=== PATIENT | female | born 1950 | race African-American/Black ===

== ENCOUNTER 2023-07-01 12:25 | Emergency (ER) | payer MEDICARE, MEDICAID, SELFPAY ==
[2023-07-01] VITALS (22 sets, daily range): BP systolic 127–178; BP diastolic 38–91; PULSE 60–86; RESP 10–22; TEMP 36.4; O2SAT 94–100
--- NOTE | 2023-07-01 | ECG_ITS ---
Measurements Intervals [place] Rate: 58 P: 69 HI: 208 QRS: 262 QRSD: 129 T: 61 QT: 397 QTc: 392 Interpretive Statements SINUS BRADYCARDIA RIGHT BUNDLE-BRANCH BLOCK Electronically Signed On 07-02-2023 13:03:03 MANAGER SOCIAL MEDIA by Zaid Argueta M.D.
--- NOTE | ~2023-07-01 | CT_ITS ---
EXAMINATION: CT brain wo con DATE: 07/01/2023 13:42 INDICATION: Weakness TECHNIQUE: Computed tomography (CT) of the head was performed without intravenous contrast. Sagittal and coronal reconstructions were performed. Automated exposure control and iterative reconstruction t echnique were employed. The dose-length product was 681.00 mGy-cm. COMPARISON: None FINDINGS: Encephalomalacia in the left frontotemporoparietal lobes and extending into the left thalamus, basal ganglia and overlying insula consistent with chronic infarct in the left middle cerebral artery vascu lar distribution. No acute intracranial hemorrhage, acute infarction or abnormal extra axial fluid co llection. There is mild scattered white matter hypoattenuation consistent with chronic small vessel i schemic disease. Symmetric prominence of the sulci consistent with mild age-appropriate diffuse cereb ral volume loss. Mild ex vacuo dilation of the left lateral ventricle.. Ventricles are otherwise norm al. No mass/mass effect. Mild mucosal thickening the right ethmoid and sphenoid sinuses. Additional m ucosal thickening and dependent layering fluid/mucus nearly filling the right maxillary sinus. Mucous retention cyst in the left frontal sinus. The orbits and mastoid air cells are normal. IMPRESSION: 1. Chronic large infarct involving the left middle cerebral artery vascular distribution of the left frontal, temporal and parietal lobes, left thalamus, basal ganglia and insula. No acute intracranial process. 2. Age-related changes including mild diffuse volume loss and mild scattered white matter hypoattenua tion consistent with chronic small vessel ischemic disease. 3. Sinus disease with layering fluid in the right maxillary sinus. Reviewed, dictated and finalized at location A. ET BRAIDER IMPRESSION: 1. Chronic large infarct involving the left middle cerebral artery vascular dis tribution of the left frontal, temporal and parietal lobes, left thalamus, basa l ganglia and insula. No acute intracranial process. 2. Age-related changes including mild diffuse volume loss and mild scattered wh ite matter hypoattenuation consistent with chronic small vessel ischemic diseas e. 3. Sinus disease with layering fluid in the right maxillary sinus.
--- NOTE | ~2023-07-01 | XR_ITS ---
XR chest 1V portable 07/01/2023 13:11 Indication: Weakness Procedure: AP portable chest Comparison: No prior studies for comparison. Findings: Status post median sternotomy for CABG. Heart size upper normal. No focal air space disease , pulmonary edema, pleural effusion or suspected pneumothorax. Impression: 1: No acute cardiopulmonary disease. Reviewed, dictated and finalized at location B. TEST WORKER Impression: 1: No acute cardiopulmonary disease.
[2023-07-01 13:05] LABS: Basophils Percent Auto 0.1 % (0.2-1.2); Hematocrit 28.5 % (37.0-47.0); Hemoglobin 8.3 g/dL (12.0-15.0); Immature Granulocyte Absolute 0.14 K/mm3 (0.00-0.031); Lymphocytes Absolute Auto 1.39 K/mm3 (0.9-3.2); Lymphocytes Percent Auto 10.4 % (18.3-44.2); Mean Corpuscular HGB Conc 29.1 g/dl (32-36); Mean Corpuscular Hemoglobin 29.4 pg (26-34); Mean Corpuscular Volume 101.1 fl (80-100); Mean Platelet Volume 9.1 fl (7.4-10.4); Monocytes Absolute Auto 1.1 K/mm3 (0.1-0.6); Neutrophils Absolute Auto 10.8 K/mm3 (1.3-6.7); Neutrophils Percent Auto 80.5 % (45.5-73.1); Nucleated Red Blood Cells Perc 0.1 % (0.0-0.2); Platelet Count Result 332 k/mm3 (150-375); Red Blood Count 2.82 M/mm3 (4.2-5.4); Red Cell Distribution Width 16.6 % (11.5-14.5); White Blood Count 13.4 K/mm3 (4.5-10.0)
[2023-07-01 13:08] LABS: Appearance Urine Turbid (Clear); Bilirubin Urine Negative (Negative); Blood Urine 2+ (Negative); Color Urine Yellow (Yellow); Glucose Urine UA Negative (Negative); Ketones Urine Negative (Negative); Nitrate Urine Negative (Negative); Protein Urine 3+ mg/dL (Negative); Specific Grav Ur 1.012 (1.001-1.035); Urobilinogen Urine 0.2 mg/dL (<2.0); pH Urine 5.5 (5.0-9.0)
[2023-07-01 13:09] LABS: Add Urine Microscopic? YES; Bacteria Urine Rare /hpf; Leukocyte Esterase Ur 3+ LEU/UL (Negative); Need Manual Microscopic Reviewed; Squamous Epithelial Cell Urine Moderate /hpf (Few); WBC Urine >100 /hpf
[2023-07-01 13:20] LABS: Alanine Aminotransferase 12 U/L (6-35); Albumin Level 3.2 g/dL (3.5-5.1); Alkaline Phosphatase 105 U/L (38-126); Anion Gap 8 mmol/L (8-16); Aspartate Amino Transferase 24 U/L (14-36); Bilirubin,Total 0.5 mg/dL (0.2-1.3); Blood Urea Nitrogen 82 mg/dL (7-17); Calcium 8.8 mg/dL (8.4-10.2); Carbon Dioxide 8 mmol/L (22-30); Chloride 116 mmol/L (98-107); Estimated CRCL calculation 10 ml/min; Estimated Glomerular Filt Rate 9; Glucose 92 mg/dL (65-110); Potassium 7.9 mmol/L (3.4-5.0); Sodium 132 mmol/L (137-145)
[2023-07-01 13:32] LABS: Influenza A QL RT-PCR Negative (Negative); Influenza B QL RT-PCR Negative (Negative); SARS-CoV-2 RNA PCR Positive (Negative)
--- NOTE | 2023-07-01 13:32 | PC.NURSE ---
Pt taken for CT at this time
--- NOTE | 2023-07-01 13:47 | PC.NURSE ---
Pt returned to room 19
[2023-07-01] MEDS: LACTATED RINGERS 1,000 ML 999 ML IV CONT (14:09)
--- NOTE | 2023-07-01 14:15 | ED.WEAKNESS ---
HPI - Weakness General Chief complaint: Weakness <Guera Fuchs APRN - Last Filed: 07/01/23 19:23> Stated complaint: abnormal labs <Guera Fuchs APRN - Last Filed: 07/01/23 19:23> Time Seen by Provider: 07/01/23 13:03 <Guera Fuchs APRN - Last Filed: 07/01/23 19:23> Source: patient <Guera Fuchs APRN - Last Filed: 07/01/23 19:23> Mode of arrival: ambulatory <Guera Fuchs APRN - Last Filed: 07/01/23 19:23> Limitations: no limitations <Guera Fuchs APRN - Last Filed: 07/01/23 19:23> History of Present Illness HPI Narrative: 73-year-old female from [facility] presents today for weakness. Her care home patient has positive COVID on June 14 and has declined since with a poor appetite. Per patient she states she has not felt good for about 2 weeks. When asked last time she had water it was more than 24 hours ago. Patient appears dehydrated with dry skin. Is currently asking for water. Noted have a history of diabetes, stroke, mi, right AKA. Denies current sob or chest pain. <Guera Fuchs APRN - Last Filed: 07/01/23 19:23> MD Complaint: generalized weakness <Guera Fuchs APRN - Last Filed: 07/01/23 19:23> Related Data Allergies/Adverse reactions: Allergies Allergy/AdvReac Type Severity Reaction Status Date / Time strawberry Allergy Unknown Verified 07/01/23 13:33 <Guera Fuchs APRN - Last Filed: 07/01/23 19:23> Review of Systems Review of Systems: All systems reviewed & are unremarkable except as noted in HPI and below <Guera Fuchs APRN - Last Filed: 07/01/23 19:23> Cardiovascular: Cardiovascular: Denies chest pain and Denies rapid heart rate <Guera Fuchs APRN - Last Filed: 07/01/23 19:23> Respiratory: Respiratory: Reports no additional respiratory complaints <Guera Fuchs APRN - Last Filed: 07/01/23 19:23> Genitourinary: Genitourinary: Reports no additional female genitourinary complaints <Guera Fuchs APRN - Last Filed: 07/01/23 19:23> [facility] Past Medical History Medical History: Medical History (Updated 07/01/23 @ 19:22 by Guera Fuchs APRN) Acute kidney failure Alzheimer disease Anemia CHF (congestive heart failure) COVID-19 GERD (gastroesophageal reflux disease) Hemiplegia affecting right dominant side PVD (peripheral vascular disease) Type 2 diabetes mellitus <Guera Fuchs APRN - Last Filed: 07/01/23 19:23> Surgical History Surgical History: Surgical History (Updated 07/01/23 @ 14:26 by Guera Fuchs APRN) Hx of AKA (above knee amputation) <Guera Fuchs APRN - Last Filed: 07/01/23 19:23> Exam Const: General: cooperative, comfortable and cachectic <Guera Fuchs ANTHROPOLOGY AND ARCHEOLOGY INSTRUCTOR - Last Filed: 07/01/23 19:23> Nutritional Appearance: cachectic <Guera Fuchs ANTHROPOLOGY AND ARCHEOLOGY INSTRUCTOR - Last Filed: 07/01/23 19:23> Orientation/consciousness: patient oriented x3 <Guera Fuchs ANTHROPOLOGY AND ARCHEOLOGY INSTRUCTOR - Last Filed: 07/01/23 19:23> HENMT: Head: normal to inspection <Guera Fuchs ANTHROPOLOGY AND ARCHEOLOGY INSTRUCTOR - Last Filed: 07/01/23 19:23> Eyes: General: appearance normal, both eyes and all related structures <Guera Fuchs ANTHROPOLOGY AND ARCHEOLOGY INSTRUCTOR - Last Filed: 07/01/23 19:23> Resp: Effort & Inspection: normal respiratory effort and able to speak in complete sentences <Guera Fuchs ANTHROPOLOGY AND ARCHEOLOGY INSTRUCTOR - Last Filed: 07/01/23 19:23> Auscultation: clear to auscultation bilaterally <Guera Fuchs APRN - Last Filed: 07/01/23 19:23> Cardio: Rate: regular rate <Guera Fuchs ANTHROPOLOGY AND ARCHEOLOGY INSTRUCTOR - Last Filed: 07/01/23 19:23> Rhythm: regular rhythm <Guera Fuchs APRN - Last Filed: 07/01/23 19:23> Heart sounds: S1 normal heart sound present and S2 normal heart sound present <Guera Fuchs APRN - Last Filed: 07/01/23 19:23> Skin: General skin exam: turgor decreased <Guera Fuchs APRN - Last Filed: 07/01/23 19:23> Other: Skin dry, and tents <Guera Fuchs APRN - Last Filed: 07/01/23 19:23> Neuro: General: patient oriented x3 <Guera Fuchs APRN -
[2023-07-01] MEDS: LACTATED RINGERS 1,000 ML 999 ML (14:37)
[2023-07-01 16:37] LABS: Anion Gap 11 mmol/L (8-16); Blood Urea Nitrogen 78 mg/dL (7-17); Calcium 9.1 mg/dL (8.4-10.2); Carbon Dioxide 8 mmol/L (22-30); Chloride 114 mmol/L (98-107); Estimated CRCL calculation 11 ml/min; Estimated Glomerular Filt Rate 13; Glucose 87 mg/dL (65-110); Potassium 7.7 mmol/L (3.4-5.0); Sodium 133 mmol/L (137-145)
[2023-07-01] MEDS: SODIUM ZIRCONIUM CYCLOSILICATE 10 GM POWD.PACK PO (17:21)
[2023-07-01] MEDS: DEXTROSE 50% 25 GM/50 ML SYRINGE IV PUSH ×3 (17:22→22:43)
[2023-07-01] MEDS: SODIUM BICARBONATE 8.4% 50 MEQ/50 ML SYRINGE IV PUSH ×2 (17:22→20:31)
[2023-07-01] MEDS: INSULIN HUMAN REGULAR (*BKC) 100 UNITS/ML 10 UNITS IV PUSH ×2 (17:22→20:30)
[2023-07-01] MEDS: CALCIUM GLUCONATE 1,000 MG/10 ML VIAL 1000 MG IV PUSH (17:22)
[2023-07-01 17:29] LABS: Glucose Point of Care 82 mg/dl (65-105)
[2023-07-01 18:38] LABS: Glucose Point of Care 119 mg/dl (65-105)
--- NOTE | 2023-07-01 19:30 | PC.NURSE ---
Spoke to Radha ambrosio [facility] with report questions, awaiting bed.
--- NOTE | 2023-07-01 19:59 | PC.NURSE ---
This RN too pt report from DONALD Leon. This RN assumed care of patient.
[2023-07-01] MEDS: LACTATED RINGERS 1,000 ML 150 ML IV CONT (20:29)
[2023-07-01 20:41] LABS: Glucose Point of Care 74 mg/dl (65-105)
[2023-07-01 22:13] LABS: Blood Urea Nitrogen 46 mg/dL (7-17); Calcium 7.5 mg/dL (8.4-10.2); Carbon Dioxide < 5 mmol/L (22-30); Chloride 111 mmol/L (98-107); Estimated CRCL calculation 20 ml/min; Estimated Glomerular Filt Rate 25; Glucose 58 mg/dL (65-110); Potassium 5.5 mmol/L (3.4-5.0); Sodium 128 mmol/L (137-145)
[2023-07-01 22:21] LABS: Glucose Point of Care 86 mg/dl (65-105)
[2023-07-01 22:28] LABS: Glucose Point of Care 86 mg/dl (65-105)
--- NOTE | 2023-07-01 22:40 | PC.NURSE ---
Per EDP Dr. Otoole, pt is to stop lactated ringers at 150 mls/ hour and go to dextrose continuous infusion. This RN verbally read back the bedside glucose reading to EDp Dr. Otoole who verbally confirmed pt to still recieve dextrose iv push and infusion.
[2023-07-01] MEDS: DEXTROSE 10% 1,000 ML 150 ML IV CONT (22:42)
[2023-07-04 15:31] LABS: Glucose Point of Care 93 mg/dl (65-105)
[2023-07-04 15:31] LABS: Glucose Point of Care 149 mg/dl (65-105)
== END 2023-07-01 23:45 | disposition short-term general hospital (02) ==
PROVIDERS: Emergency Medicine; Student in an Organized Health Care Education/Training Program; Emergency Provider Nurse Practitioner Family; PCP Internal Medicine
DX: N17.9 Acute kidney failure, unspecified (principal); E87.5 Hyperkalemia; U07.1 COVID-19; G30.9 Alzheimer's disease, unspecified; F02.80 Dementia in other diseases classified elsewhere, unspecified severity, without behavioral disturbance, psychotic disturbance, mood disturbance, and anxiety; E11.51 Type 2 diabetes mellitus with diabetic peripheral angiopathy without gangrene; I73.9 Peripheral vascular disease, unspecified; I50.9 Heart failure, unspecified; I25.2 Old myocardial infarction; D64.9 Anemia, unspecified; K21.9 Gastro-esophageal reflux disease without esophagitis; Z86.16 Personal history of COVID-19; Z86.73 Personal history of transient ischemic attack (TIA), and cerebral infarction without residual deficits; Z89.611 Acquired absence of right leg above knee; I45.10 Unspecified right bundle-branch block; R00.1 Bradycardia, unspecified
CPT/HCPCS: 36415; 70450; 71045; 80048; 80053; 81001; 82948; 85025; 87086; 87088; 87636; 93005; 96361; 96365; 96375; 96376; 99285; A9270; J0612; J0696; J1815; J7120

== ENCOUNTER 2023-08-15 22:58 | Inpatient (IN) | payer MEDICARE, MEDICAID, SELFPAY ==
--- NOTE | ~2023-08-15 | CT_ITS ---
EXAMINATION:CT diagnostic chest wo con DATE: 08/16/2023 16:26 INDICATION: Pulmonary nodules. TECHNIQUE: Computed tomography (CT) of the chest was performed without intravenous contrast. Automate d exposure control and iterative reconstruction technique were employed. The dose-length product (DLP ) was 202.17 mGy-cm. COMPARISON: Chest single view 08/16/2023 FINDINGS: There is mild atelectasis in right lung. There is a 1.4 cm nodule in left lung upper lobe. No pleural effusion. There are nodules in the thyroid measuring up to 2.2 cm. There is left atrial en largement of the heart. There are coronary artery calcifications. There are changes of coronary bypas s grafting. No pericardial effusion. There is mediastinal lymphadenopathy. For example, a right parat mireille node measures 2.6 x 1.6 cm. There is a small sliding hiatal hernia. There is moderate thoraci c and cervical spondylosis. There is a chronic compression fracture of L1. IMPRESSION: 1. 1.4 cm nodule in left lung upper lobe suspicious for primary bronchogenic carcinoma. CT-guided bio psy is recommended. 2. Mediastinal lymphadenopathy suspicious for metastatic disease. Consider PET/CT. 3. Multinodular goiter. Thyroid ultrasound is recommended for risk stratification. Reviewed, dictated and finalized at location E. ERNMAKER PLASTICS IMPRESSION: 1. 1.4 cm nodule in left lung upper lobe suspicious for primary bronchogenic ca rcinoma. CT-guided biopsy is recommended. 2. Mediastinal lymphadenopathy suspicious for metastatic disease. Consider PET/ CT. 3. Multinodular goiter. Thyroid ultrasound is recommended for risk stratificati on.
--- NOTE | ~2023-08-15 | US_ITS ---
EXAMINATION: US renal BI DATE: 08/16/2023 16:10 INDICATION: Acute renal insufficiency TECHNIQUE: Multiple ultrasound grayscale images of the kidneys were obtained. COMPARISON: None. FINDINGS: The right kidney measures 9.6 x 6.1 x 4.4 cm. The left kidney measures 9.6 x 5.6 x 5.4 cm. Bilateral mild increased renal cortical echogenicity consistent with medical renal disease. 1.1 cm anechoic cys t at the mid right kidney. There is relatively symmetric mild bilateral hydroureteronephrosis which s uggests sequela of chronic outlet obstruction. There is no hydronephrosis in either kidney. No stone s identified. The bladder is normal bilateral ureteral jets visible on color Doppler. IMPRESSION: 1. Mild bilateral hydroureteronephrosis which suggests sequela chronic outlet obstruction. 2. Bilateral mild increased renal echogenicity consistent with medical renal disease. Reviewed, dictated and finalized at location A. EY QUESTIONNAIRE DESIGNER IMPRESSION: 1. Mild bilateral hydroureteronephrosis which suggests sequela chronic outlet obstruction. 2. Bilateral mild increased renal echogenicity consistent with medical renal di sease.
--- NOTE | ~2023-08-15 | XR_ITS ---
Portable chest x-ray Comparison: 07/01/2023 Clinical History: Weakness Findings: There is a 1.5 cm left perihilar nodular opacity. Right lung clear. Cardiomediastinal aditi houette is stable. Bones and soft tissues are unremarkable. Impression: 1.5 cm left perihilar nodular opacity. Chest CT recommended to confirm or exclude pulmonary nodule. Reviewed, dictated and finalized at [facility]. T AV OPERATOR Impression: 1.5 cm left perihilar nodular opacity. Chest CT recommended to confirm or exclu de pulmonary nodule.
--- NOTE | ~2023-08-15 | CT_ITS ---
EXAMINATION: CT pelvis wo con DATE: 08/19/2023 18:03 INDICATION: Gluteal abscess. TECHNIQUE: Computed tomography (CT) of the pelvis was performed without intravenous contrast. Automat ed exposure control and iterative reconstruction technique were employed. The dose-length product was 265.04 mGy-cm. COMPARISON: None FINDINGS: There are no dilated loops of bowel. There is diverticulosis of the colon without evidence of diverticulitis. There is calcified atherosclerosis of the aorta and many of the other arteries. Th ere is diffuse bladder wall thickening with surrounding fat stranding. There is soft tissue swelling posterior to the ischial tuberosities and sacrum and coccyx. There is moderate lumbar spondylosis. IMPRESSION: 1. No abscess or osteomyelitis. 2. Cystitis. Reviewed, dictated and finalized at location E. ICE CONSULTANT
[2023-08-15 22:57] VITALS: BP 150/52; PULSE 74; RESP 15; TEMP 36.6; O2SAT 97
--- NOTE | 2023-08-15 23:15 | PC.NURSE ---
Report from DONALD Gleason
[2023-08-16] VITALS (46 sets, daily range): BP systolic 124–177; BP diastolic 38–68; PULSE 65–90; RESP 10–22; TEMP 36.6–37.1; O2SAT 97–100; BMI 16.7
--- NOTE | 2023-08-16 00:03 | ECG_ITS ---
Measurements Intervals [place] Rate: 69 P: 23 HI: 201 QRS: 252 QRSD: 139 T: 75 QT: 404 QTc: 435 Interpretive Statements SINUS RHYTHM RIGHT AXIS DEVIATION BORDERLINE AV CONDUCTION DELAY RIGHT BUNDLE BRANCH BLOCK INFERIOR INFARCT, AGE INDETERMINATE ABNORMAL ECG COMPARED TO ECG 07/01/2023 12:49:37 SINUS RHYTHM NOW PRESENT Electronically Signed On 08-16-2023 6:46:10 COOK PRESSURE by Eriberto Flores D.O.
[2023-08-16 02:39] LABS: Basophils Percent Auto 0.1 % (0.2-1.2); Eosinophils Percent Auto 0.1 % (0-4.4); Immature Granulocyte Percent A 0.9 % (0-0.5); Lymphocytes Absolute Auto 1.93 K/mm3 (0.9-3.2); Lymphocytes Percent Auto 18.3 % (18.3-44.2); Mean Corpuscular HGB Conc 29.4 g/dl (32-36); Mean Corpuscular Hemoglobin 29.7 pg (26-34); Mean Corpuscular Volume 100.9 fl (80-100); Mean Platelet Volume 10.1 fl (7.4-10.4); Monocytes Absolute Auto 1.3 K/mm3 (0.1-0.6); Monocytes Percent Auto 12.1 % (2.6-8.5); Neutrophils Absolute Auto 7.2 K/mm3 (1.3-6.7); Neutrophils Percent Auto 68.5 % (45.5-73.1); Platelet Count Result 297 k/mm3 (150-375); Red Blood Count 3.37 M/mm3 (4.2-5.4); Red Cell Distribution Width 15.6 % (11.5-14.5); White Blood Count 10.5 K/mm3 (4.5-10.0)
[2023-08-16 03:03] LABS: Platelet Estimate Adequate (Adequate)
[2023-08-16 03:04] LABS: Acanthocytes 1+ (NORMAL); Anisocytosis 1+ (NORMAL); Ovalocytes 1+ (NORMAL); Schistocytes Rare (NORMAL)
[2023-08-16 03:43] LABS: Alanine Aminotransferase 26 U/L (6-35); Albumin Level 3.3 g/dL (3.5-5.1); Alkaline Phosphatase 148 U/L (38-126); Anion Gap 7 mmol/L (8-16); Aspartate Amino Transferase 39 U/L (14-36); Bilirubin,Total 0.5 mg/dL (0.2-1.3); Blood Urea Nitrogen 55 mg/dL (7-17); Calcium 8.7 mg/dL (8.4-10.2); Carbon Dioxide 16 mmol/L (22-30); Chloride 107 mmol/L (98-107); Estimated CRCL calculation 16 ml/min; Estimated Glomerular Filt Rate 24; Glucose 126 mg/dL (65-110); Potassium 7.6 mmol/L (3.4-5.0); Sodium 130 mmol/L (137-145)
[2023-08-16] MEDS: CALCIUM GLUCONATE 1,000 MG/10 ML VIAL 1000 MG IV PUSH (04:06)
[2023-08-16] MEDS: SODIUM BICARBONATE 8.4% 50 MEQ/50 ML SYRINGE IV PUSH ×2 (04:07→04:54)
[2023-08-16] MEDS: SODIUM POLYSTYRENE SULFONONATE 15 GM/60 ML BTL 30 GM PO (04:07)
[2023-08-16] MEDS: DEXTROSE 50% 25 GM/50 ML SYRINGE IV PUSH (04:07)
[2023-08-16] MEDS: INSULIN HUMAN REGULAR (*BKC) 100 UNITS/ML 10 UNITS IV PUSH (04:08)
--- NOTE | 2023-08-16 04:16 | ED.GENADULT ---
HPI - General Adult General Chief complaint: Recheck/Abnormal Lab/Rx Stated complaint: HIGH POTASSIUM Time Seen by Provider: 08/15/23 23:17 History of Present Illness HPI narrative: Patient 73-year-old female who presents emergency department with chief complaint of abnormal labs. Patient is a resident of a local nursing facility has prior history of hyperkalemia dementia TIAs and diabetes the patient had laboratory studies checked that showed that she had a elevated potassium in the sevens the patient currently has no complaints Related Data Home Medications Medication Instructions Recorded Confirmed amlodipine 10 mg tablet mg 08/16/23 apixaban 2.5 mg tablet (Eliquis) mg 08/16/23 atorvastatin 80 mg tablet mg 08/16/23 clonidine HCl 0.2 mg tablet mg 08/16/23 metoprolol tartrate 50 mg tablet mg 08/16/23 sulfamethoxazole 800 tablet 08/16/23 mg-trimethoprim 160 mg tablet Allergies Allergy/AdvReac Type Severity Reaction Status Date / Time strawberry Allergy Unknown Verified 07/01/23 13:33 Review of Systems Review of Systems: A 10 system review of systems was completed on the patient and is negative except for what is stated in the HPI. Nursing and ancillary documentation was reviewed. [facility] Past Medical History Medical History Acute kidney failure Alzheimer disease Anemia CHF (congestive heart failure) COVID-19 GERD (gastroesophageal reflux disease) Hemiplegia affecting right dominant side PVD (peripheral vascular disease) Type 2 diabetes mellitus Surgical History Surgical History Hx of AKA (above knee amputation) Exam Narrative: GENERAL: Well-appearing, well-nourished, and in no acute distress. HEAD: Normocephalic, atraumatic. EYES: PERRLA and EOMI. ENT: Nares clear, no rhinorrhea or epistaxis. Mucous membranes moist. NECK: Supple. CHEST: Clear to auscultation. No respiratory distress. HEART: Regular rate and rhythm. No murmur heard. Normal peripheral pulses. ABDOMEN: Soft, nontender, nondistended, normal active bowel sounds. EXTREMITIES: Normal range of motion. No edema. SKIN: Warm, dry, no rash. NEURO: No focal deficits. Alert and oriented x2. PSYCH: Normal mood and affect. Course Vital Signs Vital signs: Vital Signs Temperature 36.6 C 08/15/23 22:57 Pulse Rate 74 08/15/23 22:57 Respiratory Rate 15 08/15/23 22:57 Blood Pressure 150/52 H 08/15/23 22:57 Pulse Oximetry 97 08/15/23 22:57 Oxygen Delivery Room Air 08/15/23 22:57 Temperature 36.6 C 08/15/23 22:57 Pulse Rate 78 08/16/23 04:17 Respiratory Rate 20 08/16/23 04:17 Blood Pressure 177/38 H 08/16/23 04:17 Pulse Oximetry 100 08/16/23 04:17 Oxygen Delivery Room Air 08/15/23 22:57 Medical Decision Making MDM Narrative Medical decision making narrative: Differential diagnosis includes acute renal failure, hyperkalemia, Laboratory studies were obtained on the patient which showed a creatinine of 2.4 BUN of 55 potassium of 7.6 sodium was 130 The patient was a difficult IV access after IVs were obtained and labs were obtained the patient was confirmed to have hyperkalemia hyperkalemic treatment was started EKG showed no evidence of widened QRS Vital Signs Vital Signs: Vital Signs Temperature 36.6 C 08/15/23 22:57 Pulse Rate 74 08/15/23 22:57 Respiratory Rate 15 08/15/23 22:57 Blood Pressure 150/52 H 08/15/23 22:57 Pulse Oximetry 97 08/15/23 22:57 Oxygen Delivery Room Air 08/15/23 22:57 Temperature 36.6 C 08/15/23 22:57 Pulse Rate 78 08/16/23 04:17 Respiratory Rate 20 08/16/23 04:17 Blood Pressure 177/38 H 08/16/23 04:17 Pulse Oximetry 100 08/16/23 04:17 Oxygen Delivery Room Air 08/15/23 22:57 Lab Data 08/16/23 02:34 08/16/23 03:25 Labs: Lab Results 08/16
[2023-08-16 04:49] LABS: Glucose Point of Care 216 mg/dl (65-105)
[2023-08-16] MEDS: SODIUM CHLORIDE 0.9% IV 1,000 ML 999 ML IV CONT (04:54)
--- NOTE | 2023-08-16 07:20 | PC.NURSE ---
Report to DONALD Ramires
[2023-08-16] MEDS: SODIUM CHLORIDE 0.9% IV 1,000 ML 125 ML IV CONT (07:55)
--- NOTE | 2023-08-16 09:32 | PM.CNNEP ---
Assessment and Plan Assessment and plan (1) Hyperkalemia: Code(s): E87.5 - Hyperkalemia Status: Acute Assessment and Plan: improving with medical therapy precipitated by #2 and possible bactrim use (listed on home medications in ER note) follow trend of repeat K+ levels (2) Acute kidney injury: Code(s): N17.9 - Acute kidney failure, unspecified Status: Acute Assessment and Plan: possibly due to volume depletion in conjunction with UTI IVF hydration on antibiotics follow repeat labs and UOP (3) Stage 3b chronic kidney disease: Code(s): N18.32 - Chronic kidney disease, stage 3b Status: Chronic Assessment and Plan: since May 2023 (from review of records from [facility] and [facility]), creatinine has been running around 1.5 - 1.8mg/dl; last labs on 07/08/23 with a creatinine of 1.63mg/dl presumably secondary to HTN, DM, vascular disease (CAD, PVD, hyperlipidemia, CVA), CHF, and age-related change however, in early 2022, her creatinine was normal. (4) Urinary tract infection: Code(s): N39.0 - Urinary tract infection, site not specified Status: Acute Assessment and Plan: urinalysis highly suggestive follow culture data on antibiotics (5) Hypertension: Code(s): I10 - Essential (primary) hypertension Status: Chronic Assessment and Plan: continue home medications follow trend of hemodynamics (6) Anemia: Code(s): D64.9 - Anemia, unspecified Status: Chronic Assessment and Plan: presumably related to CKD was on Aranesp at her nursing facility follow trend of H/H I will continue follow the patient with you while she remains hospitalized to make further recommendations as needed. Thank you for allowing me to participate in care this patient. History of Present Illness Reason for Consult Consult date: 08/16/23 Reason for consult: acute renal failure (on chronic kidney disease) and hyperkalemia Chief Complaint Chief complaint: acute kidney injury,hyperkalemia History of Present Illness Narrative: The patient is a 73-year-old female with a past medical history as outlined below who was transferred to [facility] Emergency room from her nursing facility for further evaluation of abnormal labs. The patient had routine outpatient labs done by her nursing facility which demonstrated acute kidney injury/acute renal failure in association with significant hyperkalemia. As far as I am aware, the patient was otherwise asymptomatic and had no specific complaints prior to her transfer to the emergency room. Workup and evaluation in the emergency room demonstrated the patient to be hemodynamically stable and no acute distress. Repeat labs were done which confirmed her hyperkalemia as well as her acute kidney injury/ acute renal failure. She clinically appeared to be somewhat volume depleted and so she was treated with aggressive IV fluid resuscitation as well as medical management for her hyperkalemia. She was subsequently also noted to have what appeared to be a urinary tract infection by her urinalysis. After appropriate cultures were obtained, she was started on antibiotic therapy and continue on IV fluid resuscitation with subsequent admission to the hospital for further evaluation and therapy. Since her admission, her renal function has not really significantly improved but her tests seem level is better but still in the abnormal range. Repeat medical management was done again this morning in effort to further optimize her potassium level. Renal consultation was requested due to her acute kidney injury/acute renal failure on top of her baseline kidney disease. From review of her records, the patient has had issues and problems with hyperkalemia and acute kidney injury/ acute renal failure in the past. She was seen at [facility] emergency room about a month ago for
--- NOTE | 2023-08-16 10:10 | ADMGEN ---
This patient, Justine Ruiz, was admitted to IMU Room 206-01. Patient/family oriented to hospital policies and general routines including ID bracelet, bed and alarms, visiting hours, pain management, procedures, bathroom and other care routines, personal items, smoking policy, room service/diet, and visiting hours. Information on how to activate the Rapid Response Team has been discussed. Patient/Family are encouraged to report perceived risks to care and to ask questions if they do not understand what they are told or what they should do.
[2023-08-16] MEDS: SODIUM ZIRCONIUM CYCLOSILICATE 10 GM POWD.PACK PO ×2 (12:44→20:26)
--- NOTE | 2023-08-16 13:02 | PM.IMHP ---
H&P: HPI History of Present Illness Date/Time: 08/16/23 13:02 Chief Complaint: Abnormal lab, Hyperkalemia Narrative: Patient 73-year-old female who presents emergency department with chief complaint of abnormal labs.? A resident of [facility] [place], her medical history is significant for L/AKA, hyperkalemia dementia TIAs and diabetes During a routine metabolic profile check at the facility, she was found to be hyperkalemic; she was transferred to the ED for expert evaluation. The patient denies any unusual fatigue, malaise, nausea, vomiting, fevers, chills or diarrheal bouts. Work-up findings: ECG: bradycardia(58), with rBBB CXR: 1.5 cm left perihilar nodular opacity. Chest CT recommended to confirm or exclude pulmonary nodule. WBC 10; Hb 10; Plt 297 Na 130; K 7.6; HCO3 16; BUN 55; Cr 2.4; GFR 24; AST 39; ALP 148; ALT 26 Urinalysis: cloudy; >100 WBC; 3+ LE She will be admitted, evaluated and managed for hyperkalemia Review of Systems Constitutional: Constitutional: Reports fatigue and Reports lethargy Eyes: Eyes: Reports no additional eye complaints ENT: Denies dysphagia, Denies epistaxis and Denies nasal congestion Cardiovascular: Cardiovascular: Denies chest pain, Denies pedal edema and Denies leg edema Respiratory: Respiratory: Denies dyspnea and Denies dyspnea on exertion Gastrointestinal: Gastrointestinal: Denies abdominal pain, Denies hematochezia, Denies constipation and Denies diarrhea Genitourinary: Genitourinary: Denies urinary frequency Musculoskeletal: Musculoskeletal: Reports no additional musculoskeletal complaints Comments: L/AKA Integumentary/Breasts: Skin/Breast: Reports dry skin Neurologic: Reports abnormal gait and Denies confusion Psychiatric: Psychiatric: Reports no additional psychiatric complaints PMF Past Medical History Medical History Acute kidney failure Alzheimer disease Anemia CHF (congestive heart failure) COVID-19 GERD (gastroesophageal reflux disease) Hemiplegia affecting right dominant side PVD (peripheral vascular disease) Type 2 diabetes mellitus Surgical History Surgical History Hx of AKA (above knee amputation) Social History Social History Smoking status: Current every day smoker Alcohol intake: never Substance use: never Substance use type: does not use Do You Feel Safe in your Home?: Yes Lack of Transportation: No Lack of Food: Never True Current Housing: I Have Housing Concerned About Future Housing: No Difficulty Paying Gas/Electric Bills: No Difficulty Paying for Meds: No Currently Unemployed: No Education: Grade School Difficulty w/ Childcare or Family Care: No Spiritual care concerns: No Meds Home Medications and Allergies Home Medications Medication Instructions Recorded Confirmed Type Saccharomyces boulardii 250 mg 250 mg PO BID 08/16/23 08/16/23 History capsule (Florastor) acetaminophen 325 mg tablet 650 mg PO Q4H PRN Pain 08/16/23 08/16/23 History amlodipine 10 mg tablet 10 mg PO DAILY 08/16/23 08/16/23 History apixaban 2.5 mg tablet (Eliquis) 2.5 mg BID 08/16/23 08/16/23 History arginine-vitamin C-vitamin E oral 4.5 g PO DAILY 08/16/23 08/16/23 History 4.5 gram-156 mg/9.2 gram powder pkt (Arginaid) ascorbic acid (vitamin C) 500 mg 500 mg PO BID 08/16/23 08/16/23 History capsule atorvastatin 80 mg tablet 80 mg PO DAILY 08/16/23 08/16/23 History bisacodyl 10 mg rectal suppository 10 mg RECTAL DAILY PRN Constipation 08/16/23 08/16/23 History clonidine HCl 0.2 mg tablet 0.2 mg PO DAILY 08/16/23 08/16/23 History darbepoetin david in polysorbat 40 40 mcg subcut MONTHLY 08/16/23 08/16/23 History mcg/mL in polysorbate injection (Aranesp) ferrous sulfate 325 mg (65 mg 325 mg PO DAILY 08/16/23
[2023-08-16 13:04] LABS: Glucose Point of Care 90 mg/dl (65-105)
[2023-08-16] MEDS: guaiFENesin 12 HR 600 MG TABCR PO ×2 (13:37→20:28)
[2023-08-16] MEDS: hydrALAZINE HCL 50 MG TABLET 100 MG PO ×2 (13:37→16:47)
[2023-08-16] MEDS: amLODIPine BESYLATE 5 MG TABLET 10 MG PO (13:38)
[2023-08-16] MEDS: APIXABAN 2.5 MG TABLET BY MOUTH ×2 (13:38→16:47)
[2023-08-16] MEDS: cloNIDine HCL 0.2 MG TABLET PO (13:38)
[2023-08-16 13:50] LABS: Appearance Urine Cloudy (Clear); Bacteria Urine Rare /hpf; Bilirubin Urine Negative (Negative); Color Urine Yellow (Yellow); Glucose Urine UA Negative (Negative); Ketones Urine Trace mg/dL (Negative); Leukocyte Esterase Ur 3+ LEU/UL (Negative); Need Manual Microscopic Reviewed; Nitrate Urine Negative (Negative); Non Pathogenic Casts 0-2; Protein Urine 3+ mg/dL (Negative); Specific Grav Ur 1.013 (1.001-1.035); Squamous Epithelial Cell Urine None seen /hpf (Few); WBC Urine >100 /hpf; pH Urine 7.5 (5.0-9.0)
[2023-08-16 13:53] LABS: Add Urine Microscopic? YES
[2023-08-16 14:03] LABS: Creatinine Urine 38.8 mg/dL; Urea Random Urine 422 MG/DL
[2023-08-16 14:05] LABS: Sodium Urine Random 108 meq/L
[2023-08-16 14:18] LABS: Total Protein Urine Random 291 mg/dL
[2023-08-16 15:00] LABS: Eosinophil Urine None Seen % (None Seen); Urine Eos QC 2nd Tech Confirmed
[2023-08-16 16:20] LABS: Glucose Point of Care 137 mg/dl (65-105)
[2023-08-16] MEDS: METOPROLOL TARTRATE 50 MG TAB PO (16:47)
[2023-08-16] MEDS: ASCORBIC ACID 500 MG TABLET PO (16:47)
[2023-08-16 17:26] LABS: Hemoglobin A1C 6.1 % (<5.7)
[2023-08-16 18:39] LABS: Magnesium 1.8 mg/dL (1.6-2.3)
[2023-08-16 18:43] LABS: Anion Gap 4 mmol/L (8-16); Blood Urea Nitrogen 51 mg/dL (7-17); Calcium 8.2 mg/dL (8.4-10.2); Carbon Dioxide 21 mmol/L (22-30); Chloride 109 mmol/L (98-107); Estimated CRCL calculation 16 ml/min; Estimated Glomerular Filt Rate 27; Glucose 147 mg/dL (65-110); Sodium 134 mmol/L (137-145)
--- NOTE | 2023-08-16 19:18 | PC.NURSE ---
IV infiltrated half way through rocephin. IV attempted seven times by three nurses, one with ultrasound. Pt refused furthur sticks. Dr. Waggoner notified. Order received to keep IV out overnight. Message left for vascular access nurse to start IV in morning. Dr. Lee had ordered IV insulin, dextrose and calcium gluconate. Called and notified that there was no access to administer. order received to [facility] at this time.
[2023-08-16] MEDS: LACTULOSE 20 GM/30 ML UDC PO (20:27)
[2023-08-17] VITALS (15 sets, daily range): BP systolic 121–147; BP diastolic 37–47; PULSE 57–103; RESP 16–18; TEMP 36–37; O2SAT 99–100; BMI 17.7
[2023-08-17 05:16] LABS: Basophils Percent Auto 0.1 % (0.2-1.2); Eosinophils Percent Auto 0.2 % (0-4.4); Hematocrit 26.7 % (37.0-47.0); Hemoglobin 7.7 g/dL (12.0-15.0); Immature Granulocyte Absolute 0.13 K/mm3 (0.00-0.031); Immature Granulocyte Percent A 1.2 % (0-0.5); Immature Platelet Fraction Pct 2.8 % (0.9-11.2); Lymphocytes Absolute Auto 2.12 K/mm3 (0.9-3.2); Lymphocytes Percent Auto 19.8 % (18.3-44.2); Mean Corpuscular HGB Conc 28.8 g/dl (32-36); Mean Corpuscular Hemoglobin 29.8 pg (26-34); Mean Corpuscular Volume 103.5 fl (80-100); Mean Platelet Volume 9.8 fl (7.4-10.4); Monocytes Absolute Auto 1.7 K/mm3 (0.1-0.6); Monocytes Percent Auto 16.3 % (2.6-8.5); Neutrophils Absolute Auto 6.7 K/mm3 (1.3-6.7); Neutrophils Percent Auto 62.4 % (45.5-73.1); Red Blood Count 2.58 M/mm3 (4.2-5.4); Red Cell Distribution Width 15.8 % (11.5-14.5); White Blood Count 10.7 K/mm3 (4.5-10.0)
[2023-08-17 05:26] LABS: Anion Gap 7 mmol/L (8-16); Blood Urea Nitrogen 50 mg/dL (7-17); Calcium 8.3 mg/dL (8.4-10.2); Carbon Dioxide 18 mmol/L (22-30); Chloride 111 mmol/L (98-107); Estimated CRCL calculation 16 ml/min; Estimated Glomerular Filt Rate 24; Glucose 124 mg/dL (65-110); Potassium 5.5 mmol/L (3.4-5.0); Sodium 136 mmol/L (137-145)
[2023-08-17] MEDS: SODIUM CHLORIDE 0.9% IV 1,000 ML 125 ML IV CONT (09:17)
[2023-08-17] MEDS: cloNIDine HCL 0.2 MG TABLET PO (09:20)
[2023-08-17] MEDS: ATORVASTATIN 40 MG TABLET 80 MG PO (09:21)
[2023-08-17] MEDS: FERROUS SULFATE 325 MG TABLET DR BY MOUTH (09:21)
[2023-08-17] MEDS: MULTIVITAMINS /C LUTEIN (CENTRUM SILVER) TABLET *BKC 1 TAB PO (09:21)
[2023-08-17] MEDS: METOPROLOL TARTRATE 50 MG TAB PO ×2 (09:21→17:42)
[2023-08-17] MEDS: amLODIPine BESYLATE 5 MG TABLET 10 MG PO (09:21)
[2023-08-17] MEDS: ASCORBIC ACID 500 MG TABLET PO ×2 (09:21→17:42)
[2023-08-17] MEDS: guaiFENesin 12 HR 600 MG TABCR PO ×2 (09:22→20:11)
[2023-08-17] MEDS: hydrALAZINE HCL 50 MG TABLET 100 MG PO ×3 (09:22→17:42)
[2023-08-17] MEDS: APIXABAN 2.5 MG TABLET BY MOUTH ×2 (09:22→17:42)
[2023-08-17] MEDS: FOLIC ACID 1 MG TABLET PO (09:22)
--- NOTE | 2023-08-17 10:38 | PC.NURSE ---
This nurse verified with Dr. Lee that it was okay to insert a midline.
[2023-08-17] MEDS: LIDOCAINE HCL 1% LOCAL INJ 2 ML AMPUL 5 ML INFILTRATE (11:00)
[2023-08-17] MEDS: SALINE LOCK FLUSH 10 ML IV PUSH ×2 (12:08→20:11)
[2023-08-17 13:23] LABS: Anion Gap 5 mmol/L (8-16); Blood Urea Nitrogen 42 mg/dL (7-17); Carbon Dioxide 15 mmol/L (22-30); Chloride 113 mmol/L (98-107); Estimated CRCL calculation 18 ml/min; Estimated Glomerular Filt Rate 28; Glucose 181 mg/dL (65-110); Potassium 4.8 mmol/L (3.4-5.0); Sodium 133 mmol/L (137-145)
--- NOTE | 2023-08-17 14:26 | PM.IMPN ---
Progress Note: A&P Assessment and Plan (1) Hyperkalemia: Code(s): E87.5 - Hyperkalemia Status: Acute Assessment and Plan: Improving; Nephrology on board (2) Stage 3b chronic kidney disease: Code(s): N18.32 - Chronic kidney disease, stage 3b Status: Chronic Assessment and Plan: Avoid nephrotoxins (3) Type 2 diabetes mellitus: Code(s): E11.9 - Type 2 diabetes mellitus without complications Status: Acute (4) Hemiplegia affecting right dominant side: Code(s): G81.91 - Hemiplegia, unspecified affecting right dominant side Status: Acute Assessment and Plan: Falls; Safety precautions (5) GERD (gastroesophageal reflux disease): Code(s): K21.9 - Gastro-esophageal reflux disease without esophagitis Status: Acute (6) Alzheimer disease: Code(s): G30.9 - Alzheimer's disease, unspecified; F02.80 - Dementia in other diseases classified elsewhere, unspecified severity, without behavioral disturbance, psychotic disturbance, mood disturbance, and anxiety Status: Acute Plan Acute and principal conditions 1. Hyperkalemia. Maybe 2/2 worsening renal function. Nephrology consulted; BMP monitoring; s/p Insulin, Kayexalate, Calcium gluconate. 2. UTI. Will add Ceftriaxone. await urine cultures. 3. Anorexia; adding dronabinol 4. Macrocytic anemia. Hb goal >7. check ferritin, TSH, B12, Iron Chronic and stable conditions 1. r/AKA, s/p vascular disease. 2. Wheelchair bound, sedentary status 3. Hypertension. Resume Amlodipine, Clonidine 4. Dyslipidemia. Resume Statin 5. Hx of A-fib. on Metoprolol, Eliquis 6. CKD 3. Avoid nephrotoxins 7. Nicotine dependence. VTE prophylaxis. on Eliquis Diet. Regular Time Spent With Patient Time with patient: 25 - 35 minutes Subjective Date/time seen: 08/17/23 14:26 Interval history: seen and examined; poor PO iintake Tired-looking Review of Systems Constitutional: Constitutional: Reports fatigue and Reports lethargy Eyes: Eyes: Reports no additional eye complaints ENT: Denies dysphagia, Denies epistaxis and Denies nasal congestion Cardiovascular: Cardiovascular: Denies chest pain, Denies pedal edema, Denies leg edema, Denies dyspnea and Denies dyspnea on exertion Respiratory: Respiratory: Denies dyspnea and Denies dyspnea on exertion Gastrointestinal: Gastrointestinal: Denies abdominal pain, Denies hematochezia, Denies constipation, Denies dysphagia and Denies diarrhea Genitourinary: Genitourinary: Denies urinary frequency Musculoskeletal: Musculoskeletal: Reports no additional musculoskeletal complaints and Reports abnormal gait Integumentary/Breasts: Skin/Breast: Reports dry skin Neurologic: Reports abnormal gait and Denies confusion Psychiatric: Psychiatric: Reports no additional psychiatric complaints and Denies confusion Endocrine: Endocrine: Reports fatigue Exam Const: General: No confusion Orientation/consciousness: No confusion HENMT: Face/Nose/Sinus: Normal nares present Eyes: Pupils: Equal, round and reactive pupils present Neck: Neck: supple Resp: Effort & Inspection: normal respiratory effort Cardio: Rhythm: regular rhythm Skin: General skin exam: normal color Neuro: General: No gait normal and No confusion Extrem: General: no pedal edema Psych: Mental Status: mental status grossly normal Objective Data Vital Signs Vital Signs: Vital Signs - 24 hr 08/16/23 16:00 08/16/23 16:47 08/16/23 16:00 Temperature 98.7 F Pulse Rate 84 90 81 Respiratory Rate 16 Blood Pressure 133/56 L Pulse Oximetry 97 Oxygen Delivery 08/16/23 18:00 08/16/23 19:27 08/16/23 19:45 Temperature 98.2 F Pulse Rate 67 71 71 Respiratory Rate 18 18 Blood Pressure 129/48 L Pulse Oximetry 100 100 Oxygen Delivery Room Air 08/16/23 23:17 08/16/23 20:00 08/16/23 22:00 Temperature 97.8 F Pulse Rate 68 65 68 Respiratory Rate 16 Blood Pressure 144/42 H
--- NOTE | 2023-08-17 14:34 | P.PNNP_ITS ---
Progress Note: A&P Assessment and Plan (1) Hyperkalemia: Code(s): E87.5 - Hyperkalemia Status: Acute Assessment and Plan: * improving with medical therapy * precipitated by #2 and possible bactrim use (listed on home medications in ER note) * follow trend of repeat K+ levels (2) Acute kidney injury: Code(s): N17.9 - Acute kidney failure, unspecified Status: Acute Assessment and Plan: * possibly due to volume depletion in conjunction with UTI * IVF hydration * on antibiotics * follow repeat labs and UOP (3) Stage 3b chronic kidney disease: Code(s): N18.32 - Chronic kidney disease, stage 3b Status: Chronic Assessment and Plan: * since May 2023 (from review of records from [facility] and [facility]), creatinine has been running around 1.5 - 1.8mg/dl; last labs on 07/08/23 with a creatinine of 1.63mg/dl * presumably secondary to HTN, DM, vascular disease (CAD, PVD, hyperlipidemia, CVA), CHF, and age-related change * however, in early 2022, her creatinine was normal. (4) Urinary tract infection: Code(s): N39.0 - Urinary tract infection, site not specified Status: Acute Assessment and Plan: * urinalysis highly suggestive * follow culture data * on antibiotics (5) Hypertension: Code(s): I10 - Essential (primary) hypertension Status: Chronic Assessment and Plan: * continue home medications * follow trend of hemodynamics (6) Anemia: Code(s): D64.9 - Anemia, unspecified Status: Chronic Assessment and Plan: * presumably related to CKD * was on Aranesp at her nursing facility * consider starting Epogen here while hospitalized * follow trend of H/H Will continue to follow Subjective Date/time seen: 08/17/23 14:34 Interval history: Follow-up for acute kidney injury/acute renal failure on chronic kidney disease and hyperkalemia. She report fatigue and weakness at the time or my visit; no other acute complaints voiced; appetite remains quite poor at this time as well; Exam Narrative: General: thin and elderly female in NAD Heart: normal S1 and S2; no rub Lungs: clear to auscultation Abdomen: soft, nontender, nondistended, positive bowel sounds Extremities: no cyanosis or clubbing; no edema; s/p right AKA Skin: warm and dry Objective Data Vital Signs Vital Signs: Vital Signs Temp Pulse Resp BP Pulse Ox O2 Del Method 08/17/23 12:00 67 08/17/23 12:00 96.8 F L 57 L 18 121/45 L 100 08/17/23 12:07 130/43 L 08/17/23 10:00 69 08/17/23 08:00 75 08/17/23 08:00 Room Air 08/17/23 09:21 73 08/17/23 08:00 96.8 F L 74 18 135/40 L 99 08/17/23 06:33 75 08/17/23 04:00 76 08/17/23 04:00 74 18 100 Room Air 08/17/23 02:54 97.6 F 74 18 145/37 H 100 08/17/23 02:00 82 08/17/23 00:00 103 H 08/17/23 00:00 68 16 99 Room Air 08/16/23 22:00 68 08/16/23 20:00 65 08/16/23 23:17 97.8 F 68 16 144/42 H 99 08/16/23 19:45 71 18 100 Room Air 08/16/23 19:27 98.2 F 71 18 129/48 L 100 08/16/23 18:00 67 08/16/23 16:00 81
--- NOTE | 2023-08-17 14:34 | PM.PNNEP ---
Progress Note: A&P Assessment and Plan (1) Hyperkalemia: Code(s): E87.5 - Hyperkalemia Status: Acute Assessment and Plan: improving with medical therapy precipitated by #2 and possible bactrim use (listed on home medications in ER note) follow trend of repeat K+ levels (2) Acute kidney injury: Code(s): N17.9 - Acute kidney failure, unspecified Status: Acute Assessment and Plan: possibly due to volume depletion in conjunction with UTI IVF hydration on antibiotics follow repeat labs and UOP (3) Stage 3b chronic kidney disease: Code(s): N18.32 - Chronic kidney disease, stage 3b Status: Chronic Assessment and Plan: since May 2023 (from review of records from [facility] and [facility]), creatinine has been running around 1.5 - 1.8mg/dl; last labs on 07/08/23 with a creatinine of 1.63mg/dl presumably secondary to HTN, DM, vascular disease (CAD, PVD, hyperlipidemia, CVA), CHF, and age-related change however, in early 2022, her creatinine was normal. (4) Urinary tract infection: Code(s): N39.0 - Urinary tract infection, site not specified Status: Acute Assessment and Plan: urinalysis highly suggestive follow culture data on antibiotics (5) Hypertension: Code(s): I10 - Essential (primary) hypertension Status: Chronic Assessment and Plan: continue home medications follow trend of hemodynamics (6) Anemia: Code(s): D64.9 - Anemia, unspecified Status: Chronic Assessment and Plan: presumably related to CKD was on Aranesp at her nursing facility consider starting Epogen here while hospitalized follow trend of H/H Will continue to follow Subjective Date/time seen: 08/17/23 14:34 Interval history: Follow-up for acute kidney injury/acute renal failure on chronic kidney disease and hyperkalemia. She report fatigue and weakness at the time or my visit; no other acute complaints voiced; appetite remains quite poor at this time as well; Exam Narrative: General: thin and elderly female in NAD Heart: normal S1 and S2; no rub Lungs: clear to auscultation Abdomen: soft, nontender, nondistended, positive bowel sounds Extremities: no cyanosis or clubbing; no edema; s/p right AKA Skin: warm and dry Objective Data Vital Signs Vital Signs: Vital Signs Temp Pulse Resp BP Pulse Ox O2 Del Method 08/17/23 12:00 67 08/17/23 12:00 96.8 F L 57 L 18 121/45 L 100 08/17/23 12:07 130/43 L 08/17/23 10:00 69 08/17/23 08:00 75 08/17/23 08:00 Room Air 08/17/23 09:21 73 08/17/23 08:00 96.8 F L 74 18 135/40 L 99 08/17/23 06:33 75 08/17/23 04:00 76 08/17/23 04:00 74 18 100 Room Air 08/17/23 02:54 97.6 F 74 18 145/37 H 100 08/17/23 02:00 82 08/17/23 00:00 103 H 08/17/23 00:00 68 16 99 Room Air 08/16/23 22:00 68 08/16/23 20:00 65 08/16/23 23:17 97.8 F 68 16 144/42 H 99 08/16/23 19:45 71 18 100 Room Air 08/16/23 19:27 98.2 F 71 18 129/48 L 100 08/16/23 18:00 67 08/16/23 16:00 81 08/16/23 16:47 90 08/16/23 16:00 98.7 F 84 16 133/56 L 97 Intake/Output Intake/Output: Intake & Output 08/14/23 08/15/23 08/16/23 08/17/23 23:59 23:59 23:59 23:59 Intake Total 2045 600 Output Total 50 275 Balance 1994 325 Meds/Results Medications: Active Medications Generic Name Dose Route Start Last Admin Trade Name Freq PRN Reason Stop Dose Admin Amlodipine Besylate 10 mg 08/16/23 12:40 08/17/23 09:21 Amlodipine Besylate 5 Mg Tablet PO 10 mg DAILY SENDY Administration Apixaban 2.5 mg 08/16/23 12:38 08/17/23 09:22 Apixaban 2.5 Mg Tablet BY MOUTH 12/01/23 12:00 2.5 mg BID SENDY Administration Ascorbic Acid 500 mg 08/16/23 17:00 08/17/23 09:21 Ascorbic Acid 500 Mg Tablet
[2023-08-17] MEDS: SODIUM CHLORIDE 0.9% IV 1,000 ML 75 ML IV CONT ×2 (15:30→23:07)
[2023-08-17] MEDS: SODIUM BICARBONATE TAB 650 MG TABLET 1300 MG PO ×2 (15:30→17:42)
[2023-08-17 15:54] LABS: Iron 47 ug/dL (37-170)
[2023-08-17 16:04] LABS: Percent Iron Saturation 32 % (20-50)
[2023-08-17 16:56] LABS: Folic Acid 8.1 ng/mL (2.76->20)
[2023-08-17] MEDS: droNABinol (*CRX) 2.5 MG CAPSULE PO (17:43)
[2023-08-18] VITALS (23 sets, daily range): BP systolic 135–176; BP diastolic 40–69; PULSE 65–93; RESP 14–20; TEMP 36.3–37.2; O2SAT 99–100
[2023-08-18] MEDS: SALINE LOCK FLUSH 10 ML IV PUSH ×3 (05:57→21:56)
[2023-08-18 06:21] LABS: Basophils Percent Auto 0.1 % (0.2-1.2); Eosinophils Percent Auto 0.1 % (0-4.4); Hematocrit 22.5 % (37.0-47.0); Immature Granulocyte Absolute 0.13 K/mm3 (0.00-0.031); Lymphocytes Absolute Auto 1.88 K/mm3 (0.9-3.2); Mean Corpuscular HGB Conc 29.3 g/dl (32-36); Mean Corpuscular Hemoglobin 30.3 pg (26-34); Mean Corpuscular Volume 103.2 fl (80-100); Monocytes Absolute Auto 2.7 K/mm3 (0.1-0.6); Monocytes Percent Auto 19.8 % (2.6-8.5); Neutrophils Absolute Auto 8.7 K/mm3 (1.3-6.7); Platelet Count Result 255 k/mm3 (150-375); Red Blood Count 2.18 M/mm3 (4.2-5.4); Red Cell Distribution Width 15.9 % (11.5-14.5); White Blood Count 13.4 K/mm3 (4.5-10.0)
[2023-08-18 06:23] LABS: Hemoglobin 6.6 g/dL (12.0-15.0)
[2023-08-18 06:35] LABS: Albumin Level 2.4 g/dL (3.5-5.1); Anion Gap 4 mmol/L (8-16); Blood Urea Nitrogen 43 mg/dL (7-17); Calcium 7.9 mg/dL (8.4-10.2); Carbon Dioxide 19 mmol/L (22-30); Chloride 111 mmol/L (98-107); Estimated CRCL calculation 15 ml/min; Estimated Glomerular Filt Rate 24; Glucose 106 mg/dL (65-110); Phosphorus 3.8 mg/dL (2.5-4.5); Potassium 5.2 mmol/L (3.4-5.0); Sodium 134 mmol/L (137-145)
[2023-08-18 07:34] LABS: Platelet Estimate Adequate (Adequate)
[2023-08-18 07:35] LABS: Anisocytosis 1+ (NORMAL); Hypochromasia 1+ (NORMAL); Schistocytes Rare (NORMAL)
[2023-08-18] MEDS: ASCORBIC ACID 500 MG TABLET PO ×2 (09:12→17:51)
[2023-08-18] MEDS: APIXABAN 2.5 MG TABLET BY MOUTH ×2 (09:12→17:51)
[2023-08-18] MEDS: ATORVASTATIN 40 MG TABLET 80 MG PO (09:12)
[2023-08-18] MEDS: guaiFENesin 12 HR 600 MG TABCR PO ×2 (09:12→21:55)
[2023-08-18] MEDS: droNABinol (*CRX) 2.5 MG CAPSULE PO ×2 (09:12→17:51)
[2023-08-18] MEDS: FOLIC ACID 1 MG TABLET PO (09:12)
[2023-08-18] MEDS: SODIUM BICARBONATE TAB 650 MG TABLET 1300 MG PO ×2 (09:12→17:51)
[2023-08-18] MEDS: FERROUS SULFATE 325 MG TABLET DR BY MOUTH (09:13)
[2023-08-18] MEDS: MULTIVITAMINS /C LUTEIN (CENTRUM SILVER) TABLET *BKC 1 TAB PO (09:13)
--- NOTE | 2023-08-18 11:24 | PC.NURSE ---
Blood consent obtained per Two RNs via telephone. The pt is confused et unable to sign consent. Son Stephen Mccarthy gave verbal consent. Education given on the need for intervention of PRBC two units. The pts' son displays verbal understanding through verbal demonstration.
[2023-08-18] MEDS: SODIUM CHLORIDE 0.9% IV 1,000 ML 75 ML IV CONT (12:08)
[2023-08-18] MEDS: hydrALAZINE HCL 50 MG TABLET 100 MG PO ×2 (12:10→17:52)
--- NOTE | 2023-08-18 12:46 | P.PNNP_ITS ---
Progress Note: A&P Assessment and Plan (1) Hyperkalemia: Code(s): E87.5 - Hyperkalemia Status: Acute Assessment and Plan: * improving with medical therapy * precipitated by #2 and possible bactrim use (listed on home medications in ER note) * follow trend of repeat K+ levels (2) Acute kidney injury: Code(s): N17.9 - Acute kidney failure, unspecified Status: Acute Assessment and Plan: * possibly due to volume depletion in conjunction with UTI * on IVF hydration * on antibiotics * follow repeat labs and UOP (3) Stage 3b chronic kidney disease: Code(s): N18.32 - Chronic kidney disease, stage 3b Status: Chronic Assessment and Plan: * since May 2023 (from review of records from [facility] and [facility]), creatinine has been running around 1.5 - 1.8mg/dl; last labs on 07/08/23 with a creatinine of 1.63mg/dl * presumably secondary to HTN, DM, vascular disease (CAD, PVD, hyperlipidemia, CVA), CHF, and age-related change * however, in early 2022, her creatinine was normal. (4) Urinary tract infection: Code(s): N39.0 - Urinary tract infection, site not specified Status: Acute Assessment and Plan: * urinalysis highly suggestive * follow culture data * on antibiotics (5) Hypertension: Code(s): I10 - Essential (primary) hypertension Status: Chronic Assessment and Plan: * continue home medications * follow trend of hemodynamics (6) Anemia: Code(s): D64.9 - Anemia, unspecified Status: Chronic Assessment and Plan: * presumably related to CKD * PRBC transfusion per protocol * was on Aranesp at her nursing facility * start Epogen while hospitalized * follow trend of H/H Will continue to follow Subjective Date/time seen: 08/18/23 12:46 Interval history: Follow-up for acute kidney injury/acute renal failure on chronic kidney disease and hyperkalemia. States that she feels better but low H/H noted by AM labs and PRBC transfusion ordered; asking about potential discharge; renal function about the same but K+ is better. Exam Narrative: General: thin and elderly female in NAD Heart: normal S1 and S2; no rub Lungs: clear to auscultation Abdomen: soft, nontender, nondistended, positive bowel sounds Extremities: no cyanosis or clubbing; no edema; s/p right AKA Skin: warm and intact Objective Data Vital Signs Vital Signs: Vital Signs Temp Pulse Resp BP Pulse Ox 08/18/23 12:12 74 147/51 H 08/18/23 08:00 71 08/18/23 09:22 66 140/40 L 08/18/23 08:15 97.5 F L 93 20 165/69 H 100 08/18/23 04:00 70 08/18/23 04:38 74 20 99 08/18/23 00:00 65 08/17/23 23:38 98.1 F 70 16 137/47 L 100 08/17/23 20:00 60 08/17/23 19:21 98.6 F 61 18 123/38 L 100 08/17/23 16:00 66 08/17/23 17:42 66 08/17/23 16:00 97.8 F 64 18 147/45 H 100 Intake/Output Intake/Output: Intake & Output 08/15/23 08/16/23 08/17/23 08/18/23 23:59 23:59 23:59 23:59 Intake Total 2044 8985 1510 Output Total 50 275 Balance 1994 3520 1510 Meds/Results Medications:
--- NOTE | 2023-08-18 12:46 | PM.PNNEP ---
Progress Note: A&P Assessment and Plan (1) Hyperkalemia: Code(s): E87.5 - Hyperkalemia Status: Acute Assessment and Plan: improving with medical therapy precipitated by #2 and possible bactrim use (listed on home medications in ER note) follow trend of repeat K+ levels (2) Acute kidney injury: Code(s): N17.9 - Acute kidney failure, unspecified Status: Acute Assessment and Plan: possibly due to volume depletion in conjunction with UTI on IVF hydration on antibiotics follow repeat labs and UOP (3) Stage 3b chronic kidney disease: Code(s): N18.32 - Chronic kidney disease, stage 3b Status: Chronic Assessment and Plan: since May 2023 (from review of records from [facility] and [facility]), creatinine has been running around 1.5 - 1.8mg/dl; last labs on 07/08/23 with a creatinine of 1.63mg/dl presumably secondary to HTN, DM, vascular disease (CAD, PVD, hyperlipidemia, CVA), CHF, and age-related change however, in early 2022, her creatinine was normal. (4) Urinary tract infection: Code(s): N39.0 - Urinary tract infection, site not specified Status: Acute Assessment and Plan: urinalysis highly suggestive follow culture data on antibiotics (5) Hypertension: Code(s): I10 - Essential (primary) hypertension Status: Chronic Assessment and Plan: continue home medications follow trend of hemodynamics (6) Anemia: Code(s): D64.9 - Anemia, unspecified Status: Chronic Assessment and Plan: presumably related to CKD PRBC transfusion per protocol was on Aranesp at her nursing facility start Epogen while hospitalized follow trend of H/H Will continue to follow Subjective Date/time seen: 08/18/23 12:46 Interval history: Follow-up for acute kidney injury/acute renal failure on chronic kidney disease and hyperkalemia. States that she feels better but low H/H noted by AM labs and PRBC transfusion ordered; asking about potential discharge; renal function about the same but K+ is better. Exam Narrative: General: thin and elderly female in NAD Heart: normal S1 and S2; no rub Lungs: clear to auscultation Abdomen: soft, nontender, nondistended, positive bowel sounds Extremities: no cyanosis or clubbing; no edema; s/p right AKA Skin: warm and intact Objective Data Vital Signs Vital Signs: Vital Signs Temp Pulse Resp BP Pulse Ox 08/18/23 12:12 74 147/51 H 08/18/23 08:00 71 08/18/23 09:22 66 140/40 L 08/18/23 08:15 97.5 F L 93 20 165/69 H 100 08/18/23 04:00 70 08/18/23 04:38 74 20 99 08/18/23 00:00 65 08/17/23 23:38 98.1 F 70 16 137/47 L 100 08/17/23 20:00 60 08/17/23 19:21 98.6 F 61 18 123/38 L 100 08/17/23 16:00 66 08/17/23 17:42 66 08/17/23 16:00 97.8 F 64 18 147/45 H 100 Intake/Output Intake/Output: Intake & Output 08/15/23 08/16/23 08/17/23 08/18/23 23:59 23:59 23:59 23:59 Intake Total 2045 3795 1510 Output Total 50 275 Balance 1994 3520 1510 Meds/Results Medications: Active Medications Generic Name Dose Route Start Last Admin Trade Name Freq PRN Reason Stop Dose Admin Amlodipine Besylate 10 mg 08/16/23 12:40 08/18/23 11:10 Amlodipine Besylate 5 Mg Tablet PO Not Given DAILY SENDY Apixaban 2.5 mg 08/16/23 12:38 08/18/23 09:12 Apixaban 2.5 Mg Tablet BY MOUTH 12/01/23 12:00 2.5 mg BID SENDY Administration Ascorbic Acid 500 mg 08/16/23 17:00 08/18/23 09:12 Ascorbic Acid 500 Mg Tablet PO 500 mg BID SENDY Administration Atorvastatin Calcium 80 mg 08/17/23 09:00 08/18/23 09:12 Atorvastatin 40 Mg Tablet PO 80 mg DAILY SENDY Administration Bisacodyl 10 mg 08/16/23 12:39 Bisacodyl 10 Mg Suppository RECTAL DAILY PRN Constipation Clonidine HCl 0.2 mg 08/16/23 12:40 08/18/23 11:11 Clonidine
[2023-08-18] MEDS: SODIUM CHLORIDE 0.9% IV 250 ML 30 ML IV CONT (14:30)
[2023-08-18] MEDS: TUBING, BLOOD PLUM PUMP TUBING 1 EACH XX ×2 (14:40→22:36)
--- NOTE | 2023-08-18 14:58 | PM.IMPN ---
Progress Note: A&P Assessment and Plan (1) Hyperkalemia: Code(s): E87.5 - Hyperkalemia Status: Acute Assessment and Plan: Improving; Nephrology on board (2) Stage 3b chronic kidney disease: Code(s): N18.32 - Chronic kidney disease, stage 3b Status: Chronic Assessment and Plan: Avoid nephrotoxins (3) Hemiplegia affecting right dominant side: Code(s): G81.91 - Hemiplegia, unspecified affecting right dominant side Status: Acute Assessment and Plan: Falls; Safety precautions (4) GERD (gastroesophageal reflux disease): Code(s): K21.9 - Gastro-esophageal reflux disease without esophagitis Status: Acute Assessment and Plan: PPI (5) Alzheimer disease: Code(s): G30.9 - Alzheimer's disease, unspecified; F02.80 - Dementia in other diseases classified elsewhere, unspecified severity, without behavioral disturbance, psychotic disturbance, mood disturbance, and anxiety Status: Acute Assessment and Plan: Falls and safety precautions (6) Anemia: Code(s): D64.9 - Anemia, unspecified Status: Acute Assessment and Plan: s/p 2U PRBC Monitor Hb with goal >7 Plan Acute and principal conditions 1. Hyperkalemia. Maybe 2/2 worsening renal function. Nephrology consulted; BMP monitoring; s/p Insulin, Kayexalate, Calcium gluconate. 2. UTI. Will add Ceftriaxone. await urine cultures. 3. Anorexia; adding dronabinol 4. Macrocytic anemia. Hb goal >7. check ferritin, TSH, B12, Iron Chronic and stable conditions 1. r/AKA, s/p vascular disease. 2. Wheelchair bound, sedentary status 3. Hypertension. Resume Amlodipine, Clonidine 4. Dyslipidemia. Resume Statin 5. Hx of A-fib. on Metoprolol, Eliquis 6. CKD 3. Avoid nephrotoxins 7. Nicotine dependence. VTE prophylaxis. on Eliquis Diet. Regular Subjective Date/time seen: 08/18/23 14:58 Interval history: Seen and examined; being managed for hyperkalemia, CKD and Anemia Eager to be discharged Review of Systems Constitutional: Constitutional: Reports fatigue and Reports lethargy Eyes: Eyes: Reports no additional eye complaints ENT: Denies dysphagia, Denies epistaxis and Denies nasal congestion Cardiovascular: Cardiovascular: Denies chest pain, Denies pedal edema, Denies leg edema, Denies dyspnea and Denies dyspnea on exertion Respiratory: Respiratory: Denies dyspnea and Denies dyspnea on exertion Gastrointestinal: Gastrointestinal: Denies abdominal pain, Denies hematochezia, Denies constipation, Denies dysphagia and Denies diarrhea Genitourinary: Genitourinary: Denies urinary frequency Musculoskeletal: Musculoskeletal: Reports no additional musculoskeletal complaints and Reports abnormal gait Integumentary/Breasts: Skin/Breast: Reports dry skin Neurologic: Reports abnormal gait and Denies confusion Psychiatric: Psychiatric: Reports no additional psychiatric complaints and Denies confusion Endocrine: Endocrine: Reports fatigue Exam Const: General: No confusion Orientation/consciousness: No confusion HENMT: Face/Nose/Sinus: Normal nares present Eyes: Pupils: Equal, round and reactive pupils present Neck: Neck: supple Resp: Effort & Inspection: normal respiratory effort Cardio: Rhythm: regular rhythm Skin: General skin exam: normal color Neuro: General: No gait normal and No confusion Cranial nerves: Yes Equal, round and reactive pupils present Extrem: General: no pedal edema Psych: Mental Status: mental status grossly normal Objective Data Vital Signs Vital Signs: Vital Signs - 24 hr 08/17/23 16:00 08/17/23 17:42 08/17/23 16:00 Temperature 97.8 F Pulse Rate 64 66 66 Respiratory Rate 18 Blood Pressure 147/45 H Pulse Oximetry 100 08/17/23 19:21 08/17/23 20:00 08/17/23 23:38 Temperature 98.6 F 98.1 F Pulse Rate 61 60 70 Respiratory Rate 18 16 Blood Pressure 123/38 L 137/47 L Pulse Oximetry 100 100 08/18/23 00:
--- NOTE | 2023-08-18 17:00 | PC.NURSE ---
Attempted to call report to RN. The RN is in the room with another pt. Will call back in 10 mins
--- NOTE | 2023-08-18 17:15 | PC.NURSE ---
Report given to Francheska BENNETT
[2023-08-18] MEDS: METOPROLOL TARTRATE 50 MG TAB PO (17:51)
--- NOTE | 2023-08-18 18:34 | PC.NURSE ---
Pt transferred to medical 246 Per a PCT et RN. No manifestations of distress noted at the time of transferred to the unit.
--- NOTE | 2023-08-18 18:38 | PC.NURSE ---
This patient, Justine Ruiz, was received from [[id number] ] on 08/18/23 at 1838. Patient/family oriented to unit policies and routines
--- NOTE | 2023-08-18 18:38 | PC.NURSE ---
No female ext cath in place this shift. [facility] completed throughout the shift.
[2023-08-18] MEDS: SODIUM CHLORIDE 0.9% IV 250 ML 30 ML (22:35)
[2023-08-19] VITALS (13 sets, daily range): BP systolic 118–170; BP diastolic 39–97; PULSE 60–85; RESP 16–18; TEMP 36.7–37.2; O2SAT 99–100
[2023-08-19] MEDS: SALINE LOCK FLUSH 10 ML IV PUSH ×3 (05:32→21:10)
[2023-08-19] MEDS: SALINE LOCK FLUSH 20 ML IV PUSH (05:33)
[2023-08-19 05:50] LABS: Basophils Percent Auto 0.2 % (0.2-1.2); Eosinophils Percent Auto 0.2 % (0-4.4); Hemoglobin 9.6 g/dL (12.0-15.0); Immature Granulocyte Absolute 0.11 K/mm3 (0.00-0.031); Lymphocytes Absolute Auto 1.86 K/mm3 (0.9-3.2); Lymphocytes Percent Auto 16.7 % (18.3-44.2); Mean Corpuscular Hemoglobin 29.9 pg (26-34); Mean Corpuscular Volume 96.6 fl (80-100); Mean Platelet Volume 9.1 fl (7.4-10.4); Monocytes Absolute Auto 2.3 K/mm3 (0.1-0.6); Monocytes Percent Auto 20.1 % (2.6-8.5); Neutrophils Absolute Auto 6.9 K/mm3 (1.3-6.7); Neutrophils Percent Auto 61.8 % (45.5-73.1); Platelet Count Result 223 k/mm3 (150-375); Red Blood Count 3.21 M/mm3 (4.2-5.4); Red Cell Distribution Width 15.7 % (11.5-14.5); White Blood Count 11.2 K/mm3 (4.5-10.0)
[2023-08-19 06:10] LABS: Albumin Level 2.4 g/dL (3.5-5.1); Anion Gap 5 mmol/L (8-16); Blood Urea Nitrogen 33 mg/dL (7-17); Carbon Dioxide 19 mmol/L (22-30); Chloride 110 mmol/L (98-107); Estimated CRCL calculation 24 ml/min; Estimated Glomerular Filt Rate 36; Glucose 101 mg/dL (65-110); Phosphorus 3.4 mg/dL (2.5-4.5); Potassium 4.6 mmol/L (3.4-5.0); Sodium 134 mmol/L (137-145)
[2023-08-19 06:37] LABS: Anisocytosis 1+ (NORMAL); Platelet Estimate Adequate (Adequate)
[2023-08-19 06:38] LABS: Schistocytes Rare (NORMAL)
[2023-08-19] MEDS: APIXABAN 2.5 MG TABLET BY MOUTH ×2 (08:06→16:40)
[2023-08-19] MEDS: SODIUM BICARBONATE TAB 650 MG TABLET 1300 MG PO ×2 (08:06→16:41)
[2023-08-19] MEDS: PANTOPRAZOLE SOD SESQUIHYDRATE 20 MG TAB PO (08:06)
[2023-08-19] MEDS: ASCORBIC ACID 500 MG TABLET PO ×2 (08:06→16:40)
[2023-08-19] MEDS: FERROUS SULFATE 325 MG TABLET DR BY MOUTH (08:06)
[2023-08-19] MEDS: ATORVASTATIN 40 MG TABLET 80 MG PO (08:06)
[2023-08-19] MEDS: hydrALAZINE HCL 50 MG TABLET 100 MG PO ×3 (08:06→16:40)
[2023-08-19] MEDS: amLODIPine BESYLATE 5 MG TABLET 10 MG PO (08:06)
[2023-08-19] MEDS: MULTIVITAMINS /C LUTEIN (CENTRUM SILVER) TABLET *BKC 1 TAB PO (08:06)
[2023-08-19] MEDS: FOLIC ACID 1 MG TABLET PO (08:07)
[2023-08-19] MEDS: cloNIDine HCL 0.2 MG TABLET PO (08:07)
[2023-08-19] MEDS: guaiFENesin 12 HR 600 MG TABCR PO ×2 (08:07→21:10)
[2023-08-19] MEDS: METOPROLOL TARTRATE 50 MG TAB PO ×2 (08:07→16:40)
[2023-08-19] MEDS: droNABinol (*CRX) 2.5 MG CAPSULE PO ×2 (08:07→16:40)
[2023-08-19] MEDS: SODIUM CHLORIDE 0.9% IV 1,000 ML 75 ML IV CONT (08:26)
--- NOTE | 2023-08-19 09:46 | PM.PNNEP ---
Progress Note: A&P Assessment and Plan (1) Hyperkalemia: Code(s): E87.5 - Hyperkalemia Status: Acute Assessment and Plan: improving with medical therapy precipitated by #2 and possible bactrim use (listed on home medications in ER note) follow trend of repeat K+ levels (2) Acute kidney injury: Code(s): N17.9 - Acute kidney failure, unspecified Status: Acute Assessment and Plan: improvement noted possibly due to volume depletion in conjunction with UTI evaluation to date: renal ultrasound noted: Mild bilateral hydroureteronephrosis which suggests sequela chronic outlet obstruction; bilateral mild increased renal echogenicity consistent with medical renal disease. urine electrolytes non-prerenal UA consistent with infection urine eosinophils negative significant proteinuria on IVF hydration on antibiotics follow repeat labs and UOP (3) Stage 3b chronic kidney disease: Code(s): N18.32 - Chronic kidney disease, stage 3b Status: Chronic Assessment and Plan: since May 2023 (from review of records from [facility] and [facility]), creatinine has been running around 1.5 - 1.8mg/dl; last labs on 07/08/23 with a creatinine of 1.63mg/dl presumably secondary to HTN, DM, vascular disease (CAD, PVD, hyperlipidemia, CVA), CHF, and age-related change however, in early 2022, her creatinine was normal. (4) Urinary tract infection: Code(s): N39.0 - Urinary tract infection, site not specified Status: Acute Assessment and Plan: urinalysis highly suggestive urine culture with E.coli on antibiotics (5) Hypertension: Code(s): I10 - Essential (primary) hypertension Status: Chronic Assessment and Plan: continue home medications follow trend of hemodynamics (6) Anemia: Code(s): D64.9 - Anemia, unspecified Status: Chronic Assessment and Plan: presumably related to CKD PRBC transfusion per protocol was on Aranesp at her nursing facility Epogen while hospitalized follow trend of H/H Will continue to follow Subjective Date/time seen: 08/19/23 09:46 Interval history: Follow-up for acute kidney injury/acute renal failure on chronic kidney disease and hyperkalemia. Tolerated PRBC transfusion yesterday without any issues or problems; renal function improving with stability in potassium level as well; no other acute complaints voiced. Exam Narrative: General: thin and elderly female in NAD Heart: normal S1 and S2; no rub Lungs: clear to auscultation Abdomen: soft, nontender, nondistended, positive bowel sounds Extremities: no cyanosis or clubbing; no edema; s/p right AKA Skin: warm and intact Objective Data Vital Signs Vital Signs: Vital Signs Temp Pulse Resp BP Pulse Ox O2 Del Method 08/19/23 08:00 75 08/19/23 08:00 Room Air 08/19/23 08:07 68 08/19/23 05:32 98.4 F 66 16 161/54 H 99 08/19/23 04:00 68 08/19/23 01:25 98.4 F 69 16 169/55 H 99 08/19/23 00:00 85 08/19/23 00:45 98.0 F 67 16 170/97 H 100 08/18/23 23:45 98.1 F 68 16 176/52 H 100 08/18/23 20:00 71 08/18/23 22:45 97.9 F 66 14 156/50 H 100 08/18/23 22:45 97.9 F 66 14 156/50 H 100 08/18/23 22:10 Room Air 08/18/23 22:30 98.9 F 65 16 151/56 H 100 08/18/23 20:11 98.5 F 72 16 144/66 H 100 Intake/Output Intake/Output: Intake & Output 08/16/23 08/17/23 08/18/23 08/19/23 23:59 23:59 23:59 23:59 Intake Total 2044 1075 2150 1350 Output Total 50 275 Balance 1994 3520 2150 1350 Meds/Results Medications: Active Medications Generic Name Dose Route Start Last Admin Trade Name Freq PRN Reason Stop Dose Admin Amlodipine Besylate 10 mg 08/16/23 12:40 08/19/23 08:06 Amlodipine Besylate 5 Mg Tablet PO 10 mg DAILY SENDY Administration Apixaban 2.5 mg 08/16/23 12:
--- NOTE | 2023-08-19 09:46 | P.PNNP_ITS ---
Progress Note: A&P Assessment and Plan (1) Hyperkalemia: Code(s): E87.5 - Hyperkalemia Status: Acute Assessment and Plan: * improving with medical therapy * precipitated by #2 and possible bactrim use (listed on home medications in ER note) * follow trend of repeat K+ levels (2) Acute kidney injury: Code(s): N17.9 - Acute kidney failure, unspecified Status: Acute Assessment and Plan: * improvement noted * possibly due to volume depletion in conjunction with UTI * evaluation to date: * renal ultrasound noted: Mild bilateral hydroureteronephrosis which sugg ests sequela chronic outlet obstruction; bilateral mild increased renal echogenicity consistent with medical renal disease. * urine electrolytes non-prerenal * UA consistent with infection * urine eosinophils negative * significant proteinuria * on IVF hydration * on antibiotics * follow repeat labs and UOP (3) Stage 3b chronic kidney disease: Code(s): N18.32 - Chronic kidney disease, stage 3b Status: Chronic Assessment and Plan: * since May 2023 (from [place] [facility] [place] [facility] [place] [facility] has been running around 1.5 - 1.8mg/dl; last labs on 07/08/23 with a creatinine of 1.63mg/dl * presumably secondary to HTN, DM, vascular disease (CAD, PVD, hyperlipidemia, CVA), CHF, and age-related change * however, in early 2022, her creatinine was normal. (4) Urinary tract infection: Code(s): N39.0 - Urinary tract infection, site not specified Status: Acute Assessment and Plan: * urinalysis highly suggestive * urine culture with E.coli * on antibiotics (5) Hypertension: Code(s): I10 - Essential (primary) hypertension Status: Chronic Assessment and Plan: * continue home medications * follow trend of hemodynamics (6) Anemia: Code(s): D64.9 - Anemia, unspecified Status: Chronic Assessment and Plan: * presumably related to CKD * PRBC transfusion per protocol * was on Aranesp at her nursing facility * Epogen while hospitalized * follow trend of H/H Will continue to follow Subjective Date/time seen: 08/19/23 09:46 Interval history: Follow-up for acute kidney injury/acute renal failure on chronic kidney disease and hyperkalemia. Tolerated PRBC transfusion yesterday without any issues or problems; renal function improving with stability in potassium level as well; no other acute complaints voiced. Exam Narrative: General: thin and elderly female in NAD Heart: normal S1 and S2; no rub Lungs: clear to auscultation Abdomen: soft, nontender, nondistended, positive bowel sounds Extremities: no cyanosis or clubbing; no edema; s/p right AKA Skin: warm and intact Objective Data Vital Signs Vital Signs: Vital Signs Temp Pulse Resp BP Pulse Ox O2 Del Method 08/19/23 08:00 75 08/19/23 08:00 Room Air 08/19/23 08:07 68 08/19/23 05:32 98.4 F 66 16 161/54 H 99 08/19/23 04:00 68 08/19/23 01:25 98.4 F 69 16 169/55 H 99 08/19/23 00:00 85 08/19/23 00:45 98.0 F 67 16 170/97 H 100 08/18/23 23:45 98.1 F 68 16 176/52 H 100 08/18/23 20:00 71 08/18/23 22:45 97.9 F 66 14 156/50 H 100
--- NOTE | 2023-08-19 16:43 | PM.IMPN ---
Progress Note: A&P Assessment and Plan (1) Hyperkalemia: Code(s): E87.5 - Hyperkalemia Status: Acute Assessment and Plan: Improving; Nephrology on board (2) Stage 3b chronic kidney disease: Code(s): N18.32 - Chronic kidney disease, stage 3b Status: Chronic Assessment and Plan: Avoid nephrotoxins (3) Hemiplegia affecting right dominant side: Code(s): G81.91 - Hemiplegia, unspecified affecting right dominant side Status: Acute Assessment and Plan: Falls; Safety precautions (4) GERD (gastroesophageal reflux disease): Code(s): K21.9 - Gastro-esophageal reflux disease without esophagitis Status: Acute Assessment and Plan: PPI (5) Alzheimer disease: Code(s): G30.9 - Alzheimer's disease, unspecified; F02.80 - Dementia in other diseases classified elsewhere, unspecified severity, without behavioral disturbance, psychotic disturbance, mood disturbance, and anxiety Status: Acute Assessment and Plan: Falls and safety precautions (6) Anemia: Code(s): D64.9 - Anemia, unspecified Status: Acute Assessment and Plan: s/p 2U PRBC Monitor Hb with goal >7 (7) Gluteal pain: Code(s): M79.18 - Myalgia, other site Status: Acute Assessment and Plan: Son informed us about a boil that has been disturbing the patient whenever she sits down; Could not ascertain the area of probable abscess on evaluation; gluteal skin/genie cleft fold show excoriated skin. Patient says it hurts when she sits and sometimes while lying down. 08/19/23: ordered CT pelvis wo contrast (renal insufficiency); If positive; may consult General surgery for probable I+D Plan Acute and principal conditions 1. Hyperkalemia. Maybe 2/2 worsening renal function. Nephrology consulted; BMP monitoring; s/p Insulin, Kayexalate, Calcium gluconate. 2. UTI. Will add Ceftriaxone. await urine cultures. 3. Anorexia; adding dronabinol 4. Macrocytic anemia. Hb goal >7. check ferritin, TSH, B12, Iron 5. Gluteal pain, concerns for gluteal abscess. may need GS input. Chronic and stable conditions 1. r/AKA, s/p vascular disease. 2. Wheelchair bound, sedentary status 3. Hypertension. Resume Amlodipine, Clonidine 4. Dyslipidemia. Resume Statin 5. Hx of A-fib. on Metoprolol, Eliquis 6. CKD 3. Avoid nephrotoxins 7. Nicotine dependence. VTE prophylaxis. on Eliquis Diet. Regular Subjective Date/time seen: 08/19/23 16:43 Interval history: Seen and examined; being managed for hyperkalemia, CKD and Anemia Son informed us about a boil that has been disturbing the patient whenever she sits down; Could not ascertain the area of probable abscess on evaluation; gluteal skin/ cleft fold show excoriated skin. Patient says it hurts when she sits and sometimes while lying down. Review of Systems Constitutional: Constitutional: Reports fatigue and Reports lethargy Eyes: Eyes: Reports no additional eye complaints ENT: Denies dysphagia, Denies epistaxis and Denies nasal congestion Cardiovascular: Cardiovascular: Denies chest pain, Denies pedal edema, Denies leg edema, Denies dyspnea and Denies dyspnea on exertion Respiratory: Respiratory: Denies dyspnea and Denies dyspnea on exertion Gastrointestinal: Gastrointestinal: Denies abdominal pain, Denies hematochezia, Denies constipation, Denies dysphagia and Denies diarrhea Genitourinary: Genitourinary: Denies urinary frequency Musculoskeletal: Musculoskeletal: Reports no additional musculoskeletal complaints and Reports abnormal gait Integumentary/Breasts: Skin/Breast: Reports dry skin Neurologic: Reports abnormal gait and Denies confusion Psychiatric: Psychiatric: Reports no additional psychiatric complaints and Denies confusion Endocrine: Endocrine: Reports fatigue Exam Const: General: No confusion Orientation/consciousness: No confusion HENMT: Face/Nose/Sinus: Normal nares present E
[2023-08-19 21:33] LABS: Hemoglobin A1C 5.6 % (<5.7)
[2023-08-20] VITALS: PULSE 67
[2023-08-20] MEDS: SODIUM CHLORIDE 0.9% IV 1,000 ML 75 ML IV CONT (01:40)
[2023-08-20 04:00] VITALS: PULSE 73
[2023-08-20] MEDS: SALINE LOCK FLUSH 20 ML IV PUSH (05:05)
[2023-08-20] MEDS: SALINE LOCK FLUSH 10 ML IV PUSH (05:05)
[2023-08-20 05:12] LABS: Basophils Percent Auto 0.1 % (0.2-1.2); Eosinophils Percent Auto 0.2 % (0-4.4); Hematocrit 30.2 % (37.0-47.0); Hemoglobin 9.6 g/dL (12.0-15.0); Immature Granulocyte Absolute 0.09 K/mm3 (0.00-0.031); Immature Granulocyte Percent A 0.9 % (0-0.5); Lymphocytes Absolute Auto 2.16 K/mm3 (0.9-3.2); Mean Corpuscular HGB Conc 31.8 g/dl (32-36); Mean Corpuscular Hemoglobin 30.3 pg (26-34); Mean Corpuscular Volume 95.3 fl (80-100); Mean Platelet Volume 8.9 fl (7.4-10.4); Monocytes Percent Auto 20.2 % (2.6-8.5); Neutrophils Absolute Auto 5.6 K/mm3 (1.3-6.7); Neutrophils Percent Auto 56.6 % (45.5-73.1); Platelet Count Result 209 k/mm3 (150-375); Red Blood Count 3.17 M/mm3 (4.2-5.4); Red Cell Distribution Width 15.9 % (11.5-14.5); White Blood Count 9.8 K/mm3 (4.5-10.0)
[2023-08-20 05:23] LABS: Albumin Level 2.3 g/dL (3.5-5.1); Anion Gap 5 mmol/L (8-16); Blood Urea Nitrogen 29 mg/dL (7-17); Calcium 7.9 mg/dL (8.4-10.2); Carbon Dioxide 19 mmol/L (22-30); Chloride 112 mmol/L (98-107); Estimated CRCL calculation 24 ml/min; Estimated Glomerular Filt Rate 38; Glucose 137 mg/dL (65-110); Phosphorus 3.6 mg/dL (2.5-4.5); Potassium 4.6 mmol/L (3.4-5.0); Sodium 136 mmol/L (137-145)
[2023-08-20 06:52] VITALS: BP 167/69; PULSE 67; RESP 18; TEMP 36.9; O2SAT 100
[2023-08-20 08:00] VITALS: PULSE 82
[2023-08-20] MEDS: cloNIDine HCL 0.2 MG TABLET PO (09:54)
[2023-08-20] MEDS: ASCORBIC ACID 500 MG TABLET PO (09:54)
[2023-08-20] MEDS: ATORVASTATIN 40 MG TABLET 80 MG PO (09:54)
[2023-08-20] MEDS: SODIUM BICARBONATE TAB 650 MG TABLET 1300 MG PO (09:55)
[2023-08-20] MEDS: FOLIC ACID 1 MG TABLET PO (09:55)
[2023-08-20] MEDS: droNABinol (*CRX) 2.5 MG CAPSULE PO (09:55)
[2023-08-20] MEDS: PANTOPRAZOLE SOD SESQUIHYDRATE 20 MG TAB PO (09:55)
[2023-08-20] MEDS: guaiFENesin 12 HR 600 MG TABCR PO (09:55)
[2023-08-20] MEDS: METOPROLOL TARTRATE 50 MG TAB PO (09:55)
[2023-08-20] MEDS: APIXABAN 2.5 MG TABLET BY MOUTH (09:55)
[2023-08-20] MEDS: hydrALAZINE HCL 50 MG TABLET 100 MG PO ×2 (09:55→14:28)
[2023-08-20] MEDS: FERROUS SULFATE 325 MG TABLET DR BY MOUTH (09:55)
[2023-08-20] MEDS: MULTIVITAMINS /C LUTEIN (CENTRUM SILVER) TABLET *BKC 1 TAB PO (09:55)
[2023-08-20] MEDS: amLODIPine BESYLATE 5 MG TABLET 10 MG PO (09:55)
[2023-08-20 12:00] VITALS: PULSE 66
--- NOTE | 2023-08-20 13:03 | PM.DS ---
DS: Admitting Diagnosis Discharge Date 08/20/2023: Admitting Diagnosis Hyperkalemia MJ on CKD DS: Discharge Diagnosis Discharge Diagnosis (1) Hypertension: Code(s): I10 - Essential (primary) hypertension Status: Chronic (2) Urinary tract infection: Code(s): N39.0 - Urinary tract infection, site not specified Status: Acute (3) Stage 3b chronic kidney disease: Code(s): N18.32 - Chronic kidney disease, stage 3b Status: Chronic (4) Type 2 diabetes mellitus: Code(s): E11.9 - Type 2 diabetes mellitus without complications Status: Acute (5) PVD (peripheral vascular disease): Code(s): I73.9 - Peripheral vascular disease, unspecified Status: Acute (6) Hemiplegia affecting right dominant side: Code(s): G81.91 - Hemiplegia, unspecified affecting right dominant side Status: Acute (7) GERD (gastroesophageal reflux disease): Code(s): K21.9 - Gastro-esophageal reflux disease without esophagitis Status: Acute (8) Abnormal CT scan, chest: Code(s): R93.89 - Abnormal findings on diagnostic imaging of other specified body structures Status: Acute (9) Multinodular goiter: Code(s): E04.2 - Nontoxic multinodular goiter Status: Acute (10) Anemia: Code(s): D64.9 - Anemia, unspecified Status: Chronic (11) Alzheimer disease: Code(s): G30.9 - Alzheimer's disease, unspecified; F02.80 - Dementia in other diseases classified elsewhere, unspecified severity, without behavioral disturbance, psychotic disturbance, mood disturbance, and anxiety Status: Acute (12) Nicotine dependence, cigarettes, with other nicotine-induced disorders: Code(s): F17.218 - Nicotine dependence, cigarettes, with other nicotine-induced disorders Status: Acute (13) Tobacco abuse counseling: Code(s): Z71.6 - Tobacco abuse counseling Status: Acute DS: Summary Hospital Course Reason for hospitalization: Patient sent to the ER for evaluation by her medical doctor to address abnormal labs Hospital Course: H&P: HPI History of Present Illness Date/Time: 08/16/23? 13:02 Chief Complaint: Abnormal lab, Hyperkalemia Narrative: Patient 73-year-old female who presents emergency department with chief complaint of abnormal labs.? A resident of [facility], her medical history is significant for L/AKA, hyperkalemia dementia TIAs and diabetes During a routine metabolic profile check at the facility, she was found to be hyperkalemic; she was transferred to the ED for expert evaluation. The patient denies any unusual fatigue, malaise, nausea, vomiting, fevers, chills or diarrheal bouts. HOSPITAL COURSE ... Date of Admission - 08/20/2023: Assessment and Plan (1) Hyperkalemia: ?Code(s): E87.5 - Hyperkalemia ?Status:?Acute ?Assessment and Plan: Improving; Nephrology on board (2) Stage 3b chronic kidney disease: ?Code(s): N18.32 - Chronic kidney disease, stage 3b ?Status:?Chronic ?Assessment and Plan: Avoid nephrotoxins (3) Hemiplegia affecting right dominant side: ?Code(s): G81.91 - Hemiplegia, unspecified affecting right dominant side ?Status:?Acute ?Assessment and Plan: Falls; Safety precautions (4) GERD (gastroesophageal reflux disease): ?Code(s): K21.9 - Gastro-esophageal reflux disease without esophagitis ?Status:?Acute ?Assessment and Plan: PPI (5) Alzheimer disease: ?Code(s): G30.9 - Alzheimer's disease, unspecified; F02.80 - Dementia in other diseases classified elsewhere, unspecified severity, without behavioral disturbance, psychotic disturbance, mood disturbance, and anxiety ?Status:?Acute ?Assessment and Plan: Falls and safety precautions (6) Anemia: ?Code(s): D64.9 - Anemia, unspecified ?Status:?Acute ?Assessment and Plan: s/p 2U PRBC Monitor Hb with goal >7 (7) Gluteal pain: ?Code(s): M79
[2023-08-20] MEDS: CEPHALEXIN 500 MG CAPSULE PO (14:27)
[2023-08-20] MEDS: EPOETIN ALFA-EPBX 10,000 UNITS/ML VIAL 10000 UNITS SUB-Q (14:28)
[2023-08-20 15:01] VITALS: BP 156/51; PULSE 67; RESP 12; TEMP 36.6; O2SAT 100
--- NOTE | 2023-08-20 15:56 | P.PNNP_ITS ---
Progress Note: A&P Assessment and Plan (1) Hyperkalemia: Code(s): E87.5 - Hyperkalemia Status: Acute Assessment and Plan: * precipitated by #2 and possible bactrim use (listed on home medications in ER note) * resolved with stopping the Bactrim (2) Acute kidney injury: Code(s): N17.9 - Acute kidney failure, unspecified Status: Acute Assessment and Plan: * improvement noted * possibly due to volume depletion in conjunction with UTI * evaluation to date: * renal ultrasound noted: Mild bilateral hydroureteronephrosis which suggests sequela chronic outlet obstruction; bilateral mild increased renal echogenicity consistent with medical renal disease. * urine electrolytes non-prerenal * UA consistent with infection * urine eosinophils negative * significant proteinuria * on IVF hydration. 0.9% NaCl at 75 an hour * on cephalexin * creatinine improving (3) Stage 3b chronic kidney disease: Code(s): N18.32 - Chronic kidney disease, stage 3b Status: Chronic Assessment and Plan: * since May 2023 (from review of records from [facility] and [facility]), creatinine has been running around 1.5 - 1.8mg/dl; last labs on 07/08/23 with a creatinine of 1.63mg/dl * presumably secondary to HTN, DM, vascular disease (CAD, PVD, hyperlipidemia, CVA), CHF, and age-related change * creatinine is now back to its baseline (4) Urinary tract infection: Code(s): N39.0 - Urinary tract infection, site not specified Status: Acute Assessment and Plan: * urinalysis highly suggestive * urine culture with E.coli * on cephalexin (5) Hypertension: Code(s): I10 - Essential (primary) hypertension Status: Chronic Assessment and Plan: * systolic 110s to 160s. It has gradually been improving * follow trend of hemodynamics (6) Anemia: Code(s): D64.9 - Anemia, unspecified Status: Chronic Assessment and Plan: * presumably related to CKD * PRBC transfusion per protocol * getting Epogen now. * Hemoglobin the same today as yesterday Subjective Date/time seen: 08/20/23 15:56 Interval history: patient feels better. No chest pain or shortness of breath she is comfortable lying flat in bed Exam Narrative: General: thin and elderly female in NAD Heart: normal S1 and S2; no rub or gallop Lungs: clear Abdomen: soft, nontender, nondistended, positive bowel sounds Extremities: no cyanosis or clubbing; no edema; s/p right AKA Skin: no rash Objective Data Vital Signs Vital Signs: Vital Signs - 24 hr 08/19/23 16:00 08/19/23 16:40 08/19/23 20:37 Temperature 98.2 F Pulse Rate 69 70 67 Respiratory Rate 18 Blood Pressure 118/39 L Pulse Oximetry 100 Oxygen Delivery 08/19/23 21:00 08/19/23 20:00 08/20/23 00:00 Temperature Pulse Rate 69 67 Respiratory Rate Blood Pressure Pulse Oximetry Oxygen Delivery Room Air 08/20/23 04:00 08/20/23 06:52 08/20/23 08:00 Temperature 98.5 F Pulse Rate 73 67 82 Respiratory Rate 18 Blood Pressure 167/69 H Pulse Oximetry 100 Oxygen Delivery
--- NOTE | 2023-08-20 15:56 | PM.PNNEP ---
Progress Note: A&P Assessment and Plan (1) Hyperkalemia: Code(s): E87.5 - Hyperkalemia Status: Acute Assessment and Plan: precipitated by #2 and possible bactrim use (listed on home medications in ER note) resolved with stopping the Bactrim (2) Acute kidney injury: Code(s): N17.9 - Acute kidney failure, unspecified Status: Acute Assessment and Plan: improvement noted possibly due to volume depletion in conjunction with UTI evaluation to date: renal ultrasound noted: Mild bilateral hydroureteronephrosis which suggests sequela chronic outlet obstruction; bilateral mild increased renal echogenicity consistent with medical renal disease. urine electrolytes non-prerenal UA consistent with infection urine eosinophils negative significant proteinuria on IVF hydration. 0.9% NaCl at 75 an hour on cephalexin creatinine improving (3) Stage 3b chronic kidney disease: Code(s): N18.32 - Chronic kidney disease, stage 3b Status: Chronic Assessment and Plan: since May 2023 (from review of records from [facility] and [facility]), creatinine has been running around 1.5 - 1.8mg/dl; last labs on 07/08/23 with a creatinine of 1.63mg/dl presumably secondary to HTN, DM, vascular disease (CAD, PVD, hyperlipidemia, CVA), CHF, and age-related change creatinine is now back to its baseline (4) Urinary tract infection: Code(s): N39.0 - Urinary tract infection, site not specified Status: Acute Assessment and Plan: urinalysis highly suggestive urine culture with E.coli on cephalexin (5) Hypertension: Code(s): I10 - Essential (primary) hypertension Status: Chronic Assessment and Plan: systolic 110s to 160s. It has gradually been improving follow trend of hemodynamics (6) Anemia: Code(s): D64.9 - Anemia, unspecified Status: Chronic Assessment and Plan: presumably related to CKD PRBC transfusion per protocol getting Epogen now. Hemoglobin the same today as yesterday Subjective Date/time seen: 08/20/23 15:56 Interval history: patient feels better. No chest pain or shortness of breath she is comfortable lying flat in bed Exam Narrative: General: thin and elderly female in NAD Heart: normal S1 and S2; no rub or gallop Lungs: clear Abdomen: soft, nontender, nondistended, positive bowel sounds Extremities: no cyanosis or clubbing; no edema; s/p right AKA Skin: no rash Objective Data Vital Signs Vital Signs: Vital Signs - 24 hr 08/19/23 16:00 08/19/23 16:40 08/19/23 20:37 Temperature 98.2 F Pulse Rate 69 70 67 Respiratory Rate 18 Blood Pressure 118/39 L Pulse Oximetry 100 Oxygen Delivery 08/19/23 21:00 08/19/23 20:00 08/20/23 00:00 Temperature Pulse Rate 69 67 Respiratory Rate Blood Pressure Pulse Oximetry Oxygen Delivery Room Air 08/20/23 04:00 08/20/23 06:52 08/20/23 08:00 Temperature 98.5 F Pulse Rate 73 67 82 Respiratory Rate 18 Blood Pressure 167/69 H Pulse Oximetry 100 Oxygen Delivery 08/20/23 12:00 08/20/23 15:01 Temperature 97.8 F Pulse Rate 66 67 Respiratory Rate 12 Blood Pressure 156/51 H Pulse Oximetry 100 Oxygen Delivery Intake/Output Intake/Output: Intake & Output 08/17/23 08/18/23 08/19/23 08/20/23 23:59 23:59 23:59 23:59 Intake Total 3795 2150 3050 600 Output Total 275 Balance 3520 2150 3050 600 Meds/Results Medications: Active Medications Generic Name Dose Route Start Last Admin Trade Name Freq PRN Reason Stop Dose Admin Amlodipine Besylate 10 mg 08/16/23 12:40 08/20/23 09:55 Amlodipine Besylate 5 Mg Tablet PO 10 mg DAILY SENDY Administration Apixaban 2.5 mg 08/16/23 12:38 08/20/23 09:55 Apixaban 2.5 Mg Tablet BY MOUTH 12/01/23 12:00 2.5 mg BID SENDY Administration Ascorbic Acid 500 mg 08/16/23 1
== END 2023-08-20 16:52 | DRG 683 ==
LOC: ANHED 08-16 05:48 → ANHIMU 08-16 06:31 → ANH2MED 08-18 18:47
PROVIDERS: Internal Medicine; Internal Medicine Nephrology; Admitting Provider Internal Medicine; Emergency Provider Emergency Medicine; PCP Internal Medicine; Visit Provider Family Medicine
DX: N17.9 Acute kidney failure, unspecified (principal); G81.91 Hemiplegia, unspecified affecting right dominant side; N39.0 Urinary tract infection, site not specified; Z68.1 Body mass index [BMI] 19.9 or less, adult; I13.0 Hypertensive heart and chronic kidney disease with heart failure and stage 1 through stage 4 chronic kidney disease, or unspecified chronic kidney disease; E87.5 Hyperkalemia; B96.20 Unspecified Escherichia coli [E. coli] as the cause of diseases classified elsewhere; D53.9 Nutritional anemia, unspecified; D63.1 Anemia in chronic kidney disease; E11.22 Type 2 diabetes mellitus with diabetic chronic kidney disease; E11.51 Type 2 diabetes mellitus with diabetic peripheral angiopathy without gangrene; E04.2 Nontoxic multinodular goiter; E78.5 Hyperlipidemia, unspecified; G30.9 Alzheimer's disease, unspecified; F02.80 Dementia in other diseases classified elsewhere, unspecified severity, without behavioral disturbance, psychotic disturbance, mood disturbance, and anxiety; F17.210 Nicotine dependence, cigarettes, uncomplicated; I50.9 Heart failure, unspecified; I48.91 Unspecified atrial fibrillation; K21.9 Gastro-esophageal reflux disease without esophagitis; N18.32 Chronic kidney disease, stage 3b; M79.18 Myalgia, other site; R63.0 Anorexia; R91.1 Solitary pulmonary nodule; Z99.3 Dependence on wheelchair; Z86.73 Personal history of transient ischemic attack (TIA), and cerebral infarction without residual deficits; Z89.612 Acquired absence of left leg above knee; Z86.16 Personal history of COVID-19; Z79.01 Long term (current) use of anticoagulants; Z79.85 Long-term (current) use of injectable non-insulin antidiabetic drugs
CPT/HCPCS: 36415; 36430; 36569; 71045; 71250; 72192; 76775; 80048; 80053; 80069; 81001; 81050; 82570; 82607; 82728; 82746; 82948; 83036; 83540; 83550; 83735; 84156; 84300; 84443; 84540; 85025; 85055; 85999; 86850; 86900; 86901; 86923; 87077; 87086; 87088; 87186; 93005; 96361; 96365; 96366; 96375; 96376; 99285; A9270; G0378; J0612; J0696; J1815; J7030; J7050; P9016; Q5105

== ENCOUNTER 2023-09-01 06:22 | Outpatient (CLI) | payer MEDICARE, MEDICAID, SELFPAY ==
[2023-08-29 15:45] VITALS: BMI 20.7
--- NOTE | 2023-08-29 15:49 | PC.NURSE ---
Pre Radiology instructions Report to the outpatient tiffanie liang on date _09/01/23____ at time __9:00am for procedure Time: __11:00am__ YOU MAY BE MONITORED AT HOSPITAL FOR UP TO 4 HOURS AFTER YOUR PROCEDURE. A visitor will be allowed to accompany the patient into the hospital. You and your visitor will be asked to self-screen and do not enter if you have any COVID symptoms. A mask is OPTIONAL within the hospital. Patients are to have no food or drink 6 hours prior to procedure time NOTHING TO EAT OR DRINK AFTER 5:00AM Driving will be restricted after the procedure, you must have a person to drive you home. Labs will be drawn in preop area and once reviewed, you will be taken to radiology area for procedure. When the procedure is completed, you will be taken to outpatient where you will be monitored for several hours. You may have one visitor in this area. Other than holding anti-coagulants, patient may take other medication(s) as scheduled. Prior to your appointment date patients are instructed to hold anti-coagulants after discussing with ordering provider to stop. If unable to discontinue anti-coagulants please notify radiologist. ? No aspirin or warfarin (Coumadin) for 7 days prior to the procedure. ? No clopidogrel (Plavix), ticagrelor (Brilinta), prasugrel (Effient) or dabigatran (Pradaxa) for 5 days prior to the procedure. ? No rivaroxaban (Xarelto), apixaban (Eliquis), dipyridamole (Aggrenox or Persantine) or cilostazol (Pletoral) 2 days prior to the procedure Medications to discontinue per physician: __ELIQUIS Date to take last dose: _08/29/23 Please leave all valuables, including medications, at home the day of procedure. The hospital will not accept responsibility for valuables. Wear comfortable, loose fitting clothing.? Follow any additional instructions given to you from ordering provider. Telephone instructions given to __RAYRAY AT [facility] and asked if any additional questions and then verbalized understanding. Patient advised to call scheduling provider office or registration scheduling [phone] if any additional questions.
[2023-09-01] VITALS (13 sets, daily range): BP systolic 142–167; BP diastolic 35–67; PULSE 61–77; RESP 14–16; TEMP 37; O2SAT 99–100
--- NOTE | ~2023-09-01 | US_ITS ---
EXAMINATION: US thyroid DATE: 09/01/2023 13:46 INDICATION: Goiter. TECHNIQUE: Multiple ultrasound images of the thyroid were obtained. COMPARISON: Chest CT 08/16/2023 FINDINGS: The right thyroid lobe measures 6.5 x 2.8 x 3.6 cm. The left thyroid lobe measures 5.2 x 2.9 x 4.2 c m. In the right thyroid lobe, there is a 1.5 cm almost entirely cystic nodule (TI-RADS TR1). In the left thyroid lobe, there is a 2.0 cm solid, very hypoechoic, wider than tall nodule with smooth dalton n without echogenic foci (TR4). In the left thyroid lobe, there is a 2.5 cm solid, hypoechoic, wider than tall nodule with lobulated margin without echogenic foci (TR4). IMPRESSION: 1. Multinodular goiter. Ultrasound-guided fine needle aspiration of 2 left thyroid nodules is recomme nded. Reviewed, dictated and finalized at location E. NG FORMER MACHINE IMPRESSION: 1. Multinodular goiter. Ultrasound-guided fine needle aspiration of 2 left thyr oid nodules is recommended.
--- NOTE | ~2023-09-01 | XR_ITS ---
EXAMINATION: XR chest 1V portable DATE: 09/01/2023 12:36 INDICATION: Status post percutaneous left lung biopsy TECHNIQUE: frontal view of the chest was obtained. COMPARISON: Chest radiograph dated 09/01/2023 at 11:27 AM FINDINGS: Small nodular opacity left midlung zone which is concerning for malignancy. Mild streaky atelectasis at the left lung base with possible tiny pneumothorax at the lateral left lower lung zone. No pulmona ry edema, pleural effusion or right-sided pneumothorax. The cardiomediastinal silhouette is normal. M edian sternotomy wires and mediastinal surgical clips are seen, likely from prior coronary artery byp ass grafting. IMPRESSION: 1. Possible tiny left pneumothorax at the lateral left lower lung zone. 2. Nodule in the left midlung zone concerning for primary bronchogenic carcinoma. Reviewed, dictated and finalized at location A. NE PRODUCER IMPRESSION: 1. Possible tiny left pneumothorax at the lateral left lower lung zone. 2. Nodule in the left midlung zone concerning for primary bronchogenic carcinom a.
--- NOTE | ~2023-09-01 | XR_ITS ---
EXAMINATION: XR chest 1V portable DATE: 09/01/2023 14:27 INDICATION: Status post percutaneous lung biopsy. TECHNIQUE: frontal view of the chest was obtained. COMPARISON: Chest radiograph dated 09/01/2023 FINDINGS: There is a moderate-sized left pleural pneumothorax with increased opacities in the perihilar region and left lower lung likely representing atelectasis. Right lung remains clear. No pulmonary edema, pl eural effusion or right-sided pneumothorax. The previous noted left upper lobe nodule is likely obscu red by the hilum. Cardiomediastinal silhouette remains within normal limits accounting for slight rig htward rotation of the patient. Median sternotomy wires and mediastinal surgical clips are seen, like ly from prior coronary artery bypass grafting. IMPRESSION: 1. Moderate-sized left pleural effusion post percutaneous left lung biopsy. Reviewed, dictated and finalized at location A. R MAKING MACHINE OPERATOR
--- NOTE | ~2023-09-01 | CT_ITS ---
EXAMINATION: CT chest tube placement w img DATE: 09/01/2023 17:31 INDICATION: Delayed left pneumothorax post percutaneous lung biopsy. TECHNIQUE: The procedure including the risks and benefits was discussed with the patient. Risks discu ssed included bleeding and infection. The patient understood the risks and benefits and agreed to pro ceed. The skin overlying the infraclavicular anterior left chest was prepped and draped in usual ster ile fashion. Anesthetic was administered with 1% lidocaine subcutaneously. An 18-gauge trochar needl e was inserted into the moderate-sized left pneumothorax utilizing CT guidance. A J-wire was advanced through the needle with position confirmed by CT. Utilizing Seldinger technique the needle was remov ed over the wire and the tract was serially dilated to 8 Kazakh. An 8.5 Kazakh pigtail catheter was i nserted over the wire and following confirmation of positioning by CT, the loop was formed and locked . The metal stiffener and the wire were removed and the catheter was stitched to the skin. A Vaseline impregnated gauze and a sterile dressing were applied. The left pneumothorax was then decompressed w ith near complete resolution of the left pneumothorax on the final images. There were no immediate co mplications. The patient was then transferred to the emergency department for management prior to adm ission. The dose-length product was 150.99 mGy-cm. FINDINGS: CT images demonstrate the placement of the catheter within the initially moderate-sized lef t pneumothorax. Final images demonstrate the formed loop of the catheter anterior to the left upper l obe with near complete resolution of the left pneumothorax. IMPRESSION: 1. Successful CT-guided left chest tube placement complete resolution of the prior moderate-sized iat rogenic left pneumothorax. The patient is being admitted with the catheter to be managed by the [facility] staff. Reviewed, dictated and finalized at location A. EMIC SUCCESS COORDINATOR IMPRESSION: 1. Successful CT-guided left chest tube placement complete resolution of the pr ior moderate-sized iatrogenic left pneumothorax. The patient is being admitted with the catheter to be managed by the hospital staff.
--- NOTE | ~2023-09-01 | CT_ITS ---
EXAMINATION: CT biopsy lung w/imaging DATE: 09/01/2023 11:27 INDICATION: Left upper lobe nodule TECHNIQUE: The procedure including the risks and benefits was discussed with the patient. Risks discu ssed included infection, approximately 1/20 risk of symptomatic hemorrhage beyond mild hemoptysis, ap proximately 1/3 risk of pneumothorax, and approximately 1/10 risk of pneumothorax severe enough to wa rrant chest tube placement. The patient understood the risks and agreed to proceed. The patient was p laced spine. The skin overlying the anterior chest was prepped and draped in sterile fashion. Anest hetic was administered with 1% lidocaine subcutaneously. A 19 gauge outer needle was advanced under CT guidance to the lesion of interest. A 20 gauge core biopsy needle was then used to obtain 5 core b iopsy specimens. The needle was removed and the entry site was cleaned and dressed. There were no im mediate complications. The dose-length product was 137.87 mGy-cm. FINDINGS: CT images demonstrate the outer needle tip adjacent to a 1.8 cm mass with lobular margins i n the anterior segment of the left upper lobe. IMPRESSION: 1. Successful CT-guided biopsy of a 1.8 cm left upper lobe pulmonary nodule which is concerning for p rimary bronchogenic carcinoma. Reviewed, dictated and finalized at location A. OR TRADE JOURNAL IMPRESSION: 1. Successful CT-guided biopsy of a 1.8 cm left upper lobe pulmonary nodule [facility] is concerning for primary bronchogenic carcinoma.
--- NOTE | ~2023-09-01 | XR_ITS ---
EXAMINATION: XR chest 1V DATE: 09/01/2023 11:28 INDICATION: Status post left percutaneous lung biopsy TECHNIQUE: frontal view of the chest was obtained. COMPARISON: Chest radiograph dated 08/16/2023 FINDINGS: Again seen is a left upper lobe pulmonary nodule in the medial left midlung zone with minimal surroun ding groundglass opacity likely related to small amount of postbiopsy hemorrhage. No other airspace o pacities, pulmonary edema, pleural effusion or pneumothorax. The cardiomediastinal silhouette is norm al. Median sternotomy wires and mediastinal surgical clips are seen, likely from prior coronary arter y bypass grafting. IMPRESSION: 1. No pneumothorax or pleural effusion post percutaneous left lung biopsy. 2. Minimal postbiopsy hemorrhage surrounding the biopsied left upper lobe nodule. Reviewed, dictated and finalized at location A. OGRAPHIC SPOTTER IMPRESSION: 1. No pneumothorax or pleural effusion post percutaneous left lung biopsy. 2. Minimal postbiopsy hemorrhage surrounding the biopsied left upper lobe rashmi austin
[2023-09-01 09:42] LABS: Mean Platelet Volume 8.6 fl (7.4-10.4); Platelet Count Result 276 k/mm3 (150-375)
[2023-09-01 09:50] LABS: INR 1.1; Prothrombin Time 15.2 Seconds (11.1-14.7)
--- NOTE | 2023-09-01 10:34 | SUR.PREOP ---
i called [facility]men RODRÍGUE[facility] and they told me that pt last dose of elequis was on 08/24/23. we had asked her to stop 08/29/23.
--- NOTE | 2023-09-01 12:19 | SUR.PHASEII ---
1145 - MD Elaine contact - pt. refuses to lay on their back with HOB flat per orders. Ok with pt. side lying and notify with any signs of bleeding or coughing up blood.
--- NOTE | 2023-09-01 12:21 | SUR.PHASEII ---
1215 - Radiology contacted for chest xray at 1215. Xray is not scheduled until 1230 per radiology.
--- NOTE | 2023-09-01 12:53 | SUR.PHASEII ---
MD Elaine contacted regarding tiny pneumothorax on chest xray. No new orders at this time - another chest xray ordered for 1430.
--- NOTE | 2023-09-01 15:21 | SUR.PHASEII ---
MD Elaine at bedside to discuss pneumothorax with patient. Decision was made to place a chest tube and admit overnight. food service kitchen supervisor contacted - pt. is to transfer to ED. MD Elaine aware. [facility] notified.
--- NOTE | 2023-09-01 15:39 | SUR.PHASEII ---
Update to Stephen Mccarthy - son
--- NOTE | 2023-09-01 15:56 | SUR.PHASEII ---
Addendum entered by Lani Soto RN 09/01/23 16:33: Report called to ED DONALD Gleason. Original Note: 1550- Pt. transported to CT with tech prior to going to ED. Pt. personal belongings and motorized chair taken to ED room 14.
== END 2023-09-01 15:50 | disposition home or self-care (01) ==
PROVIDERS: PCP Internal Medicine; Referring Provider Family Medicine; Visit Provider Radiology Diagnostic Radiology
PROC: BB24ZZZ Computerized Tomography (CT Scan) of Bilateral Lungs (ICD-10-PCS; CPT 32408; principal; 2023-09-01 11:00)
DX: R91.1 Solitary pulmonary nodule (principal); C34.92 Malignant neoplasm of unspecified part of left bronchus or lung
CPT/HCPCS: 32408; 32550; 36415; 71045; 75989; 76536; 85049; 85610; 88305; 88342; C1729

== ENCOUNTER 2023-09-01 17:46 | Inpatient (IN) | payer MEDICARE, MEDICAID, SELFPAY ==
--- NOTE | ~2023-09-01 | XR_ITS ---
EXAMINATION: XR chest 1V portable DATE: 09/04/2023 11:37 INDICATION: Left pneumothorax. Chest tube on waterseal. TECHNIQUE: A single frontal view of the chest was obtained. COMPARISON: Chest single view at 5:36 AM FINDINGS: There is mild atelectasis in right lower lung zone. No pleural effusion or pneumothorax. Th ere is a left-sided chest tube in expected position. Cardiomegaly is noted. Median sternotomy wires a nd mediastinal surgical clips are seen, likely from prior coronary artery bypass grafting. IMPRESSION: 1. No pneumothorax. Left-sided chest tube in expected position. 2. Cardiomegaly. Reviewed, dictated and finalized at location A. ROOM CLERK
--- NOTE | ~2023-09-01 | XR_ITS ---
EXAMINATION: XR chest 1V portable DATE: 09/04/2023 05:47 INDICATION: Left pneumothorax. TECHNIQUE: A single frontal view of the chest was obtained. COMPARISON: Chest single view 09/03/2023 FINDINGS: There are airspace opacities in right lower lung zone. No pleural effusion or pneumothorax. Cardiomegaly is noted. Median sternotomy wires and mediastinal surgical clips are seen, likely from prior coronary artery bypass grafting. There is a left-sided chest tube in expected position. IMPRESSION: 1. No pneumothorax. Left chest tube in expected position. 2. Worsened airspace opacities in right lower lung zone, likely atelectasis. 3. Cardiomegaly. Reviewed, dictated and finalized at location A. UNTING MANAGER ASSISTANT CONTROLLER
--- NOTE | ~2023-09-01 | XR_ITS ---
Portable chest x-ray Comparison: 09/04/2023 at 11:20 AM Clinical History: Chest tube removal Findings: Left-sided chest tube has been removed. Questionable tiny left apical pneumothorax. No con solidation or pleural effusion. Cardiomediastinal silhouette is stable. Bones and soft tissues are u nremarkable. Impression: Questionable tiny left apical pneumothorax following left chest tube removal. Reviewed, dictated and finalized at location M. DENT HALL DIRECTOR Impression: Questionable tiny left apical pneumothorax following left chest tube removal.
--- NOTE | ~2023-09-01 | XR_ITS ---
EXAMINATION: XR chest 1V portable DATE: 09/01/2023 20:39 INDICATION: Left pneumothorax status post chest tube placement. TECHNIQUE: A single frontal view of the chest was obtained. COMPARISON: Chest single view at 2:20 PM FINDINGS: There is a small left pneumothorax. There is a left-sided chest tube in expected position. There is mild atelectasis in left lower lung zone. No pleural effusion. The heart size is normal. Med nellie sternotomy wires and mediastinal surgical clips are seen, likely from prior coronary artery bypas s grafting. IMPRESSION: 1. Small left pneumothorax with interval improvement with left-sided chest tube in expected position. Reviewed, dictated and finalized at location E. APPLICATIONS REPRESENTATIVE
--- NOTE | ~2023-09-01 | XR_ITS ---
EXAMINATION: XR chest 1V portable DATE: 09/02/2023 11:48 INDICATION: Follow-up iatrogenic pneumothorax. TECHNIQUE: frontal view of the chest was obtained. COMPARISON: Chest radiograph dated 09/01/2023 FINDINGS: Infraclavicular pigtail right chest tube remains in place. There has been interval increase in size o f small to moderate sized left pneumothorax partial collapse of the left lung. No focal airspace opac ities, pulmonary edema, pleural effusion or right pneumothorax. The cardiomediastinal silhouette is n ormal without midline shift accounting for the slight rightward rotation of the patient. Median hawthorne otomy wires and mediastinal surgical clips are seen, likely from prior coronary artery bypass graftin g. IMPRESSION: 1. Interval reaccumulation of a small to moderate-sized left pneumothorax. Left chest tube remains un changed. Reviewed, dictated and finalized at location A. EXAMINER IMPRESSION: 1. Interval reaccumulation of a small to moderate-sized left pneumothorax. Left chest tube remains unchanged.
--- NOTE | ~2023-09-01 | XR_ITS ---
EXAMINATION: XR chest 1V portable INDICATION: Pneumothorax TECHNIQUE: Portable AP chest at 0435 hours COMPARISON: 09/02/2023 FINDINGS: There is no significant change in the previously described small moderate sized left pneumo thorax. A left-sided chest tube is unchanged in position. The right lung is clear. There is mild atel ectasis of the left lung. There is no pleural effusion. The cardiomediastinal silhouette is stable. IMPRESSION: 1. Stable small to moderate-sized left pneumothorax with left chest tube in position. Reviewed, dictated and finalized at location F. LANE FUELER IMPRESSION: 1. Stable small to moderate-sized left pneumothorax with left chest tube in pos ition.
--- NOTE | ~2023-09-01 | XR_ITS ---
Portable chest x-ray Comparison: 09/04/2023 Clinical History: Pneumothorax Findings: Lungs are clear, without focal consolidation or pleural effusion. No pneumothorax evident. Cardiomediastinal silhouette is stable. Bones and soft tissues are unremarkable. Impression: No pneumothorax. Clear lungs. Reviewed, dictated and finalized at [facility]. STERED NURSE BONE MARROW TRANSPLANT Impression: No pneumothorax. Clear lungs.
[2023-09-01 17:51] VITALS: BP 140/74; PULSE 89; RESP 20; TEMP 36.2; O2SAT 97
[2023-09-01 18:15] VITALS: O2SAT 100
--- NOTE | 2023-09-01 18:30 | PC.NURSE ---
when turning on suction pt reports pain to the left chest. chest X-Ray obtained. Called Dr. Barksdale and made him aware. He reports this is normal. pt. made aware.
--- NOTE | 2023-09-01 20:22 | ECG_ITS ---
Measurements Intervals [place] Rate: 81 P: 46 IN: 163 QRS: 248 QRSD: 114 T: 24 QT: 370 QTc: 430 Interpretive Statements SINUS RHYTHM RIGHT AXIS DEVIATION [QRS AXIS > 100] RIGHT BUNDLE BRANCH BLOCK [120+ ms QRS DURATION, UPRIGHT V1, 40+ ms S IN I/aVL/V4/V5/V6] CONSIDER PREVIOUS INFERIOR INFARCTION ABNORMAL ECG COMPARED TO ECG 08/16/2023 00:05:07 NO SIGNIFICANT CHANGES Electronically Signed On 09-02-2023 7:16:38 HEMATOLOGY TECHNICIAN by Armando Patel M.D.
--- NOTE | 2023-09-01 20:22 | ED.GENADULT ---
HPI - General Adult General Chief complaint: Recheck/Abnormal Lab/Rx Stated complaint: chest tube Time Seen by Provider: 09/01/23 18:09 Source: patient and old records reviewed Mode of arrival: ambulatory Limitations: no limitations History of Present Illness HPI narrative: Patient is a 73-year-old female, with PMH of CVA w/ R sided deficits, dementia, DM, who presents the ED with report of pneumothorax. Patient was recently admitted to our hospital for hyperkalemia, found to have L lung mass concerning for bronchogenic carcinoma. Patient underwent outpatient CT-guided lung biopsy today which resulted in a moderate size left-sided pneumothorax. A Cook catheter was placed by Radiology and patient was sent to the ED for further evaluation and management. Repeat chest x-ray showing interval improvement of now small sided pneumothorax. Patient denies any acute complaints. She denies shortness of breath, pleuritic pain, chest pain, recent cough or cold symptoms. Patient is a former smoker. Related Data Home Medications Medication Instructions Recorded Confirmed Saccharomyces boulardii 250 mg 250 mg PO BID 08/16/23 08/29/23 capsule (Florastor) acetaminophen 325 mg tablet 650 mg PO Q4H PRN Pain 08/16/23 08/29/23 amlodipine 10 mg tablet 10 mg PO DAILY 08/16/23 08/29/23 apixaban 2.5 mg tablet (Eliquis) 2.5 mg BID 08/16/23 08/29/23 arginine-vitamin C-vitamin E oral 4.5 g PO DAILY 08/16/23 08/29/23 4.5 gram-156 mg/9.2 gram powder pkt (Arginaid) ascorbic acid (vitamin C) 500 mg 500 mg PO BID 08/16/23 08/29/23 capsule atorvastatin 80 mg tablet 80 mg PO DAILY 08/16/23 08/29/23 bisacodyl 10 mg rectal suppository 10 mg RECTAL DAILY PRN Constipation 08/16/23 08/29/23 clonidine HCl 0.2 mg tablet 0.1 mg PO DAILY 08/16/23 08/29/23 darbepoetin david in polysorbat 40 40 mcg subcut MONTHLY 08/16/23 08/29/23 mcg/mL in polysorbate injection (Aranesp) ferrous sulfate 325 mg (65 mg 325 mg PO DAILY 08/16/23 08/29/23 iron) tablet folic acid 1 mg tablet 1 mg PO DAILY 08/16/23 08/29/23 glucagon HCl 1 mg solution for 1 mg IM ONCE PRN Hypoglycemia 08/16/23 08/29/23 injection (Glucagon (HCl) Emergency Kit) guaifenesin 600 mg tablet, 600 mg PO Q12H 08/16/23 08/29/23 extended release 12 hr hydralazine 100 mg tablet 100 mg PO TID 08/16/23 08/29/23 loperamide 2 mg capsule 2 mg PO Q6H PRN Diarrhea 08/16/23 08/29/23 (Anti-Diarrheal (loperamide)) magnesium citrate (Citroma oral 296 ml PO DAILY PRN Constipation 08/16/23 08/29/23 solution) magnesium hydroxide 400 mg/5 mL 30 ml PO HS PRN Constipation 08/16/23 08/29/23 oral suspension (Milk of Magnesia) metoprolol tartrate 50 mg tablet 25 mg PO BID 08/16/23 08/29/23 multivit with minerals-iron 18 1 tablet PO DAILY 08/16/23 08/29/23 mg-folic ac 400 mcg-vit K 25 mcg tablet (Adults Multivitamin) sodium phosphates 19 gram-7 118 ml RECTAL ONCE PRN Constipation 08/16/23 08/29/23 gram/118 mL enema (Fleet Enema) zinc oxide 40 % topical Q8H PRN Wound Care 08/16/23 08/29/23 zinc sulfate 220 mg PO DAILY 08/16/23 08/29/23 Allergies Allergy/AdvReac Type Severity Reaction Status Date / Time strawberry Allergy Unknown Verified 09/01/23 10:32 Review of Systems Review of Systems: CONSTITUTIONAL: Denies fever, chills, or sweats. CARDIOVASCULAR: Denies chest pain, palpitations, or edema. RESPIRATORY: Denies cough or dyspnea. GASTROINTESTINAL: Denies abdominal pain, nausea, vomiting. All systems reviewed & are unremarkable except as noted in HPI and below PMFSH Past Medical History Medical History Acute kidney failure Alzheimer disease Anemia CHF (congestive heart failure) COVID-19 GERD (gastroesophageal reflux disease) Hemiplegia affecting right dominant side PVD (peripheral vascular disease) Type 2 diabetes mellitus Surgical History Surgical History Hx
[2023-09-01 21:09] LABS: Basophils Percent Auto 0.1 % (0.2-1.2); Hematocrit 44.2 % (37.0-47.0); Immature Granulocyte Absolute 0.05 K/mm3 (0.00-0.031); Immature Granulocyte Percent A 0.7 % (0-0.5); Lymphocytes Percent Auto 16.8 % (18.3-44.2); Mean Corpuscular HGB Conc 31.7 g/dl (32-36); Mean Corpuscular Hemoglobin 30.3 pg (26-34); Mean Corpuscular Volume 95.7 fl (80-100); Monocytes Absolute Auto 0.6 K/mm3 (0.1-0.6); Monocytes Percent Auto 8.7 % (2.6-8.5); Neutrophils Absolute Auto 5.3 K/mm3 (1.3-6.7); Neutrophils Percent Auto 73.7 % (45.5-73.1); Platelet Count Result 294 k/mm3 (150-375); Red Blood Count 4.62 M/mm3 (4.2-5.4); Red Cell Distribution Width 15.5 % (11.5-14.5); White Blood Count 7.2 K/mm3 (4.5-10.0)
--- NOTE | 2023-09-01 21:11 | PC.NURSE ---
pt had a 22G in the L. AC prior to arrival to the ED. IV will not flush. IV taken out and catheter removed intact. another RN attempted and was unsuccessful. This RN entered room to attempt IV access. pt states oh no you are not sticking me again I refuse it! pt educated on importance of having an IV while in the hospital. pt still refusing. PRITI Szymanski made aware.
[2023-09-01 21:20] LABS: INR 1.1; Partial Thromboplastin Time 25.7 SECONDS (22.3-36.8); Prothrombin Time 14.8 Seconds (11.1-14.7)
[2023-09-01 21:25] LABS: Alanine Aminotransferase 27 U/L (6-35); Albumin Level 3.5 g/dL (3.5-5.1); Alkaline Phosphatase 171 U/L (38-126); Anion Gap 8 mmol/L (8-16); Aspartate Amino Transferase 35 U/L (14-36); Bilirubin,Total 0.6 mg/dL (0.2-1.3); Blood Urea Nitrogen 34 mg/dL (7-17); Carbon Dioxide 18 mmol/L (22-30); Chloride 106 mmol/L (98-107); Estimated CRCL calculation 31 ml/min; Estimated Glomerular Filt Rate 49; Glucose 112 mg/dL (65-110); Potassium 5.4 mmol/L (3.4-5.0); Sodium 132 mmol/L (137-145)
[2023-09-01 21:30] LABS: Troponin I < 0.012 ng/mL (0.000-0.034)
[2023-09-01 21:31] VITALS: BP 182/66; PULSE 84; RESP 15; TEMP 36.4; O2SAT 100
--- NOTE | 2023-09-01 21:40 | PM.IMHP ---
H&P: HPI History of Present Illness Date/Time: 09/01/23 21:40 Chief Complaint: pneumothorax Narrative: This is a 73-year-old female with past medical history significant Alzheimer's disease, congestive heart failure, GERD, hemiplegia, peripheral vascular disease, type diabetes mellitus, tobacco dependence. Patient was brought to the emergency room postprocedural for non biopsy patient developed hemothorax. Patient is undergoing workup for possible lung cancer. Patient has been placed in observation. EXAMINATION: XR chest 1V portable DATE: 09/01/2023 20:39 INDICATION: Left pneumothorax status post chest tube placement. TECHNIQUE: A single frontal view of the chest was obtained. COMPARISON: Chest single view at 2:20 PM FINDINGS: There is a small left pneumothorax. There is a left-sided chest tube in expected position. There is mild atelectasis in left lower lung zone. No pleural effusion. The heart size is normal. Median sternotomy wires and mediastinal surgical clips are seen, likely from prior coronary artery bypass grafting. IMPRESSION: 1. Small left pneumothorax with interval improvement with left-sided chest tube in expected position. Review of Systems Review of Systems: ROS unobtainable: Yes unobtainable due to medical condition (Dementia) [facility] Past Medical History Medical History Acute kidney failure Alzheimer disease Anemia CHF (congestive heart failure) COVID-19 GERD (gastroesophageal reflux disease) Hemiplegia affecting right dominant side PVD (peripheral vascular disease) Type 2 diabetes mellitus Surgical History Surgical History Hx of AKA (above knee amputation) Family History Family History (Updated 09/02/23 @ 00:11 by Samira Ortiz RN) Other Unknown family medical history Social History Social History Smoking packs per day: 8 Smoking cigarettes per day: 160.0 Smoking status: Current every day smoker Tobacco type: cigarettes Alcohol intake: never Substance use: never Substance use type: does not use Do You Feel Safe in your Home?: Yes Lack of Transportation: No Lack of Food: Never True Current Housing: I Have Housing Concerned About Future Housing: No Difficulty Paying Gas/Electric Bills: No Difficulty Paying for Meds: No Currently Unemployed: No Education: Grade School Difficulty w/ Childcare or Family Care: No Spiritual care concerns: No Meds Home Medications and Allergies Home Medications Medication Instructions Recorded Confirmed Type acetaminophen 325 mg tablet 650 mg PO Q4H PRN Pain 08/16/23 09/02/23 History amlodipine 10 mg tablet 10 mg PO DAILY 08/16/23 09/02/23 History apixaban 2.5 mg tablet (Eliquis) 2.5 mg PO BID 08/16/23 09/02/23 History arginine-vitamin C-vitamin E oral 4.5 g PO DAILY 08/16/23 09/02/23 History 4.5 gram-156 mg/9.2 gram powder pkt (Arginaid) ascorbic acid (vitamin C) 500 mg 500 mg PO BID 08/16/23 09/02/23 History capsule atorvastatin 80 mg tablet 80 mg PO DAILY 08/16/23 09/02/23 History bisacodyl 10 mg rectal suppository 10 mg RECTAL DAILY PRN Constipation 08/16/23 09/02/23 History clonidine HCl 0.2 mg tablet 0.1 mg PO DAILY 08/16/23 09/02/23 History darbepoetin david in polysorbat 40 40 mcg subcut DAILY 08/16/23 09/02/23 History mcg/mL in polysorbate injection (Aranesp) ferrous sulfate 325 mg (65 mg 325 mg PO DAILY 08/16/23 09/02/23 History iron) tablet folic acid 1 mg tablet 1 mg PO DAILY 08/16/23 09/02/23 History glucagon HCl 1 mg solution for 1 mg IM ONCE PRN Hypoglycemia 08/16/23 09/02/23 History injection (Glucagon (HCl) Emergency Kit) guaifenesin 600 mg tablet, 600 mg PO Q12H 08/16/23 09/02/23 History extended release 12 hr hydralazine 100 mg tablet 100 mg PO TID 08/16/23
[2023-09-01 22:15] VITALS: BP 159/52; PULSE 84; RESP 12; O2SAT 100
[2023-09-01] MEDS: SODIUM CHLORIDE 0.9% IV 1,000 ML 999 ML IV CONT (23:20)
[2023-09-01] MEDS: SODIUM ZIRCONIUM CYCLOSILICATE 10 GM POWD.PACK PO (23:21)
[2023-09-01 23:25] VITALS: BP 184/63; PULSE 86; RESP 16; O2SAT 100
[2023-09-01 23:45] VITALS: BP 167/85; PULSE 86; RESP 17; O2SAT 100
[2023-09-02] VITALS (12 sets, daily range): BP systolic 151–180; BP diastolic 58–68; PULSE 72–107; RESP 16–18; TEMP 36.4–37.1; O2SAT 98–100
--- NOTE | 2023-09-02 00:16 | ADMGEN ---
This patient, Justine Ruiz, was admitted to Medical Room 248-. Patient/family oriented to hospital policies and general routines including ID bracelet, bed and alarms, visiting hours, pain management, procedures, bathroom and other care routines, personal items, smoking policy, room service/diet, and visiting hours. Information on how to activate the Rapid Response Team has been discussed. Patient/Family are encouraged to report perceived risks to care and to ask questions if they do not understand what they are told or what they should do.
[2023-09-02 08:35] LABS: Hematocrit 45.5 % (37.0-47.0); Hemoglobin 14.4 g/dL (12.0-15.0); Mean Corpuscular HGB Conc 31.6 g/dl (32-36); Mean Corpuscular Hemoglobin 30.2 pg (26-34); Mean Corpuscular Volume 95.4 fl (80-100); Mean Platelet Volume 8.4 fl (7.4-10.4); Platelet Count Result 279 k/mm3 (150-375); Red Blood Count 4.77 M/mm3 (4.2-5.4); Red Cell Distribution Width 15.4 % (11.5-14.5); White Blood Count 8.3 K/mm3 (4.5-10.0)
[2023-09-02 08:54] LABS: Alanine Aminotransferase 23 U/L (6-35); Albumin Level 3.1 g/dL (3.5-5.1); Alkaline Phosphatase 183 U/L (38-126); Anion Gap 8 mmol/L (8-16); Aspartate Amino Transferase 30 U/L (14-36); Bilirubin,Total 0.5 mg/dL (0.2-1.3); Blood Urea Nitrogen 28 mg/dL (7-17); Calcium 8.7 mg/dL (8.4-10.2); Carbon Dioxide 18 mmol/L (22-30); Chloride 107 mmol/L (98-107); Estimated CRCL calculation 31 ml/min; Estimated Glomerular Filt Rate 49; Glucose 93 mg/dL (65-110); Potassium 4.7 mmol/L (3.4-5.0); Sodium 133 mmol/L (137-145)
[2023-09-02] MEDS: hydrALAZINE HCL 50 MG TABLET 100 MG PO ×3 (08:59→18:21)
[2023-09-02] MEDS: ATORVASTATIN 40 MG TABLET 80 MG PO (09:00)
[2023-09-02] MEDS: APIXABAN 2.5 MG TABLET PO ×2 (09:00→20:17)
[2023-09-02] MEDS: FOLIC ACID 1 MG TABLET PO (09:00)
[2023-09-02] MEDS: cloNIDine HCL 0.1 MG TABLET PO (09:00)
[2023-09-02] MEDS: FERROUS SULFATE 325 MG TABLET DR BY MOUTH (09:00)
[2023-09-02] MEDS: guaiFENesin 12 HR 600 MG TABCR PO ×2 (09:00→20:17)
[2023-09-02] MEDS: METOPROLOL TARTRATE 25 MG TABLET PO ×2 (09:00→20:17)
[2023-09-02] MEDS: amLODIPine BESYLATE 5 MG TABLET 10 MG PO (09:00)
[2023-09-02] MEDS: ZINC SULFATE 220 MG CAPSULE PO (09:01)
--- NOTE | 2023-09-02 11:08 | PM.IMPN ---
Progress Note: A&P Assessment and Plan (1) Pneumothorax after biopsy: Code(s): J95.811 - Postprocedural pneumothorax Status: Acute (2) Lung mass: Code(s): R91.8 - Other nonspecific abnormal finding of lung field Status: Acute (3) Nicotine dependence, cigarettes, with other nicotine-induced disorders: Code(s): F17.218 - Nicotine dependence, cigarettes, with other nicotine-induced disorders Status: Acute (4) Type 2 diabetes mellitus: Code(s): E11.9 - Type 2 diabetes mellitus without complications Status: Acute (5) PVD (peripheral vascular disease): Code(s): I73.9 - Peripheral vascular disease, unspecified Status: Acute (6) Hemiplegia affecting right dominant side: Code(s): G81.91 - Hemiplegia, unspecified affecting right dominant side Status: Acute (7) GERD (gastroesophageal reflux disease): Code(s): K21.9 - Gastro-esophageal reflux disease without esophagitis Status: Acute (8) Alzheimer disease: Code(s): G30.9 - Alzheimer's disease, unspecified; F02.80 - Dementia in other diseases classified elsewhere, unspecified severity, without behavioral disturbance, psychotic disturbance, mood disturbance, and anxiety Status: Acute Plan Pneumothorax -Post lung biopsy -Chest tube LT upper chest wall -to suction -F/U CXR 09/02 Pending -on RA -surgery consulted -likely D/C chest tube 04/01 pending surgery recommendations Smoking -smoking cessation education -nicotine patch daily -remove at night -recommend prescription for nicotine patches at discharge Diabetes -Accu-Cheks a.c. HS -sliding scale insulin -hold oral diabetic medications -resume patient's home long-acting -Hemoglobin A1c goal less than 7 pending -Diabetic diet -Watch for hypoglycemia/hypoglycemic protocol ordered Code status: Full code per patient DVT prophylaxis: Hold Eliquis/SCD Stress ulcer prophylaxis: Protonix 40 daily PT/OT notes: NA Disposition: Patient admitted to the medical unit following a pneumothorax post lung biopsy chest tube in place to suction follow-up chest x-ray pending remains on room air can likely be removed if lung expanded wait surgery recommendations. patient return to SNF when medically stable. -Patient's previous records reviewed on admission -ER notes reviewed in detail on admission -discussed all findings and current treatment plan with patient/Family/POA -Consultations reviewed for recommendations -Patient's disposition for safe discharge discussed with pillowcase folder Dictation performed by [employer] direct speech recognition software, therefore science instructor variants and typographical errors may occur. Subjective Date/time seen: 09/02/23 11:08 Interval history: Chief Complaint: ?pneumothorax Narrative: This is a 73-year-old female with past medical history significant Alzheimer's disease, congestive heart failure, GERD, hemiplegia, peripheral vascular disease, type diabetes mellitus, tobacco dependence.? Patient was brought to the emergency room postprocedural for non biopsy patient developed hemothorax.? Patient is undergoing workup for possible lung cancer.? Patient has been placed in observation. 09/02: Patient resting comfortably remains on room air chest tube remains to suction, likely can remove chest tube waiting on surgery recommendations. Patient with minimal pain and no complaints holding eliquis at this time. Review of Systems Review of Systems: All systems reviewed & are unremarkable except as noted in HPI and below Exam Narrative: Physical Exam: - GENERAL: Alert and oriented x 3. No acute distress. Well-nourished. intermittent confusion due to dementia - EYES: EOMI. No scleral icterus. PERRLA. - HENT: Moist mucous membranes. No cervical lymphadenopathy. - LUNGS: Clear to auscultation bilaterally. No accessory muscle use. Chest tube to LT upper chest wall - CARDIO
--- NOTE | 2023-09-02 19:03 | PM.CNGS ---
Assessment and Plan Assessment and plan (1) Pneumothorax after biopsy: Code(s): J95.811 - Postprocedural pneumothorax Status: Acute Assessment and Plan: I have reviewed the imaging and procedure notes from Radiology. She has evidence of a pneumothorax after CT-guided left upper lobe lung biopsy. Her x-ray today shows a persistent pneumothorax, but she does not have any signs of air leak. Will try placing the chest tube to water seal and assess for any worsening pneumothorax. If this does not resolve with current catheter in place, she might need to be transferred to a thoracic surgeon. Will continue to follow. (2) Lung mass: Code(s): R91.8 - Other nonspecific abnormal finding of lung field Status: Acute (3) Nicotine dependence, cigarettes, with other nicotine-induced disorders: Code(s): F17.218 - Nicotine dependence, cigarettes, with other nicotine-induced disorders Status: Acute (4) Hypertension: Code(s): I10 - Essential (primary) hypertension Status: Chronic History of Present Illness Consult details Consult date: 09/02/23 Reason for consult: other (pneumothorax) Requesting physician: Nessa Sanabria PA-C Narrative: This is a 73-year-old woman who I am asked to see to help with managing the chest tube. She presented to the emergency department yesterday with a pneumothorax after undergoing a CT-guided lung biopsy. She underwent CT-guided left lung biopsy and was noted to have a moderate-sized pneumothorax. A pigtail catheter was then placed by the radiologist and she was sent to the ER for admission and continued treatment. Patient is currently stable and is only having occasional chest pain. There is no signs of air leak from the chest tube. Review of Systems Review of Systems: All systems reviewed & are unremarkable except as noted in HPI and below Eyes: Eyes: Denies change in vision ENT: Denies hearing loss, Denies neck pain and Denies sore throat Cardiovascular: Cardiovascular: Denies chest pain and Denies dyspnea Respiratory: Respiratory: Denies cough, Denies dyspnea and Denies wheezing Gastrointestinal: Gastrointestinal: Denies change in bowel habits and Denies vomiting Genitourinary: Genitourinary: Denies hematuria and Denies dysuria Musculoskeletal: Musculoskeletal: Denies arthralgias, Denies joint swelling and Denies neck pain Allergic/Immunologic: Allergic/Immunologic: Denies wheezing PMFSH Past Medical History Medical History Acute kidney failure Alzheimer disease Anemia CHF (congestive heart failure) COVID-19 GERD (gastroesophageal reflux disease) Hemiplegia affecting right dominant side PVD (peripheral vascular disease) Type 2 diabetes mellitus Surgical History Surgical History Hx of AKA (above knee amputation) Family History Family History Other Unknown family medical history Social History Social History Smoking packs per day: 8 Smoking cigarettes per day: 160.0 Smoking status: Current every day smoker Tobacco type: cigarettes Alcohol intake: never Substance use: never Substance use type: does not use Do You Feel Safe in your Home?: Yes Lack of Transportation: No Lack of Food: Never True Current Housing: I Have Housing Concerned About Future Housing: No Difficulty Paying Gas/Electric Bills: No Difficulty Paying for Meds: No Currently Unemployed: No Education: Grade School Difficulty w/ Childcare or Family Care: No Spiritual care concerns: No Meds Home Medications and Allergies Home Medications Medication Instructions Recorded Confirmed Type acetaminophen 325 mg tablet 650 mg PO Q4H PRN Pain 08/16/23 09/02/23 History amlodipine 10 mg tablet 10 mg
[2023-09-03] VITALS (11 sets, daily range): BP systolic 124–158; BP diastolic 52–58; PULSE 70–90; RESP 14–17; TEMP 36.4–36.8; O2SAT 98–100
[2023-09-03 03:48] LABS: Appearance Urine Turbid (Clear); Bacteria Urine 2+ /hpf; Bilirubin Urine Negative (Negative); Blood Urine 3+ (Negative); Color Urine Yellow (Yellow); Glucose Urine UA Negative (Negative); Ketones Urine Negative (Negative); Leukocyte Esterase Ur 3+ LEU/UL (Negative); Need Manual Microscopic Reviewed; Nitrate Urine Negative (Negative); Non Pathogenic Casts 0-2; Protein Urine 2+ mg/dL (Negative); RBC Urine >100 /hpf (0-2); Specific Grav Ur 1.009 (1.001-1.035); Squamous Epithelial Cell Urine Many /hpf (Few); Urobilinogen Urine 0.2 mg/dL (<2.0); WBC Urine >100 /hpf; pH Urine 6.5 (5.0-9.0)
[2023-09-03 03:49] LABS: Add Urine Microscopic? YES
[2023-09-03] MEDS: METOPROLOL TARTRATE 25 MG TABLET PO ×2 (08:29→20:05)
[2023-09-03] MEDS: ATORVASTATIN 40 MG TABLET 80 MG PO (08:29)
[2023-09-03] MEDS: FERROUS SULFATE 325 MG TABLET DR BY MOUTH (08:29)
[2023-09-03] MEDS: amLODIPine BESYLATE 5 MG TABLET 10 MG PO (08:29)
[2023-09-03] MEDS: hydrALAZINE HCL 50 MG TABLET 100 MG PO ×3 (08:29→18:26)
[2023-09-03] MEDS: ZINC SULFATE 220 MG CAPSULE PO (08:29)
[2023-09-03] MEDS: cloNIDine HCL 0.1 MG TABLET PO (08:30)
[2023-09-03] MEDS: FOLIC ACID 1 MG TABLET PO (08:30)
[2023-09-03] MEDS: guaiFENesin 12 HR 600 MG TABCR PO ×2 (08:33→20:05)
[2023-09-03] MEDS: ACETAMINOPHEN 325 MG TABLET 650 MG PO (09:11)
--- NOTE | 2023-09-03 11:02 | PM.IMPN ---
Progress Note: A&P Assessment and Plan (1) Pneumothorax after biopsy: Code(s): J95.811 - Postprocedural pneumothorax Status: Acute (2) Lung mass: Code(s): R91.8 - Other nonspecific abnormal finding of lung field Status: Acute (3) Nicotine dependence, cigarettes, with other nicotine-induced disorders: Code(s): F17.218 - Nicotine dependence, cigarettes, with other nicotine-induced disorders Status: Acute (4) Type 2 diabetes mellitus: Code(s): E11.9 - Type 2 diabetes mellitus without complications Status: Acute (5) PVD (peripheral vascular disease): Code(s): I73.9 - Peripheral vascular disease, unspecified Status: Acute (6) Hemiplegia affecting right dominant side: Code(s): G81.91 - Hemiplegia, unspecified affecting right dominant side Status: Acute (7) GERD (gastroesophageal reflux disease): Code(s): K21.9 - Gastro-esophageal reflux disease without esophagitis Status: Acute (8) Alzheimer disease: Code(s): G30.9 - Alzheimer's disease, unspecified; F02.80 - Dementia in other diseases classified elsewhere, unspecified severity, without behavioral disturbance, psychotic disturbance, mood disturbance, and anxiety Status: Acute Plan Pneumothorax -Post lung biopsy -Chest tube LT upper chest wall -to suction switched to water seal 09/03 -F/U CXR 09/02 no change/CXR 09/04 pending -on RA -surgery consulted -If no resolution will need transfer with thoracic surgery Smoking -smoking cessation education -nicotine patch daily -remove at night -recommend prescription for nicotine patches at discharge UTI -Urine cultures culture sensitivity pending -Continue IV hydration. -Monitor CBC, CMP watch for sepsis. -Monitor vital signs. -Ceftriaxone IV pending culture Diabetes -Accu-Cheks a.c. HS -sliding scale insulin -hold oral diabetic medications -resume patient's home long-acting -Hemoglobin A1c goal less than 7 pending -Diabetic diet -Watch for hypoglycemia/hypoglycemic protocol ordered Code status: Full code per patient DVT prophylaxis: Hold Eliquis/SCD Stress ulcer prophylaxis: Protonix 40 daily PT/OT notes: NA Disposition: Patient admitted to the medical unit following a pneumothorax post lung biopsy chest tube in place switch to water seal follow-up chest x-ray 09/04 pending remains on room air can likely be removed if lung expanded if no resolution will need transfer thoracic surgery. -Patient's previous records reviewed on admission -ER notes reviewed in detail on admission -discussed all findings and current treatment plan with patient/Family/POA -Consultations reviewed for recommendations -Patient's disposition for safe discharge discussed with case management rn Dictation performed by [employer] direct speech recognition software, therefore optical glass wet inspector variants and typographical errors may occur. Time Spent With Patient Time with patient: 15 - 25 minutes Subjective Date/time seen: 09/03/23 11:02 Interval history: Chief Complaint: ?pneumothorax Narrative: This is a 73-year-old female with past medical history significant Alzheimer's disease, congestive heart failure, GERD, hemiplegia, peripheral vascular disease, type diabetes mellitus, tobacco dependence.? Patient was brought to the emergency room postprocedural for non biopsy patient developed hemothorax.? Patient is undergoing workup for possible lung cancer.? Patient has been placed in observation. 09/02: Patient resting comfortably remains on room air chest tube remains to suction, likely can remove chest tube waiting on surgery recommendations. Patient with minimal pain and no complaints holding eliquis at this time. 09/03: Patient remains on RA no acute distress reports minimal chest pain at chest tube site. Pneumothorax still unresolved, chest tube set to water seal and f/u CXR in the morning. Patient UA p
--- NOTE | 2023-09-03 11:19 | PM.PNGS ---
Progress Note: A&P Assessment and Plan (1) Pneumothorax after biopsy: Code(s): J95.811 - Postprocedural pneumothorax Status: Acute Assessment and Plan: Will keep chest tube to suction today. Repeat chest x-ray in the morning. Possibly place to water-seal and remove later in the day tomorrow. (2) Lung mass: Code(s): R91.8 - Other nonspecific abnormal finding of lung field Status: Acute Subjective Subjective Date/Time Seen: 09/03/23 11:19 Interval history: Chest tube had been placed on water seal yesterday, but this morning I noticed that chest tube clamp was on tubing. I am unsure how long this has been in place. She still has a residual mild to moderate pneumothorax. She was placed back to suction and is currently no signs of leak. Exam Resp: Effort & Inspection: normal respiratory effort Auscultation: clear to auscultation bilaterally Other: Chest tube in place to -20 cm water suction. Initial air leak noted when 1st placed to suction, but no further air leak identified. Objective Data Vital Signs Vital Signs: Vital Signs - 24 hr 09/02/23 13:58 09/02/23 12:04 09/02/23 16:00 Temperature 37.1 C Pulse Rate 72 74 76 Respiratory Rate 16 Blood Pressure 160/58 H Pulse Oximetry 100 Oxygen Delivery 09/02/23 20:17 09/02/23 20:15 09/02/23 20:59 Temperature 37.1 C Pulse Rate 80 80 88 Respiratory Rate 16 16 Blood Pressure 151/68 H Pulse Oximetry 100 98 Oxygen Delivery Room Air 09/02/23 20:03 09/03/23 00:01 09/03/23 04:03 Temperature Pulse Rate 80 73 73 Respiratory Rate Blood Pressure Pulse Oximetry Oxygen Delivery 09/03/23 04:38 09/03/23 08:29 Temperature 36.4 C Pulse Rate 80 90 Respiratory Rate 16 Blood Pressure 153/56 H Pulse Oximetry 98 Oxygen Delivery Intake/Output Intake/Output: Intake & Output 08/31/23 09/01/23 09/02/23 09/03/23 23:59 23:59 23:59 23:59 Intake Total 1890 560 Output Total 200 Balance 1890 360 Meds/Results Medications: Active Medications Generic Name Dose Route Start Last Admin Trade Name Freq PRN Reason Stop Dose Admin Acetaminophen 650 mg 09/02/23 03:37 09/03/23 09:11 Acetaminophen 325 Mg Tablet PO 650 mg Q4H PRN Administration Pain Amlodipine Besylate 10 mg 09/02/23 09:00 09/03/23 08:29 Amlodipine Besylate 5 Mg Tablet PO 10 mg DAILY [facility] Administration Apixaban 2.5 mg 09/02/23 09:00 09/03/23 10:17 Apixaban 2.5 Mg Tablet PO Not Given Q12HR [facility] Atorvastatin Calcium 80 mg 09/02/23 09:00 09/03/23 08:29 Atorvastatin 40 Mg Tablet PO 80 mg DAILY [facility] Administration Bisacodyl 10 mg 09/02/23 03:37 Bisacodyl 10 Mg Suppository RECTAL DAILY PRN Constipation Clonidine HCl 0.1 mg 09/02/23 09:00 09/03/23 08:30 Clonidine Hcl 0.1 Mg Tablet PO 0.1 mg DAILY [facility] Administration Ferrous Sulfate 325 mg 09/02/23 09:00 09/03/23 08:29 Ferrous Sulfate [address] BY MOUTH 325 mg DAILY [facility] Administration Folic Acid 1 mg 09/02/23 09:00 09/03/23 08:30 Folic Acid 1 Mg Tablet PO 1 mg DAILY [facility] Administration Guaifenesin 600 mg 09/02/23 09:00 09/03/23 08:33 Guaifenesin 12 Hr 600 Mg Tabcr PO 600 mg Q12HR [facility] Administration Hydralazine HCl 100 mg 09/02/23 08:00 09/03/23 08:29 Hydralazine Hcl 50 Mg Tablet PO 100 mg TIDWM [facility] Administration Ceftriaxone Sodium 1 gm in 50 mls @ 100 mls/hr 09/03/23 08:00 09/03/23 08:29 Rocephin 1 Gm/Ns 50 Ml IVPB 100 mls/hr Q24H [facility] Administration Magnesium Citrate 296 ml 09/02/23 03:37 Magnesium Citrate 300 Ml Btl PO DAILY PRN Constipation Magnesium Hydroxide 30 ml 09/02/23 03:37 Magnesium Hydroxide Susp 30 Ml Udc PO HS PRN Constipation Metoprolol Tartrate 25 mg 09/02/23 09:00 09/03/23 08:29 Metoprolol Tartrate 25 Mg Tablet PO 25 mg Q12HR [facility] Administration Miscellaneous Infor
[2023-09-03 18:52] LABS: Hematocrit 38.4 % (37.0-47.0); Hemoglobin 11.8 g/dL (12.0-15.0); Mean Corpuscular HGB Conc 30.7 g/dl (32-36); Mean Corpuscular Volume 97.7 fl (80-100); Mean Platelet Volume 8.6 fl (7.4-10.4); Platelet Count Result 225 k/mm3 (150-375); Red Blood Count 3.93 M/mm3 (4.2-5.4); Red Cell Distribution Width 15.3 % (11.5-14.5); White Blood Count 12.2 K/mm3 (4.5-10.0)
[2023-09-03 19:03] LABS: Alanine Aminotransferase 18 U/L (6-35); Albumin Level 2.5 g/dL (3.5-5.1); Alkaline Phosphatase 125 U/L (38-126); Anion Gap 7 mmol/L (8-16); Aspartate Amino Transferase 24 U/L (14-36); Bilirubin,Total 0.3 mg/dL (0.2-1.3); Blood Urea Nitrogen 30 mg/dL (7-17); Calcium 8.2 mg/dL (8.4-10.2); Carbon Dioxide 17 mmol/L (22-30); Chloride 103 mmol/L (98-107); Estimated CRCL calculation 27 ml/min; Estimated Glomerular Filt Rate 41; Glucose 278 mg/dL (65-110); Magnesium 1.7 mg/dL (1.6-2.3); Phosphorus 3.2 mg/dL (2.5-4.5); Potassium 4.9 mmol/L (3.4-5.0); Sodium 127 mmol/L (137-145)
[2023-09-03] MEDS: APIXABAN 2.5 MG TABLET PO (20:05)
[2023-09-03] MEDS: HYDROcodone/acetaminophen (*CRX) 5-325 MG TABLET 1 TAB PO (20:05)
[2023-09-04] VITALS (11 sets, daily range): BP systolic 119–153; BP diastolic 40–63; PULSE 63–72; RESP 14–18; TEMP 36.6–36.9; O2SAT 98–100
[2023-09-04] MEDS: hydrALAZINE HCL 50 MG TABLET 100 MG PO ×3 (08:10→18:50)
[2023-09-04] MEDS: FOLIC ACID 1 MG TABLET PO (08:10)
[2023-09-04] MEDS: ZINC SULFATE 220 MG CAPSULE PO (08:10)
[2023-09-04] MEDS: guaiFENesin 12 HR 600 MG TABCR PO ×2 (08:10→20:39)
[2023-09-04] MEDS: ATORVASTATIN 40 MG TABLET 80 MG PO (08:10)
[2023-09-04] MEDS: FERROUS SULFATE 325 MG TABLET DR BY MOUTH (08:10)
[2023-09-04] MEDS: METOPROLOL TARTRATE 25 MG TABLET PO ×2 (08:10→20:39)
[2023-09-04] MEDS: cloNIDine HCL 0.1 MG TABLET PO (08:10)
[2023-09-04] MEDS: amLODIPine BESYLATE 5 MG TABLET 10 MG PO (08:10)
[2023-09-04] MEDS: SODIUM CHLORIDE 0.9% IV 1,000 ML 125 ML IV CONT ×3 (08:11→20:39)
[2023-09-04 09:34] LABS: Hemoglobin 9.7 g/dL (12.0-15.0); Mean Corpuscular HGB Conc 30.3 g/dl (32-36); Mean Corpuscular Hemoglobin 29.8 pg (26-34); Mean Corpuscular Volume 98.2 fl (80-100); Mean Platelet Volume 8.7 fl (7.4-10.4); Platelet Count Result 198 k/mm3 (150-375); Red Blood Count 3.26 M/mm3 (4.2-5.4); Red Cell Distribution Width 15.3 % (11.5-14.5); White Blood Count 11.5 K/mm3 (4.5-10.0)
[2023-09-04 09:45] LABS: Alanine Aminotransferase 14 U/L (6-35); Alkaline Phosphatase 105 U/L (38-126); Anion Gap 3 mmol/L (8-16); Aspartate Amino Transferase 20 U/L (14-36); Bilirubin,Total 0.3 mg/dL (0.2-1.3); Blood Urea Nitrogen 32 mg/dL (7-17); Calcium 7.8 mg/dL (8.4-10.2); Carbon Dioxide 18 mmol/L (22-30); Chloride 105 mmol/L (98-107); Estimated CRCL calculation 27 ml/min; Estimated Glomerular Filt Rate 41; Glucose 173 mg/dL (65-110); Potassium 5.1 mmol/L (3.4-5.0); Sodium 126 mmol/L (137-145)
[2023-09-04 10:03] LABS: Hemoglobin A1C 5.6 % (<5.7)
--- NOTE | 2023-09-04 11:45 | PM.IMPN ---
Progress Note: A&P Assessment and Plan (1) Pneumothorax after biopsy: Code(s): J95.811 - Postprocedural pneumothorax Status: Acute (2) Lung mass: Code(s): R91.8 - Other nonspecific abnormal finding of lung field Status: Acute (3) Nicotine dependence, cigarettes, with other nicotine-induced disorders: Code(s): F17.218 - Nicotine dependence, cigarettes, with other nicotine-induced disorders Status: Acute (4) Type 2 diabetes mellitus: Code(s): E11.9 - Type 2 diabetes mellitus without complications Status: Acute (5) PVD (peripheral vascular disease): Code(s): I73.9 - Peripheral vascular disease, unspecified Status: Acute (6) Hemiplegia affecting right dominant side: Code(s): G81.91 - Hemiplegia, unspecified affecting right dominant side Status: Acute (7) GERD (gastroesophageal reflux disease): Code(s): K21.9 - Gastro-esophageal reflux disease without esophagitis Status: Acute (8) Alzheimer disease: Code(s): G30.9 - Alzheimer's disease, unspecified; F02.80 - Dementia in other diseases classified elsewhere, unspecified severity, without behavioral disturbance, psychotic disturbance, mood disturbance, and anxiety Status: Acute (9) Hyperkalemia: Code(s): E87.5 - Hyperkalemia Status: Acute (10) Urinary tract infection: Qualifiers: Urinary tract infection type: acute cystitis Hematuria presence: without hematuria Qualified Code(s): N30.00 - Acute cystitis without hematuria Code(s): N39.0 - Urinary tract infection, site not specified Status: Acute (11) Hypo-osmolality and hyponatremia: Code(s): E87.1 - Hypo-osmolality and hyponatremia Status: Acute (12) Acute on chronic renal failure: Qualifiers: Acute renal failure type: unspecified Chronic kidney disease stage: stage 3 (moderate) Chronic kidney disease stage 3 subtype: stage 3b (GFR 30-44) Qualified Code(s): N17.9 - Acute kidney failure, unspecified; N18.32 - Chronic kidney disease, stage 3b Code(s): N17.9 - Acute kidney failure, unspecified; N18.9 - Chronic kidney disease, unspecified Status: Acute Plan Pneumothorax -Post lung biopsy -Chest tube LT upper chest wall -to suction switched to water seal 09/03 -F/U CXR 09/02 no change/CXR 09/04 No pneunothorax -on RA -surgery consulted Hypo-osmolality with hyponatremia -126 -UV fluids -8-10meq correction Q24 -monitor Neuro Acute on chronic renal failure -Gentle IV hydration. -Avoid nephrotoxic drugs. -Monitor antihypertensive drug therapy. -Avoid NSAIDs. -Routine CMP monitoring GFR. -Monitor electrolytes especially potassium. -Antibiotic doses depending on creatinine clearance. -Cr baseline -Routine follow-up with Nephrology as an outpatient. Smoking -smoking cessation education -nicotine patch daily -remove at night -recommend prescription for nicotine patches at discharge UTI -Urine cultures culture sensitivity pending -Continue IV hydration. -Monitor CBC, CMP watch for sepsis. -Monitor vital signs. -Ceftriaxone IV pending culture Diabetes -Accu-Cheks a.c. HS -sliding scale insulin -hold oral diabetic medications -resume patient's home long-acting -Hemoglobin A1c goal less than 7 pending -Diabetic diet -Watch for hypoglycemia/hypoglycemic protocol ordered Code status: Full code per patient DVT prophylaxis: Hold Eliquis/SCD Stress ulcer prophylaxis: Protonix 40 daily PT/OT notes: NA Disposition: Patient admitted to the medical unit following a pneumothorax post lung biopsy chest tube in place switch to water seal F/U CXR shows resolution. Surgery following likely d/c chest tube f/U CXR. hyponatreamia 126 IV fluids will discharge to SNF when medically stable -Patient's previous records reviewed on admission -ER notes reviewed in detail on admission -discussed all findi
--- NOTE | 2023-09-04 13:24 | PM.PNGS ---
Progress Note: A&P Assessment and Plan (1) Pneumothorax after biopsy: Code(s): J95.811 - Postprocedural pneumothorax Status: Acute Assessment and Plan: Resolved. Chest tube removed at bedside. Will get repeat CXR this afternoon. OK to discharge if no recurrent pneumothorax identified. (2) Lung mass: Code(s): R91.8 - Other nonspecific abnormal finding of lung field Status: Acute Subjective Subjective Date/Time Seen: 09/04/23 13:24 Interval history: No air leak. No dyspnea. Exam Resp: Effort & Inspection: normal respiratory effort Auscultation: clear to auscultation bilaterally Other: Chest tube in place to water seal. No air leak. Objective Data Vital Signs Vital Signs: Vital Signs - 24 hr 09/03/23 14:00 09/03/23 16:00 09/03/23 20:06 Temperature 36.6 C 36.8 C Pulse Rate 72 72 70 Respiratory Rate 14 16 Blood Pressure 124/54 L 158/58 H Pulse Oximetry 98 100 Oxygen Delivery 09/03/23 20:00 09/04/23 03:46 09/03/23 20:00 Temperature 36.6 C Pulse Rate 77 71 70 Respiratory Rate 17 14 Blood Pressure 153/45 H Pulse Oximetry 99 99 Oxygen Delivery Room Air 09/04/23 00:00 09/04/23 04:00 09/04/23 08:10 Temperature Pulse Rate 69 68 68 Respiratory Rate Blood Pressure Pulse Oximetry Oxygen Delivery 09/04/23 08:20 Temperature Pulse Rate Respiratory Rate Blood Pressure Pulse Oximetry Oxygen Delivery Room Air Intake/Output Intake/Output: Intake & Output 09/01/23 09/02/23 09/03/23 09/04/23 23:59 23:59 23:59 23:59 Intake Total 1890 730 540 Output Total 200 Balance 1890 530 540 Meds/Results Medications: Active Medications Generic Name Dose Route Start Last Admin Trade Name Freq PRN Reason Stop Dose Admin Acetaminophen 650 mg 09/03/23 11:22 Acetaminophen 325 Mg Tablet PO Q4H PRN Pain Rated 1-3 Hydrocodone Bitart/Acetaminophen 1 tab 09/03/23 11:21 09/03/23 20:05 Hydrocodone/Acetaminophen (*Crx) 5-325 Mg Tablet PO 1 tab Q4H PRN Administration Pain Rated 4-6 Amlodipine Besylate 10 mg 09/02/23 09:00 09/04/23 08:10 Amlodipine Besylate 5 Mg Tablet PO 10 mg DAILY SENDY Administration Apixaban 2.5 mg 09/02/23 09:00 09/04/23 08:10 Apixaban 2.5 Mg Tablet PO Not Given Q12HR [facility] Atorvastatin Calcium 80 mg 09/02/23 09:00 09/04/23 08:10 Atorvastatin 40 Mg Tablet PO 80 mg DAILY SENDY Administration Bisacodyl 10 mg 09/02/23 03:37 Bisacodyl 10 Mg Suppository RECTAL DAILY PRN Constipation Clonidine HCl 0.1 mg 09/02/23 09:00 09/04/23 08:10 Clonidine Hcl 0.1 Mg Tablet PO 0.1 mg DAILY [facility] Administration Ferrous Sulfate 325 mg 09/02/23 09:00 09/04/23 08:10 Ferrous Sulfate [address] BY MOUTH 325 mg DAILY [facility] Administration Folic Acid 1 mg 09/02/23 09:00 09/04/23 08:10 Folic Acid 1 Mg Tablet PO 1 mg DAILY [facility] Administration Guaifenesin 600 mg 09/02/23 09:00 09/04/23 08:10 Guaifenesin 12 Hr 600 Mg Tabcr PO 600 mg Q12HR SENDY Administration Hydralazine HCl 100 mg 09/02/23 08:00 09/04/23 08:10 Hydralazine Hcl 50 Mg Tablet PO 100 mg TIDWM [facility] Administration Ceftriaxone Sodium 1 gm in 50 mls @ 100 mls/hr 09/03/23 08:00 09/04/23 08:11 Rocephin 1 Gm/Ns 50 Ml IVPB 100 mls/hr Q24H [facility] Administration Sodium Chloride 1,000 mls @ 125 mls/hr 09/04/23 07:30 09/04/23 08:11 Normal Saline Iv IV CONT 125 mls/hr .Q8H SENDY Administration Magnesium Citrate 296 ml 09/02/23 03:37 Magnesium Citrate 300 Ml Btl PO DAILY PRN Constipation Magnesium Hydroxide 30 ml 09/02/23 03:37 Magnesium Hydroxide Susp 30 Ml Udc PO HS PRN Constipation Metoprolol Tartrate 25 mg 09/02/23 09:00 09/04/23 08:10 Metoprolol Tartrate 25 Mg Tablet PO 25 mg Q12HR [facility] Administration Miscellaneous Information 0 each 09/02/23 05:05 Darbepoetin [place] In [place]
[2023-09-04] MEDS: HYDROcodone/acetaminophen (*CRX) 5-325 MG TABLET 1 TAB PO ×2 (14:46→20:38)
[2023-09-04] MEDS: APIXABAN 2.5 MG TABLET PO (20:38)
[2023-09-05] VITALS: PULSE 61
[2023-09-05 04:00] VITALS: PULSE 66
[2023-09-05 04:57] VITALS: BP 161/40; PULSE 58; RESP 18; TEMP 36.9; O2SAT 100
[2023-09-05 08:36] VITALS: PULSE 53; PULSE 65
[2023-09-05] MEDS: METOPROLOL TARTRATE 25 MG TABLET PO (08:36)
[2023-09-05] MEDS: amLODIPine BESYLATE 5 MG TABLET 10 MG PO (08:36)
[2023-09-05] MEDS: APIXABAN 2.5 MG TABLET PO (08:36)
[2023-09-05] MEDS: ZINC SULFATE 220 MG CAPSULE PO (08:36)
[2023-09-05] MEDS: ATORVASTATIN 40 MG TABLET 80 MG PO (08:36)
[2023-09-05] MEDS: guaiFENesin 12 HR 600 MG TABCR PO (08:36)
[2023-09-05] MEDS: cloNIDine HCL 0.1 MG TABLET PO (08:36)
[2023-09-05] MEDS: FERROUS SULFATE 325 MG TABLET DR BY MOUTH (08:36)
[2023-09-05] MEDS: hydrALAZINE HCL 50 MG TABLET 100 MG PO (08:36)
[2023-09-05] MEDS: FOLIC ACID 1 MG TABLET PO (08:36)
[2023-09-05 09:18] LABS: Hematocrit 36.5 % (37.0-47.0); Hemoglobin 11.3 g/dL (12.0-15.0); Mean Corpuscular Hemoglobin 30.3 pg (26-34); Mean Corpuscular Volume 97.9 fl (80-100); Platelet Count Result 210 k/mm3 (150-375); Red Blood Count 3.73 M/mm3 (4.2-5.4); Red Cell Distribution Width 14.9 % (11.5-14.5); White Blood Count 9.7 K/mm3 (4.5-10.0)
[2023-09-05 09:34] LABS: Alanine Aminotransferase 15 U/L (6-35); Albumin Level 2.4 g/dL (3.5-5.1); Alkaline Phosphatase 127 U/L (38-126); Anion Gap 7 mmol/L (8-16); Aspartate Amino Transferase 23 U/L (14-36); Bilirubin,Total 0.3 mg/dL (0.2-1.3); Blood Urea Nitrogen 28 mg/dL (7-17); Carbon Dioxide 15 mmol/L (22-30); Chloride 108 mmol/L (98-107); Estimated CRCL calculation 31 ml/min; Estimated Glomerular Filt Rate 49; Glucose 109 mg/dL (65-110); Potassium 4.5 mmol/L (3.4-5.0); Sodium 130 mmol/L (137-145)
[2023-09-05 12:00] VITALS: PULSE 59
--- NOTE | 2023-09-05 16:13 | PM.DS ---
DS: Admitting Diagnosis Discharge Date 09/05/23 Admitting Diagnosis Pneumothorax DS: Discharge Diagnosis Discharge Diagnosis (1) Pneumothorax after biopsy: Code(s): J95.811 - Postprocedural pneumothorax Status: Acute (2) Lung mass: Code(s): R91.8 - Other nonspecific abnormal finding of lung field Status: Acute (3) Nicotine dependence, cigarettes, with other nicotine-induced disorders: Code(s): F17.218 - Nicotine dependence, cigarettes, with other nicotine-induced disorders Status: Acute (4) Type 2 diabetes mellitus: Code(s): E11.9 - Type 2 diabetes mellitus without complications Status: Acute (5) PVD (peripheral vascular disease): Code(s): I73.9 - Peripheral vascular disease, unspecified Status: Acute (6) Hemiplegia affecting right dominant side: Code(s): G81.91 - Hemiplegia, unspecified affecting right dominant side Status: Acute (7) GERD (gastroesophageal reflux disease): Code(s): K21.9 - Gastro-esophageal reflux disease without esophagitis Status: Acute (8) Alzheimer disease: Code(s): G30.9 - Alzheimer's disease, unspecified; F02.80 - Dementia in other diseases classified elsewhere, unspecified severity, without behavioral disturbance, psychotic disturbance, mood disturbance, and anxiety Status: Acute (9) Hyperkalemia: Code(s): E87.5 - Hyperkalemia Status: Acute (10) Urinary tract infection: Qualifiers: Hematuria presence: without hematuria Urinary tract infection type: acute cystitis Qualified Code(s): N30.00 - Acute cystitis without hematuria Code(s): N39.0 - Urinary tract infection, site not specified Status: Acute (11) Hypo-osmolality and hyponatremia: Code(s): E87.1 - Hypo-osmolality and hyponatremia Status: Acute (12) Acute on chronic renal failure: Qualifiers: Acute renal failure type: unspecified Chronic kidney disease stage: stage 3 (moderate) Chronic kidney disease stage 3 subtype: stage 3b (GFR 30-44) Qualified Code(s): N17.9 - Acute kidney failure, unspecified; N18.32 - Chronic kidney disease, stage 3b Code(s): N17.9 - Acute kidney failure, unspecified; N18.9 - Chronic kidney disease, unspecified Status: Acute Plan Pneumothorax -Resolved -Removed Bandage 09/06 -Monitor for SOB or difficulty breathing, seek medical attention if symptoms return. Acute on chronic renal failure -Avoid nephrotoxic drugs. -Avoid NSAIDs. -Routine CMP monitoring GFR. -Routine follow-up with Nephrology as an outpatient. Smoking -smoking cessation education -nicotine patch daily -remove at night -recommend prescription for nicotine patches at discharge UTI -complete ABX therapy as prescribed Diabetes discharge -educated patient on the need for blood sugar control for wound healing -Hemoglobin A1c goal less than 7 pending -lipid panels -Renal function liver panel every 3 months. . -Optimize Kota inhibitors and statins. -Watch for hypoglycemia/hypoglycemic -BMI goals less than 25. -Yearly eye exam and foot exam. -Exercise, diet low-salt low carb. Weight loss. -Primary care physician technical applications scientist as an outpatient. DS: Summary Hospital Course Reason for hospitalization: Pneumothorax Hospital Course: Summary This is a 73-year-old female with past medical history significant Alzheimer's disease, congestive heart failure, GERD, hemiplegia, peripheral vascular disease, type diabetes mellitus, tobacco dependence.? Patient was brought to the emergency room postprocedural for non biopsy patient developed hemothorax.? Patient is undergoing workup for possible lung cancer.? Patient has been placed in observation. 09/02: ? Patient resting comfortably remains on room air chest tube remains to suction, likely can remove chest tube waiting on surgery recommendations.? Patient with minimal pain and no comp
--- NOTE | 2023-09-06 08:14 | P.PNCROSS_ITS ---
Event Note Event Note Event Note: Reviewed C/S from [facility] following day resistant to Keflex called Vandana Miguel in [facility] for new ABX therapy of Augmentin for proper coverage
--- NOTE | 2023-09-06 08:14 | PM.EVENT ---
Event Note Event Note Event Note: Reviewed C/S from [facility] following day resistant to Keflex called Vandana Miguel in [place] for new ABX therapy of Augmentin for proper coverage
== END 2023-09-05 14:00 | DRG 200 ==
LOC: ANHED 22:18 → ANH2MED 23:16
PROVIDERS: Internal Medicine; Admitting Provider Internal Medicine; Emergency Provider Physician Assistant; PCP Internal Medicine; Visit Provider Nurse Practitioner Family
DX: J95.811 Postprocedural pneumothorax (principal); E87.1 Hypo-osmolality and hyponatremia; N39.0 Urinary tract infection, site not specified; N17.9 Acute kidney failure, unspecified; I69.351 Hemiplegia and hemiparesis following cerebral infarction affecting right dominant side; R91.8 Other nonspecific abnormal finding of lung field; I12.9 Hypertensive chronic kidney disease with stage 1 through stage 4 chronic kidney disease, or unspecified chronic kidney disease; E11.22 Type 2 diabetes mellitus with diabetic chronic kidney disease; N18.32 Chronic kidney disease, stage 3b; I73.9 Peripheral vascular disease, unspecified; K21.9 Gastro-esophageal reflux disease without esophagitis; G30.9 Alzheimer's disease, unspecified; F02.80 Dementia in other diseases classified elsewhere, unspecified severity, without behavioral disturbance, psychotic disturbance, mood disturbance, and anxiety; E87.5 Hyperkalemia; F17.210 Nicotine dependence, cigarettes, uncomplicated; D64.9 Anemia, unspecified; Z86.16 Personal history of COVID-19; Z89.619 Acquired absence of unspecified leg above knee
CPT/HCPCS: 32408; 32550; 36415; 71045; 75989; 76536; 80053; 81001; 83036; 83735; 84100; 84484; 85025; 85027; 85049; 85610; 85730; 87086; 87186; 88305; 88342; 93005; 96360; 99285; A9270; C1729; G0378; J0696; J7030

== ENCOUNTER 2023-11-28 11:25 | Inpatient (IN) | payer MEDICARE, SELFPAY ==
[2023-11-28] VITALS (19 sets, daily range): BP systolic 125–153; BP diastolic 34–67; PULSE 73–133; RESP 10–20; TEMP 36.3–36.6; O2SAT 98–100
--- NOTE | ~2023-11-28 | US_ITS ---
EXAMINATION: US venous doppler UE DATE: 12/07/2023 15:22 INDICATION: Left upper limb swelling. TECHNIQUE: Grayscale ultrasound images without and with compression and Doppler ultrasound images of the left upper extremity veins were obtained. COMPARISON: Chest CT 08/16/2023, thyroid ultrasound 09/01/2023 FINDINGS: The visualized portions of the left internal jugular vein, subclavian vein, axillary vein, brachial v eins, basilic vein, cephalic vein, radial vein, and ulnar vein are patent. There are multiple masses in the left neck measuring up to 5.0 x 2.1 x 2.8 cm. IMPRESSION: 1. No deep venous thrombosis. 2. Left neck masses, which may be lymphadenopathy and/or multinodular goiter. Neck CT with contrast i s recommended. Reviewed, dictated and finalized at location E. IMPRESSION: 1. No deep venous thrombosis. 2. Left neck masses, which may be lymphadenopathy and/or multinodular goiter. N pam CT with contrast is recommended.
--- NOTE | ~2023-11-28 | XR_ITS ---
EXAMINATION: XR chest 2V DATE: 12/07/2023 14:51 INDICATION: Cough. TECHNIQUE: Frontal and lateral views of the chest were obtained. COMPARISON: Chest single view 11/28/2023, chest CT 09/01/2023 FINDINGS: There is a nodule in left upper lobe. No pleural effusion or pneumothorax. The heart size i s normal. Median sternotomy wires and mediastinal surgical clips are seen, likely from prior coronary artery bypass grafting. A left upper extremity peripherally inserted central venous catheter (PICC) is seen with tip at the superior cavoatrial junction. IMPRESSION: 1. Nodule in left lung upper lobe, consistent with primary bronchogenic carcinoma. Reviewed, dictated and finalized at location E. IMPRESSION: 1. Nodule in left lung upper lobe, consistent with primary bronchogenic carcino ma.
--- NOTE | ~2023-11-28 | XR_ITS ---
EXAMINATION: XR chest 1V portable DATE: 11/28/2023 13:48 INDICATION: Weakness. TECHNIQUE: A single frontal view of the chest was obtained. COMPARISON: Chest single view 09/05/2023 FINDINGS: There is no pneumonia, pleural effusion, or pneumothorax. The heart size is normal. Median sternotomy wires and mediastinal surgical clips are seen, likely from prior coronary artery bypass gr afting. IMPRESSION: 1. No acute cardiopulmonary disease. Reviewed, dictated and finalized at location A.
--- NOTE | ~2023-11-28 | US_ITS ---
EXAMINATION: US abdomen complete DATE: 12/06/2023 15:21 INDICATION: Thrombocytopenia. TECHNIQUE: Multiple grayscale and Doppler ultrasound images of the abdomen were obtained. COMPARISON: Ultrasound kidneys 08/16/2023 FINDINGS: Abdominal aorta is normal in caliber. Inferior vena cava is normal. The visualized portions of the head and body of the pancreas are normal. The liver is normal without focal lesion. There is normal flow in main portal vein. The gallbladder is normal in size. No gallstones or gallbladder wall thickening. There is no sonographic Pearl's sign. The common duct is normal and measures 5 mm. The kidneys are normal in size. There is increased renal parenchymal echogenicity, consistent with nephro nba. No hydronephrosis. There is a 1.3 cm cyst in right kidney. The spleen is normal in size. IMPRESSION: 1. Increased renal parenchymal echogenicity, consistent with nonspecific nephropathy. Reviewed, dictated and finalized at location A. IMPRESSION: 1. Increased renal parenchymal echogenicity, consistent with nonspecific nephro nba.
--- NOTE | ~2023-11-28 | XR_ITS ---
EXAMINATION: XR chest PICC line DATE: 12/08/2023 17:27 INDICATION: Central line placement. TECHNIQUE: A single frontal view of the chest was obtained. COMPARISON: Chest 2 views 12/07/2023 FINDINGS: There is mild atelectasis in right lower lung zone. There is a nodule in left upper lobe. N o pleural effusion or pneumothorax. The heart size is normal. Median sternotomy wires and mediastinal surgical clips are seen, likely from prior coronary artery bypass grafting. A left upper extremity p eripherally inserted central venous catheter (PICC) is seen with tip in the superior vena cava. IMPRESSION: 1. PICC tip in the superior vena cava. 2. Mild atelectasis in right lower lung zone. 3. Nodule in left lung upper lobe, consistent with primary bronchogenic carcinoma. Reviewed, dictated and finalized at location E. IMPRESSION: 1. PICC tip in the superior vena cava. 2. Mild atelectasis in right lower lung zone. 3. Nodule in left lung upper lobe, consistent with primary bronchogenic carcino ma.
--- NOTE | 2023-11-28 13:04 | ED.GENADULT ---
HPI - General Adult General Chief complaint: Unspecified Stated complaint: pain all over Time Seen by Provider: 11/28/23 12:57 Source: patient, RN notes reviewed and old records reviewed Mode of arrival: EMS History of Present Illness HPI narrative: This is a 73 year old female who presents from a nursing facility for evaluation of weightloss and not eating. Nursing reports that patient has recently been diagnosed with lung cancer but she has not started treatment. They report patient has been unable to eat for 30 days and she is pending a GI consult. Per nurse, family requested for patient to be sent to ER for assessment of G tube placement. Patient states that she is unable to eat due to food getting stuck. She denies vomiting or diarrhea. She reports abdominal pain and body pain to nursing. She denies fever or chills. Onset (ago): month(s) Related Data Home Medications Medication Instructions Recorded Confirmed acetaminophen 325 mg tablet 650 mg PO Q4H PRN Pain 08/16/23 11/28/23 amlodipine 10 mg tablet 10 mg PO DAILY 08/16/23 11/28/23 apixaban 2.5 mg tablet (Eliquis) 2.5 mg PO BID 08/16/23 11/28/23 arginine-vitamin C-vitamin E oral 4.5 g PO DAILY 08/16/23 11/28/23 4.5 gram-156 mg/9.2 gram powder pkt (Arginaid) ascorbic acid (vitamin C) 500 mg 500 mg PO BID 08/16/23 11/28/23 capsule atorvastatin 80 mg tablet 80 mg PO DAILY 08/16/23 11/28/23 bisacodyl 10 mg rectal suppository 10 mg RECTAL DAILY PRN Constipation 08/16/23 11/28/23 clonidine HCl 0.2 mg tablet 0.1 mg PO DAILY 08/16/23 11/28/23 darbepoetin david in polysorbat 40 40 mcg subcut DAILY 08/16/23 11/28/23 mcg/mL in polysorbate injection (Aranesp) ferrous sulfate 325 mg (65 mg 325 mg PO DAILY 08/16/23 11/28/23 iron) tablet folic acid 1 mg tablet 1 mg PO DAILY 08/16/23 11/28/23 glucagon HCl 1 mg solution for 1 mg IM ONCE PRN Hypoglycemia 08/16/23 11/28/23 injection (Glucagon (HCl) Emergency Kit) guaifenesin 600 mg tablet, 600 mg PO Q12H 08/16/23 11/28/23 extended release 12 hr hydralazine 100 mg tablet 100 mg PO TID 08/16/23 11/28/23 loperamide 2 mg capsule 2 mg PO Q6H PRN Diarrhea 08/16/23 11/28/23 (Anti-Diarrheal (loperamide)) magnesium citrate (Citroma oral 296 ml PO DAILY PRN Constipation 08/16/23 11/28/23 solution) magnesium hydroxide 400 mg/5 mL 30 ml PO HS PRN Constipation 08/16/23 11/28/23 oral suspension (Milk of Magnesia) metoprolol tartrate 50 mg tablet 25 mg PO BID 08/16/23 11/28/23 multivit with minerals-iron 18 1 tablet PO DAILY 08/16/23 11/28/23 mg-folic ac 400 mcg-vit K 25 mcg tablet (Adults Multivitamin) sodium phosphates 19 gram-7 118 ml RECTAL ONCE PRN Constipation 08/16/23 11/28/23 gram/118 mL enema (Fleet Enema) zinc oxide 40 % topical Q8H PRN Wound Care 08/16/23 11/28/23 Allergies Allergy/AdvReac Type Severity Reaction Status Date / Time strawberry Allergy Unknown Verified 11/28/23 13:34 Review of Systems Constitutional: Constitutional: Reports lethargy and Reports weakness ENT: Reports dysphagia Cardiovascular: Cardiovascular: Denies syncope, Denies rapid heart rate, Denies irregular heart rhythm, Denies leg edema and Denies dyspnea Respiratory: Respiratory: Denies chest congestion, Denies hemoptysis, Denies excessive phlegm production and Denies dyspnea Gastrointestinal: Gastrointestinal: Reports abdominal pain, Denies hematochezia, Reports dysphagia, Denies diarrhea and Denies vomiting Genitourinary: Genitourinary: Denies hematuria and Denies dysuria Musculoskeletal: Musculoskeletal: Denies joint swelling, Denies loss of height and Denies muscle weakness Neurologic: Denies syncope, Denies focal weakness and Denies weakness PMFSH Past Medical History Medical History Acute kidney failure Alzheimer disease Anemia CHF (congestive heart failure) COVID-19 GERD (gastroesophageal reflux disease) Hemiplegia affecting right dominant side
--- NOTE | 2023-11-28 13:34 | ECG_ITS ---
SEE SCANNED COPY FOR CONFIRMED REPORT MTDD
[2023-11-28 14:16] LABS: Basophils Percent Auto 0.1 % (0.2-1.2); Hematocrit 24.8 % (37.0-47.0); Hemoglobin 7.6 g/dL (12.0-15.0); Immature Granulocyte Percent A 0.9 % (0-0.5); Lymphocytes Absolute Auto 1.79 K/mm3 (0.9-3.2); Mean Corpuscular HGB Conc 30.6 g/dl (32-36); Mean Corpuscular Hemoglobin 31.1 pg (26-34); Mean Corpuscular Volume 101.6 fl (80-100); Mean Platelet Volume 9.5 fl (7.4-10.4); Monocytes Absolute Auto 1.7 K/mm3 (0.1-0.6); Monocytes Percent Auto 15.2 % (2.6-8.5); Neutrophils Absolute Auto 7.6 K/mm3 (1.3-6.7); Neutrophils Percent Auto 67.8 % (45.5-73.1); Platelet Count Result 343 k/mm3 (150-375); Red Blood Count 2.44 M/mm3 (4.2-5.4); Red Cell Distribution Width 13.6 % (11.5-14.5); White Blood Count 11.2 K/mm3 (4.5-10.0)
[2023-11-28] MEDS: SODIUM CHLORIDE 0.9% IV 1,000 ML 999 ML IV CONT (14:25)
[2023-11-28 14:27] LABS: INR 1.6; Lactic Acid Reflex 1.3 mmol/L (0.7-2.0); Prothrombin Time 19.9 Seconds (11.1-14.7)
[2023-11-28 14:28] LABS: Partial Thromboplastin Time 45.5 Seconds (22.3-36.8)
[2023-11-28 14:32] LABS: Appearance Urine Turbid (Clear); Bacteria Urine 4+ /hpf; Bilirubin Urine Negative (Negative); Blood Urine 2+ (Negative); Color Urine Yellow (Yellow); Glucose Urine UA Trace mg/dL (Negative); Ketones Urine Negative (Negative); Leukocyte Esterase Ur 3+ LEU/UL (Negative); Need Manual Microscopic Reviewed; Nitrate Urine Negative (Negative); Protein Urine 2+ mg/dL (Negative); RBC Urine >100 /hpf (0-2); Specific Grav Ur 1.012 (1.001-1.035); Squamous Epithelial Cell Urine Few /hpf (Few); Urobilinogen Urine 0.2 mg/dL (<2.0); WBC Urine >100 /hpf (0-3); pH Urine 5.5 (5.0-9.0)
[2023-11-28 14:33] LABS: Add Urine Microscopic? YES; Alanine Aminotransferase 22 U/L (6-35); Albumin Level 3.6 g/dL (3.5-5.1); Alkaline Phosphatase 119 U/L (38-126); Anion Gap 8 mmol/L (4-12); Aspartate Amino Transferase 39 U/L (14-36); Bilirubin,Total 0.4 mg/dL (0.2-1.3); Blood Urea Nitrogen 103 mg/dL (7-17); Calcium 9.1 mg/dL (8.4-10.2); Carbon Dioxide 13 mmol/L (22-30); Chloride 99 mmol/L (98-107); Estimated CRCL calculation 14 ml/min; Estimated Glomerular Filt Rate 25; Glucose 430 mg/dL (65-110); Lipase 416 U/L (23-300); Magnesium 2.1 mg/dL (1.6-2.3); Potassium 7.6 mmol/L (3.4-5.0); Sodium 120 mmol/L (137-145)
[2023-11-28] MEDS: CALCIUM GLUC 1,000 MG/NS 50 ML 1,000 MG/50 ML BAG 100 MG IVPB (14:57)
[2023-11-28] MEDS: SODIUM BICARBONATE 8.4% 50 MEQ/50 ML SYRINGE IV PUSH (14:57)
[2023-11-28] MEDS: INSULIN HUMAN REGULAR (*BKC) 100 UNITS/ML 10 UNITS IV PUSH (14:58)
[2023-11-28] MEDS: ALBUTEROL SULFATE NEB 2.5 MG/3 ML INH INHALATION (15:03)
[2023-11-28 16:41] LABS: Anion Gap 11 mmol/L (4-12); Blood Urea Nitrogen 95 mg/dL (7-17); Calcium 9.5 mg/dL (8.4-10.2); Carbon Dioxide 11 mmol/L (22-30); Chloride 106 mmol/L (98-107); Estimated CRCL calculation 16 ml/min; Estimated Glomerular Filt Rate 30; Glucose 248 mg/dL (65-110); Potassium 6.1 mmol/L (3.4-5.0); Sodium 128 mmol/L (137-145)
[2023-11-28 17:25] LABS: Fractional Inspired Oxygen 21 %; HCO3 VBG 15.3 mEq/l (24.0-30.0); PO2 VBG 50.2 mmHg (35.0-45.0); pH VBG 7.315 (7.300-7.400)
[2023-11-28 17:26] LABS: PCO2 VBG 30.7 mmHg (42.0-48.0)
[2023-11-28] MEDS: SODIUM CHLORIDE 0.9% IV 1,000 ML 125 ML IV CONT (17:38)
--- NOTE | 2023-11-28 20:24 | ADMGEN ---
This patient, Justine Ruiz, was admitted to IMU Room 205-02. Patient/family oriented to hospital policies and general routines including ID bracelet, bed and alarms, visiting hours, pain management, procedures, bathroom and other care routines, personal items, smoking policy, room service/diet, and visiting hours. Information on how to activate the Rapid Response Team has been discussed. Patient/Family are encouraged to report perceived risks to care and to ask questions if they do not understand what they are told or what they should do.
[2023-11-28 22:20] LABS: Anion Gap 9 mmol/L (4-12); Blood Urea Nitrogen 92 mg/dL (7-17); Calcium 9.4 mg/dL (8.4-10.2); Carbon Dioxide 14 mmol/L (22-30); Chloride 105 mmol/L (98-107); Estimated CRCL calculation 17 ml/min; Estimated Glomerular Filt Rate 31; Glucose 264 mg/dL (65-110); Potassium 6.5 mmol/L (3.4-5.0); Sodium 128 mmol/L (137-145)
[2023-11-28] MEDS: SODIUM ZIRCONIUM CYCLOSILICATE 10 GM POWD.PACK PO (22:29)
[2023-11-29] VITALS (17 sets, daily range): BP systolic 113–137; BP diastolic 37–46; PULSE 82–111; RESP 14–19; TEMP 36.1–36.7; O2SAT 100; BMI 14.8
[2023-11-29 06:35] LABS: Basophils Percent Auto 0.1 % (0.2-1.2); Hematocrit 24.3 % (37.0-47.0); Hemoglobin 7.5 g/dL (12.0-15.0); Immature Granulocyte Absolute 0.09 K/mm3 (0.00-0.031); Immature Granulocyte Percent A 0.9 % (0-0.5); Lymphocytes Absolute Auto 1.74 K/mm3 (0.9-3.2); Lymphocytes Percent Auto 16.7 % (18.3-44.2); Mean Corpuscular HGB Conc 30.9 g/dl (32-36); Mean Corpuscular Hemoglobin 31.1 pg (26-34); Mean Corpuscular Volume 100.8 fl (80-100); Mean Platelet Volume 8.9 fl (7.4-10.4); Monocytes Absolute Auto 1.6 K/mm3 (0.1-0.6); Monocytes Percent Auto 14.8 % (2.6-8.5); Neutrophils Absolute Auto 7.1 K/mm3 (1.3-6.7); Neutrophils Percent Auto 67.5 % (45.5-73.1); Platelet Count Result 301 k/mm3 (150-375); Red Blood Count 2.41 M/mm3 (4.2-5.4); Red Cell Distribution Width 13.6 % (11.5-14.5); White Blood Count 10.5 K/mm3 (4.5-10.0)
--- NOTE | 2023-11-29 06:49 | PM.IMHP ---
H&P: HPI History of Present Illness Date/Time: 11/29/23 01:00 Chief Complaint: Pain all over, ?I need to learn to eat again? Narrative: 73-year-old female with a past medical history of new diagnosis of squamous cell carcinoma August 2023 not yet on treatment, chronic kidney disease stage 3, dementia, right-sided hemiplegia with right above the knee amputation due to peripheral arterial disease, type 2 diabetes mellitus who presented to the ER via EMS from [facility] due to pain all over and significant weight loss. The patient states that she was sent to the ER because she ?needs to learn how to eat again?. The patient was found to have a lung mass in August and underwent biopsy which demonstrated squamous cell carcinoma of the lung. The patient has not yet started treatment. She has had persistent decreased appetite and a 4-5 kg weight loss since July. She denies any nausea or vomiting. She has infrequent stools. She is not the best historian due to her dementia. She is alert oriented to person and the fact that she is in the hospital. She is conversational and pleasant otherwise. She is chronically incontinent of urine. She screams out any time she has to pass urine. However at the same time patient denies any dysuria. Review of Systems Review of Systems: Review of systems limited due to patient's history dementia [facility] Past Medical History Medical History (Updated 11/29/23 @ 08:02 by Deb Bowling DO) Alzheimer disease Anemia CHF (congestive heart failure) Continuous tobacco abuse COVID-19 CVA (cerebral vascular accident) Dysphagia GERD (gastroesophageal reflux disease) Hemiplegia affecting right dominant side Major depressive disorder Multinodular goiter PVD (peripheral vascular disease) Squamous cell carcinoma of left lung Stage 3b chronic kidney disease Type 2 diabetes mellitus Surgical History Surgical History Hx of AKA (above knee amputation) Family History Family History Other Unknown family medical history Social History Social History (Updated 11/29/23 @ 07:57 by Deb Bowling DO) Social History: Patient currently resides at a custodial. She smoked 1-2 packs of cigarettes per day since she was a teenager in continues to smoke now. She denies heavy alcohol use history. She raised 3 children. She states that she was twice but both and outlived both of them. Code status: Full code Smoking packs per day: 2 Smoking cigarettes per day: 40.0 Years smoked: 63 Smoking pack-years: 126.00 Smoking status: Current every day smoker Tobacco type: cigarettes Second hand tobacco smoke exposure: Yes Alcohol intake: never Substance use: never Substance use type: does not use Do You Feel Safe in your Home?: Yes Lack of Transportation: YES Lack of Food: Never True Current Housing: I Have Housing Concerned About Future Housing: No Difficulty Paying Gas/Electric Bills: No Difficulty Paying for Meds: No Currently Unemployed: No Education: High School Diploma/GED Difficulty w/ Childcare or Family Care: No Spiritual care concerns: No Meds Home Medications and Allergies Home Medications Medication Instructions Recorded Confirmed Type acetaminophen 325 mg tablet 650 mg PO Q4H PRN Pain 08/16/23 11/28/23 History amlodipine 10 mg tablet 10 mg PO DAILY 08/16/23 11/28/23 History apixaban 2.5 mg tablet (Eliquis) 2.5 mg PO BID 08/16/23 11/28/23 History arginine-vitamin C-vitamin E oral 4.5 g PO DAILY 08/16/23 11/28/23 History 4.5 gram-156 mg/9.2 gram powder pkt (Arginaid) ascorbic acid (vitamin C) 500 mg 500 mg PO BID 08/16/23 11/28/23 History capsule atorvastatin 80 mg tablet 80 mg PO DAILY 08/16/23 11/28/23 History bisacodyl 10 mg rectal suppository 10 mg RECTAL DAILY PRN Constipation
[2023-11-29 07:29] LABS: Alanine Aminotransferase 20 U/L (6-35); Albumin Level 3.7 g/dL (3.5-5.1); Alkaline Phosphatase 139 U/L (38-126); Anion Gap 8 mmol/L (4-12); Aspartate Amino Transferase 25 U/L (14-36); Bilirubin,Total 0.3 mg/dL (0.2-1.3); Blood Urea Nitrogen 86 mg/dL (7-17); Calcium 9.7 mg/dL (8.4-10.2); Carbon Dioxide 16 mmol/L (22-30); Chloride 104 mmol/L (98-107); Estimated CRCL calculation 16 ml/min; Estimated Glomerular Filt Rate 30; Glucose 344 mg/dL (65-110); Phosphorus 4.7 mg/dL (2.5-4.5); Potassium 6.1 mmol/L (3.4-5.0); Sodium 128 mmol/L (137-145)
[2023-11-29] MEDS: INSULIN HUMAN REGULAR (*BKC) 100 UNITS/ML IV PUSH (08:03)
[2023-11-29] MEDS: SODIUM BICARBONATE 8.4% 50 MEQ/50 ML SYRINGE 45 MEQ IV PUSH (08:03)
[2023-11-29] MEDS: ATORVASTATIN 40 MG TABLET 80 MG PO (08:03)
[2023-11-29] MEDS: MULTIVITAMINS /C LUTEIN (CENTRUM SILVER) TABLET *BKC 1 TAB PO (08:03)
[2023-11-29] MEDS: APIXABAN 2.5 MG TABLET PO ×2 (08:03→21:24)
[2023-11-29] MEDS: hydrALAZINE HCL 50 MG TABLET 100 MG PO ×3 (08:03→16:52)
[2023-11-29] MEDS: FERROUS SULFATE 325 MG TABLET DR PO (08:04)
[2023-11-29] MEDS: cloNIDine HCL 0.1 MG TABLET PO (08:04)
[2023-11-29] MEDS: amLODIPine BESYLATE 5 MG TABLET 10 MG PO (08:04)
[2023-11-29] MEDS: guaiFENesin 12 HR 600 MG TABCR PO ×2 (08:04→21:24)
[2023-11-29] MEDS: METOPROLOL TARTRATE 25 MG TABLET PO ×2 (08:04→21:23)
[2023-11-29] MEDS: FOLIC ACID 1 MG TABLET PO (08:04)
[2023-11-29] MEDS: MEROPENEM 1 GM/NS 100 ML 1 GM/100 ML BAG IVPB ×2 (08:05→21:24)
[2023-11-29] MEDS: CALCIUM GLUC 1,000 MG/NS 50 ML 1,000 MG/50 ML BAG 100 MG IVPB (08:11)
[2023-11-29] MEDS: EPOETIN ALFA-EPBX 10,000 UNITS/ML VIAL 10000 UNITS SUB-Q (09:17)
--- NOTE | 2023-11-29 09:24 | WPDGICN ---
GI Consult Note Consult date/time: 11/29/23 09:24 Reason for consult: PEG tube HPI: Justine Ruiz is a 73 year old female [facility] Past Medical History Medical History (Updated 11/29/23 @ 08:02 by Deb Bowling DO) Alzheimer disease Anemia CHF (congestive heart failure) Continuous tobacco abuse COVID-19 CVA (cerebral vascular accident) Dysphagia GERD (gastroesophageal reflux disease) Hemiplegia affecting right dominant side Major depressive disorder Multinodular goiter PVD (peripheral vascular disease) Squamous cell carcinoma of left lung Stage 3b chronic kidney disease Type 2 diabetes mellitus Surgical History Surgical History Hx of AKA (above knee amputation) Family History Family History Other Unknown family medical history Social History Social History (Updated 11/29/23 @ 07:57 by Deb Bowling DO) Social History: Patient currently resides at a [facility]. She smoked 1-2 packs of cigarettes per day since she was a teenager in continues to smoke now. She denies heavy alcohol use history. She raised 3 children. She states that she was twice but both and outlived both of them. Code status: Full code Smoking packs per day: 2 Smoking cigarettes per day: 40.0 Years smoked: 63 Smoking pack-years: 126.00 Smoking status: Current every day smoker Tobacco type: cigarettes Second hand tobacco smoke exposure: Yes Alcohol intake: never Substance use: never Substance use type: does not use Do You Feel Safe in your Home?: Yes Lack of Transportation: YES Lack of Food: Never True Current Housing: I Have Housing Concerned About Future Housing: No Difficulty Paying Gas/Electric Bills: No Difficulty Paying for Meds: No Currently Unemployed: No Education: High School Diploma/GED Difficulty w/ Childcare or Family Care: No Spiritual care concerns: No Meds Home Medications and Allergies Home Medications Medication Instructions Recorded Confirmed Type acetaminophen 325 mg tablet 650 mg PO Q4H PRN Pain 08/16/23 11/28/23 History amlodipine 10 mg tablet 10 mg PO DAILY 08/16/23 11/28/23 History apixaban 2.5 mg tablet (Eliquis) 2.5 mg PO BID 08/16/23 11/28/23 History arginine-vitamin C-vitamin E oral 4.5 g PO DAILY 08/16/23 11/28/23 History 4.5 gram-156 mg/9.2 gram powder pkt (Arginaid) ascorbic acid (vitamin C) 500 mg 500 mg PO BID 08/16/23 11/28/23 History capsule atorvastatin 80 mg tablet 80 mg PO DAILY 08/16/23 11/28/23 History bisacodyl 10 mg rectal suppository 10 mg RECTAL DAILY PRN Constipation 08/16/23 11/28/23 History clonidine HCl 0.2 mg tablet 0.1 mg PO DAILY 08/16/23 11/28/23 History darbepoetin david in polysorbat 40 40 mcg subcut DAILY 08/16/23 11/28/23 History mcg/mL in polysorbate injection (Aranesp) ferrous sulfate 325 mg (65 mg 325 mg PO DAILY 08/16/23 11/28/23 History iron) tablet folic acid 1 mg tablet 1 mg PO DAILY 08/16/23 11/28/23 History glucagon HCl 1 mg solution for 1 mg IM ONCE PRN Hypoglycemia 08/16/23 11/28/23 History injection (Glucagon (HCl) Emergency Kit) guaifenesin 600 mg tablet, 600 mg PO Q12H 08/16/23 11/28/23 History extended release 12 hr hydralazine 100 mg tablet 100 mg PO TID 08/16/23 11/28/23 History loperamide 2 mg capsule 2 mg PO Q6H PRN Diarrhea 08/16/23 11/28/23 History (Anti-Diarrheal (loperamide)) magnesium citrate (Citroma oral 296 ml PO DAILY PRN Constipation 08/16/23 11/28/23 History solution) magnesium hydroxide 400 mg/5 mL 30 ml PO HS PRN Constipation 08/16/23 11/28/23 History oral suspension (Milk of Magnesia) metoprolol tartrate 50 mg tablet 25 mg PO BID 08/16/23 11/28/23 History multivit with minerals-iron 18 1 tablet PO DAILY 08/16/23 11/28/23 History mg-folic ac 400 mcg-vit K 25 mcg tablet (Adults Multivitamin) sodium
--- NOTE | 2023-11-29 10:55 | PM.CNNEP ---
Assessment and Plan Assessment and plan (1) Acute kidney injury: Code(s): N17.9 - Acute kidney failure, unspecified Status: Acute Assessment and Plan: history would suggest prerenal azotemia/volume depletion improvement in renal function improving with current therapy hold off on further testing for now -- follow trend (2) Chronic kidney disease, stage 3: Code(s): N18.30 - Chronic kidney disease, stage 3 unspecified Status: Chronic Assessment and Plan: baseline creatinine runes ~ 1.3 - 1.8mg/dl this causes her to fluctuate between CKD stage 3A and stage 3B presumably secondary to HTN, DM, vascular disease (CAD, PVD, hyperlipidemia, CVA), CHF, and age-related changealong with fluctuating hydration status however, in early 2022, her creatinine was normal. (3) Hyponatremia: Code(s): E87.1 - Hypo-osmolality and hyponatremia Status: Acute Assessment and Plan: acute on chronic multifactorial etiology: volume depletion/prerenal factors history of ChF history of CVA smoking lung cancer known CKD admission sodium 120; now up to 128mmol goal of therapy is a change of 6 - 8mmol/L in 24 hours (maintaining this for now) follow repeat sodium levels (4) Hyperkalemia: Code(s): E87.5 - Hyperkalemia Status: Acute Assessment and Plan: quite severe on presentation improving with ongoing medical management known history of this in the past (5) Metabolic acidosis: Code(s): E87.20 - Acidosis, unspecified Status: Acute Assessment and Plan: due to MJ and possible starvation should improve as renal function does oral versus IV sodium bicarb depending on trend (6) Anemia: Code(s): D64.9 - Anemia, unspecified Status: Chronic Assessment and Plan: acute on chronic likely exacerbated by acute illness with MJ follow H/H consider empiric SETH (7) Hypertension: Qualifiers: Hypertension type: unspecified Qualified Code(s): I10 - Essential (primary) hypertension Code(s): I10 - Essential (primary) hypertension Status: Chronic Assessment and Plan: reasonable control follow trend of hemodynamics (8) Type 2 diabetes mellitus: Code(s): E11.9 - Type 2 diabetes mellitus without complications Status: Chronic Assessment and Plan: follow accu-cheks glycemic control per hospitalists I will continue follow patient with you while she remains hospitalized to make further recommendations as deemed necessary. Thank you for allowing me to participate in the care of this patient. History of Present Illness Reason for Consult Consult date: 11/29/23 Reason for consult: acute renal failure (on chronic kidney disease), hyponatremia and hyperkalemia Chief Complaint Chief complaint: Acute on Chronic Renal Failure/Hyperkalemia/Hypona History of Present Illness Narrative: The patient is a 73-year-old female with a past medical history as outlined below who presented to [facility] Emergency room for further evaluation of generalized pain/weakness and weight loss. According to the patient, she was sent to the ER because she needs to learn how to eat again. apparently, the patient has poor oral intake and appetite for last months if not longer with an associated 4-5 kg weight loss . She reports no nausea or vomiting and does not relate any type of GI symptoms other than the fact that she has not been eating very well. As far as I am aware, there were no other acute issues at her nursing facility that prompted her transfer to the ER aside from her diminished oral intake and weight loss. Workup and evaluation in the emergency room demonstrated the patient to be hemodynamically stable and in no acute distress. Routine blood tests were significant for anemia with a hemoglobin of 7.6, hyponatremia with a sodium level of 120, hy
--- NOTE | 2023-11-29 10:55 | P.CONNP_ITS ---
Assessment and Plan Assessment and plan (1) Acute kidney injury: Code(s): N17.9 - Acute kidney failure, unspecified Status: Acute Assessment and Plan: * history would suggest prerenal azotemia/volume depletion * improvement in renal function improving with current therapy * hold off on further testing for now -- follow trend (2) Chronic kidney disease, stage 3: Code(s): N18.30 - Chronic kidney disease, stage 3 unspecified Status: Chronic Assessment and Plan: * baseline creatinine runes ~ 1.3 - 1.8mg/dl * this causes her to fluctuate between CKD stage 3A and stage 3B * presumably secondary to HTN, DM, vascular disease (CAD, PVD, hyperlipidemia, CVA), CHF, and age-related changealong with fluctuating hydration status * however, in early 2022, her creatinine was normal. (3) Hyponatremia: Code(s): E87.1 - Hypo-osmolality and hyponatremia Status: Acute Assessment and Plan: * acute on chronic * multifactorial etiology: * volume depletion/prerenal factors * history of ChF * history of CVA * smoking * lung cancer * known CKD * admission sodium 120; now up to 128mmol * goal of therapy is a change of 6 - 8mmol/L in 24 hours (maintaining this for now) * follow repeat sodium levels (4) Hyperkalemia: Code(s): E87.5 - Hyperkalemia Status: Acute Assessment and Plan: * quite severe on presentation * improving with ongoing medical management * known history of this in the past (5) Metabolic acidosis: Code(s): E87.20 - Acidosis, unspecified Status: Acute Assessment and Plan: * due to MJ and possible starvation * should improve as renal function does * oral versus IV sodium bicarb depending on trend (6) Anemia: Code(s): D64.9 - Anemia, unspecified Status: Chronic Assessment and Plan: * acute on chronic * likely exacerbated by acute illness with MJ * follow H/H * consider empiric SETH (7) Hypertension: Qualifiers: Hypertension type: unspecified Qualified Code(s): I10 - Essential (primary) hypertension Code(s): I10 - Essential (primary) hypertension Status: Chronic Assessment and Plan: * reasonable control * follow trend of hemodynamics (8) Type 2 diabetes mellitus: Code(s): E11.9 - Type 2 diabetes mellitus without complications Status: Chronic Assessment and Plan: * follow accu-cheks * glycemic control per hospitalists I will continue follow patient with you while she remains hospitalized to make further recommendations as deemed necessary. Thank you for allowing me to participate in the care of this patient. History of Present Illness Reason for Consult Consult date: 11/29/23 Reason for consult: acute renal failure (on chronic kidney disease), hyponatremia and hyperkalemia Chief Complaint Chief complaint: Acute on Chronic Renal Failure/Hyperkalemia/Hypona History of Present Illness Narrative: The patient is a 73-year-old female with a past medical history as outlined below who presented to [facility] Emergency room for further evaluation of generalized pain/weakness and weight loss. According to the patient, she was sent to the ER because she needs to learn how to eat again. apparently, the patient has poor oral intake and appetite for last months if not longer with an associated 4-5 kg weight loss . She reports no nausea or vomiting and does not relate any type of GI symptoms
[2023-11-29] MEDS: SODIUM ZIRCONIUM CYCLOSILICATE 10 GM POWD.PACK PO ×2 (13:07→16:48)
--- NOTE | 2023-11-29 13:17 | WPDGICN ---
Assessment and Plan Assessment and plan (1) Anorexia: Code(s): R63.0 - Anorexia Status: Acute Assessment and Plan: losing weight and hardly eating will proceed with g-tube placement tomorrow per family request (2) Acute renal failure superimposed on stage 3b chronic kidney disease: Qualifiers: Acute renal failure type: unspecified Qualified Code(s): N17.9 - Acute kidney failure, unspecified; N18.32 - Chronic kidney disease, stage 3b Code(s): N17.9 - Acute kidney failure, unspecified; N18.32 - Chronic kidney disease, stage 3b Status: Acute Assessment and Plan: on treatment, by nephrology (3) Severe protein-calorie malnutrition: Code(s): E43 - Unspecified severe protein-calorie malnutrition Status: Acute Assessment and Plan: nutritional support g-tube tomorrow (4) Acute hyperkalemia: Code(s): E87.5 - Hyperkalemia Status: Acute (5) Acute hyponatremia: Code(s): E87.1 - Hypo-osmolality and hyponatremia Status: Acute (6) Squamous cell carcinoma of left lung: Code(s): C34.92 - Malignant neoplasm of unspecified part of left bronchus or lung Status: Acute (7) Type 2 diabetes mellitus: Code(s): E11.9 - Type 2 diabetes mellitus without complications Status: Acute GI Consult Note Consult date/time: 11/29/23 13:17 Reason for consult: anorexia, malnutrition, lung cancer HPI: Justine Ruiz is a 73 year old female with past medical history of new diagnosis of squamous cell carcinoma August 2023 not yet on treatment, chronic kidney disease stage 3, dementia, right-sided hemiplegia with right above the knee amputation due to peripheral arterial disease, type 2 diabetes mellitus who presented to the ER via EMS from local group home due to pain all over and significant weight loss.?Patient has been hardly eating, she just does not feel like eating and has been losing weight, denies nausea. Not best historian but staff technologist told me that family would like to have G-tube placement. Here also noted to have acute on CKD, hyperkalemia, hyponatremia- nephrology on board, also UTI started on iv antibiotic. Review of Systems Constitutional: Constitutional: Reports lethargy and Reports weakness Eyes: Eyes: Denies blurry vision ENT: Reports Normal hearing present Cardiovascular: Cardiovascular: Denies syncope and Denies rapid heart rate Respiratory: Respiratory: Reports cough Gastrointestinal: Gastrointestinal: Denies hematochezia Genitourinary: Genitourinary: Denies hematuria Musculoskeletal: Musculoskeletal: Denies joint swelling, Denies loss of height and Denies muscle weakness Integumentary/Breasts: Skin/Breast: Denies rash Neurologic: Comments: rt sided hemiparesis Psychiatric: Psychiatric: Denies behavioral changes [facility] Past Medical History Medical History (Updated 11/29/23 @ 13:21 by Galo Atkinson MD) Alzheimer disease Anemia Anorexia CHF (congestive heart failure) Continuous tobacco abuse COVID-19 CVA (cerebral vascular accident) Dysphagia GERD (gastroesophageal reflux disease) Hemiplegia affecting right dominant side Major depressive disorder Malnutrition Multinodular goiter PVD (peripheral vascular disease) Squamous cell carcinoma of left lung Stage 3b chronic kidney disease Type 2 diabetes mellitus Surgical History Surgical History Hx of AKA (above knee amputation) Family History Family History Other Unknown family medical history Social History Social History (Updated 11/29/23 @ 07:57 by Deb Bowling DO) Social History: Patient currently resides at a group home. She smoked 1-2 packs of cigarettes per day since she was a teenager in continues to smoke now. She denies heavy alcohol use history. She raised 3 children. She states that she
[2023-11-29] MEDS: LIDOCAINE HCL 1% PF INJ 5 ML VIAL INFILTRATE (14:40)
--- NOTE | 2023-11-29 15:42 | P.PNIM_ITS ---
Progress Note: A&P Assessment and Plan (1) Acute renal failure superimposed on stage 3b chronic kidney disease: Qualifiers: Acute renal failure type: unspecified Qualified Code(s): N17.9 - Acute kidney failure, unspecified; N18.32 - Chronic kidney disease, stage 3b Code(s): N17.9 - Acute kidney failure, unspecified; N18.32 - Chronic kidney disease, stage 3b Status: Acute Assessment and Plan: 11/29/23: * Initial potassium level of 7.6, bicarb 13, creatinine 2.3, EGFR 25, creatinine clearance 14 * Patient was given Lokelma, bicarb, calcium gluconate, IV regular insulin for her potassium level. * protein/creatinine ratio elevated at 7.5 * Continue to trend labs * Nephrology consulted and following * PICC line placed for lab draws, IV fluids and antibiotics (2) Acute hyperkalemia: Code(s): E87.5 - Hyperkalemia Status: Acute Assessment and Plan: 11/29/2023: * Initial potassium level 7.6 * Patient given Lokelma, bicarb, calcium gluconate, IV regular insulin * Potassium now down to 5.2 * Continue to trend labs * Continue with scheduled Lokelma * Nephrology following (3) Acute hyponatremia: Code(s): E87.1 - Hypo-osmolality and hyponatremia Status: Acute Assessment and Plan: 11/29/2023: * Sodium level today 127 * Likely secondary to dehydration due to malnutrition and history of squamous cell lung cancer * Will check a cortisol level * Urine sodium 108 * Started on D5NS per Nephrology team * Nephrology following * Continue to trend labs (4) Urinary tract infection: Qualifiers: Hematuria presence: with hematuria Urinary tract infection type: acute cystitis Qualified Code(s): N30.01 - Acute cystitis with hematuria Code(s): N39.0 - Urinary tract infection, site not specified Status: Acute Assessment and Plan: 11/29/2023: * UA shown 2+ protein, trace glucose, 2+ urine blood, 3+ leukocyte, greater than 100 urine RBCs, greater than 100 urine wbc's, 4+ bacteria. * Urine culture was obtained and is pending. * Patient was started on meropenem due to history of ESBL in the urine on past cultures (5) Severe protein-calorie malnutrition: Code(s): E43 - Unspecified severe protein-calorie malnutrition Status: Acute Assessment and Plan: 11/29/2023: * Likely due to her chronic squamous cell lung cancer and inadequate protein and a tree intake as evidence by a significant weight loss of 14% x3 months, low BMI of 14.8. Patient has severe subcutaneous fat loss and severe muscle wasting. It was reported from the nursing facility that she has not been eating for the last 30 days. * Dietitian consulted and following for nutritional needs. She will need evalu ation for tube feeding once G-tube is in place * Oral nutritional supplement Ensure compact t.i.d. with meals * GI consulted * Plan for G-tube placement in the morning per family request, patient will be NPO after midnight * blood sugars ranging 248-430 likely due to malnutrition, last hemoglobin A1c is 5.6 on 09/04/2023 * Accu checks q6h, low dose ssi ordered. (6) Hypertension: Qualifiers: Hypertension type: unspecified Qualified Code(s): I10 - Essential (primary) hypertension Code(s): I10 - Essential (primary) hypertension Status: Chronic Assessment and Plan: 11/29/2023: * Blood pressure ranging 113/44-153/37 * Continue amlodipine 10 mg daily * Continue hydralazine 100 mg p.o. t.i.d. (7) Squamous cell carcinoma of left lung: Code(s): C34.92 - Malignant neopl
--- NOTE | 2023-11-29 15:42 | PM.IMPN ---
Progress Note: A&P Assessment and Plan (1) Acute renal failure superimposed on stage 3b chronic kidney disease: Qualifiers: Acute renal failure type: unspecified Qualified Code(s): N17.9 - Acute kidney failure, unspecified; N18.32 - Chronic kidney disease, stage 3b Code(s): N17.9 - Acute kidney failure, unspecified; N18.32 - Chronic kidney disease, stage 3b Status: Acute Assessment and Plan: 11/29/23: Initial potassium level of 7.6, bicarb 13, creatinine 2.3, EGFR 25, creatinine clearance 14 Patient was given Lokelma, bicarb, calcium gluconate, IV regular insulin for her potassium level. protein/creatinine ratio elevated at 7.5 Continue to trend labs Nephrology consulted and following PICC line placed for lab draws, IV fluids and antibiotics (2) Acute hyperkalemia: Code(s): E87.5 - Hyperkalemia Status: Acute Assessment and Plan: 11/29/2023: Initial potassium level 7.6 Patient given Lokelma, bicarb, calcium gluconate, IV regular insulin Potassium now down to 5.2 Continue to trend labs Continue with scheduled [facility] Nephrology following (3) Acute hyponatremia: Code(s): E87.1 - Hypo-osmolality and hyponatremia Status: Acute Assessment and Plan: 11/29/2023: Sodium level today 127 Likely secondary to dehydration due to malnutrition and history of squamous cell lung cancer Will check a cortisol level Urine sodium 108 Started on D5NS per Nephrology team Nephrology following Continue to trend labs (4) Urinary tract infection: Qualifiers: Hematuria presence: with hematuria Urinary tract infection type: acute cystitis Qualified Code(s): N30.01 - Acute cystitis with hematuria Code(s): N39.0 - Urinary tract infection, site not specified Status: Acute Assessment and Plan: 11/29/2023: UA shown 2+ protein, trace glucose, 2+ urine blood, 3+ leukocyte, greater than 100 urine RBCs, greater than 100 urine wbc's, 4+ bacteria. Urine culture was obtained and is pending. Patient was started on meropenem due to history of ESBL in the urine on past cultures (5) Severe protein-calorie malnutrition: Code(s): E43 - Unspecified severe protein-calorie malnutrition Status: Acute Assessment and Plan: 11/29/2023: Likely due to her chronic squamous cell lung cancer and inadequate protein and a tree intake as evidence by a significant weight loss of 14% x3 months, low BMI of 14.8. Patient has severe subcutaneous fat loss and severe muscle wasting. It was reported from the nursing facility that she has not been eating for the last 30 days. Dietitian consulted and following for nutritional needs. She will need evaluation for tube feeding once G-tube is in place Oral nutritional supplement Ensure compact t.i.d. with meals GI consulted Plan for G-tube placement in the morning per family request, patient will be NPO after midnight blood sugars ranging 248-430 likely due to malnutrition, last hemoglobin A1c is 5.6 on 09/04/2023 Accu checks q6h, low dose ssi ordered. (6) Hypertension: Qualifiers: Hypertension type: unspecified Qualified Code(s): I10 - Essential (primary) hypertension Code(s): I10 - Essential (primary) hypertension Status: Chronic Assessment and Plan: 11/29/2023: Blood pressure ranging 113/44-153/37 Continue amlodipine 10 mg daily Continue hydralazine 100 mg p.o. t.i.d. (7) Squamous cell carcinoma of left lung: Code(s): C34.92 - Malignant neoplasm of unspecified part of left bronchus or lung Status: Acute Assessment and Plan: 11/29/2023: Patient diagnosed with squamous cell carcinoma of the left lung back in August of this year. Currently not on any active treatment. Time Spent With Patient Time with patient: Greater than 35 minutes Subjective Date/time seen: 11/29/23 15:42 Interval history: This is a 73-year-old female who presente
[2023-11-29 15:54] LABS: Anion Gap 4 mmol/L (4-12); Blood Urea Nitrogen 85 mg/dL (7-17); Carbon Dioxide 19 mmol/L (22-30); Chloride 104 mmol/L (98-107); Estimated CRCL calculation 18 ml/min; Estimated Glomerular Filt Rate 33; Glucose 184 mg/dL (65-110); Potassium 5.2 mmol/L (3.4-5.0); Sodium 127 mmol/L (137-145)
--- NOTE | 2023-11-29 16:05 | PC.NURSE ---
1324: Pt refused lab draws. Dr. Lee updated. New order for PICC line received from Nephrology. 1605: Dr. Lee updated with lab drawn that was finally obtained at 1535. Potassium trending down to 5.2 and Sodium remains stable at 127. New order for D5/NS @ 75. Dr. Lee will recheck labs in AM.
[2023-11-29] MEDS: DEXTROSE 5%/0.9% SOD CHL 1,000 ML 75 ML IV CONT (16:46)
[2023-11-29 18:25] LABS: Glucose Point of Care 249 mg/dl (65-105)
[2023-11-29] MEDS: INSULIN ASPART (*BKC) 100 UNITS/ML SUB-Q (18:25)
[2023-11-29] MEDS: CENTRAL LINE FLUSH 10 ML IV PUSH (21:25)
[2023-11-30] VITALS (24 sets, daily range): BP systolic 100–133; BP diastolic 32–50; PULSE 74–100; RESP 14–19; TEMP 36.3–37.1; O2SAT 100
[2023-11-30 00:04] LABS: Glucose Point of Care 149 mg/dl (65-105)
[2023-11-30] MEDS: DEXTROSE 5%/0.9% SOD CHL 1,000 ML 75 ML IV CONT ×2 (06:19→19:45)
[2023-11-30 06:36] LABS: Basophils Percent Auto 0.1 % (0.2-1.2); Hematocrit 21.9 % (37.0-47.0); Hemoglobin 6.6 g/dL (12.0-15.0); Immature Granulocyte Absolute 0.15 K/mm3 (0.00-0.031); Immature Granulocyte Percent A 1.1 % (0-0.5); Lymphocytes Absolute Auto 1.19 K/mm3 (0.9-3.2); Lymphocytes Percent Auto 8.4 % (18.3-44.2); Mean Corpuscular HGB Conc 30.1 g/dl (32-36); Mean Corpuscular Volume 102.8 fl (80-100); Monocytes Absolute Auto 2.7 K/mm3 (0.1-0.6); Monocytes Percent Auto 19.1 % (2.6-8.5); Neutrophils Absolute Auto 10.1 K/mm3 (1.3-6.7); Neutrophils Percent Auto 71.3 % (45.5-73.1); Platelet Count Result 253 k/mm3 (150-375); Red Blood Count 2.13 M/mm3 (4.2-5.4); Red Cell Distribution Width 13.7 % (11.5-14.5); White Blood Count 14.1 K/mm3 (4.5-10.0)
[2023-11-30 06:46] LABS: Alanine Aminotransferase 14 U/L (6-35); Albumin Level 2.9 g/dL (3.5-5.1); Alkaline Phosphatase 117 U/L (38-126); Anion Gap 5 mmol/L (4-12); Aspartate Amino Transferase 23 U/L (14-36); Bilirubin,Total 0.3 mg/dL (0.2-1.3); Blood Urea Nitrogen 75 mg/dL (7-17); Calcium 8.7 mg/dL (8.4-10.2); Carbon Dioxide 18 mmol/L (22-30); Chloride 107 mmol/L (98-107); Estimated CRCL calculation 20 ml/min; Estimated Glomerular Filt Rate 38; Glucose 198 mg/dL (65-110); Magnesium 1.7 mg/dL (1.6-2.3); Potassium 4.1 mmol/L (3.4-5.0); Sodium 130 mmol/L (137-145)
[2023-11-30] MEDS: CENTRAL LINE FLUSH 10 ML IV PUSH ×3 (07:20→21:45)
--- NOTE | 2023-11-30 07:32 | PC.NURSE ---
0638- recieved critical hemoglobin result 6.6 0644-called hospitalist, no answer 0700- dayshift arrived. Dayshift RN to report to daysorft provider
[2023-11-30 08:44] LABS: Glucose Point of Care 201 mg/dl (65-105)
[2023-11-30] MEDS: FERROUS SULFATE 325 MG TABLET DR PO (08:44)
[2023-11-30] MEDS: MEROPENEM 1 GM/NS 100 ML 1 GM/100 ML BAG IVPB ×2 (08:44→21:44)
[2023-11-30] MEDS: guaiFENesin 12 HR 600 MG TABCR PO ×2 (08:44→21:45)
[2023-11-30] MEDS: hydrALAZINE HCL 50 MG TABLET 100 MG PO ×3 (08:44→17:32)
[2023-11-30] MEDS: ATORVASTATIN 40 MG TABLET 80 MG PO (08:44)
[2023-11-30] MEDS: amLODIPine BESYLATE 5 MG TABLET 10 MG PO (08:44)
[2023-11-30] MEDS: APIXABAN 2.5 MG TABLET PO (08:44)
[2023-11-30] MEDS: cloNIDine HCL 0.1 MG TABLET PO (08:45)
[2023-11-30] MEDS: FOLIC ACID 1 MG TABLET PO (08:45)
[2023-11-30] MEDS: METOPROLOL TARTRATE 25 MG TABLET PO ×2 (08:45→21:45)
[2023-11-30] MEDS: MULTIVITAMINS /C LUTEIN (CENTRUM SILVER) TABLET *BKC 1 TAB PO (08:45)
--- NOTE | 2023-11-30 10:04 | P.PNIM_ITS ---
Progress Note: A&P Assessment and Plan (1) Acute renal failure superimposed on stage 3b chronic kidney disease: Qualifiers: Acute renal failure type: unspecified Qualified Code(s): N17.9 - Acute kidney failure, unspecified; N18.32 - Chronic kidney disease, stage 3b Code(s): N17.9 - Acute kidney failure, unspecified; N18.32 - Chronic kidney disease, stage 3b Status: Acute (2) Acute hyperkalemia: Code(s): E87.5 - Hyperkalemia Status: Acute (3) Hypo-osmolality and hyponatremia: Code(s): E87.1 - Hypo-osmolality and hyponatremia Status: Acute (4) Urinary tract infection: Qualifiers: Hematuria presence: with hematuria Urinary tract infection type: acute cystitis Qualified Code(s): N30.01 - Acute cystitis with hematuria Code(s): N39.0 - Urinary tract infection, site not specified Status: Acute Plan Assessment and Plan profound anemia hemoglobin 6.6 Transfuse 1 pack RBC Follow-up stool guaiac, iron panel (1) Acute renal failure superimposed on stage 3b chronic kidney disease, hyponatremia, ?Qualifiers: ?Acute renal failure type:?unspecified? Qualified Code(s):?N17.9 - Acute kidney failure, unspecified; N18.32 - Chronic kidney disease, stage 3b ?Code(s): N17.9 - Acute kidney failure, unspecified; N18.32 - Chronic kidney disease, stage 3b ?Status:?Acute ?Assessment and Plan: 11/29/23: * Initial potassium level of 7.6, bicarb 13, creatinine 2.3, EGFR 25, creatinine clearance 14 * Patient was given Lokelma, bicarb, calcium gluconate, IV regular insulin for her potassium level. * protein/creatinine ratio elevated at 7.5 * Continue to trend labs * Nephrology consulted and following * PICC line placed for lab draws, IV fluids and antibiotics hyponatremia and acute renal failure continue to improve (2) Acute hyperkalemia: ?Code(s): E87.5 - Hyperkalemia ?Status:?Acute ?Assessment and Plan: 11/29/2023: * Initial potassium level 7.6 * Patient given Lokelma, bicarb, calcium gluconate, IV regular insulin * Potassium now down to 5.2 * Continue to trend labs * Continue with scheduled Lokelma * Nephrology following corrected (3) Acute hyponatremia: ?Code(s): E87.1 - Hypo-osmolality and hyponatremia ?Status:?Acute ?Assessment and Plan: 11/29/2023: * Sodium level today 127 * Likely secondary to dehydration due to malnutrition and history of squamous cell lung cancer * Will check a cortisol level * Urine sodium 108 * Started on D5NS per Nephrology team * Nephrology following * Continue to trend labs * (4) Urinary tract infection: ?Qualifiers: ?Hematuria presence:?with hematuria??Urinary tract infection type:?acute cystitis? Qualified Code(s):?N30.01 - Acute cystitis with hematuria ?Code(s): N39.0 - Urinary tract infection, site not specified ?Status:?Acute ?Assessment and Plan: 11/29/2023: * UA shown 2+ protein, trace glucose, 2+ urine blood, 3+ leukocyte, greater than 100 urine RBCs, greater than 100 urine wbc's, 4+ bacteria. * Urine culture was obtained and is pending. 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
--- NOTE | 2023-11-30 10:04 | PM.IMPN ---
Progress Note: A&P Assessment and Plan (1) Acute renal failure superimposed on stage 3b chronic kidney disease: Qualifiers: Acute renal failure type: unspecified Qualified Code(s): N17.9 - Acute kidney failure, unspecified; N18.32 - Chronic kidney disease, stage 3b Code(s): N17.9 - Acute kidney failure, unspecified; N18.32 - Chronic kidney disease, stage 3b Status: Acute (2) Acute hyperkalemia: Code(s): E87.5 - Hyperkalemia Status: Acute (3) Hypo-osmolality and hyponatremia: Code(s): E87.1 - Hypo-osmolality and hyponatremia Status: Acute (4) Urinary tract infection: Qualifiers: Hematuria presence: with hematuria Urinary tract infection type: acute cystitis Qualified Code(s): N30.01 - Acute cystitis with hematuria Code(s): N39.0 - Urinary tract infection, site not specified Status: Acute Plan Assessment and Plan profound anemia hemoglobin 6.6 Transfuse 1 pack RBC Follow-up stool guaiac, iron panel (1) Acute renal failure superimposed on stage 3b chronic kidney disease, hyponatremia, ?Qualifiers: ?Acute renal failure type:?unspecified? Qualified Code(s):?N17.9 - Acute kidney failure, unspecified; N18.32 - Chronic kidney disease, stage 3b ?Code(s): N17.9 - Acute kidney failure, unspecified; N18.32 - Chronic kidney disease, stage 3b ?Status:?Acute ?Assessment and Plan: 11/29/23: Initial potassium level of 7.6, bicarb 13, creatinine 2.3, EGFR 25, creatinine clearance 14 Patient was given Lokelma, bicarb, calcium gluconate, IV regular insulin for her potassium level. protein/creatinine ratio elevated at 7.5 Continue to trend labs Nephrology consulted and following PICC line placed for lab draws, IV fluids and antibiotics hyponatremia and acute renal failure continue to improve (2) Acute hyperkalemia: ?Code(s): E87.5 - Hyperkalemia ?Status:?Acute ?Assessment and Plan: 11/29/2023: Initial potassium level 7.6 Patient given Lokelma, bicarb, calcium gluconate, IV regular insulin Potassium now down to 5.2 Continue to trend labs Continue with scheduled [facility] Nephrology following corrected (3) Acute hyponatremia: ?Code(s): E87.1 - Hypo-osmolality and hyponatremia ?Status:?Acute ?Assessment and Plan: 11/29/2023: Sodium level today 127 Likely secondary to dehydration due to malnutrition and history of squamous cell lung cancer Will check a cortisol level Urine sodium 108 Started on D5NS per Nephrology team Nephrology following Continue to trend labs (4) Urinary tract infection: ?Qualifiers: ?Hematuria presence:?with hematuria??Urinary tract infection type:?acute cystitis? Qualified Code(s):?N30.01 - Acute cystitis with hematuria ?Code(s): N39.0 - Urinary tract infection, site not specified ?Status:?Acute ?Assessment and Plan: 11/29/2023: UA shown 2+ protein, trace glucose, 2+ urine blood, 3+ leukocyte, greater than 100 urine RBCs, greater than 100 urine wbc's, 4+ bacteria. Urine culture was obtained and is pending. 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 Patient has severe subcutaneous fat loss and severe muscle wasting.? It was reported from the nursing facility that she has not been eating for the last 30 days. Dietitian consulted and following for nutritional needs. She will need evaluation for tube feeding once G-tube is in place Oral nutritional supplement Ensure compact t.i.d. with meals GI consulted
[2023-11-30 11:01] LABS: Iron 74 ug/dL (37-170)
[2023-11-30 11:11] LABS: Percent Iron Saturation 31 % (20-50)
[2023-11-30 12:09] LABS: Glucose Point of Care 259 mg/dl (65-105)
[2023-11-30] MEDS: SODIUM CHLORIDE 0.9% IV 250 ML 30 ML IV CONT (12:15)
[2023-11-30] MEDS: TUBING, BLOOD PLUM PUMP TUBING 1 EACH XX (12:16)
[2023-11-30] MEDS: INSULIN ASPART (*BKC) 100 UNITS/ML SUB-Q ×2 (12:17→17:33)
--- NOTE | 2023-11-30 12:18 | PM.PNNEP ---
Progress Note: A&P Assessment and Plan (1) Acute kidney injury: Code(s): N17.9 - Acute kidney failure, unspecified Status: Acute Assessment and Plan: improvement noted history would suggest prerenal azotemia/volume depletion improvement in renal function improving with current therapy hold off on further testing for now -- follow trend (2) Chronic kidney disease, stage 3: Code(s): N18.30 - Chronic kidney disease, stage 3 unspecified Status: Chronic Assessment and Plan: baseline creatinine runes ~ 1.3 - 1.8mg/dl this causes her to fluctuate between CKD stage 3A and stage 3B presumably secondary to HTN, DM, vascular disease (CAD, PVD, hyperlipidemia, CVA), CHF, and age-related changealong with fluctuating hydration status however, in early 2022, her creatinine was normal. (3) Hyponatremia: Code(s): E87.1 - Hypo-osmolality and hyponatremia Status: Acute Assessment and Plan: improvement noted acute on chronic multifactorial etiology: volume depletion/prerenal factors history of ChF history of CVA smoking lung cancer known CKD admission sodium 120; now up to 128mmol goal of therapy is a change of 6 - 8mmol/L in 24 hours (this has been acheived) follow repeat sodium levels (4) Hyperkalemia: Code(s): E87.5 - Hyperkalemia Status: Acute Assessment and Plan: improving quite severe on presentation improving with ongoing medical management known history of this in the past (5) Metabolic acidosis: Code(s): E87.20 - Acidosis, unspecified Status: Acute Assessment and Plan: better due to MJ and possible starvation should improve as renal function does oral versus IV sodium bicarb depending on trend (6) Anemia: Code(s): D64.9 - Anemia, unspecified Status: Chronic Assessment and Plan: acute on chronic likely exacerbated by acute illness with MJ follow H/H on Epogen (7) Hypertension: Qualifiers: Hypertension type: unspecified Qualified Code(s): I10 - Essential (primary) hypertension Code(s): I10 - Essential (primary) hypertension Status: Chronic Assessment and Plan: reasonable control follow trend of hemodynamics (8) Type 2 diabetes mellitus: Code(s): E11.9 - Type 2 diabetes mellitus without complications Status: Chronic Assessment and Plan: follow accu-cheks glycemic control per hospitalists Will continue to follow. Subjective Date/time seen: 11/30/23 12:18 Interval history: Follow-up for acute kidney injury on chronic kidney disease and hyponatremia. Was scheduled for G-tube placement today but this was cancelled due to low H/H this AM and subsequent PRBC transfusion; sodium improving at appropriate level; tolerated IVFs at this time; no other significant issues/events overnight or earlier this morning. Exam Narrative: General: elderly and frail/cachectic female in NAD Heart: normal S1 and S2; no rub Lungs: clear to auscultation Abdomen: soft, nontender, nondistended, positive bowel sounds Extremities: no cyanosis or clubbing; no edema; s/p right AKA Skin: warm and dry Objective Data Vital Signs Vital Signs: Vital Signs Temp Pulse Resp BP Pulse Ox O2 Del Method 11/30/23 12:12 98.8 F 86 18 115/36 L 100 11/30/23 11:49 98.1 F 85 15 106/40 L 100 11/30/23 08:00 Room Air 11/30/23 10:00 80 11/30/23 08:00 100 11/30/23 07:39 97.8 F 98 14 120/35 L 100 11/30/23 06:00 95 11/30/23 04:00 94 11/30/23 04:00 91 19 100 Room Air 11/30/23 02:00 87 11/30/23 00:00 81 11/29/23 22:00 88 11/29/23 20:00 99 11/30/23 04:46 97.4 F L 91 19 131/44 L 100 11/30/23 00:00 84 19 100 Room Air 11/30/23 00:08 97.3 F L 84 19 119/37 L 100 11/29/23 20:00 104 H 19 100
--- NOTE | 2023-11-30 12:18 | P.PNNP_ITS ---
Progress Note: A&P Assessment and Plan (1) Acute kidney injury: Code(s): N17.9 - Acute kidney failure, unspecified Status: Acute Assessment and Plan: * improvement noted * history would suggest prerenal azotemia/volume depletion * improvement in renal function improving with current therapy * hold off on further testing for now -- follow trend (2) Chronic kidney disease, stage 3: Code(s): N18.30 - Chronic kidney disease, stage 3 unspecified Status: Chronic Assessment and Plan: * baseline creatinine runes ~ 1.3 - 1.8mg/dl * this causes her to fluctuate between CKD stage 3A and stage 3B * presumably secondary to HTN, DM, vascular disease (CAD, PVD, hyperlipidemia, CVA), CHF, and age-related changealong with fluctuating hydration status * however, in early 2022, her creatinine was normal. (3) Hyponatremia: Code(s): E87.1 - Hypo-osmolality and hyponatremia Status: Acute Assessment and Plan: * improvement noted * acute on chronic * multifactorial etiology: * volume depletion/prerenal factors * history of ChF * history of CVA * smoking * lung cancer * known CKD * admission sodium 120; now up to 128mmol * goal of therapy is a change of 6 - 8mmol/L in 24 hours (this has been acheived) * follow repeat sodium levels (4) Hyperkalemia: Code(s): E87.5 - Hyperkalemia Status: Acute Assessment and Plan: * improving * quite severe on presentation * improving with ongoing medical management * known history of this in the past (5) Metabolic acidosis: Code(s): E87.20 - Acidosis, unspecified Status: Acute Assessment and Plan: * better * due to MJ and possible starvation * should improve as renal function does * oral versus IV sodium bicarb depending on trend (6) Anemia: Code(s): D64.9 - Anemia, unspecified Status: Chronic Assessment and Plan: * acute on chronic * likely exacerbated by acute illness with MJ * follow H/H * on Epogen (7) Hypertension: Qualifiers: Hypertension type: unspecified Qualified Code(s): I10 - Essential (primary) hypertension Code(s): I10 - Essential (primary) hypertension Status: Chronic Assessment and Plan: * reasonable control * follow trend of hemodynamics (8) Type 2 diabetes mellitus: Code(s): E11.9 - Type 2 diabetes mellitus without complications Status: Chronic Assessment and Plan: * follow accu-cheks * glycemic control per hospitalists Will continue to follow. Subjective Date/time seen: 11/30/23 12:18 Interval history: Follow-up for acute kidney injury on chronic kidney disease and hyponatremia. Was scheduled for G-tube placement today but this was cancelled due to low H/H this AM and subsequent PRBC transfusion; sodium improving at appropriate level; tolerated IVFs at this time; no other significant issues/events overnight or earlier this morning. Exam Narrative: General: elderly and frail/cachectic female in NAD Heart: normal S1 and S2; no rub Lungs: clear to auscultation Abdomen: soft, nontender, nondistended, positive bowel sounds Extremities: no cyanosis or clubbing; no edema; s/p right AKA Skin: warm and dry Objective Data Vital Signs Vital Signs: Vital Signs
--- NOTE | 2023-11-30 13:25 | PCDIET ---
TUBE FEEDING RECOMMENDATIONS: Jevity 1.5 @ goal rate 50 ml/h. Start at 20 ml and advance by 10 ml q 12 hours until goal is reached. Flush 100 ml water q 4 hours. Consider thiamine, B complex and MV/MN supplementation for refeeding syndrome risk, related to low BMI and prolonged poor intake. 1650 total kcal (~100% EER), 70 g protein, 1436 ml free water with flushes included.
--- NOTE | 2023-11-30 16:40 | WPDGIPROGNO ---
Progress Note: A&P Assessment and Plan (1) Acute on chronic anemia: Code(s): D64.9 - Anemia, unspecified Status: Acute Assessment and Plan: eliyohana now on hold also on aranesp peg cancelled today will get blood transfusion egd tomorrow to place peg (will check also for potential causes of anemia) (2) Anorexia: Code(s): R63.0 - Anorexia Status: Acute Assessment and Plan: egd with peg placement most likely tomorrow (3) Severe protein-calorie malnutrition: Code(s): E43 - Unspecified severe protein-calorie malnutrition Status: Acute (4) Squamous cell carcinoma of left lung: Code(s): C34.92 - Malignant neoplasm of unspecified part of left bronchus or lung Status: Acute (5) Acute hyponatremia: Code(s): E87.1 - Hypo-osmolality and hyponatremia Status: Acute Assessment and Plan: improving (6) Acute on chronic renal failure: Qualifiers: Acute renal failure type: unspecified Chronic kidney disease stage: stage 3 (moderate) Chronic kidney disease stage 3 subtype: stage 3b (GFR 30-44) Qualified Code(s): N17.9 - Acute kidney failure, unspecified; N18.32 - Chronic kidney disease, stage 3b Code(s): N17.9 - Acute kidney failure, unspecified; N18.9 - Chronic kidney disease, unspecified Status: Acute Assessment and Plan: improving nephrology on board Subjective Date/time seen: 11/30/23 16:40 Interval history: still poor appetite noted today hgb down to 6.6 and will get transfusion, no overt gib decided to postpone PEG placement until tomorrow Review of Systems Review of Systems: All systems reviewed & are unremarkable except as noted in HPI and below Exam Const: General: comfortable Other: cachectic HENMT: Face/Nose/Sinus: Normal nares present Eyes: General: appearance normal, both eyes and all related structures Neck: Neck: supple Resp: Effort & Inspection: normal respiratory effort Cardio: Rate: regular rate GI: GI Palp: Yes Soft to palpation and No Tenderness to palpation present (GI) Auscultation: normal bowel sounds Skin: General skin exam: normal color Neuro: Other: rt sided hemiparesis Extrem: Other: leg amputation Psych: Other: awake and alert but gets confused Objective Data Vital Signs Vital Signs: Vital Signs - 24 hr 11/29/23 18:00 11/29/23 20:00 11/29/23 21:23 Temperature 97.0 F L Pulse Rate 98 94 104 H Respiratory Rate 19 Blood Pressure 117/37 L Pulse Oximetry 100 Oxygen Delivery 11/29/23 20:00 11/30/23 00:08 11/30/23 00:00 Temperature 97.3 F L Pulse Rate 104 H 84 84 Respiratory Rate 19 19 19 Blood Pressure 119/37 L Pulse Oximetry 100 100 100 Oxygen Delivery Room Air Room Air 11/30/23 04:46 11/29/23 20:00 11/29/23 22:00 Temperature 97.4 F L Pulse Rate 91 99 88 Respiratory Rate 19 Blood Pressure 131/44 L Pulse Oximetry 100 Oxygen Delivery 11/30/23 00:00 11/30/23 02:00 11/30/23 04:00 Temperature Pulse Rate 81 87 91 Respiratory Rate 19 Blood Pressure Pulse Oximetry 100 Oxygen Delivery Room Air 11/30/23 04:00 11/30/23 06:00 11/30/23 07:39 Temperature 97.8 F Pulse Rate 94 95 98 Respiratory Rate 14 Blood Pressure 120/35 L Pulse Oximetry 100 Oxygen Delivery 11/30/23 08:00 11/30/23 10:00 11/30/23 08:00 Temperature Pulse Rate 100 80 Respiratory Rate Blood Pressure Pulse Oximetry Oxygen Delivery Room Air 11/30/23 11:49 11/30/23 12:22 11/30/23 12:00 Temperature 98.1 F 98.8 F Pulse Rate 85 86 Respiratory Rate 15 18 Blood Pressure 106/40 L 115/36 L Pulse Oximetry 100 100 Oxygen Delivery Room Air 11/30/23 12:40 11/30/23 12:00 11/30/23 13:40 Temperature 98.5 F 97.7 F Pulse Rate 81 84 82 Respiratory Rate 16 15 Blood Pressure 110/38 L 123/42 L Pulse Oximetry 100 100 Oxygen Delivery 11/30/23 14:32 11/30/23 14:
[2023-11-30 18:08] LABS: Glucose Point of Care 204 mg/dl (65-105)
[2023-11-30] MEDS: ACETAMINOPHEN 325 MG TABLET 650 MG PO (21:48)
[2023-11-30 23:45] LABS: Glucose Point of Care 110 mg/dl (65-105)
[2023-12-01] VITALS (28 sets, daily range): BP systolic 102–138; BP diastolic 25–83; PULSE 74–100; RESP 15–20; TEMP 36.3–37; O2SAT 99–100
[2023-12-01 04:43] LABS: Basophils Percent Auto 0.1 % (0.2-1.2); Eosinophils Percent Auto 0.1 % (0-4.4); Hematocrit 21.7 % (37.0-47.0); Immature Granulocyte Percent A 1.3 % (0-0.5); Lymphocytes Absolute Auto 2.07 K/mm3 (0.9-3.2); Lymphocytes Percent Auto 13.2 % (18.3-44.2); Mean Corpuscular HGB Conc 31.8 g/dl (32-36); Mean Corpuscular Hemoglobin 31.1 pg (26-34); Mean Corpuscular Volume 97.7 fl (80-100); Mean Platelet Volume 8.7 fl (7.4-10.4); Monocytes Absolute Auto 3.4 K/mm3 (0.1-0.6); Monocytes Percent Auto 21.6 % (2.6-8.5); Neutrophils Percent Auto 63.7 % (45.5-73.1); Platelet Count Result 189 k/mm3 (150-375); Red Blood Count 2.22 M/mm3 (4.2-5.4); Red Cell Distribution Width 14.6 % (11.5-14.5); White Blood Count 15.7 K/mm3 (4.5-10.0)
[2023-12-01 05:03] LABS: Alanine Aminotransferase 13 U/L (6-35); Albumin Level 2.5 g/dL (3.5-5.1); Alkaline Phosphatase 99 U/L (38-126); Anion Gap 5 mmol/L (4-12); Aspartate Amino Transferase 30 U/L (14-36); Bilirubin,Total 0.3 mg/dL (0.2-1.3); Blood Urea Nitrogen 60 mg/dL (7-17); Calcium 8.4 mg/dL (8.4-10.2); Carbon Dioxide 16 mmol/L (22-30); Chloride 109 mmol/L (98-107); Estimated CRCL calculation 28 ml/min; Estimated Glomerular Filt Rate 53; Glucose 120 mg/dL (65-110); Potassium 3.7 mmol/L (3.4-5.0); Sodium 130 mmol/L (137-145)
[2023-12-01 05:22] LABS: Hemoglobin 6.9 g/dL (12.0-15.0)
[2023-12-01 05:23] LABS: Platelet Estimate Adequate (Adequate)
[2023-12-01 05:24] LABS: Acanthocytes 2+; Anisocytosis 1+
[2023-12-01 05:25] LABS: Schistocytes Rare
--- NOTE | 2023-12-01 05:32 | PC.NURSE ---
Call placed to Dr. Bowling r/t critical hgb of 6.9. MD with new orders for 1 unit of PRBC.
[2023-12-01] MEDS: CENTRAL LINE FLUSH 10 ML IV PUSH ×3 (05:55→21:02)
[2023-12-01 06:01] LABS: Glucose Point of Care 127 mg/dl (65-105)
[2023-12-01] MEDS: TUBING, BLOOD PLUM PUMP TUBING 1 EACH XX ×3 (08:51→15:50)
[2023-12-01] MEDS: MEROPENEM 1 GM/NS 100 ML 1 GM/100 ML BAG IVPB ×2 (09:13→20:58)
[2023-12-01] MEDS: FERROUS SULFATE 325 MG TABLET DR PO (09:14)
[2023-12-01] MEDS: guaiFENesin 12 HR 600 MG TABCR PO ×2 (09:14→20:58)
[2023-12-01] MEDS: EPOETIN ALFA-EPBX 10,000 UNITS/ML VIAL 10000 UNITS SUB-Q (09:14)
[2023-12-01] MEDS: MULTIVITAMINS /C LUTEIN (CENTRUM SILVER) TABLET *BKC 1 TAB PO (09:14)
[2023-12-01] MEDS: FOLIC ACID 1 MG TABLET PO (09:14)
[2023-12-01] MEDS: ATORVASTATIN 40 MG TABLET 80 MG PO (09:14)
--- NOTE | 2023-12-01 09:49 | P.PNIM_ITS ---
Progress Note: A&P Assessment and Plan (1) Acute renal failure superimposed on stage 3b chronic kidney disease: Qualifiers: Acute renal failure type: unspecified Qualified Code(s): N17.9 - Acute kidney failure, unspecified; N18.32 - Chronic kidney disease, stage 3b Code(s): N17.9 - Acute kidney failure, unspecified; N18.32 - Chronic kidney disease, stage 3b Status: Acute (2) Acute hyperkalemia: Code(s): E87.5 - Hyperkalemia Status: Acute (3) Hypo-osmolality and hyponatremia: Code(s): E87.1 - Hypo-osmolality and hyponatremia Status: Acute (4) Urinary tract infection: Qualifiers: Hematuria presence: with hematuria Urinary tract infection type: acute cystitis Qualified Code(s): N30.01 - Acute cystitis with hematuria Code(s): N39.0 - Urinary tract infection, site not specified Status: Acute Plan Assessment and Plan profound anemia 11/29 hemoglobin 6.6 Transfuse 1 pack RBC Follow-up stool guaiac, iron panel 11/30: hemoglobin 6.9 today, stool guaiac not done. transfuse 2 pack RBC, repeat stool guaiac, iron panel, start Protonix 40 mg IV q.12 hours follow-up reticulocyte haptoglobin Suspecting GI bleeding GI is on board. Consult GI for evaluation treatment (1) Acute renal failure superimposed on stage 3b chronic kidney disease, hy ponatremia, ?Qualifiers: ?Acute renal failure type:?unspecified? Qualified Code(s):?N17.9 - Acute kidney failure, unspecified; N18.32 - Chronic kidney disease, stage 3b ?Code(s): N17.9 - Acute kidney failure, unspecified; N18.32 - Chronic kidney disease, stage 3b ?Status:?Acute ?Assessment and Plan: 11/29/23: * Initial potassium level of 7.6, bicarb 13, creatinine 2.3, EGFR 25, creatinine clearance 14 * Patient was given Lokelma, bicarb, calcium gluconate, IV regular insulin for her potassium level. * protein/creatinine ratio elevated at 7.5 * Continue to trend labs * Nephrology consulted and following * PICC line placed for lab draws, IV fluids and antibiotics hyponatremia and acute renal failure continue to improve (2) Acute hyperkalemia: ?Code(s): E87.5 - Hyperkalemia ?Status:?Acute ?Assessment and Plan: 11/29/2023: * Initial potassium level 7.6 * Patient given Lokelma, bicarb, calcium gluconate, IV regular insulin * Potassium now down to 5.2 * Continue to trend labs * Continue with scheduled Lokelma * Nephrology following corrected (3) Acute hyponatremia: ?Code(s): E87.1 - Hypo-osmolality and hyponatremia ?Status:?Acute ?Assessment and Plan: 11/29/2023: * Sodium level today 127 * Likely secondary to dehydration due to malnutrition and history of squamous cell lung cancer * Will check a cortisol level * Urine sodium 108 * Started on D5NS per Nephrology team * Nephrology following * Continue to trend labs * (4) Urinary tract infection: ?Qualifiers: ?Hematuria presence:?with hematuria??Urinary tract infection type:?acute cystitis? Qualified Code(s):?N30.01 - Acute cystitis with hematuria ?Code(s): N39.0 - Urinary tract infection, site not specified ?Status:?Acute ?Assessment and Plan: 11/29/2023: * UA shown 2+ protein, trace glucose, 2+ urine blood, 3+ leukocyte, greater than 100 urine RBCs, greater than 100 urine wbc's, 4+ bacteria. * Urine culture was obtained and is pending. 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
--- NOTE | 2023-12-01 09:49 | PM.IMPN ---
Progress Note: A&P Assessment and Plan (1) Acute renal failure superimposed on stage 3b chronic kidney disease: Qualifiers: Acute renal failure type: unspecified Qualified Code(s): N17.9 - Acute kidney failure, unspecified; N18.32 - Chronic kidney disease, stage 3b Code(s): N17.9 - Acute kidney failure, unspecified; N18.32 - Chronic kidney disease, stage 3b Status: Acute (2) Acute hyperkalemia: Code(s): E87.5 - Hyperkalemia Status: Acute (3) Hypo-osmolality and hyponatremia: Code(s): E87.1 - Hypo-osmolality and hyponatremia Status: Acute (4) Urinary tract infection: Qualifiers: Hematuria presence: with hematuria Urinary tract infection type: acute cystitis Qualified Code(s): N30.01 - Acute cystitis with hematuria Code(s): N39.0 - Urinary tract infection, site not specified Status: Acute Plan Assessment and Plan profound anemia 11/29 hemoglobin 6.6 Transfuse 1 pack RBC Follow-up stool guaiac, iron panel 11/30: hemoglobin 6.9 today, stool guaiac not done. transfuse 2 pack RBC, repeat stool guaiac, iron panel, start Protonix 40 mg IV q.12 hours follow-up reticulocyte haptoglobin Suspecting GI bleeding GI is on board. Consult GI for evaluation treatment (1) Acute renal failure superimposed on stage 3b chronic kidney disease, hyponatremia, ?Qualifiers: ?Acute renal failure type:?unspecified? Qualified Code(s):?N17.9 - Acute kidney failure, unspecified; N18.32 - Chronic kidney disease, stage 3b ?Code(s): N17.9 - Acute kidney failure, unspecified; N18.32 - Chronic kidney disease, stage 3b ?Status:?Acute ?Assessment and Plan: 11/29/23: Initial potassium level of 7.6, bicarb 13, creatinine 2.3, EGFR 25, creatinine clearance 14 Patient was given Lokelma, bicarb, calcium gluconate, IV regular insulin for her potassium level. protein/creatinine ratio elevated at 7.5 Continue to trend labs Nephrology consulted and following PICC line placed for lab draws, IV fluids and antibiotics hyponatremia and acute renal failure continue to improve (2) Acute hyperkalemia: ?Code(s): E87.5 - Hyperkalemia ?Status:?Acute ?Assessment and Plan: 11/29/2023: Initial potassium level 7.6 Patient given Lokelma, bicarb, calcium gluconate, IV regular insulin Potassium now down to 5.2 Continue to trend labs Continue with scheduled Lokelwv Nephrology following corrected (3) Acute hyponatremia: ?Code(s): E87.1 - Hypo-osmolality and hyponatremia ?Status:?Acute ?Assessment and Plan: 11/29/2023: Sodium level today 127 Likely secondary to dehydration due to malnutrition and history of squamous cell lung cancer Will check a cortisol level Urine sodium 108 Started on D5NS per Nephrology team Nephrology following Continue to trend labs (4) Urinary tract infection: ?Qualifiers: ?Hematuria presence:?with hematuria??Urinary tract infection type:?acute cystitis? Qualified Code(s):?N30.01 - Acute cystitis with hematuria ?Code(s): N39.0 - Urinary tract infection, site not specified ?Status:?Acute ?Assessment and Plan: 11/29/2023: UA shown 2+ protein, trace glucose, 2+ urine blood, 3+ leukocyte, greater than 100 urine RBCs, greater than 100 urine wbc's, 4+ bacteria. Urine culture was obtained and is pending. 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 Patient has severe subcutaneous fat loss and severe muscle wasting.? It was reported from the [facility]
[2023-12-01 10:21] LABS: Immature Reticulocyte Fraction 20.2 % (3.0-15.9); Reticulocyte Hemoglobin Conten 31.4 pg (28.2-36.6); Reticulocytes Absolute 0.12 10^6/uL (0.02-0.10)
[2023-12-01 12:00] LABS: Iron 29 ug/dL (37-170)
[2023-12-01 12:00] LABS: IFOB Positive Control Positive; Immunochemical Fecal Occult Bl Negative (N)
[2023-12-01] MEDS: SODIUM CHLORIDE 0.9% IV 250 ML 30 ML IV CONT ×2 (12:10)
[2023-12-01 12:13] LABS: Percent Iron Saturation 21 % (20-50)
[2023-12-01 12:16] LABS: Glucose Point of Care 163 mg/dl (65-105)
--- NOTE | 2023-12-01 12:16 | PM.PNNEP ---
Progress Note: A&P Assessment and Plan (1) Acute kidney injury: Code(s): N17.9 - Acute kidney failure, unspecified Status: Acute Assessment and Plan: improvement noted history would suggest prerenal azotemia/volume depletion improvement in renal function improving with current therapy hold off on further testing for now -- follow trend (2) Chronic kidney disease, stage 3: Code(s): N18.30 - Chronic kidney disease, stage 3 unspecified Status: Chronic Assessment and Plan: baseline creatinine runes ~ 1.3 - 1.8mg/dl this causes her to fluctuate between CKD stage 3A and stage 3B presumably secondary to HTN, DM, vascular disease (CAD, PVD, hyperlipidemia, CVA), CHF, and age-related changealong with fluctuating hydration status however, in early 2022, her creatinine was normal. (3) Hyponatremia: Code(s): E87.1 - Hypo-osmolality and hyponatremia Status: Acute Assessment and Plan: improvement noted acute on chronic multifactorial etiology: volume depletion/prerenal factors history of ChF history of CVA smoking lung cancer known CKD admission sodium 120; now up to 128mmol goal of therapy is a change of 6 - 8mmol/L in 24 hours (this has been acheived) follow repeat sodium levels (4) Hyperkalemia: Code(s): E87.5 - Hyperkalemia Status: Acute Assessment and Plan: improving quite severe on presentation improving with ongoing medical management known history of this in the past (5) Metabolic acidosis: Code(s): E87.20 - Acidosis, unspecified Status: Acute Assessment and Plan: better due to MJ and possible starvation should improve as renal function does oral versus IV sodium bicarb depending on trend (6) Anemia: Code(s): D64.9 - Anemia, unspecified Status: Chronic Assessment and Plan: acute on chronic likely exacerbated by acute illness with MJ follow H/H PRBC transusion per protocol on Epogen (7) Hypertension: Qualifiers: Hypertension type: unspecified Qualified Code(s): I10 - Essential (primary) hypertension Code(s): I10 - Essential (primary) hypertension Status: Chronic Assessment and Plan: reasonable control follow trend of hemodynamics (8) Type 2 diabetes mellitus: Code(s): E11.9 - Type 2 diabetes mellitus without complications Status: Chronic Assessment and Plan: follow accu-cheks glycemic control per hospitalists Will continue to follow. Subjective Date/time seen: 12/01/23 12:16 Interval history: Follow-up for acute on chronic hyponatremia as well as acute kidney injury/acute renal failure on chronic kidney disease. H/H still low even after PRBC transfusion yesterday; G-tube placement cancelled again and PRBC transfusion ordered; sodium and renal function stable if not better by trend of labs; no apparent distress voiced at the time of my visit; no other issues/events noted. Exam Narrative: General: elderly and frail/cachectic female in NAD Heart: normal S1 and S2; no rub Lungs: clear to auscultation Abdomen: soft, nontender, nondistended, positive bowel sounds Extremities: no cyanosis or clubbing; no edema; s/p right AKA Skin: warm and intact Objective Data Vital Signs Vital Signs: Vital Signs Temp Pulse Resp BP Pulse Ox O2 Del Method 12/01/23 12:00 98 F 82 18 120/52 L 100 12/01/23 11:55 97.3 F L 91 16 118/41 L 100 12/01/23 09:39 97.6 F 93 16 116/38 L 99 12/01/23 09:00 97.9 F 81 15 106/27 L 99 12/01/23 08:00 97.7 F 79 18 105/25 L 100 12/01/23 08:00 97.7 F 79 18 105/25 L 100 12/01/23 07:00 97.9 F 80 18 102/32 L 99 12/01/23 06:34 98.1 F 89 18 118/33 L 99 12/01/23 06:00 87 12/01/23 04:00 Room Air 12/01/23 04:00 81 12/01/23 03:54 97.7 F 86 17 119/38 L 100
--- NOTE | 2023-12-01 12:16 | P.PNNP_ITS ---
Progress Note: A&P Assessment and Plan (1) Acute kidney injury: Code(s): N17.9 - Acute kidney failure, unspecified Status: Acute Assessment and Plan: * improvement noted * history would suggest prerenal azotemia/volume depletion * improvement in renal function improving with current therapy * hold off on further testing for now -- follow trend (2) Chronic kidney disease, stage 3: Code(s): N18.30 - Chronic kidney disease, stage 3 unspecified Status: Chronic Assessment and Plan: * baseline creatinine runes ~ 1.3 - 1.8mg/dl * this causes her to fluctuate between CKD stage 3A and stage 3B * presumably secondary to HTN, DM, vascular disease (CAD, PVD, hyperlipidemia, CVA), CHF, and age-related changealong with fluctuating hydration status * however, in early 2022, her creatinine was normal. (3) Hyponatremia: Code(s): E87.1 - Hypo-osmolality and hyponatremia Status: Acute Assessment and Plan: * improvement noted * acute on chronic * multifactorial etiology: * volume depletion/prerenal factors * history of ChF * history of CVA * smoking * lung cancer * known CKD * admission sodium 120; now up to 128mmol * goal of therapy is a change of 6 - 8mmol/L in 24 hours (this has been acheived) * follow repeat sodium levels (4) Hyperkalemia: Code(s): E87.5 - Hyperkalemia Status: Acute Assessment and Plan: * improving * quite severe on presentation * improving with ongoing medical management * known history of this in the past (5) Metabolic acidosis: Code(s): E87.20 - Acidosis, unspecified Status: Acute Assessment and Plan: * better * due to MJ and possible starvation * should improve as renal function does * oral versus IV sodium bicarb depending on trend (6) Anemia: Code(s): D64.9 - Anemia, unspecified Status: Chronic Assessment and Plan: * acute on chronic * likely exacerbated by acute illness with MJ * follow H/H * PRBC transusion per protocol * on Epogen (7) Hypertension: Qualifiers: Hypertension type: unspecified Qualified Code(s): I10 - Essential (primary) hypertension Code(s): I10 - Essential (primary) hypertension Status: Chronic Assessment and Plan: * reasonable control * follow trend of hemodynamics (8) Type 2 diabetes mellitus: Code(s): E11.9 - Type 2 diabetes mellitus without complications Status: Chronic Assessment and Plan: * follow accu-cheks * glycemic control per hospitalists Will continue to follow. Subjective Date/time seen: 12/01/23 12:16 Interval history: Follow-up for acute on chronic hyponatremia as well as acute kidney injury/acute renal failure on chronic kidney disease. H/H still low even after PRBC transfusion yesterday; G-tube placement cancelled again and PRBC transfusion ordered; sodium and renal function stable if not better by trend of labs; no apparent distress voiced at the time of my visit; no other issues/events noted. Exam Narrative: General: elderly and frail/cachectic female in NAD Heart: normal S1 and S2; no rub Lungs: clear to auscultation Abdomen: soft, nontender, nondistended, positive bowel sounds Extremities: no cyanosis or clubbing; no edema; s/p right AKA Skin: warm and intact Objective Data Vital Signs Vital Signs:
--- NOTE | 2023-12-01 15:19 | WPDGIPROGNO ---
Progress Note: A&P Assessment and Plan (1) Acute on chronic anemia: Code(s): D64.9 - Anemia, unspecified Status: Acute Assessment and Plan: eliquis on hold since admission peg cancelled until BP better and hgb improves, no obvious signs of GIB but will assess with EGD when we decide is a good timing to place PEG (2) Anorexia: Code(s): R63.0 - Anorexia Status: Acute Assessment and Plan: egd with peg placement when more stable (3) Severe protein-calorie malnutrition: Code(s): E43 - Unspecified severe protein-calorie malnutrition Status: Acute (4) Squamous cell carcinoma of left lung: Code(s): C34.92 - Malignant neoplasm of unspecified part of left bronchus or lung Status: Acute (5) Acute hyponatremia: Code(s): E87.1 - Hypo-osmolality and hyponatremia Status: Acute Assessment and Plan: improving (6) Acute on chronic renal failure: Qualifiers: Acute renal failure type: unspecified Chronic kidney disease stage: stage 3 (moderate) Chronic kidney disease stage 3 subtype: stage 3b (GFR 30-44) Qualified Code(s): N17.9 - Acute kidney failure, unspecified; N18.32 - Chronic kidney disease, stage 3b Code(s): N17.9 - Acute kidney failure, unspecified; N18.9 - Chronic kidney disease, unspecified Status: Acute Assessment and Plan: improving, creat down to 1.2 nephrology on board Subjective Date/time seen: 12/01/23 15:19 Interval history: BP today in low side, hgb still low but no report of any GIB in fact she has not had BM Review of Systems Review of Systems: All systems reviewed & are unremarkable except as noted in HPI and below Exam Const: General: comfortable Other: cachectic HENMT: Face/Nose/Sinus: Normal nares present Eyes: General: appearance normal, both eyes and all related structures Neck: Neck: supple Resp: Effort & Inspection: normal respiratory effort Cardio: Rate: regular rate GI: GI Palp: Yes Soft to palpation and No Tenderness to palpation present (GI) Auscultation: normal bowel sounds Skin: Other: pallor Neuro: Other: rt sided hemiparesis Extrem: Other: leg amputation Psych: Other: awake and alert but gets confused Objective Data Vital Signs Vital Signs: Vital Signs - 24 hr 11/30/23 15:59 11/30/23 16:00 11/30/23 16:00 Temperature 98 F Pulse Rate 80 77 Respiratory Rate 17 Blood Pressure 130/47 L Pulse Oximetry 100 Oxygen Delivery Room Air 11/30/23 18:00 11/30/23 20:00 11/30/23 21:45 Temperature 97.5 F L Pulse Rate 95 85 87 Respiratory Rate 17 Blood Pressure 126/50 L Pulse Oximetry 100 Oxygen Delivery 11/30/23 20:00 11/30/23 20:00 11/30/23 22:00 Temperature Pulse Rate 83 76 Respiratory Rate Blood Pressure Pulse Oximetry Oxygen Delivery Room Air 11/30/23 20:48 11/30/23 23:47 12/01/23 00:00 Temperature 97.5 F L Pulse Rate 74 Respiratory Rate 17 Blood Pressure 100/32 L Pulse Oximetry 100 100 Oxygen Delivery Room Air Room Air 12/01/23 00:00 12/01/23 02:00 12/01/23 03:54 Temperature 97.7 F Pulse Rate 74 77 86 Respiratory Rate 17 Blood Pressure 119/38 L Pulse Oximetry 100 Oxygen Delivery 12/01/23 04:00 12/01/23 04:00 12/01/23 06:00 Temperature Pulse Rate 81 87 Respiratory Rate Blood Pressure Pulse Oximetry Oxygen Delivery Room Air 12/01/23 06:34 12/01/23 07:00 12/01/23 08:00 Temperature 98.1 F 97.9 F 97.7 F Pulse Rate 89 80 79 Respiratory Rate 18 18 18 Blood Pressure 118/33 L 102/32 L 105/25 L Pulse Oximetry 99 99 100 Oxygen Delivery 12/01/23 08:00 12/01/23 09:00 12/01/23 09:39 Temperature 97.7 F 97.9 F 97.6 F Pulse Rate 79 81 93 Respiratory Rate 18 15 16 Blood Pressure 105/25 L 106/27 L 116/38 L Pulse Oximetry 100 99 99 Oxygen Delivery 12/01/23 11:55 12/01/23 08:00 12/01/23 12:00 Temper
[2023-12-01] MEDS: SODIUM CHLORIDE 0.9% IV 250 ML 30 ML (15:51)
[2023-12-01] MEDS: ACETAMINOPHEN 325 MG TABLET 650 MG PO ×2 (17:35→21:05)
[2023-12-01] MEDS: INSULIN ASPART (*BKC) 100 UNITS/ML SUB-Q (17:59)
[2023-12-01] MEDS: DEXTROSE 5%/0.9% SOD CHL 1,000 ML 50 ML IV CONT (17:59)
[2023-12-01 18:06] LABS: Glucose Point of Care 232 mg/dl (65-105)
[2023-12-01] MEDS: PANTOPRAZOLE SODIUM IV 40 MG VIAL IV PUSH (20:57)
[2023-12-01] MEDS: METOPROLOL TARTRATE 25 MG TABLET PO (21:02)
[2023-12-01 23:46] LABS: Glucose Point of Care 96 mg/dl (65-105)
[2023-12-02] VITALS (20 sets, daily range): BP systolic 128–157; BP diastolic 37–65; PULSE 63–88; RESP 14–18; TEMP 36.3–37.3; O2SAT 96–100
[2023-12-02 03:51] LABS: Basophils Percent Auto 0.2 % (0.2-1.2); Eosinophils Percent Auto 0.2 % (0-4.4); Hematocrit 38.1 % (37.0-47.0); Hemoglobin 12.6 g/dL (12.0-15.0); Immature Granulocyte Absolute 0.17 K/mm3 (0.00-0.031); Immature Granulocyte Percent A 1.3 % (0-0.5); Lymphocytes Absolute Auto 2.16 K/mm3 (0.9-3.2); Lymphocytes Percent Auto 17.1 % (18.3-44.2); Mean Corpuscular HGB Conc 33.1 g/dl (32-36); Mean Corpuscular Volume 93.8 fl (80-100); Mean Platelet Volume 8.6 fl (7.4-10.4); Monocytes Absolute Auto 3.1 K/mm3 (0.1-0.6); Monocytes Percent Auto 24.8 % (2.6-8.5); Neutrophils Absolute Auto 7.1 K/mm3 (1.3-6.7); Neutrophils Percent Auto 56.4 % (45.5-73.1); Platelet Count Result 170 k/mm3 (150-375); Red Blood Count 4.06 M/mm3 (4.2-5.4); Red Cell Distribution Width 14.8 % (11.5-14.5); White Blood Count 12.6 K/mm3 (4.5-10.0)
[2023-12-02 04:07] LABS: Alanine Aminotransferase 18 U/L (6-35); Albumin Level 2.8 g/dL (3.5-5.1); Alkaline Phosphatase 118 U/L (38-126); Anion Gap 7 mmol/L (4-12); Aspartate Amino Transferase 32 U/L (14-36); Bilirubin,Total 0.4 mg/dL (0.2-1.3); Blood Urea Nitrogen 42 mg/dL (7-17); Calcium 8.7 mg/dL (8.4-10.2); Carbon Dioxide 15 mmol/L (22-30); Chloride 112 mmol/L (98-107); Estimated CRCL calculation 37 ml/min; Estimated Glomerular Filt Rate > 60; Glucose 93 mg/dL (65-110); Potassium 3.7 mmol/L (3.4-5.0); Sodium 134 mmol/L (137-145)
[2023-12-02 04:20] LABS: Anisocytosis 1+; Large Platelets Present; Ovalocytes 1+; Platelet Estimate Adequate (Adequate); Schistocytes None Seen
[2023-12-02] MEDS: CENTRAL LINE FLUSH 10 ML IV PUSH ×3 (06:17→22:00)
[2023-12-02 06:31] LABS: Glucose Point of Care 103 mg/dl (65-105)
[2023-12-02] MEDS: ATORVASTATIN 40 MG TABLET 80 MG PO (08:34)
[2023-12-02] MEDS: MEROPENEM 1 GM/NS 100 ML 1 GM/100 ML BAG IVPB ×2 (08:34→20:40)
[2023-12-02] MEDS: amLODIPine BESYLATE 5 MG TABLET 10 MG PO (08:34)
[2023-12-02] MEDS: FOLIC ACID 1 MG TABLET PO (08:34)
[2023-12-02] MEDS: MULTIVITAMINS /C LUTEIN (CENTRUM SILVER) TABLET *BKC 1 TAB PO (08:35)
[2023-12-02] MEDS: FERROUS SULFATE 325 MG TABLET DR PO (08:35)
[2023-12-02] MEDS: cloNIDine HCL 0.1 MG TABLET PO (08:35)
[2023-12-02] MEDS: SODIUM BICARBONATE TAB 650 MG TABLET 1300 MG PO ×2 (08:35→17:10)
[2023-12-02] MEDS: guaiFENesin 12 HR 600 MG TABCR PO ×2 (08:35→20:40)
[2023-12-02] MEDS: METOPROLOL TARTRATE 25 MG TABLET PO ×2 (08:35→20:41)
[2023-12-02] MEDS: hydrALAZINE HCL 50 MG TABLET 100 MG PO ×2 (08:35→17:10)
[2023-12-02] MEDS: PANTOPRAZOLE SODIUM IV 40 MG VIAL IV PUSH ×2 (08:35→20:40)
--- NOTE | 2023-12-02 09:46 | P.PNNP_ITS ---
Progress Note: A&P Assessment and Plan (1) Acute kidney injury: Code(s): N17.9 - Acute kidney failure, unspecified Status: Acute Assessment and Plan: * improvement noted if not better than baseline * history would suggest prerenal azotemia/volume depletion * improvement in renal function improving with current therapy * hold off on further testing for now -- follow trend (2) Chronic kidney disease, stage 3: Code(s): N18.30 - Chronic kidney disease, stage 3 unspecified Status: Chronic Assessment and Plan: * baseline creatinine runes ~ 1.3 - 1.8mg/dl * this causes her to fluctuate between CKD stage 3A and stage 3B * presumably secondary to HTN, DM, vascular disease (CAD, PVD, hyperlipidemia, CVA), CHF, and age-related changealong with fluctuating hydration status * however, in early 2022, her creatinine was normal. (3) Hyponatremia: Code(s): E87.1 - Hypo-osmolality and hyponatremia Status: Acute Assessment and Plan: * improvement noted * acute on chronic * multifactorial etiology: * volume depletion/prerenal factors * history of ChF * history of CVA * smoking * lung cancer * known CKD * admission sodium 120; now up to 128mmol * goal of therapy is a change of 6 - 8mmol/L in 24 hours (this has been acheived) * follow repeat sodium levels (4) Hyperkalemia: Code(s): E87.5 - Hyperkalemia Status: Acute Assessment and Plan: * improving * quite severe on presentation * improving with ongoing medical management * known history of this in the past (5) Metabolic acidosis: Code(s): E87.20 - Acidosis, unspecified Status: Acute Assessment and Plan: * better * due to MJ and possible starvation * should improve as renal function does * oral versus IV sodium bicarb depending on trend (6) Anemia: Code(s): D64.9 - Anemia, unspecified Status: Chronic Assessment and Plan: * acute on chronic * likely exacerbated by acute illness with MJ * follow H/H * PRBC transusion per protocol * on Epogen (7) Hypertension: Qualifiers: Hypertension type: unspecified Qualified Code(s): I10 - Essential (primary) hypertension Code(s): I10 - Essential (primary) hypertension Status: Chronic Assessment and Plan: * reasonable control * follow trend of hemodynamics (8) Type 2 diabetes mellitus: Code(s): E11.9 - Type 2 diabetes mellitus without complications Status: Chronic Assessment and Plan: * follow accu-cheks * glycemic control per hospitalists Not much else to add -- will continue to follow from a distance. Subjective Date/time seen: 12/02/23 09:46 Interval history: Follow-up for acute on chronic hyponatremia as well as acute kidney injury/acute renal failure on chronic kidney disease. H/H doing better by AM labs; noted plan for EGD and G-tube placement later today; sodium continues to improve and renal function seems better than baseline; no apparent distress noted; no issues/events overnight or earlier this morning. Exam Narrative: General: elderly and frail/cachectic female in NAD Heart: normal S1 and S2; no rub Lungs: clear to auscultation Abdomen: soft, nontender, nondistended, positive bowel sounds Extremities: no cyanosis or clubbing; no edema; s/p right AKA Skin: no rash Objective Data Vital Signs Vital Signs:
--- NOTE | 2023-12-02 09:46 | PM.PNNEP ---
Progress Note: A&P Assessment and Plan (1) Acute kidney injury: Code(s): N17.9 - Acute kidney failure, unspecified Status: Acute Assessment and Plan: improvement noted if not better than baseline history would suggest prerenal azotemia/volume depletion improvement in renal function improving with current therapy hold off on further testing for now -- follow trend (2) Chronic kidney disease, stage 3: Code(s): N18.30 - Chronic kidney disease, stage 3 unspecified Status: Chronic Assessment and Plan: baseline creatinine runes ~ 1.3 - 1.8mg/dl this causes her to fluctuate between CKD stage 3A and stage 3B presumably secondary to HTN, DM, vascular disease (CAD, PVD, hyperlipidemia, CVA), CHF, and age-related changealong with fluctuating hydration status however, in early 2022, her creatinine was normal. (3) Hyponatremia: Code(s): E87.1 - Hypo-osmolality and hyponatremia Status: Acute Assessment and Plan: improvement noted acute on chronic multifactorial etiology: volume depletion/prerenal factors history of ChF history of CVA smoking lung cancer known CKD admission sodium 120; now up to 128mmol goal of therapy is a change of 6 - 8mmol/L in 24 hours (this has been acheived) follow repeat sodium levels (4) Hyperkalemia: Code(s): E87.5 - Hyperkalemia Status: Acute Assessment and Plan: improving quite severe on presentation improving with ongoing medical management known history of this in the past (5) Metabolic acidosis: Code(s): E87.20 - Acidosis, unspecified Status: Acute Assessment and Plan: better due to MJ and possible starvation should improve as renal function does oral versus IV sodium bicarb depending on trend (6) Anemia: Code(s): D64.9 - Anemia, unspecified Status: Chronic Assessment and Plan: acute on chronic likely exacerbated by acute illness with MJ follow H/H PRBC transusion per protocol on Epogen (7) Hypertension: Qualifiers: Hypertension type: unspecified Qualified Code(s): I10 - Essential (primary) hypertension Code(s): I10 - Essential (primary) hypertension Status: Chronic Assessment and Plan: reasonable control follow trend of hemodynamics (8) Type 2 diabetes mellitus: Code(s): E11.9 - Type 2 diabetes mellitus without complications Status: Chronic Assessment and Plan: follow accu-cheks glycemic control per hospitalists Not much else to add -- will continue to follow from a distance. Subjective Date/time seen: 12/02/23 09:46 Interval history: Follow-up for acute on chronic hyponatremia as well as acute kidney injury/acute renal failure on chronic kidney disease. H/H doing better by AM labs; noted plan for EGD and G-tube placement later today; sodium continues to improve and renal function seems better than baseline; no apparent distress noted; no issues/events overnight or earlier this morning. Exam Narrative: General: elderly and frail/cachectic female in NAD Heart: normal S1 and S2; no rub Lungs: clear to auscultation Abdomen: soft, nontender, nondistended, positive bowel sounds Extremities: no cyanosis or clubbing; no edema; s/p right AKA Skin: no rash Objective Data Vital Signs Vital Signs: Vital Signs Temp Pulse Resp BP Pulse Ox O2 Del Method 12/02/23 09:32 98 Room Air 12/02/23 08:00 Room Air 12/02/23 08:35 83 12/02/23 07:59 99.2 F 86 14 152/40 H 100 12/02/23 06:00 78 12/02/23 04:00 Room Air 12/02/23 04:00 71 12/02/23 04:00 97.5 F L 74 18 128/37 L 100 12/02/23 02:00 73 12/02/23 00:00 Room Air 12/02/23 00:00 75 12/01/23 23:46 97.6 F 75 18 110/38 L 99 12/01/23 22:00 85 12/01/23 20:00 Room Air 12/01/23 20:00 91
--- NOTE | 2023-12-02 10:10 | PCNFU ---
Nutrition Follow-Up Complete: Severe protein calorie malnutrition in the setting of chronic disease (lung cancer) related to inadequate protein energy intake as evidenced by a significant weight loss of -14% x 3 months, low BMI of 14.8, poor po intake for greater than one month, and NFPE findings for severe subcutaneous fat loss (cheeks, biceps) and severe muscle wasting (jehovah's witness, clavicle, shoulder). Goal: Meet estimated needs - Not meeting goal currently. Continue with same goal Pt current nutrition is NPO Nutrition recommendation: 1. TUBE FEEDING RECOMMENDATIONS: Jevity 1.5 @ goal rate 50 ml/h. Start at 20 ml and advance by 10 ml q 12 hours until goal is reached. Flush 100 ml water q 4 hours. 1650 total kcal (~100% EER), 70 g protein, 1436 ml free water with flushes included. 2. Consider daily 200-300 mg thiamine, full dose IV B complex (or 1-2 tablets TID), MV/MN once daily supplementation for refeeding syndrome/Wernicke's risk, related to low BMI and prolonged poor intake. (Supplementation recommended for 10 days) 3. Phosphorus, calcium, magnesium at next lab draw to monitor for refeeding risk Last recorded weight is 48.1 kg. Bowel Motility: +2 BMs 11/01/23 Labs Reviewed: Alb 2.8, Na 134, BUN 42 Meds Noted: yany Canas Skin: No pressure Additional Notes: PEG placement today. Pt is at risk for refeeding syndrome. Discussed with RN need for supplementation and slow initiation of tube feeding when cleared by MD to start tube feeds. Monitor intake, wt, labs. Follow up in 3 days.
--- NOTE | 2023-12-02 10:19 | PCDIET ---
TUBE FEEDING RECOMMENDATIONS: Jevity 1.5 @ goal rate 50 ml/h. Start at 20 ml and advance by 10 ml q 12 hours until goal is reached. Flush 100 ml water q 4 hours. 1650 total kcal (~100% EER), 70 g protein, 1436 ml free water with flushes included. 2. Consider daily 200-300 mg thiamine, full dose IV B complex (or 1-2 tablets TID), MV/MN once daily supplementation for refeeding syndrome/Wernicke's risk, related to low BMI and prolonged poor intake. (Supplementation recommended for 10 days) 3. Phosphorus, calcium, magnesium at next lab draw to monitor for refeeding risk
[2023-12-02 10:28] LABS: Haptoglobin 228 mg/dL (43-212)
--- NOTE | 2023-12-02 10:39 | PC.NURSE ---
Report given to DONALD Hurt in GI lab, patient moved to [facility] and for PEG tube placement and upper endoscopy at 1040.
--- NOTE | 2023-12-02 10:48 | PM.IMPN ---
Progress Note: A&P Assessment and Plan (1) Acute renal failure superimposed on stage 3b chronic kidney disease: Qualifiers: Acute renal failure type: unspecified Qualified Code(s): N17.9 - Acute kidney failure, unspecified; N18.32 - Chronic kidney disease, stage 3b Code(s): N17.9 - Acute kidney failure, unspecified; N18.32 - Chronic kidney disease, stage 3b Status: Acute (2) Acute hyperkalemia: Code(s): E87.5 - Hyperkalemia Status: Acute (3) Hypo-osmolality and hyponatremia: Code(s): E87.1 - Hypo-osmolality and hyponatremia Status: Acute (4) Urinary tract infection: Qualifiers: Hematuria presence: with hematuria Urinary tract infection type: acute cystitis Qualified Code(s): N30.01 - Acute cystitis with hematuria Code(s): N39.0 - Urinary tract infection, site not specified Status: Acute Plan Assessment and Plan profound anemia 11/29 hemoglobin 6.6 Transfuse 1 pack RBC Follow-up stool guaiac, iron panel 11/30: hemoglobin 6.9 today, stool guaiac not done. transfuse 2 pack RBC, repeat stool guaiac, iron panel, start Protonix 40 mg IV q.12 hours follow-up reticulocyte haptoglobin Suspecting GI bleeding GI is on board. Consult GI for evaluation treatment 12/01: hemoglobin stable, stool guaiac negative, haptoglobin positive, reticulocyte high, ferritin level high, hemoglobin dropped gradually in past 3 months, consult heme oncologist for evaluation treatment (1) Acute renal failure superimposed on stage 3b chronic kidney disease, hyponatremia, ?Qualifiers: ?Acute renal failure type:?unspecified? Qualified Code(s):?N17.9 - Acute kidney failure, unspecified; N18.32 - Chronic kidney disease, stage 3b ?Code(s): N17.9 - Acute kidney failure, unspecified; N18.32 - Chronic kidney disease, stage 3b ?Status:?Acute ?Assessment and Plan: 11/29/23: Initial potassium level of 7.6, bicarb 13, creatinine 2.3, EGFR 25, creatinine clearance 14 Patient was given Lokelma, bicarb, calcium gluconate, IV regular insulin for her potassium level. protein/creatinine ratio elevated at 7.5 Continue to trend labs Nephrology consulted and following PICC line placed for lab draws, IV fluids and antibiotics hyponatremia and acute renal failure continue to improve (2) Acute hyperkalemia: ?Code(s): E87.5 - Hyperkalemia ?Status:?Acute ?Assessment and Plan: 11/29/2023: Initial potassium level 7.6 Patient given Lokelma, bicarb, calcium gluconate, IV regular insulin Potassium now down to 5.2 Continue to trend labs Continue with scheduled [facility] Nephrology following corrected (3) Acute hyponatremia: ?Code(s): E87.1 - Hypo-osmolality and hyponatremia ?Status:?Acute ?Assessment and Plan: 11/29/2023: Sodium level today 127 Likely secondary to dehydration due to malnutrition and history of squamous cell lung cancer Will check a cortisol level Urine sodium 108 Started on D5NS per Nephrology team Nephrology following Continue to trend labs (4) Urinary tract infection: ?Qualifiers: ?Hematuria presence:?with hematuria??Urinary tract infection type:?acute cystitis? Qualified Code(s):?N30.01 - Acute cystitis with hematuria ?Code(s): N39.0 - Urinary tract infection, site not specified ?Status:?Acute ?Assessment and Plan: 11/29/2023: UA shown 2+ protein, trace glucose, 2+ urine blood, 3+ leukocyte, greater than 100 urine RBCs, greater than 100 urine wbc's, 4+ bacteria. Urine culture was obtained and is pending. Patient was started on meropenem due to history of ESBL in the urine on past cultures pending susceptibility, grows E coli in urine (5) Severe protein-calorie malnutrition: ?Code(s): E43 - Unspecified severe protein-calorie malnutrition ?Status:?Acute ?Assessment and Plan: 11/29/2023: Likely due to her chronic squamous cell lung cancer and inad
[2023-12-02] MEDS: ceFAZolin 1 GM/NS 50 ML 1 GM/50 ML BAG IVPB (10:49)
[2023-12-02 11:03] LABS: Glucose Point of Care 111 mg/dl (65-105)
--- NOTE | 2023-12-02 11:45 | WPDANESEPPF ---
Anes - Initial Pre Proc Eval Procedure: Operation Date: 12/02/23 13:30 Proposed Procedures p Esophagogastroduodenoscopy EGD - Galo Atkinson MD s Percutaneous Endoscopic Gastrostomy - Galo Atkinson MD Date/Time: 12/02/23 11:45 Surgeon: Stefani Restrepo MD Pre Op Diagnosis: Acute on Chronic Renal Failure/Hyperkalemia/Hypona Patient Data Age: 73 Gender: F Height: 1.73 m Weight: 48.1 kg Last Vital Signs Temp 98.3 F 12/02/23 10:53 Pulse 63 12/02/23 10:53 Resp 16 12/02/23 10:53 BP 147/46 H 12/02/23 10:53 Pulse Ox 100 12/02/23 10:53 O2 Del Method Room Air 12/02/23 10:53 Allergies Allergy/AdvReac Type Severity Reaction Status Date / Time strawberry Allergy Unknown Verified 12/02/23 10:52 Home Medications Medication Instructions Recorded Confirmed Type acetaminophen 325 mg tablet 650 mg PO Q4H PRN Pain 08/16/23 11/28/23 History amlodipine 10 mg tablet 10 mg PO DAILY 08/16/23 11/28/23 History apixaban 2.5 mg tablet (Eliquis) 2.5 mg PO BID 08/16/23 11/28/23 History arginine-vitamin C-vitamin E oral 4.5 g PO DAILY 08/16/23 11/28/23 History 4.5 gram-156 mg/9.2 gram powder pkt (Arginaid) ascorbic acid (vitamin C) 500 mg 500 mg PO BID 08/16/23 11/28/23 History capsule atorvastatin 80 mg tablet 80 mg PO DAILY 08/16/23 11/28/23 History bisacodyl 10 mg rectal suppository 10 mg RECTAL DAILY PRN Constipation 08/16/23 11/28/23 History clonidine HCl 0.2 mg tablet 0.1 mg PO DAILY 08/16/23 11/28/23 History darbepoetin david in polysorbat 40 40 mcg subcut DAILY 08/16/23 11/28/23 History mcg/mL in polysorbate injection (Aranesp) ferrous sulfate 325 mg (65 mg 325 mg PO DAILY 08/16/23 11/28/23 History iron) tablet folic acid 1 mg tablet 1 mg PO DAILY 08/16/23 11/28/23 History glucagon HCl 1 mg solution for 1 mg IM ONCE PRN Hypoglycemia 08/16/23 11/28/23 History injection (Glucagon (HCl) Emergency Kit) guaifenesin 600 mg tablet, 600 mg PO Q12H 08/16/23 11/28/23 History extended release 12 hr hydralazine 100 mg tablet 100 mg PO TID 08/16/23 11/28/23 History loperamide 2 mg capsule 2 mg PO Q6H PRN Diarrhea 08/16/23 11/28/23 History (Anti-Diarrheal (loperamide)) magnesium citrate (Citroma oral 296 ml PO DAILY PRN Constipation 08/16/23 11/28/23 History solution) magnesium hydroxide 400 mg/5 mL 30 ml PO HS PRN Constipation 08/16/23 11/28/23 History oral suspension (Milk of Magnesia) metoprolol tartrate 50 mg tablet 25 mg PO BID 08/16/23 11/28/23 History multivit with minerals-iron 18 1 tablet PO DAILY 08/16/23 11/28/23 History mg-folic ac 400 mcg-vit K 25 mcg tablet (Adults Multivitamin) sodium phosphates 19 gram-7 118 ml RECTAL ONCE PRN Constipation 08/16/23 11/28/23 History gram/118 mL enema (Fleet Enema) zinc oxide 40 % topical Q8H PRN Wound Care 08/16/23 11/28/23 History epoetin david-epbx 10,000 unit/mL 10,000 unit subcut TUTHSA@09 #10 mL 08/20/23 11/28/23 Rx injection solution (Retacrit) Laboratory Tests 11/30/23 12/01/23 12/01/23 08:38 10:42 11:36 WBC RBC Hgb Hct MCV MCH MCHC RDW Plt Count MPV Immature Gran % (Auto) Neut % (Auto) Lymph % (Auto) [place] % (Auto) Eos % (Auto) Baso % (Auto) Lymph # (Auto) [place] # (Auto) Eos # (Auto) Baso # (Auto) Abs Immat Gran (auto) Absolute Neuts (auto) Absolute Nucleated RBC Nucleated RBC % Platelet Estimate Large Platelets Anisocytosis Ovalocytes Schistocytes Haptoglobin 228 H mg/dL (43-212) Sodium Potassium Chloride Carbon Dioxide Anion Gap BUN
[2023-12-02] MEDS: LACTATED RINGERS 1,000 ML 150 ML IV CONT (12:23)
[2023-12-02] MEDS: DEXTROSE 5%/0.9% SOD CHL 1,000 ML 50 ML IV CONT (17:09)
[2023-12-02 18:20] LABS: Glucose Point of Care 160 mg/dl (65-105)
[2023-12-02] MEDS: ACETAMINOPHEN 325 MG TABLET 650 MG PO (20:41)
[2023-12-03] VITALS (9 sets, daily range): BP systolic 128–160; BP diastolic 45–83; PULSE 63–91; RESP 14–18; TEMP 36.3–37.1; O2SAT 100
[2023-12-03 00:04] LABS: Glucose Point of Care 235 mg/dl (65-105)
[2023-12-03] MEDS: INSULIN ASPART (*BKC) 100 UNITS/ML SUB-Q ×3 (01:00→12:37)
[2023-12-03 04:53] LABS: Basophils Percent Auto 0.2 % (0.2-1.2); Eosinophils Percent Auto 0.1 % (0-4.4); Hematocrit 39.3 % (37.0-47.0); Immature Granulocyte Absolute 0.14 K/mm3 (0.00-0.031); Immature Granulocyte Percent A 1.3 % (0-0.5); Lymphocytes Absolute Auto 1.87 K/mm3 (0.9-3.2); Mean Corpuscular HGB Conc 33.1 g/dl (32-36); Mean Corpuscular Hemoglobin 31.3 pg (26-34); Mean Corpuscular Volume 94.7 fl (80-100); Mean Platelet Volume 8.9 fl (7.4-10.4); Monocytes Absolute Auto 2.5 K/mm3 (0.1-0.6); Monocytes Percent Auto 22.9 % (2.6-8.5); Neutrophils Absolute Auto 6.5 K/mm3 (1.3-6.7); Neutrophils Percent Auto 58.5 % (45.5-73.1); Platelet Count Result 147 k/mm3 (150-375); Red Blood Count 4.15 M/mm3 (4.2-5.4); Red Cell Distribution Width 15.2 % (11.5-14.5)
[2023-12-03 05:16] LABS: Acanthocytes 1+; Anisocytosis 1+; Large Platelets Present; Platelet Estimate Slightly Decreased (Adequate); Schistocytes None Seen
[2023-12-03 05:29] LABS: Alanine Aminotransferase 16 U/L (6-35); Albumin Level 2.5 g/dL (3.5-5.1); Alkaline Phosphatase 115 U/L (38-126); Anion Gap 5 mmol/L (4-12); Aspartate Amino Transferase 27 U/L (14-36); Bilirubin,Total 0.4 mg/dL (0.2-1.3); Blood Urea Nitrogen 30 mg/dL (7-17); Calcium 8.4 mg/dL (8.4-10.2); Carbon Dioxide 16 mmol/L (22-30); Chloride 114 mmol/L (98-107); Estimated CRCL calculation 41 ml/min; Estimated Glomerular Filt Rate > 60; Glucose 213 mg/dL (65-110); Potassium 3.7 mmol/L (3.4-5.0); Sodium 135 mmol/L (137-145)
[2023-12-03] MEDS: CENTRAL LINE FLUSH 10 ML IV PUSH ×3 (06:05→21:11)
--- NOTE | 2023-12-03 08:34 | P.PNIM_ITS ---
Progress Note: A&P Assessment and Plan (1) Acute kidney injury: Code(s): N17.9 - Acute kidney failure, unspecified Status: Acute Assessment and Plan: * improvement noted if not better than baseline * history would suggest prerenal azotemia/volume depletion * improvement in renal function improving with current therapy * hold off on further testing for now -- follow trend (2) Chronic kidney disease, stage 3: Code(s): N18.30 - Chronic kidney disease, stage 3 unspecified Status: Chronic Assessment and Plan: * baseline creatinine runes ~ 1.3 - 1.8mg/dl * this causes her to fluctuate between CKD stage 3A and stage 3B * presumably secondary to HTN, DM, vascular disease (CAD, PVD, hyperlipidemia, CVA), CHF, and age-related changealong with fluctuating hydration status * however, in early 2022, her creatinine was normal. (3) Hyponatremia: Code(s): E87.1 - Hypo-osmolality and hyponatremia Status: Acute Assessment and Plan: * improvement noted * acute on chronic * multifactorial etiology: * volume depletion/prerenal factors * history of ChF * history of CVA * smoking * lung cancer * known CKD * admission sodium 120; now up to 128mmol * goal of therapy is a change of 6 - 8mmol/L in 24 hours (this has been acheived) * follow repeat sodium levels * Discontinue D5 normal saline at 50 cc/hour on 12/02 (4) Hyperkalemia: Code(s): E87.5 - Hyperkalemia Status: Acute Assessment and Plan: * improving * quite severe on presentation * improving with ongoing medical management * known history of this in the past (5) Metabolic acidosis: Code(s): E87.20 - Acidosis, unspecified Status: Acute Assessment and Plan: * better * due to MJ and possible starvation * should improve as renal function does * oral versus IV sodium bicarb depending on trend (6) Anemia: Code(s): D64.9 - Anemia, unspecified Status: Chronic Assessment and Plan: * acute on chronic * likely exacerbated by acute illness with MJ and gastritis with duodenal ulcer * follow H/H * PRBC transusion per protocol * on Epogen (7) Hypertension: Qualifiers: Hypertension type: unspecified Qualified Code(s): I10 - Essential (primary) hypertension Code(s): I10 - Essential (primary) hypertension Status: Chronic Assessment and Plan: * reasonable control * follow trend of hemodynamics * Holding home dose amlodipine. Continue metoprolol. (8) Type 2 diabetes mellitus: Code(s): E11.9 - Type 2 diabetes mellitus without complications Status: Chronic Assessment and Plan: * follow accu-cheks * glycemic control per hospitalists (9) Severe protein-calorie malnutrition: Code(s): E43 - Unspecified severe protein-calorie malnutrition Status: Acute (10) Squamous cell carcinoma of left lung: Code(s): C34.92 - Malignant neoplasm of unspecified part of left bronchus or lung Status: Acute (11) Gastritis: Code(s): K29.70 - Gastritis, unspecified, without bleeding Status: Acute (12) Duodenal ulcer: Code(s): K26.9 - Duodenal ulcer, unspecified as acute or chronic, without hemorrhage or perforation Status: Acute (13) Urinary tract infection: Qualifiers: Urinary tract infection type: acute cystitis Hematuria presence: with hematuria Qualified Code(s): N30.01 - Acute cystitis with hematuria
--- NOTE | 2023-12-03 08:34 | PM.IMPN ---
Progress Note: A&P Assessment and Plan (1) Acute kidney injury: Code(s): N17.9 - Acute kidney failure, unspecified Status: Acute Assessment and Plan: improvement noted if not better than baseline history would suggest prerenal azotemia/volume depletion improvement in renal function improving with current therapy hold off on further testing for now -- follow trend (2) Chronic kidney disease, stage 3: Code(s): N18.30 - Chronic kidney disease, stage 3 unspecified Status: Chronic Assessment and Plan: baseline creatinine runes ~ 1.3 - 1.8mg/dl this causes her to fluctuate between CKD stage 3A and stage 3B presumably secondary to HTN, DM, vascular disease (CAD, PVD, hyperlipidemia, CVA), CHF, and age-related changealong with fluctuating hydration status however, in early 2022, her creatinine was normal. (3) Hyponatremia: Code(s): E87.1 - Hypo-osmolality and hyponatremia Status: Acute Assessment and Plan: improvement noted acute on chronic multifactorial etiology: volume depletion/prerenal factors history of ChF history of CVA smoking lung cancer known CKD admission sodium 120; now up to 128mmol goal of therapy is a change of 6 - 8mmol/L in 24 hours (this has been acheived) follow repeat sodium levels Discontinue D5 normal saline at 50 cc/hour on 12/02 (4) Hyperkalemia: Code(s): E87.5 - Hyperkalemia Status: Acute Assessment and Plan: improving quite severe on presentation improving with ongoing medical management known history of this in the past (5) Metabolic acidosis: Code(s): E87.20 - Acidosis, unspecified Status: Acute Assessment and Plan: better due to MJ and possible starvation should improve as renal function does oral versus IV sodium bicarb depending on trend (6) Anemia: Code(s): D64.9 - Anemia, unspecified Status: Chronic Assessment and Plan: acute on chronic likely exacerbated by acute illness with MJ and gastritis with duodenal ulcer follow H/H PRBC transusion per protocol on Epogen (7) Hypertension: Qualifiers: Hypertension type: unspecified Qualified Code(s): I10 - Essential (primary) hypertension Code(s): I10 - Essential (primary) hypertension Status: Chronic Assessment and Plan: reasonable control follow trend of hemodynamics Holding home dose amlodipine. Continue metoprolol. (8) Type 2 diabetes mellitus: Code(s): E11.9 - Type 2 diabetes mellitus without complications Status: Chronic Assessment and Plan: follow accu-cheks glycemic control per hospitalists (9) Severe protein-calorie malnutrition: Code(s): E43 - Unspecified severe protein-calorie malnutrition Status: Acute (10) Squamous cell carcinoma of left lung: Code(s): C34.92 - Malignant neoplasm of unspecified part of left bronchus or lung Status: Acute (11) Gastritis: Code(s): K29.70 - Gastritis, unspecified, without bleeding Status: Acute (12) Duodenal ulcer: Code(s): K26.9 - Duodenal ulcer, unspecified as acute or chronic, without hemorrhage or perforation Status: Acute (13) Urinary tract infection: Qualifiers: Urinary tract infection type: acute cystitis Hematuria presence: with hematuria Qualified Code(s): N30.01 - Acute cystitis with hematuria Code(s): N39.0 - Urinary tract infection, site not specified Status: Acute Plan This is a 73-year-old female, dependent on wheelchair, residing at [facility] with past medical history CKD stage 3, dementia, right-sided hemiplegia status post right AKA due to peripheral artery disease, new diagnosis of squamous cell carcinoma of the lung in 08/2023, [id number] diabetes mellitus, paroxysmal atrial fibrillation presenting with decreased appetite for many months. In [facility]
[2023-12-03 08:48] LABS: Magnesium 1.3 mg/dL (1.6-2.3); Phosphorus 3.4 mg/dL (2.5-4.5)
[2023-12-03] MEDS: hydrALAZINE HCL 50 MG TABLET 100 MG PO ×3 (09:13→17:26)
[2023-12-03] MEDS: MULTIVITAMINS /C LUTEIN (CENTRUM SILVER) TABLET *BKC 1 TAB PO (09:13)
[2023-12-03] MEDS: SODIUM BICARBONATE TAB 650 MG TABLET 1300 MG PO ×2 (09:13→17:27)
[2023-12-03] MEDS: FERROUS SULFATE 325 MG TABLET DR PO (09:14)
[2023-12-03] MEDS: amLODIPine BESYLATE 5 MG TABLET 10 MG PO (09:14)
[2023-12-03] MEDS: ATORVASTATIN 40 MG TABLET 80 MG PO (09:14)
[2023-12-03] MEDS: AMOXICILLIN/CLAVULANATE K 875-125 MG TAB 1 TABLET PO ×2 (09:15→21:10)
[2023-12-03] MEDS: cloNIDine HCL 0.1 MG TABLET PO (09:15)
[2023-12-03] MEDS: FOLIC ACID 1 MG TABLET PO (09:15)
[2023-12-03] MEDS: METOPROLOL TARTRATE 25 MG TABLET PO ×2 (09:16→21:10)
[2023-12-03] MEDS: guaiFENesin 12 HR 600 MG TABCR PO ×2 (09:16→21:11)
[2023-12-03] MEDS: PANTOPRAZOLE SODIUM IV 40 MG VIAL IV PUSH ×2 (09:16→21:11)
[2023-12-03] MEDS: EPOETIN ALFA-EPBX 10,000 UNITS/ML VIAL 10000 UNITS SUB-Q (09:18)
[2023-12-03 12:31] LABS: Glucose Point of Care 307 mg/dl (65-105)
--- NOTE | 2023-12-03 13:49 | WPDGIPROGNO ---
Progress Note: A&P Assessment and Plan (1) Severe protein-calorie malnutrition: Code(s): E43 - Unspecified severe protein-calorie malnutrition Status: Acute Assessment and Plan: s/p peg placement continue with tube feeding, she can also eat for pleasure (2) Duodenal ulcer: Code(s): K26.9 - Duodenal ulcer, unspecified as acute or chronic, without hemorrhage or perforation Status: Acute Assessment and Plan: probably this can explain part of anemia, hgb 12 after blood transfusion she will need protonix daily eliquis on hold for 7 days after scope (3) Acute on chronic anemia: Code(s): D64.9 - Anemia, unspecified Status: Acute Assessment and Plan: eliquis on hold since admission h/h normalized after transfusion (4) Anorexia: Code(s): R63.0 - Anorexia Status: Acute Assessment and Plan: egd with peg placement (5) Squamous cell carcinoma of left lung: Code(s): C34.92 - Malignant neoplasm of unspecified part of left bronchus or lung Status: Acute Assessment and Plan: will need follow-up with oncology (6) Acute on chronic renal failure: Qualifiers: Acute renal failure type: unspecified Chronic kidney disease stage: stage 3 (moderate) Chronic kidney disease stage 3 subtype: stage 3b (GFR 30-44) Qualified Code(s): N17.9 - Acute kidney failure, unspecified; N18.32 - Chronic kidney disease, stage 3b Code(s): N17.9 - Acute kidney failure, unspecified; N18.9 - Chronic kidney disease, unspecified Status: Acute Assessment and Plan: improved nephrology on board Subjective Date/time seen: 12/03/23 13:49 Interval history: peg placed yesterday, also found non-bleeding duodenal ulcer tolerating tube feeding at 30 ml/h Review of Systems Review of Systems: All systems reviewed & are unremarkable except as noted in HPI and below Exam Const: General: comfortable and no acute distress HENMT: Face/Nose/Sinus: Normal nares present Eyes: Pupils: Equal, round and reactive pupils present Neck: Neck: supple Resp: Effort & Inspection: normal respiratory effort Auscultation: clear to auscultation bilaterally Cardio: Rate: regular rate Rhythm: regular rhythm GI: GI Palp: Yes Soft to palpation and No Tenderness to palpation present (GI) Auscultation: normal bowel sounds Other: g-tube in place Skin: General skin exam: normal color Neuro: Speech: normal speech Extrem: General: no edema Psych: Attitude: not belligerent Objective Data Vital Signs Vital Signs: Vital Signs - 24 hr 12/02/23 14:00 12/02/23 16:00 12/02/23 16:00 Temperature 98.4 F Pulse Rate 71 76 Respiratory Rate 14 Blood Pressure 148/47 H Pulse Oximetry 100 Oxygen Delivery Room Air 12/02/23 16:00 12/02/23 17:51 12/02/23 20:00 Temperature 97.4 F L Pulse Rate 73 82 81 Respiratory Rate 14 Blood Pressure 140/42 L Pulse Oximetry 99 Oxygen Delivery 12/02/23 20:41 12/02/23 20:00 12/02/23 20:00 Temperature Pulse Rate 88 79 Respiratory Rate Blood Pressure Pulse Oximetry Oxygen Delivery Room Air 12/02/23 23:55 12/02/23 22:00 12/03/23 00:00 Temperature 97.4 F L Pulse Rate 72 76 Respiratory Rate 16 Blood Pressure 157/50 H Pulse Oximetry 100 Oxygen Delivery Room Air 12/03/23 00:00 12/03/23 02:00 12/03/23 04:08 Temperature 97.4 F L Pulse Rate 63 78 83 Respiratory Rate 14 Blood Pressure 160/62 H Pulse Oximetry 100 Oxygen Delivery 12/03/23 04:00 12/03/23 04:00 12/03/23 06:00 Temperature Pulse Rate 75 80 Respiratory Rate Blood Pressure Pulse Oximetry Oxygen Delivery Room Air 12/03/23 08:00 12/03/23 09:16 12/03/23 08:00 Temperature 98.8 F Pulse Rate 85 91 77 Respiratory Rate 16 Blood Pressure 154/83 H Pulse Oximetry 100 Oxygen Delivery 12/03/23 08:00 Temperature Pulse Rate Respiratory Ra
--- NOTE | 2023-12-03 14:39 | PC.NURSE ---
report called to aPtrizia BENNETT on med surg at 1438
[2023-12-03] MEDS: MAGNESIUM SULFATE 3GM/D5W100ML 3 GM/100 ML BAG IVPB (14:53)
--- NOTE | 2023-12-03 15:02 | PC.NURSE ---
called with update that pt will be coming up with mag iv hanging
--- NOTE | 2023-12-03 17:16 | PC.NURSE ---
This patient, Justine Ruiz, was transferred to [facility] on 12/03/23 at 1517. Personal belongings sent with patient. Report given to Patrizia. VM left with son, Stephen. Appropriate documentation sent with patient.
[2023-12-04] MEDS: INSULIN ASPART (*BKC) 100 UNITS/ML SUB-Q ×3 (01:14→17:14)
[2023-12-04 01:22] LABS: Glucose Point of Care 254 mg/dl (65-105)
[2023-12-04 06:00] VITALS: BP 146/50; PULSE 83; RESP 16; TEMP 36.7; O2SAT 100
[2023-12-04] MEDS: CENTRAL LINE FLUSH 10 ML IV PUSH ×3 (06:25→21:17)
[2023-12-04 06:26] LABS: Basophils Percent Auto 0.2 % (0.2-1.2); Eosinophils Percent Auto 0.1 % (0-4.4); Hematocrit 39.8 % (37.0-47.0); Immature Granulocyte Absolute 0.17 K/mm3 (0.00-0.031); Immature Granulocyte Percent A 1.5 % (0-0.5); Lymphocytes Absolute Auto 1.73 K/mm3 (0.9-3.2); Lymphocytes Percent Auto 14.9 % (18.3-44.2); Mean Corpuscular HGB Conc 32.7 g/dl (32-36); Mean Corpuscular Volume 94.8 fl (80-100); Mean Platelet Volume 8.8 fl (7.4-10.4); Monocytes Absolute Auto 2.2 K/mm3 (0.1-0.6); Monocytes Percent Auto 19.2 % (2.6-8.5); Neutrophils Absolute Auto 7.4 K/mm3 (1.3-6.7); Neutrophils Percent Auto 64.1 % (45.5-73.1); Platelet Count Result 136 k/mm3 (150-375); Red Cell Distribution Width 15.1 % (11.5-14.5); White Blood Count 11.6 K/mm3 (4.5-10.0)
[2023-12-04 06:37] LABS: Alanine Aminotransferase 15 U/L (6-35); Albumin Level 2.5 g/dL (3.5-5.1); Alkaline Phosphatase 124 U/L (38-126); Anion Gap 5 mmol/L (4-12); Aspartate Amino Transferase 25 U/L (14-36); Bilirubin,Total 0.3 mg/dL (0.2-1.3); Blood Urea Nitrogen 28 mg/dL (7-17); Calcium 8.3 mg/dL (8.4-10.2); Carbon Dioxide 17 mmol/L (22-30); Chloride 109 mmol/L (98-107); Estimated CRCL calculation 41 ml/min; Estimated Glomerular Filt Rate > 60; Glucose 217 mg/dL (65-110); Phosphorus 2.5 mg/dL (2.5-4.5); Potassium 3.9 mmol/L (3.4-5.0); Sodium 131 mmol/L (137-145)
[2023-12-04 06:40] LABS: Glucose Point of Care 208 mg/dl (65-105)
[2023-12-04 07:12] LABS: Procalcitonin 0.5 ng/mL
[2023-12-04 09:02] VITALS: PULSE 76
[2023-12-04] MEDS: PANTOPRAZOLE SODIUM IV 40 MG VIAL IV PUSH ×2 (09:02→21:17)
[2023-12-04] MEDS: METOPROLOL TARTRATE 25 MG TABLET PO ×2 (09:02→21:17)
[2023-12-04] MEDS: AMOXICILLIN/CLAVULANATE K 875-125 MG TAB 1 TABLET PO ×2 (09:03→21:17)
[2023-12-04] MEDS: hydrALAZINE HCL 50 MG TABLET 100 MG PO ×3 (09:03→17:15)
[2023-12-04] MEDS: FERROUS SULFATE 325 MG TABLET DR PO (09:03)
[2023-12-04] MEDS: MULTIVITAMINS /C LUTEIN (CENTRUM SILVER) TABLET *BKC 1 TAB PO (09:03)
[2023-12-04] MEDS: SODIUM BICARBONATE TAB 650 MG TABLET 1300 MG PO ×2 (09:03→17:15)
[2023-12-04] MEDS: guaiFENesin 12 HR 600 MG TABCR PO ×2 (09:04→21:17)
[2023-12-04] MEDS: cloNIDine HCL 0.1 MG TABLET PO (09:04)
[2023-12-04] MEDS: ATORVASTATIN 40 MG TABLET 80 MG PO (09:04)
[2023-12-04] MEDS: amLODIPine BESYLATE 5 MG TABLET 10 MG PO (09:04)
[2023-12-04] MEDS: FOLIC ACID 1 MG TABLET PO (09:04)
[2023-12-04 11:48] LABS: Glucose Point of Care 303 mg/dl (65-105)
--- NOTE | 2023-12-04 13:20 | WPDGIPROGNO ---
Progress Note: A&P Assessment and Plan (1) Severe protein-calorie malnutrition: Code(s): E43 - Unspecified severe protein-calorie malnutrition Status: Acute Assessment and Plan: s/p peg placement tolerating tube feeding, she can also eat for pleasure will follow as needed (2) Duodenal ulcer: Code(s): K26.9 - Duodenal ulcer, unspecified as acute or chronic, without hemorrhage or perforation Status: Acute Assessment and Plan: probably this can explain part of anemia, hgb 13 after blood transfusion continue with protonix daily, will need at least 3 months eliquis on hold for 7 days after scope (3) Acute on chronic anemia: Code(s): D64.9 - Anemia, unspecified Status: Acute Assessment and Plan: eliquis on hold since admission h/h normalized after transfusion (4) Anorexia: Code(s): R63.0 - Anorexia Status: Acute Assessment and Plan: egd with peg placement (5) Squamous cell carcinoma of left lung: Code(s): C34.92 - Malignant neoplasm of unspecified part of left bronchus or lung Status: Acute Assessment and Plan: will need follow-up with oncology Subjective Date/time seen: 12/04/23 13:20 Interval history: tolerating tube feeding at 40 ml/h Review of Systems Review of Systems: All systems reviewed & are unremarkable except as noted in HPI and below Exam Const: General: comfortable and no acute distress HENMT: Face/Nose/Sinus: Normal nares present Eyes: Pupils: Equal, round and reactive pupils present Neck: Neck: supple Resp: Effort & Inspection: normal respiratory effort Auscultation: clear to auscultation bilaterally Cardio: Rate: regular rate Rhythm: regular rhythm GI: GI Palp: Yes Soft to palpation and No Tenderness to palpation present (GI) Auscultation: normal bowel sounds Other: g-tube in place Skin: General skin exam: normal color Neuro: Speech: normal speech Extrem: General: no edema Psych: Attitude: not belligerent Objective Data Vital Signs Vital Signs: Vital Signs - 24 hr 12/03/23 15:38 12/03/23 22:00 12/04/23 06:00 Temperature 98.2 F 98.2 F 98.1 F Pulse Rate 76 81 83 Respiratory Rate 18 16 16 Blood Pressure 129/49 L 128/45 L 146/50 H Pulse Oximetry 100 100 100 Oxygen Delivery 12/04/23 09:02 12/04/23 09:03 Temperature Pulse Rate 76 Respiratory Rate Blood Pressure Pulse Oximetry Oxygen Delivery Room Air Intake/Output Intake/Output: Intake & Output 12/01/23 12/02/23 12/03/23 12/04/23 23:59 23:59 23:59 23:59 Intake Total 2830.0 1260.0 565 451 Output Total 1250 1300 1000 275 Balance 1580.0 -40.0 -435 176 Meds/Results Medications: Active Medications Generic Name Dose Route Start Last Admin Trade Name Freq PRN Reason Stop Dose Admin Acetaminophen 650 mg 11/29/23 06:51 12/02/23 20:41 Acetaminophen 325 Mg Tablet PO 650 mg Q4H PRN Administration Pain 1-3 or fever Amlodipine Besylate 10 mg 11/29/23 09:00 12/04/23 09:04 Amlodipine Besylate 5 Mg Tablet PO 10 mg DAILY SENDY Administration Amoxicillin/Clavulanate Potassium 1 tablet 12/03/23 09:00 12/04/23 09:03 Amoxicillin/Clavulanate K 875-125 Mg Tab PO 12/05/23 23:55 1 tablet Q12HR SENDY Administration Atorvastatin Calcium 80 mg 11/29/23 09:00 12/04/23 09:04 Atorvastatin 40 Mg Tablet PO 80 mg DAILY SENDY Administration Bisacodyl 10 mg 11/29/23 06:51 Bisacodyl 10 Mg Suppository RECTAL DAILY PRN Constipation Clonidine HCl 0.1 mg 11/29/23 09:00 12/04/23 09:04 Clonidine Hcl 0.1 Mg Tablet PO 0.1 mg DAILY SENDY Administration Dextrose 12.5 gm 11/28/23 14:35 Dextrose 50% 25 Gm/50 Ml Syringe IV PUSH PRN PRN Hypoglycemia Protocol Epoetin Diego-epbx 10,000 units 11/29/23 09:00 12/03/23 09:18 Epoetin Diego-Epbx 10,000 Units/Ml Vial SUB-Q 10,000 units TUTHSA@09 SENDY Administration Ferrous Sulfat
--- NOTE | 2023-12-04 13:59 | P.PNIM_ITS ---
Progress Note: A&P Assessment and Plan (1) Acute kidney injury: Code(s): N17.9 - Acute kidney failure, unspecified Status: Acute Assessment and Plan: * improvement noted if not better than baseline * history would suggest prerenal azotemia/volume depletion * hold off on further testing for now -- follow trend (2) Chronic kidney disease, stage 3: Code(s): N18.30 - Chronic kidney disease, stage 3 unspecified Status: Chronic Assessment and Plan: * baseline creatinine runes ~ 1.3 - 1.8mg/dl * this causes her to fluctuate between CKD stage 3A and stage 3B * presumably secondary to HTN, DM, vascular disease (CAD, PVD, hyperlipidemia, CVA), CHF, and age-related changealong with fluctuating hydration status * however, in early 2022, her creatinine was normal. (3) Hyponatremia: Code(s): E87.1 - Hypo-osmolality and hyponatremia Status: Acute Assessment and Plan: * improvement noted * acute on chronic * multifactorial etiology: * volume depletion/prerenal factors * history of ChF * history of CVA * smoking * lung cancer * known CKD * admission sodium 120; now up to 128mmol * goal of therapy is a change of 6 - 8mmol/L in 24 hours (this has been acheived) * follow repeat sodium levels * IV fluids have been discontinued. She is now on tube feeds with free water flushes q.4 hours. * She continues on sodium bicarbonate 1300 mg p.o. b.i.d.. (4) Hyperkalemia: Code(s): E87.5 - Hyperkalemia Status: Acute Assessment and Plan: * improving * quite severe on presentation * improving with ongoing medical management * known history of this in the past (5) Metabolic acidosis: Code(s): E87.20 - Acidosis, unspecified Status: Acute Assessment and Plan: * better * due to MJ and possible starvation * should improve as renal function does * Continue oral sodium bicarbonate and deescalate if able (6) Anemia: Code(s): D64.9 - Anemia, unspecified Status: Chronic Assessment and Plan: * acute on chronic * likely exacerbated by acute illness with MJ and gastritis with duodenal ulcer * follow H/H * PRBC transusion per protocol * on Epogen (7) Hypertension: Qualifiers: Hypertension type: unspecified Qualified Code(s): I10 - Essential (primary) hypertension Code(s): I10 - Essential (primary) hypertension Status: Chronic Assessment and Plan: * reasonable control * follow trend of hemodynamics * Home meds have been continued. Amlodipine 10 mg p.o. q.day, clonidine 0.1 mg p.o. q.day, hydralazine 100 mg p.o. t.i.d., metoprolol tartrate 25 mg p.o. b.i.d.. (8) Type 2 diabetes mellitus: Code(s): E11.9 - Type 2 diabetes mellitus without complications Status: Chronic Assessment and Plan: [id number]. Currently on low-dose sliding scale. Continue to adjust as her tube feeds increase. -continue Accu-Cheks q.6 hours (9) Severe protein-calorie malnutrition: Code(s): E43 - Unspecified severe protein-calorie malnutrition Status: Acute Assessment and Plan: Tube feed placed (10) Squamous cell carcinoma of left lung: Code(s): C34.92 - Malignant neoplasm of unspecified part of left bronchus or lung Status: Acute (11) Gastritis: Code(s): K29.70 - Gastritis, unspecified, without bleeding Status: Acute (12) Duodenal ulcer: Code(s): K26.9 - Duodenal ul
--- NOTE | 2023-12-04 13:59 | PM.IMPN ---
Progress Note: A&P Assessment and Plan (1) Acute kidney injury: Code(s): N17.9 - Acute kidney failure, unspecified Status: Acute Assessment and Plan: improvement noted if not better than baseline history would suggest prerenal azotemia/volume depletion hold off on further testing for now -- follow trend (2) Chronic kidney disease, stage 3: Code(s): N18.30 - Chronic kidney disease, stage 3 unspecified Status: Chronic Assessment and Plan: baseline creatinine runes ~ 1.3 - 1.8mg/dl this causes her to fluctuate between CKD stage 3A and stage 3B presumably secondary to HTN, DM, vascular disease (CAD, PVD, hyperlipidemia, CVA), CHF, and age-related changealong with fluctuating hydration status however, in early 2022, her creatinine was normal. (3) Hyponatremia: Code(s): E87.1 - Hypo-osmolality and hyponatremia Status: Acute Assessment and Plan: improvement noted acute on chronic multifactorial etiology: volume depletion/prerenal factors history of ChF history of CVA smoking lung cancer known CKD admission sodium 120; now up to 128mmol goal of therapy is a change of 6 - 8mmol/L in 24 hours (this has been acheived) follow repeat sodium levels IV fluids have been discontinued. She is now on tube feeds with free water flushes q.4 hours. She continues on sodium bicarbonate 1300 mg p.o. b.i.d.. (4) Hyperkalemia: Code(s): E87.5 - Hyperkalemia Status: Acute Assessment and Plan: improving quite severe on presentation improving with ongoing medical management known history of this in the past (5) Metabolic acidosis: Code(s): E87.20 - Acidosis, unspecified Status: Acute Assessment and Plan: better due to MJ and possible starvation should improve as renal function does Continue oral sodium bicarbonate and deescalate if able (6) Anemia: Code(s): D64.9 - Anemia, unspecified Status: Chronic Assessment and Plan: acute on chronic likely exacerbated by acute illness with MJ and gastritis with duodenal ulcer follow H/H PRBC transusion per protocol on Epogen (7) Hypertension: Qualifiers: Hypertension type: unspecified Qualified Code(s): I10 - Essential (primary) hypertension Code(s): I10 - Essential (primary) hypertension Status: Chronic Assessment and Plan: reasonable control follow trend of hemodynamics Home meds have been continued. Amlodipine 10 mg p.o. q.day, clonidine 0.1 mg p.o. q.day, hydralazine 100 mg p.o. t.i.d., metoprolol tartrate 25 mg p.o. b.i.d.. (8) Type 2 diabetes mellitus: Code(s): E11.9 - Type 2 diabetes mellitus without complications Status: Chronic Assessment and Plan: [id number]. Currently on low-dose sliding scale. Continue to adjust as her tube feeds increase. -continue Accu-Cheks q.6 hours (9) Severe protein-calorie malnutrition: Code(s): E43 - Unspecified severe protein-calorie malnutrition Status: Acute Assessment and Plan: Tube feed placed (10) Squamous cell carcinoma of left lung: Code(s): C34.92 - Malignant neoplasm of unspecified part of left bronchus or lung Status: Acute (11) Gastritis: Code(s): K29.70 - Gastritis, unspecified, without bleeding Status: Acute (12) Duodenal ulcer: Code(s): K26.9 - Duodenal ulcer, unspecified as acute or chronic, without hemorrhage or perforation Status: Acute (13) Urinary tract infection: Qualifiers: Urinary tract infection type: acute cystitis Hematuria presence: with hematuria Qualified Code(s): N30.01 - Acute cystitis with hematuria Code(s): N39.0 - Urinary tract infection, site not specified Status: Acute Plan This is a 73-year-old female, dependent on wheelchair, residing at [facility] with past medical history CKD stage 3, d
[2023-12-04 14:00] VITALS: BP 133/47; PULSE 80; RESP 16; TEMP 36.9; O2SAT 100
[2023-12-04 17:05] LABS: Glucose Point of Care 360 mg/dl (65-105)
--- NOTE | 2023-12-04 18:44 | PC.NURSE ---
Pt is at goal rate for tube feeding. Pt tolerating well. Pt had residual of 10 mL. Pt expresses no needs at this time. Pt participates and contributes in plan of care to the best of her ability. Will continue to monitor pt.
[2023-12-04] MEDS: ACETAMINOPHEN 325 MG TABLET 650 MG PO (18:53)
[2023-12-04 21:17] VITALS: PULSE 65
[2023-12-04 21:18] VITALS: BP 120/58; PULSE 91; RESP 16; TEMP 37.2; O2SAT 100
[2023-12-05] VITALS (7 sets, daily range): BP systolic 112–143; BP diastolic 38–56; PULSE 80–103; RESP 16–24; TEMP 37.1–37.6; O2SAT 99–100
[2023-12-05 01:21] LABS: Glucose Point of Care 256 mg/dl (65-105)
[2023-12-05 07:13] LABS: Basophils Percent Auto 0.1 % (0.2-1.2); Eosinophils Percent Auto 0.1 % (0-4.4); Hematocrit 39.6 % (37.0-47.0); Hemoglobin 12.8 g/dL (12.0-15.0); Immature Granulocyte Percent A 1.4 % (0-0.5); Lymphocytes Absolute Auto 1.77 K/mm3 (0.9-3.2); Lymphocytes Percent Auto 12.5 % (18.3-44.2); Mean Corpuscular HGB Conc 32.3 g/dl (32-36); Mean Corpuscular Volume 95.9 fl (80-100); Mean Platelet Volume 9.2 fl (7.4-10.4); Monocytes Absolute Auto 3.2 K/mm3 (0.1-0.6); Monocytes Percent Auto 22.5 % (2.6-8.5); Neutrophils Percent Auto 63.4 % (45.5-73.1); Platelet Count Result 133 k/mm3 (150-375); Red Blood Count 4.13 M/mm3 (4.2-5.4); Red Cell Distribution Width 15.3 % (11.5-14.5); White Blood Count 14.2 K/mm3 (4.5-10.0)
[2023-12-05 07:20] LABS: Alanine Aminotransferase 16 U/L (6-35); Albumin Level 2.4 g/dL (3.5-5.1); Alkaline Phosphatase 126 U/L (38-126); Anion Gap 4 mmol/L (4-12); Aspartate Amino Transferase 25 U/L (14-36); Bilirubin,Total 0.5 mg/dL (0.2-1.3); Blood Urea Nitrogen 32 mg/dL (7-17); Calcium 7.8 mg/dL (8.4-10.2); Carbon Dioxide 19 mmol/L (22-30); Chloride 102 mmol/L (98-107); Estimated CRCL calculation 44 ml/min; Estimated Glomerular Filt Rate > 60; Glucose 284 mg/dL (65-110); Potassium 4.7 mmol/L (3.4-5.0); Sodium 125 mmol/L (137-145)
[2023-12-05] MEDS: CENTRAL LINE FLUSH 10 ML IV PUSH ×3 (07:37→22:06)
[2023-12-05] MEDS: INSULIN ASPART (*BKC) 100 UNITS/ML SUB-Q ×3 (07:39→17:31)
[2023-12-05 07:42] LABS: Glucose Point of Care 294 mg/dl (65-105)
[2023-12-05] MEDS: PANTOPRAZOLE SODIUM IV 40 MG VIAL IV PUSH (09:43)
[2023-12-05] MEDS: cloNIDine HCL 0.1 MG TABLET PO (09:43)
[2023-12-05] MEDS: ATORVASTATIN 40 MG TABLET 80 MG PO (09:46)
[2023-12-05] MEDS: FOLIC ACID 1 MG TABLET PO (09:47)
[2023-12-05] MEDS: amLODIPine BESYLATE 5 MG TABLET 10 MG PO (09:47)
[2023-12-05] MEDS: hydrALAZINE HCL 50 MG TABLET 100 MG PO ×3 (09:47→16:46)
[2023-12-05] MEDS: MULTIVITAMINS /C LUTEIN (CENTRUM SILVER) TABLET *BKC 1 TAB PO (09:47)
[2023-12-05] MEDS: guaiFENesin 12 HR 600 MG TABCR PO ×2 (09:47→21:12)
[2023-12-05] MEDS: FERROUS SULFATE 325 MG TABLET DR PO ×2 (09:48→16:46)
[2023-12-05] MEDS: SODIUM BICARBONATE TAB 650 MG TABLET 1300 MG PO ×2 (09:48→16:46)
[2023-12-05] MEDS: AMOXICILLIN/CLAVULANATE K 875-125 MG TAB 1 TABLET PO ×2 (09:48→21:13)
[2023-12-05] MEDS: METOPROLOL TARTRATE 25 MG TABLET PO ×2 (09:49→21:13)
--- NOTE | 2023-12-05 09:57 | PDONCCN ---
HPI - Date of Consult Date/Time: 12/05/23 17:42 <Silvestre Freed - 12/05/23 17:45> 12/05/23 09:57 <Abeba Herrera - 12/05/23 10:03> Requesting Physician: Stefani Restrepo MD <Silvestre Freed - 12/05/23 17:45> Stefani Restrepo MD <Abeba Herrera - 12/05/23 10:03> Primary Care Provider: Brandon Batres, <Silvestre Freed - 12/05/23 17:45> Brandon Batres, <Abeba Herrera - 12/05/23 10:03> - Consult Narrative Reason for consult: Lung cancer and anemia <Abeba Herrera - 12/05/23 10:03> Narrative: Justine Ruiz is a 73 year old female <Silvestre Freed - 12/05/23 17:45> Justine Ruiz is a 73 year old female with a past medical history of CKD3, dementia, PAD, DM, GERD, HF, R AKA with a new diagnoses of poorly differentiated squamous cell carcinoma. She was admitted for increased pain and weakness with weight loss. We last saw her 11/22 and suggested a PEG tube placement and d/t increased dysphagia and weight loss as well as PET/CT for her diffuse musculoskeletal pain which is concerning for metastatic disease. She is now s/p PEG placement while in the hospital and is tolerating tube feeds well. She denies any n/v/d. Has not had BM in 3-4 days. She is taking Tylenol for pain with some relief. She reports some blood in her stool and has undergone an EGD which found a duodenal bleeding ulcer. Labs today are notable for WBC 14.2, Hgb 12.8, Hct 39.6, Plt 133,000. On 11/30 iron studies were 29, and % sat 21. She is currently taking iron daily with Retracrit injections three times a week. She reports continued fatigue and a poor appetite. <Abeba Herrera - 12/05/23 10:16> Review of Systems - Review of Systems All systems reviewed & are unremarkable except as noted in HPI and bel <Abeba Herrera 12/05/23 10:16> - Neurologic Reports system reviewed and no additional complaints, except as documented, Reports hearing normal, Reports weakness, Denies behavioral changes, Denies syncope, Denies focal weakness <Abeba Herrera 12/05/23 10:03> [facility] Medical History: Medical History (Last Updated 12/03/23 @ 08:41 by Stephani Sullivan MD) Acute on chronic anemia Alzheimer disease Anemia Anorexia CHF (congestive heart failure) Continuous tobacco abuse COVID-19 CVA (cerebral vascular accident) Duodenal ulcer Dysphagia Gastritis GERD (gastroesophageal reflux disease) Hemiplegia affecting right dominant side Major depressive disorder Malnutrition Multinodular goiter PVD (peripheral vascular disease) Squamous cell carcinoma of left lung Stage 3b chronic kidney disease Type 2 diabetes mellitus <Silvestre Freed 12/05/23 17:45> Medical History (Last Updated 12/03/23 @ 08:41 by Stephani Sullivan MD) Acute on chronic anemia Alzheimer disease Anemia Anorexia CHF (congestive heart failure) Continuous tobacco abuse COVID-19 CVA (cerebral vascular accident) Duodenal ulcer Dysphagia Gastritis GERD (gastroesophageal reflux disease) Hemiplegia affecting right dominant side Major depressive disorder Malnutrition Multinodular goiter PVD (peripheral vascular disease) Squamous cell carcinoma of left lung Stage 3b chronic kidney disease Type 2 diabetes mellitus <Abeba Herrera 12/05/23 10:03> Surgical History: Surgical History (Last Reviewed 11/29/23 @ 07:40 by Deb Bowling DO) Hx of AKA (above knee amputation) <Silvestre Freed 12/05/23 17:45> Surgical History (Last Reviewed 11/29/23 @ 07:40 by Deb Bowling DO) Hx of AKA (above knee amputation) <Abeba Herrera 12/05/23 10:03> Family History: Family History (Last Reviewed 09/02/23 @ 19:07 by Dano Lee DO) Other Unknown family medical history <Silvestre Freed 12/05/23 17:45> Family History (Last Reviewed 09/02/23 @ 19:07 by Dano Lee DO) Other Unknown family medical history
[2023-12-05 12:18] LABS: Glucose Point of Care 300 mg/dl (65-105)
--- NOTE | 2023-12-05 16:42 | PM.IMPN ---
Progress Note: A&P Assessment and Plan (1) Acute kidney injury: Code(s): N17.9 - Acute kidney failure, unspecified Status: Acute (2) Chronic kidney disease, stage 3: Code(s): N18.30 - Chronic kidney disease, stage 3 unspecified Status: Chronic (3) Hyponatremia: Code(s): E87.1 - Hypo-osmolality and hyponatremia Status: Acute (4) Hyperkalemia: Code(s): E87.5 - Hyperkalemia Status: Acute (5) Metabolic acidosis: Code(s): E87.20 - Acidosis, unspecified Status: Acute (6) Anemia: Code(s): D64.9 - Anemia, unspecified Status: Chronic (7) Hypertension: Qualifiers: Hypertension type: unspecified Qualified Code(s): I10 - Essential (primary) hypertension Code(s): I10 - Essential (primary) hypertension Status: Chronic (8) Type 2 diabetes mellitus: Code(s): E11.9 - Type 2 diabetes mellitus without complications Status: Chronic (9) Severe protein-calorie malnutrition: Code(s): E43 - Unspecified severe protein-calorie malnutrition Status: Acute (10) Squamous cell carcinoma of left lung: Code(s): C34.92 - Malignant neoplasm of unspecified part of left bronchus or lung Status: Acute (11) Gastritis: Code(s): K29.70 - Gastritis, unspecified, without bleeding Status: Acute (12) Duodenal ulcer: Code(s): K26.9 - Duodenal ulcer, unspecified as acute or chronic, without hemorrhage or perforation Status: Acute (13) Urinary tract infection: Qualifiers: Urinary tract infection type: acute cystitis Hematuria presence: with hematuria Qualified Code(s): N30.01 - Acute cystitis with hematuria Code(s): N39.0 - Urinary tract infection, site not specified Status: Acute Plan This is a 73-year-old female, dependent on wheelchair, residing at [facility] with past medical history CKD stage 3, dementia, right-sided hemiplegia status post right AKA due to peripheral artery disease, new diagnosis of squamous cell carcinoma of the lung in 08/2023, [id number]-fictffstr diabetes mellitus, paroxysmal atrial fibrillation, gastritis and duodenal ulcer, presenting with decreased appetite for many months. She was admitted on 11/29/2023 and on 12/02/2023 she underwent EGD demonstrated gastritis and a duodenal ulcer and a PEG tube was placed. Severe protein calorie malnutrition due to poor appetite -this is the reason for her admission. Status post PEG tube. She is now at goal at 50 mL/hour of Jevity 1.5 -continue pleasure feeds -no refeeding syndrome noted. Gastritis/duodenal ulcer -switch Protonix b.i.d. to 40 mg q.a.m. in light of her hyponatremia and impaired renal function -gastroenterology asked to be hold Eliquis for 7 days after scope. MJ and CKD stage 3 -her baseline creatinine runs between 1.3 and 1.8 mg/dL and that causes her to fluctuate between stage IIIA in stage IIIB. -presumably secondary to hypertension diabetes vascular disease, age related changes and fluctuating hydration status. -presented with a serum creatinine of 2.3 and now it is 0.9 which is better than her normal. Acute on chronic hyponatremia -presented with a sodium of 120. Goal was to improve 6-8 millimoles per L every 24 hours which was achieved. However on 12/04 she is back down to 125. I have asked Nephrology to re-evaluate the patient. No longer receiving IV fluids but tube feeds have been increased to goal with free water flushes at 100 cc per 4 hours. For now I have decreased to flushes to 50 cc q.4 hours. She is also on sodium bicarbonate supplementation -decreased Protonix 40 mg b.i.d. to 40 mg q.a.m. since this can cause hyponatremia. She also has a slew of other factors including volume depletion history of CHF CVA smoking lung cancer CKD. Hyperkalemia -known history of. Present on admission, now resolved. Metabolic acidosis -likely due to MJ possible starvation. This is
[2023-12-05 17:31] LABS: Glucose Point of Care 243 mg/dl (65-105)
[2023-12-05] MEDS: ACETAMINOPHEN 325 MG TABLET 650 MG PO (21:13)
[2023-12-05] MEDS: INSULIN GLARGINE (*BKC) 100 UNITS/ML 11 UNITS SUB-Q (21:14)
[2023-12-06 00:20] LABS: Glucose Point of Care 179 mg/dl (65-105)
[2023-12-06 00:33] LABS: Anion Gap 4 mmol/L (4-12); Blood Urea Nitrogen 36 mg/dL (7-17); Carbon Dioxide 20 mmol/L (22-30); Chloride 102 mmol/L (98-107); Estimated CRCL calculation 41 ml/min; Estimated Glomerular Filt Rate > 60; Glucose 192 mg/dL (65-110); Potassium 4.7 mmol/L (3.4-5.0); Sodium 126 mmol/L (137-145)
[2023-12-06 05:00] VITALS: BP 141/41; PULSE 74; RESP 16; TEMP 36.6; O2SAT 100
[2023-12-06 05:36] LABS: Basophils Percent Auto 0.1 % (0.2-1.2); Eosinophils Percent Auto 0.2 % (0-4.4); Hematocrit 37.1 % (37.0-47.0); Immature Granulocyte Absolute 0.24 K/mm3 (0.00-0.031); Immature Granulocyte Percent A 1.7 % (0-0.5); Immature Platelet Fraction Pct 1.9 % (0.9-11.2); Lymphocytes Absolute Auto 1.92 K/mm3 (0.9-3.2); Lymphocytes Percent Auto 13.8 % (18.3-44.2); Mean Corpuscular HGB Conc 32.3 g/dl (32-36); Mean Corpuscular Hemoglobin 30.8 pg (26-34); Mean Corpuscular Volume 95.4 fl (80-100); Mean Platelet Volume 9.8 fl (7.4-10.4); Monocytes Absolute Auto 3.5 K/mm3 (0.1-0.6); Neutrophils Absolute Auto 8.2 K/mm3 (1.3-6.7); Neutrophils Percent Auto 59.2 % (45.5-73.1); Platelet Count Result 116 k/mm3 (150-375); Red Blood Count 3.89 M/mm3 (4.2-5.4); Red Cell Distribution Width 15.1 % (11.5-14.5); White Blood Count 13.9 K/mm3 (4.5-10.0)
[2023-12-06 05:44] LABS: Alanine Aminotransferase 19 U/L (6-35); Albumin Level 2.3 g/dL (3.5-5.1); Alkaline Phosphatase 113 U/L (38-126); Anion Gap 4 mmol/L (4-12); Aspartate Amino Transferase 35 U/L (14-36); Bilirubin,Total 0.5 mg/dL (0.2-1.3); Blood Urea Nitrogen 38 mg/dL (7-17); Carbon Dioxide 21 mmol/L (22-30); Chloride 102 mmol/L (98-107); Estimated CRCL calculation 41 ml/min; Estimated Glomerular Filt Rate > 60; Glucose 193 mg/dL (65-110); Magnesium 1.7 mg/dL (1.6-2.3); Potassium 4.8 mmol/L (3.4-5.0); Sodium 127 mmol/L (137-145)
[2023-12-06] MEDS: CENTRAL LINE FLUSH 10 ML IV PUSH ×3 (05:53→22:20)
[2023-12-06 06:22] LABS: Procalcitonin 0.2 ng/mL
[2023-12-06] MEDS: ATORVASTATIN 40 MG TABLET 80 MG PO (09:01)
[2023-12-06] MEDS: METOPROLOL TARTRATE 25 MG TABLET PO ×2 (09:01→22:20)
[2023-12-06] MEDS: FOLIC ACID 1 MG TABLET PO (09:01)
[2023-12-06] MEDS: hydrALAZINE HCL 50 MG TABLET 100 MG PO ×3 (09:01→16:28)
[2023-12-06] MEDS: SODIUM BICARBONATE TAB 650 MG TABLET 1300 MG PO ×2 (09:01→16:28)
[2023-12-06] MEDS: amLODIPine BESYLATE 5 MG TABLET 10 MG PO (09:02)
[2023-12-06] MEDS: MULTIVITAMINS /C LUTEIN (CENTRUM SILVER) TABLET *BKC 1 TAB PO (09:02)
[2023-12-06] MEDS: PANTOPRAZOLE SODIUM IV 40 MG VIAL IV PUSH (09:02)
[2023-12-06] MEDS: cloNIDine HCL 0.1 MG TABLET PO (09:02)
[2023-12-06] MEDS: FERROUS SULFATE 325 MG TABLET DR PO ×2 (09:02→16:28)
[2023-12-06] MEDS: guaiFENesin 12 HR 600 MG TABCR PO ×2 (09:02→22:20)
[2023-12-06] MEDS: EPOETIN ALFA-EPBX 10,000 UNITS/ML VIAL 10000 UNITS SUB-Q (09:05)
[2023-12-06 11:51] LABS: Glucose Point of Care 182 mg/dl (65-105)
--- NOTE | 2023-12-06 12:36 | PCNFU ---
Nutrition Follow-Up Complete: Severe protein calorie malnutrition in the setting of chronic disease (lung cancer) related to inadequate protein energy intake as evidenced by a significant weight loss of -14% x 3 months, low BMI of 14.8, poor po intake for greater than one month, and NFPE findings for severe subcutaneous fat loss (cheeks, biceps) and severe muscle wasting (islam, clavicle, shoulder). Goal:Meet estimated needs Pt is meeting her goal via tube feeding. Pt current nutrition is Soft and bite sized level 6, Tube feeding: Jevity 1.5 @ 50ml/hr. Nutrition recommendation: Change tube feeding to Glucerna 1.2 for better glucose control. Goal rate is 65ml/hr. Last recorded weight is 53.4 kg. Bowel Motility: No BM recorded at this time Labs Reviewed: Alb:2.3, NA:127, BUN:38, Glu: 300,294,193 Meds Noted: novolog, lantus, eliquis, zofran Skin: no skin issues noted Additional Notes: Pt continues on a tube feeding of Jevity 1.5 @ goal rate of 50ml/hr and tolerating well. This is providing 1650kcals, 70g protein, 836ml free water. Recommend to change to Glucerna for better glucose control due to elevated glucose labs. Rec: Glucerna 1.2 @ goal rate of 65ml/hr to provide: 1716kcals, 85g protein, 1151ml free water. Monitor intake, wt, labs. Follow up every Tuesday and Tuesday.
--- NOTE | 2023-12-06 12:43 | PCDIET ---
Rec: Félix 1.2 @ goal rate of 65ml/hr to provide: 1716kcals, 85g protein, 1151ml free water.
[2023-12-06 14:00] VITALS: BP 137/46; PULSE 69; RESP 18; TEMP 36.5; O2SAT 97
--- NOTE | 2023-12-06 17:18 | PM.IMPN ---
Progress Note: A&P Assessment and Plan (1) Acute kidney injury: Code(s): N17.9 - Acute kidney failure, unspecified Status: Acute (2) Chronic kidney disease, stage 3: Code(s): N18.30 - Chronic kidney disease, stage 3 unspecified Status: Chronic (3) Hyponatremia: Code(s): E87.1 - Hypo-osmolality and hyponatremia Status: Acute (4) Hyperkalemia: Code(s): E87.5 - Hyperkalemia Status: Acute (5) Metabolic acidosis: Code(s): E87.20 - Acidosis, unspecified Status: Acute (6) Anemia: Code(s): D64.9 - Anemia, unspecified Status: Chronic (7) Hypertension: Qualifiers: Hypertension type: unspecified Qualified Code(s): I10 - Essential (primary) hypertension Code(s): I10 - Essential (primary) hypertension Status: Chronic (8) Type 2 diabetes mellitus: Code(s): E11.9 - Type 2 diabetes mellitus without complications Status: Chronic (9) Severe protein-calorie malnutrition: Code(s): E43 - Unspecified severe protein-calorie malnutrition Status: Acute (10) Squamous cell carcinoma of left lung: Code(s): C34.92 - Malignant neoplasm of unspecified part of left bronchus or lung Status: Acute (11) Gastritis: Code(s): K29.70 - Gastritis, unspecified, without bleeding Status: Acute (12) Duodenal ulcer: Code(s): K26.9 - Duodenal ulcer, unspecified as acute or chronic, without hemorrhage or perforation Status: Acute (13) Urinary tract infection: Qualifiers: Urinary tract infection type: acute cystitis Hematuria presence: with hematuria Qualified Code(s): N30.01 - Acute cystitis with hematuria Code(s): N39.0 - Urinary tract infection, site not specified Status: Acute Plan This is a 73-year-old female, dependent on wheelchair, residing at [facility] with past medical history CKD stage 3, dementia, right-sided hemiplegia status post right AKA due to peripheral artery disease, new diagnosis of squamous cell carcinoma of the lung in 08/2023, eds-mwigxuq-kkyxmjlyf diabetes mellitus, paroxysmal atrial fibrillation, gastritis and duodenal ulcer, presenting with decreased appetite for many months. She was admitted on 11/29/2023 and on 12/02/2023 she underwent EGD demonstrated gastritis and a duodenal ulcer and a PEG tube was placed. On 12/06/2023 the patient is doing well and her tube feeds are at goal. Dietitian is switching her feeds from Jevity to Glucerna since she has consistently elevated blood sugars. Agree with this. Continue to monitor for refeeding syndrome. Continue to trend white count which is slowly coming down and we hope to see that continue to come down is prepared to discharge her as she is stable. Pending abdominal ultrasound to assess for possible liver or splenic sequestration in the setting of pancytopenia and anemia. Appreciate oncology consultation. Continue Protonix for the GI prophylaxis. Continue to monitor the hyponatremia which is coming up slowly since the tube feed flushes have been decreased to 100 cc to 50 cc q.4 hours. Severe protein calorie malnutrition due to poor appetite -this is the reason for her admission. Status post PEG tube. She is now at goal at 50 mL/hour of Jevity 1.5 -continue pleasure feeds -no refeeding syndrome noted. Gastritis/duodenal ulcer -switch Protonix b.i.d. to 40 mg q.a.m. in light of her hyponatremia and impaired renal function -gastroenterology asked to be hold Eliquis for 7 days after scope. MJ and CKD stage 3 -her baseline creatinine runs between 1.3 and 1.8 mg/dL and that causes her to fluctuate between stage IIIA in stage IIIB. -presumably secondary to hypertension diabetes vascular disease, age related changes and fluctuating hydration status. -presented with a serum creatinine of 2.3 and now it is 0.9 which is better than her normal. Acute on chronic hyponatremia -presented with a sodium of 1
[2023-12-06 18:06] LABS: Glucose Point of Care 110 mg/dl (65-105)
[2023-12-06 19:55] VITALS: PULSE 69; RESP 18; O2SAT 97
[2023-12-06 20:25] VITALS: BP 146/45; PULSE 77; RESP 18; TEMP 36.6; O2SAT 99
[2023-12-06 22:20] VITALS: PULSE 69
[2023-12-06] MEDS: ACETAMINOPHEN 325 MG TABLET 650 MG PO (22:26)
[2023-12-07] VITALS (8 sets, daily range): BP systolic 129–142; BP diastolic 41–72; PULSE 63–86; RESP 18; TEMP 36.3–36.6; O2SAT 99–100
[2023-12-07 00:14] LABS: Glucose Point of Care 89 mg/dl (65-105)
[2023-12-07 05:07] LABS: Basophils Percent Auto 0.1 % (0.2-1.2); Eosinophils Percent Auto 0.2 % (0-4.4); Hematocrit 38.7 % (37.0-47.0); Hemoglobin 12.3 g/dL (12.0-15.0); Immature Granulocyte Absolute 0.15 K/mm3 (0.00-0.031); Immature Granulocyte Percent A 1.1 % (0-0.5); Immature Platelet Fraction Pct 2.4 % (0.9-11.2); Lymphocytes Absolute Auto 1.91 K/mm3 (0.9-3.2); Lymphocytes Percent Auto 13.6 % (18.3-44.2); Mean Corpuscular HGB Conc 31.8 g/dl (32-36); Mean Corpuscular Hemoglobin 30.7 pg (26-34); Mean Corpuscular Volume 96.5 fl (80-100); Mean Platelet Volume 9.2 fl (7.4-10.4); Monocytes Absolute Auto 3.1 K/mm3 (0.1-0.6); Monocytes Percent Auto 22.3 % (2.6-8.5); Neutrophils Absolute Auto 8.8 K/mm3 (1.3-6.7); Neutrophils Percent Auto 62.7 % (45.5-73.1); Platelet Count Result 147 k/mm3 (150-375); Red Blood Count 4.01 M/mm3 (4.2-5.4); Red Cell Distribution Width 14.8 % (11.5-14.5); White Blood Count 14.1 K/mm3 (4.5-10.0)
[2023-12-07 05:16] LABS: Alanine Aminotransferase 34 U/L (6-35); Albumin Level 2.5 g/dL (3.5-5.1); Alkaline Phosphatase 130 U/L (38-126); Anion Gap 4 mmol/L (4-12); Aspartate Amino Transferase 66 U/L (14-36); Bilirubin,Total 0.5 mg/dL (0.2-1.3); Blood Urea Nitrogen 41 mg/dL (7-17); Calcium 8.2 mg/dL (8.4-10.2); Carbon Dioxide 23 mmol/L (22-30); Chloride 102 mmol/L (98-107); Estimated CRCL calculation 41 ml/min; Estimated Glomerular Filt Rate > 60; Glucose 85 mg/dL (65-110); Magnesium 1.7 mg/dL (1.6-2.3); Phosphorus 3.1 mg/dL (2.5-4.5); Potassium 5.2 mmol/L (3.4-5.0); Sodium 129 mmol/L (137-145)
[2023-12-07] MEDS: CENTRAL LINE FLUSH 10 ML IV PUSH ×3 (05:22→20:52)
[2023-12-07 05:30] LABS: Transferrin < 80 mg/dL (206-381)
[2023-12-07 06:25] LABS: Procalcitonin 0.1 ng/mL
[2023-12-07] MEDS: FOLIC ACID 1 MG TABLET PO (08:35)
[2023-12-07] MEDS: amLODIPine BESYLATE 5 MG TABLET 10 MG PO (08:35)
[2023-12-07] MEDS: MULTIVITAMINS /C LUTEIN (CENTRUM SILVER) TABLET *BKC 1 TAB PO (08:35)
[2023-12-07] MEDS: FERROUS SULFATE 325 MG TABLET DR PO ×2 (08:35→17:45)
[2023-12-07] MEDS: METOPROLOL TARTRATE 25 MG TABLET PO ×2 (08:35→20:47)
[2023-12-07] MEDS: PANTOPRAZOLE SODIUM IV 40 MG VIAL IV PUSH (08:35)
[2023-12-07] MEDS: cloNIDine HCL 0.1 MG TABLET PO (08:36)
[2023-12-07] MEDS: ATORVASTATIN 40 MG TABLET 80 MG PO (08:36)
[2023-12-07] MEDS: hydrALAZINE HCL 50 MG TABLET 100 MG PO ×3 (08:36→17:45)
[2023-12-07] MEDS: guaiFENesin 12 HR 600 MG TABCR PO ×2 (08:36→20:47)
[2023-12-07 11:31] LABS: Glucose Point of Care 105 mg/dl (65-105)
--- NOTE | 2023-12-07 17:38 | PM.IMPN ---
Progress Note: A&P Assessment and Plan (1) Acute kidney injury: Code(s): N17.9 - Acute kidney failure, unspecified Status: Acute (2) Chronic kidney disease, stage 3: Code(s): N18.30 - Chronic kidney disease, stage 3 unspecified Status: Chronic (3) Hyponatremia: Code(s): E87.1 - Hypo-osmolality and hyponatremia Status: Acute (4) Hyperkalemia: Code(s): E87.5 - Hyperkalemia Status: Acute (5) Metabolic acidosis: Code(s): E87.20 - Acidosis, unspecified Status: Acute (6) Anemia: Code(s): D64.9 - Anemia, unspecified Status: Chronic (7) Hypertension: Qualifiers: Hypertension type: unspecified Qualified Code(s): I10 - Essential (primary) hypertension Code(s): I10 - Essential (primary) hypertension Status: Chronic (8) Type 2 diabetes mellitus: Code(s): E11.9 - Type 2 diabetes mellitus without complications Status: Chronic (9) Severe protein-calorie malnutrition: Code(s): E43 - Unspecified severe protein-calorie malnutrition Status: Acute (10) Squamous cell carcinoma of left lung: Code(s): C34.92 - Malignant neoplasm of unspecified part of left bronchus or lung Status: Acute (11) Gastritis: Code(s): K29.70 - Gastritis, unspecified, without bleeding Status: Acute (12) Duodenal ulcer: Code(s): K26.9 - Duodenal ulcer, unspecified as acute or chronic, without hemorrhage or perforation Status: Acute (13) Urinary tract infection: Qualifiers: Urinary tract infection type: acute cystitis Hematuria presence: with hematuria Qualified Code(s): N30.01 - Acute cystitis with hematuria Code(s): N39.0 - Urinary tract infection, site not specified Status: Acute Plan This is a 73-year-old female, dependent on wheelchair, residing at [facility] with past medical history CKD stage 3, dementia, right-sided hemiplegia status post right AKA due to peripheral artery disease, new diagnosis of squamous cell carcinoma of the lung in 08/2023, [id number]-cpcorzkhd diabetes mellitus, paroxysmal atrial fibrillation, gastritis and duodenal ulcer, presenting with decreased appetite for many months. She was admitted on 11/29/2023 and on 12/02/2023 she underwent EGD demonstrated gastritis and a duodenal ulcer and a PEG tube was placed. On 12/06/2023 the patient is doing well and her tube feeds are at goal. Dietitian is switching her feeds from Jevity to Glucerna since she has consistently elevated blood sugars. Agree with this. Continue to monitor for refeeding syndrome. Continue to trend white count which is slowly coming down and we hope to see that continue to come down is prepared to discharge her as she is stable. Pending abdominal ultrasound to assess for possible liver or splenic sequestration in the setting of pancytopenia and anemia. Appreciate oncology consultation. Continue Protonix for the GI prophylaxis. Continue to monitor the hyponatremia which is coming up slowly since the tube feed flushes have been decreased to 100 cc to 50 cc q.4 hours. October 06 update: The patient has persistent leukocytosis. She appears to have vulvovaginal candidiasis and/or intertrigo. Start miconazole cream however, consult OB Gyne as this looks quite severe, we appreciate their recommendations. Check left upper extremity ultrasound as her left arm is not swollen. She will not allow is to draw repeat blood cultures at the moment so I will place orders for the morning hoping that she will allow is to obtain those while she gets her morning labs. Start vancomycin and meropenem. Currently no issues with the tube feeds which have been switched to Glucerna. Discontinue insulin as her blood sugars are not controlled with this change. Severe protein calorie malnutrition due to poor appetite -this is the reason for her admission. Status post PEG tube. She is now at goal at 50
[2023-12-07] MEDS: ACETAMINOPHEN 325 MG TABLET 650 MG PO (17:50)
[2023-12-07 17:57] LABS: Glucose Point of Care 122 mg/dl (65-105)
[2023-12-07] MEDS: MEROPENEM 1 GM/NS 100 ML 1 GM/100 ML BAG IVPB (18:05)
[2023-12-07] MEDS: VANCOMYCIN 1,250 MG/NS 250 ML 1,250 MG/250 ML BAG 166.67 MG IVPB (20:46)
[2023-12-07 23:33] LABS: Glucose Point of Care 103 mg/dl (65-105)
[2023-12-08] MEDS: MEROPENEM 1 GM/NS 100 ML 1 GM/100 ML BAG IVPB ×3 (01:29→17:09)
[2023-12-08] MEDS: ACETAMINOPHEN 325 MG TABLET 650 MG PO ×2 (01:30→20:56)
[2023-12-08 05:13] VITALS: BP 155/60; PULSE 79; RESP 20; TEMP 36.4; O2SAT 100
[2023-12-08 05:25] LABS: Glucose Point of Care 145 mg/dl (65-105)
[2023-12-08] MEDS: CENTRAL LINE FLUSH 10 ML IV PUSH ×3 (06:53→22:00)
[2023-12-08] MEDS: hydrALAZINE HCL 50 MG TABLET 100 MG PO ×3 (09:00→17:09)
[2023-12-08] MEDS: amLODIPine BESYLATE 5 MG TABLET 10 MG PO (09:00)
[2023-12-08] MEDS: ATORVASTATIN 40 MG TABLET 80 MG PO (09:00)
[2023-12-08 09:01] VITALS: PULSE 84
[2023-12-08] MEDS: FOLIC ACID 1 MG TABLET PO (09:01)
[2023-12-08] MEDS: MULTIVITAMINS /C LUTEIN (CENTRUM SILVER) TABLET *BKC 1 TAB PO (09:01)
[2023-12-08] MEDS: guaiFENesin 12 HR 600 MG TABCR PO ×2 (09:01→20:57)
[2023-12-08] MEDS: cloNIDine HCL 0.1 MG TABLET PO (09:01)
[2023-12-08] MEDS: METOPROLOL TARTRATE 25 MG TABLET PO ×2 (09:01→20:57)
[2023-12-08] MEDS: FERROUS SULFATE 325 MG TABLET DR PO ×2 (09:01→17:09)
[2023-12-08] MEDS: PANTOPRAZOLE SODIUM IV 40 MG VIAL IV PUSH (09:03)
[2023-12-08] MEDS: EPOETIN ALFA-EPBX 10,000 UNITS/ML VIAL 10000 UNITS SUB-Q (09:20)
--- NOTE | 2023-12-08 10:42 | WPDCN ---
HPI Data of Consult Date/Time: 12/08/23 10:42 Requesting Physician: Stefani Restrepo MD Primary Care Provider: Brandon Batres, Consult Narrative Narrative: Justine Ruiz is a 73 year old female with complaints of vaginal discharge and vulvar itching and burning. She states has been a long-term problem for though has increased during this hospitalization. States during last hospitalization she was treated for the same issue though it did not resolve (not able to ascertain from old records with this would have been). She has multiple reasons to have a yeast infection. Denies any abnormal bleeding or any other significant issues other than the burning and stinging on the outside with the discharge. Physical exam is limited to visual exam of the external genitalia which does reveal swollen inflamed bilateral labia and mild moderate vaginal discharge patient declines internal exam, though do not feel this would be particularly helpful in this case. A: Yeast infection P: 1. Miconazole treatment has been initiated and is certainly a reasonable initial step. 2. Diflucan 200mg q.72 hours x3 once taking oral meds. 3. Yeast vaginal culture will be obtained. 4. If the culture shows C. glabata would then change to vaginal boric acid 600mg for 2 weeks. 5. Consider nystatin-triamcinolone for the next few days if continues to complain of vulvar irritation. 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 She smoked 1-2 packs of cigarettes per day since she was a teenager in continues to smoke now. She denies heavy alcohol use history. She raised 3 children. She states that she was twice but both and outlived both of them. Code status: Full code Smoking packs per day: 2 Smoking cigarettes per day: 40.0 Years smoked: 63 Smoking pack-years: 126.00 Smoking status: Current every day smoker Tobacco type: cigarettes Second hand tobacco smoke exposure: Yes Alcohol intake: never Substance use: never Substance use type: does not use Do You Feel Safe in your Home?: Yes Lack of Transportation: YES Lack of Food: Never True Current Housing: I Have Housing Concerned About Future Housing: No Difficulty Paying Gas/Electric Bills: No Difficulty Paying for Meds: No Currently Unemployed: No Education: High School Diploma/GED Difficulty w/ Childcare or Family Care: No Spiritual care concerns: No Meds Home Medications and Allergies Home Medications Medication Instructions Recorded Confirmed Type acetaminophen 325 mg tablet 650 mg PO Q4H PRN Pain 08/16/23 11/28/23 History amlodipine 10 mg tablet 10 mg PO DAILY 08/16/23 11/28/23 History apixaban 2.5 mg tablet (Eliquis) 2.5 mg PO BID 08/16/23 11/28/23 History arginine-vitamin C-vitamin E oral 4.5 g PO DAILY 08/16/23 11/28/23 History 4.5 gram-156 mg/9.2 gram powder pkt (Arginaid) ascorbic acid (vitamin C) 500 mg 500 mg PO BID 08/16/23 11/28/23 History capsule atorvastatin 80 mg tablet 80 mg PO DAILY
[2023-12-08 11:51] LABS: Glucose Point of Care 140 mg/dl (65-105)
[2023-12-08 14:00] VITALS: BP 122/54; PULSE 74; RESP 14; TEMP 36.6; O2SAT 96
[2023-12-08] MEDS: FLUCONAZOLE 100 MG TABLET 200 MG PO (15:18)
--- NOTE | 2023-12-08 16:39 | P.PNIM_ITS ---
Progress Note: A&P Assessment and Plan (1) Acute kidney injury: Code(s): N17.9 - Acute kidney failure, unspecified Status: Acute (2) Chronic kidney disease, stage 3: Code(s): N18.30 - Chronic kidney disease, stage 3 unspecified Status: Chronic (3) Hyponatremia: Code(s): E87.1 - Hypo-osmolality and hyponatremia Status: Acute (4) Hyperkalemia: Code(s): E87.5 - Hyperkalemia Status: Acute (5) Metabolic acidosis: Code(s): E87.20 - Acidosis, unspecified Status: Acute (6) Anemia: Code(s): D64.9 - Anemia, unspecified Status: Chronic (7) Hypertension: Qualifiers: Hypertension type: unspecified Qualified Code(s): I10 - Essential (primary) hypertension Code(s): I10 - Essential (primary) hypertension Status: Chronic (8) Type 2 diabetes mellitus: Code(s): E11.9 - Type 2 diabetes mellitus without complications Status: Chronic (9) Severe protein-calorie malnutrition: Code(s): E43 - Unspecified severe protein-calorie malnutrition Status: Acute (10) Squamous cell carcinoma of left lung: Code(s): C34.92 - Malignant neoplasm of unspecified part of left bronchus or lung Status: Acute (11) Gastritis: Code(s): K29.70 - Gastritis, unspecified, without bleeding Status: Acute (12) Duodenal ulcer: Code(s): K26.9 - Duodenal ulcer, unspecified as acute or chronic, without hemorrhage or perforation Status: Acute (13) Urinary tract infection: Qualifiers: Urinary tract infection type: acute cystitis Hematuria presence: with hematuria Qualified Code(s): N30.01 - Acute cystitis with hematuria Code(s): N39.0 - Urinary tract infection, site not specified Status: Acute Plan This is a 73-year-old female, dependent on wheelchair, residing at [facility] with past medical history CKD stage 3, dementia, right-sided hemiplegia status post right AKA due to peripheral artery disease, new diagnosis of squamous cell carcinoma of the lung in 08/2023, [id number]-dxjxaazqa diabetes mellitus, paroxysmal atrial fibrillation, gastritis and duodenal ulcer, presenting with decreased appetite for many months. She was admitted on 11/29/2023 and on 12/02/2023 she underwent EGD demonstrated gastritis and a duodenal ulcer and a PEG tube was placed. On 12/06/2023 the patient is doing well and her tube feeds are at goal. Dietitian is switching her feeds from Jevity to Glucerna since she has consistently elevated blood sugars. Agree with this. Continue to monitor for refeeding syndrome. Continue to trend white count which is slowly coming down and we hope to see that continue to come down is prepared to discharge her as she is stable. Pending abdominal ultrasound to assess for possible liver or splenic sequestration in the setting of pancytopenia and anemia. Appreciate oncology consultation. Continue Protonix for the GI prophylaxis. Continue to monitor the hyponatremia which is coming up slowly since the tube feed flushes have been decreased to 100 cc to 50 cc q.4 hours. October 06 update: The patient has persistent leukocytosis. She appears to have vulvovaginal candidiasis and/or intertrigo. Start miconazole cream however, consult OB Gyne as this looks quite severe, we appreciate their recommendations. Check left upper extremity ultrasound as her left arm is not swollen. She will not allow is to draw repeat blood cultures at the moment so I will place orders for the morning hoping that she will allow is to obtain those while she gets her morning labs.
[2023-12-08 18:41] LABS: Glucose Point of Care 165 mg/dl (65-105)
[2023-12-08 20:53] VITALS: BP 131/46; PULSE 78; RESP 14; TEMP 37.1; O2SAT 100
[2023-12-08 20:57] VITALS: PULSE 78
[2023-12-08] MEDS: VANCOMYCIN 1,000 MG/NS 250 ML 1,000 MG/250 ML BAG 250 MG IVPB (20:57)
[2023-12-09 00:13] LABS: Glucose Point of Care 151 mg/dl (65-105)
[2023-12-09] MEDS: MEROPENEM 1 GM/NS 100 ML 1 GM/100 ML BAG IVPB ×2 (02:08→09:12)
[2023-12-09 04:30] VITALS: BP 139/49; PULSE 72; RESP 16; TEMP 36.9; O2SAT 98
[2023-12-09 05:25] LABS: Alanine Aminotransferase 24 U/L (6-35); Albumin Level 2.5 g/dL (3.5-5.1); Alkaline Phosphatase 148 U/L (38-126); Anion Gap 2 mmol/L (4-12); Aspartate Amino Transferase 47 U/L (14-36); Bilirubin,Total 0.4 mg/dL (0.2-1.3); Blood Urea Nitrogen 37 mg/dL (7-17); Calcium 8.3 mg/dL (8.4-10.2); Carbon Dioxide 25 mmol/L (22-30); Chloride 102 mmol/L (98-107); Estimated CRCL calculation 43 ml/min; Estimated Glomerular Filt Rate > 60; Glucose 154 mg/dL (65-110); Potassium 5.4 mmol/L (3.4-5.0); Sodium 129 mmol/L (137-145)
[2023-12-09 05:31] LABS: Basophils Percent Auto 0.4 % (0.2-1.2); Eosinophils Percent Auto 0.2 % (0-4.4); Immature Granulocyte Absolute 0.11 K/mm3 (0.00-0.031); Lymphocytes Absolute Auto 1.75 K/mm3 (0.9-3.2); Lymphocytes Percent Auto 16.1 % (18.3-44.2); Mean Corpuscular HGB Conc 31.6 g/dl (32-36); Mean Corpuscular Hemoglobin 30.8 pg (26-34); Mean Corpuscular Volume 97.4 fl (80-100); Mean Platelet Volume 9.6 fl (7.4-10.4); Monocytes Absolute Auto 2.8 K/mm3 (0.1-0.6); Monocytes Percent Auto 25.8 % (2.6-8.5); Neutrophils Absolute Auto 6.2 K/mm3 (1.3-6.7); Neutrophils Percent Auto 56.5 % (45.5-73.1); Platelet Count Result 145 k/mm3 (150-375); Red Cell Distribution Width 14.9 % (11.5-14.5); White Blood Count 10.9 K/mm3 (4.5-10.0)
[2023-12-09] MEDS: CENTRAL LINE FLUSH 10 ML IV PUSH ×4 (06:45→21:01)
[2023-12-09 06:54] LABS: Glucose Point of Care 173 mg/dl (65-105)
[2023-12-09 08:51] VITALS: PULSE 74
[2023-12-09] MEDS: hydrALAZINE HCL 50 MG TABLET 100 MG PO ×3 (08:51→18:15)
[2023-12-09] MEDS: guaiFENesin 12 HR 600 MG TABCR PO ×2 (08:51→21:01)
[2023-12-09] MEDS: ATORVASTATIN 40 MG TABLET 80 MG PO (08:51)
[2023-12-09] MEDS: METOPROLOL TARTRATE 25 MG TABLET PO (08:51)
[2023-12-09] MEDS: ACETAMINOPHEN 325 MG TABLET 650 MG PO ×2 (08:52→18:15)
[2023-12-09] MEDS: FOLIC ACID 1 MG TABLET PO (08:52)
[2023-12-09] MEDS: MULTIVITAMINS /C LUTEIN (CENTRUM SILVER) TABLET *BKC 1 TAB PO (08:52)
[2023-12-09] MEDS: FERROUS SULFATE 325 MG TABLET DR PO ×2 (08:52→18:16)
[2023-12-09] MEDS: amLODIPine BESYLATE 5 MG TABLET 10 MG PO (08:52)
[2023-12-09] MEDS: PANTOPRAZOLE SODIUM IV 40 MG VIAL IV PUSH (08:53)
[2023-12-09] MEDS: cloNIDine HCL 0.1 MG TABLET PO (08:53)
[2023-12-09 09:06] VITALS: BP 148/73
[2023-12-09] MEDS: DEXTROSE 50% 25 GM/50 ML SYRINGE IV PUSH (11:21)
[2023-12-09] MEDS: CALCIUM GLUC 1,000 MG/NS 50 ML 1,000 MG/50 ML BAG 100 MG IVPB (11:22)
[2023-12-09 11:30] LABS: Glucose Point of Care 215 mg/dl (65-105)
[2023-12-09] MEDS: SODIUM ZIRCONIUM CYCLOSILICATE 10 GM POWD.PACK PO ×2 (11:30→15:57)
[2023-12-09] MEDS: INSULIN HUMAN REGULAR (*BKC) 100 UNITS/ML 10 UNITS IV PUSH (11:30)
--- NOTE | 2023-12-09 13:55 | PCNFU ---
Nutrition Follow-Up Complete: Severe protein calorie malnutrition in the setting of chronic disease (lung cancer) related to inadequate protein energy intake as evidenced by a significant weight loss of -14% x 3 months, low BMI of 14.8, poor po intake for greater than one month, and NFPE findings for severe subcutaneous fat loss (cheeks, biceps) and severe muscle wasting (evangelical, clavicle, shoulder). Meet estimated needs - Goal is being met. Continue with same goal Goal: Pt current nutrition is Regular diet. 100% breakfast, ate part of lunch. Tube feeding: Glucerna 1.2 @ goal rate 65 ml/h with flushes 100 ml q 4 hours. Total 1751 kcal, 86 g protein, 1151 ml free water (total water 1750 mld/). Nutrition recommendation: If intakes decrease, consider decreasing tube feeding rate to encourage PO intake. Suggest Glucerna 1.2 @ 50 ml/h: 1320 kcal, 66 g protein, 885 ml free water, flush 100 ml q 4 hours Last recorded weight is 57.5 kg. Weight increased 28 lb since admission, 10 days. One of these weights may be an error, probably the first one of 44.2 kg Bowel Motility: +1 BM 5/ Labs Reviewed: Alb 2.5, Na 129, K+ 5.4, BUN 37, Glu 215 Meds Noted: yany Canas, novolog, lantus Skin: Stage III pressure injury to sacrum: NEW Additional Notes: Pt with new sacral pressure injury. Tube feeding meeting 125% estimated protein needs; pt is also eating with good appetite. If intakes decrease, may want to consider decreasing tube feeding rate. At this time, recommend keep the same rate. Monitor intake, wt, labs. Follow up Tuesday and Tuesday
[2023-12-09 14:00] VITALS: BP 129/63; PULSE 80; RESP 14; TEMP 36.6; O2SAT 100
[2023-12-09] MEDS: CENTRAL LINE FLUSH 20 ML IV PUSH (14:00)
[2023-12-09 14:56] LABS: Anion Gap 4 mmol/L (4-12); Blood Urea Nitrogen 38 mg/dL (7-17); Calcium 8.4 mg/dL (8.4-10.2); Carbon Dioxide 23 mmol/L (22-30); Chloride 100 mmol/L (98-107); Estimated CRCL calculation 44 ml/min; Estimated Glomerular Filt Rate > 60; Glucose 323 mg/dL (65-110); Potassium 5.3 mmol/L (3.4-5.0); Sodium 127 mmol/L (137-145)
--- NOTE | 2023-12-09 16:46 | PM.IMPN ---
Progress Note: A&P Assessment and Plan (1) Acute kidney injury: Code(s): N17.9 - Acute kidney failure, unspecified Status: Acute (2) Chronic kidney disease, stage 3: Code(s): N18.30 - Chronic kidney disease, stage 3 unspecified Status: Chronic (3) Hyponatremia: Code(s): E87.1 - Hypo-osmolality and hyponatremia Status: Acute (4) Hyperkalemia: Code(s): E87.5 - Hyperkalemia Status: Acute (5) Metabolic acidosis: Code(s): E87.20 - Acidosis, unspecified Status: Acute (6) Anemia: Code(s): D64.9 - Anemia, unspecified Status: Chronic (7) Hypertension: Qualifiers: Hypertension type: unspecified Qualified Code(s): I10 - Essential (primary) hypertension Code(s): I10 - Essential (primary) hypertension Status: Chronic (8) Type 2 diabetes mellitus: Code(s): E11.9 - Type 2 diabetes mellitus without complications Status: Chronic (9) Severe protein-calorie malnutrition: Code(s): E43 - Unspecified severe protein-calorie malnutrition Status: Acute (10) Squamous cell carcinoma of left lung: Code(s): C34.92 - Malignant neoplasm of unspecified part of left bronchus or lung Status: Acute (11) Gastritis: Code(s): K29.70 - Gastritis, unspecified, without bleeding Status: Acute (12) Duodenal ulcer: Code(s): K26.9 - Duodenal ulcer, unspecified as acute or chronic, without hemorrhage or perforation Status: Acute (13) Urinary tract infection: Qualifiers: Urinary tract infection type: acute cystitis Hematuria presence: with hematuria Qualified Code(s): N30.01 - Acute cystitis with hematuria Code(s): N39.0 - Urinary tract infection, site not specified Status: Acute Plan This is a 73-year-old female, dependent on wheelchair, residing at [facility] with past medical history CKD stage 3, dementia, right-sided hemiplegia status post right AKA due to peripheral artery disease, new diagnosis of squamous cell carcinoma of the lung in 08/2023, [id number]-[id number] diabetes mellitus, paroxysmal atrial fibrillation, gastritis and duodenal ulcer, presenting with decreased appetite for many months. She was admitted on 11/29/2023 and on 12/02/2023 she underwent EGD demonstrated gastritis and a duodenal ulcer and a PEG tube was placed. On 12/06/2023 the patient is doing well and her tube feeds are at goal. Dietitian is switching her feeds from Jevity to Glucerna since she has consistently elevated blood sugars. Agree with this. Continue to monitor for refeeding syndrome. Continue to trend white count which is slowly coming down and we hope to see that continue to come down is prepared to discharge her as she is stable. Pending abdominal ultrasound to assess for possible liver or splenic sequestration in the setting of pancytopenia and anemia. Appreciate oncology consultation. Continue Protonix for the GI prophylaxis. Continue to monitor the hyponatremia which is coming up slowly since the tube feed flushes have been decreased to 100 cc to 50 cc q.4 hours. December 06 update: The patient has persistent leukocytosis. She appears to have vulvovaginal candidiasis and/or intertrigo. Start miconazole cream however, consult OB Gyne as this looks quite severe, we appreciate their recommendations. Check left upper extremity ultrasound as her left arm is not swollen. She will not allow is to draw repeat blood cultures at the moment so I will place orders for the morning hoping that she will allow is to obtain those while she gets her morning labs. Start vancomycin and meropenem. Currently no issues with the tube feeds which have been switched to Glucerna. Discontinue insulin as her blood sugars are not controlled with this change. December 07 update. Unfortunately the patient is adamantly refusing any blood draws. We will continue meropenem and vancomycin and decide how to deesca
[2023-12-09 18:22] LABS: Glucose Point of Care 175 mg/dl (65-105)
[2023-12-09] MEDS: APIXABAN 2.5 MG TABLET PO (21:01)
[2023-12-09 22:02] VITALS: BP 132/42; PULSE 73; RESP 16; TEMP 36.6; O2SAT 100
[2023-12-10] MEDS: ACETAMINOPHEN 325 MG TABLET 650 MG PO ×2 (00:35→10:03)
[2023-12-10 02:33] LABS: Glucose Point of Care 126 mg/dl (65-105)
[2023-12-10 04:00] VITALS: PULSE 70
[2023-12-10 05:46] LABS: Glucose Point of Care 136 mg/dl (65-105)
[2023-12-10 05:47] LABS: Basophils Percent Auto 0.2 % (0.2-1.2); Eosinophils Percent Auto 0.2 % (0-4.4); Hematocrit 36.6 % (37.0-47.0); Hemoglobin 11.6 g/dL (12.0-15.0); Immature Granulocyte Absolute 0.09 K/mm3 (0.00-0.031); Immature Granulocyte Percent A 0.9 % (0-0.5); Lymphocytes Absolute Auto 2.17 K/mm3 (0.9-3.2); Mean Corpuscular HGB Conc 31.7 g/dl (32-36); Mean Corpuscular Volume 97.9 fl (80-100); Mean Platelet Volume 9.3 fl (7.4-10.4); Monocytes Absolute Auto 2.5 K/mm3 (0.1-0.6); Monocytes Percent Auto 24.8 % (2.6-8.5); Neutrophils Absolute Auto 5.1 K/mm3 (1.3-6.7); Neutrophils Percent Auto 51.9 % (45.5-73.1); Platelet Count Result 124 k/mm3 (150-375); Red Blood Count 3.74 M/mm3 (4.2-5.4); Red Cell Distribution Width 15.2 % (11.5-14.5); White Blood Count 9.9 K/mm3 (4.5-10.0)
[2023-12-10 05:57] LABS: Anion Gap 2 mmol/L (4-12); Blood Urea Nitrogen 38 mg/dL (7-17); Calcium 8.3 mg/dL (8.4-10.2); Carbon Dioxide 25 mmol/L (22-30); Chloride 101 mmol/L (98-107); Estimated CRCL calculation 49 ml/min; Estimated Glomerular Filt Rate > 60; Glucose 127 mg/dL (65-110); Magnesium 1.4 mg/dL (1.6-2.3); Phosphorus 3.7 mg/dL (2.5-4.5); Potassium 5.1 mmol/L (3.4-5.0); Sodium 128 mmol/L (137-145)
[2023-12-10 05:58] VITALS: BP 132/43; PULSE 72; TEMP 36.3; O2SAT 100
[2023-12-10] MEDS: CENTRAL LINE FLUSH 10 ML IV PUSH (06:10)
[2023-12-10 07:24] LABS: Acanthocytes 1+; Large Platelets Present; Platelet Estimate Adequate (Adequate); Polychromasia 1+; Schistocytes Rare; Smudge Cells PRESENT
[2023-12-10 08:00] VITALS: PULSE 72
--- NOTE | 2023-12-10 08:05 | PM.DS ---
DS: Admitting Diagnosis Discharge Date December 10, 2023 Admitting Diagnosis Failure to thrive DS: Discharge Diagnosis Discharge Diagnosis (1) Hypomagnesemia: Code(s): E83.42 - Hypomagnesemia Status: Acute (2) Thrombocytopenia: Code(s): D69.6 - Thrombocytopenia, unspecified Status: Acute (3) Duodenal ulcer: Code(s): K26.9 - Duodenal ulcer, unspecified as acute or chronic, without hemorrhage or perforation Status: Acute (4) Hyponatremia: Code(s): E87.1 - Hypo-osmolality and hyponatremia Status: Acute (5) Malnutrition: Code(s): E46 - Unspecified protein-calorie malnutrition Status: Acute (6) Acute hyperkalemia: Code(s): E87.5 - Hyperkalemia Status: Acute (7) Acute renal failure superimposed on stage 3b chronic kidney disease: Qualifiers: Acute renal failure type: unspecified Qualified Code(s): N17.9 - Acute kidney failure, unspecified; N18.32 - Chronic kidney disease, stage 3b Code(s): N17.9 - Acute kidney failure, unspecified; N18.32 - Chronic kidney disease, stage 3b Status: Acute (8) Urinary tract infection: Qualifiers: Hematuria presence: with hematuria Urinary tract infection type: acute cystitis Qualified Code(s): N30.01 - Acute cystitis with hematuria Code(s): N39.0 - Urinary tract infection, site not specified Status: Acute DS: Summary Hospital Course Hospital Course: This is a 73-year-old female, debilitated, residing at [facility] with past medical history CKD stage 3a-b, dementia, right-sided hemiplegia status post right AKA due to peripheral artery disease, new diagnosis of squamous cell carcinoma of the lung in 08/2023, kgu-hlyznlz-qpqosbmnp diabetes mellitus, paroxysmal atrial fibrillation, gastritis and duodenal ulcer, presenting with decreased appetite for many months.? She was admitted on 11/29/2023 and on 12/02/2023 she underwent EGD demonstrated gastritis and a duodenal ulcer and a PEG tube was placed. Due to hyperglycemia her tube feeds were switch from Jevity to Glucerna and she tolerated Glucerna at goal rate. Due to hyponatremia her free water flushes were decreased from 100 cc q.4 hours to 25 cc q.4 hours that will be continued ongoing. Protonix b.i.d. was given post EGD for duodenal ulcer. This was switch to Protonix 40 mg p.o. q.a.m. by discharge. Per GI the patient can still have pleasure feeds. For anemia and thrombocytopenia and oncology consultation was placed. This was likely due to malnutrition and iron deficiency anemia. Oral iron was increased to b.i.d. and Retacrit injections provided. Haptoglobin was elevated this was thought to be due to underlying infection/inflammation. Thrombocytopenia thought to be due to malnutrition and nutritional deficiencies as well as bone marrow suppression due to antibiotic use. And abdominal process on did not demonstrate splenomegaly or hepatomegaly. She will be following up with Oncology for anemia and thrombocytopenia as well as for an action plan for the newly diagnosed squamous cell carcinoma of the lung. Her left upper extremity had swelling without tenderness or erythema. A Doppler ultrasound did not demonstrate deep venous thrombosis. It did demonstrate a left neck mass to which a neck CT with contrast was recommended. Patient refused this. She also refuse blood draws on many occasions. She was treated for a UTI with Augmentin. She was treated for yeast infection of the vaginal folds with miconazole cream and Diflucan. Follow-up suggested with primary/OB Gyne. A yeast culture is pending. Patient has a history of hyperkalemia this became an issue twice during this admission. On the 2nd time metoprolol was stopped. Do not have issues with tachycardia after telemetry monitoring. Hyperkalemia also improved with Lokelma that is being continued on discharge at a low dose. Repeat BMP to ensure continued improvement and to
[2023-12-10] MEDS: hydrALAZINE HCL 50 MG TABLET 100 MG PO (10:02)
[2023-12-10] MEDS: amLODIPine BESYLATE 5 MG TABLET 10 MG PO (10:02)
[2023-12-10] MEDS: MAGNESIUM SULF 2 GM/WATER 50ML 2 GM/50 ML BAG IVPB (10:02)
[2023-12-10] MEDS: FERROUS SULFATE 325 MG TABLET DR PO (10:03)
[2023-12-10] MEDS: FOLIC ACID 1 MG TABLET PO (10:03)
[2023-12-10] MEDS: MULTIVITAMINS /C LUTEIN (CENTRUM SILVER) TABLET *BKC 1 TAB PO (10:03)
[2023-12-10] MEDS: APIXABAN 2.5 MG TABLET PO (10:03)
[2023-12-10] MEDS: ATORVASTATIN 40 MG TABLET 80 MG PO (10:03)
[2023-12-10] MEDS: cloNIDine HCL 0.1 MG TABLET PO (10:03)
[2023-12-10] MEDS: PANTOPRAZOLE SODIUM IV 40 MG VIAL IV PUSH (10:04)
[2023-12-10] MEDS: guaiFENesin 12 HR 600 MG TABCR PO (10:04)
[2023-12-10 11:24] LABS: SARS-CoV-2 RNA PCR Negative (Negative)
[2023-12-10 12:18] LABS: Glucose Point of Care 149 mg/dl (65-105)
[2023-12-10 13:47] VITALS: BP 145/50; PULSE 86; RESP 20; TEMP 36.9; O2SAT 100
== END 2023-12-10 15:25 | DRG 682 ==
LOC: ANHED 13:11 → ANHIMU 19:29 → ANH3MEDSUR 12-03 15:12
PROVIDERS: Hospitalist; Internal Medicine Gastroenterology; Internal Medicine Nephrology; Nurse Practitioner Acute Care; Admitting Provider Family Medicine; Emergency Provider General Practice; PCP Internal Medicine; Visit Provider General Practice
PROC: 0DJ08ZZ Inspection of Upper Intestinal Tract, Via Natural or Artificial Opening Endoscopic (ICD-10-PCS; CPT 43235; principal; 2023-12-02 13:30)
PROC: 0DH63UZ Insertion of Feeding Device into Stomach, Percutaneous Approach (ICD-10-PCS; CPT 43246; 2023-12-02 13:30)
DX: N17.9 Acute kidney failure, unspecified (principal); E43 Unspecified severe protein-calorie malnutrition; E87.1 Hypo-osmolality and hyponatremia; I13.0 Hypertensive heart and chronic kidney disease with heart failure and stage 1 through stage 4 chronic kidney disease, or unspecified chronic kidney disease; N39.0 Urinary tract infection, site not specified; Z68.1 Body mass index [BMI] 19.9 or less, adult; C34.92 Malignant neoplasm of unspecified part of left bronchus or lung; E87.20 Acidosis, unspecified; I69.351 Hemiplegia and hemiparesis following cerebral infarction affecting right dominant side; R64 Cachexia; Z16.12 Extended spectrum beta lactamase (ESBL) resistance; E11.22 Type 2 diabetes mellitus with diabetic chronic kidney disease; N18.32 Chronic kidney disease, stage 3b; I50.9 Heart failure, unspecified; R62.7 Adult failure to thrive; E11.51 Type 2 diabetes mellitus with diabetic peripheral angiopathy without gangrene; F03.90 Unspecified dementia, unspecified severity, without behavioral disturbance, psychotic disturbance, mood disturbance, and anxiety; F32.9 Major depressive disorder, single episode, unspecified; R63.0 Anorexia; B96.20 Unspecified Escherichia coli [E. coli] as the cause of diseases classified elsewhere; K26.9 Duodenal ulcer, unspecified as acute or chronic, without hemorrhage or perforation; D50.8 Other iron deficiency anemias; K29.70 Gastritis, unspecified, without bleeding; Z11.52 Encounter for screening for COVID-19; D69.59 Other secondary thrombocytopenia; B37.31 Acute candidiasis of vulva and vagina; E83.42 Hypomagnesemia; F17.210 Nicotine dependence, cigarettes, uncomplicated; Z79.84 Long term (current) use of oral hypoglycemic drugs; Z79.899 Other long term (current) drug therapy; Z89.611 Acquired absence of right leg above knee; Z99.3 Dependence on wheelchair; Z79.01 Long term (current) use of anticoagulants
CPT/HCPCS: 36415; 36430; 36569; 43246; 71045; 71046; 76700; 80048; 80053; 81001; 82274; 82533; 82803; 82948; 83010; 83540; 83550; 83605; 83690; 83735; 84100; 84145; 84466; 85025; 85046; 85055; 85610; 85730; 86850; 86900; 86901; 86923; 87045; 87077; 87086; 87088; 87102; 87106; 87186; 87206; 87427; 87449; 87635; 88305; 93005; 93971; 94640; 96365; 96367; 96375; 99291; A9270; C9113; J0612; J0690; J0696; J1815; J2001; J2185; J2704; J3370; J3475; J7030; J7042; J7050; J7120; P9016; Q5105

== ENCOUNTER 2023-12-15 09:26 | Outpatient (CLI) | payer OTHER, MEDICARE, SELFPAY ==
--- NOTE | ~2023-12-15 | PE_ITS ---
EXAMINATION: PET skull to mid thigh DATE: 12/15/2023 11:31 INDICATION: Malignant neoplasm of lung. TECHNIQUE: Blood glucose level was 173 mg/dL. 8.524 mCi of 18-fluorodeoxyglucose (18-FDG) was adminis tered i.v. Low dose computed tomography (CT) images were acquired from the base of the brain to the p roximal thighs for attenuation correction and anatomic localization. Automated exposure control was e mployed. Dose-length product (DLP) was 608 mGy-cm. Positron emission tomography (PET) images were acq uired in the same distribution. COMPARISON: Chest CT 08/16/2023 FINDINGS: Head/neck: There is an old infarct involving the left frontal and parietal lobes, left basal ganglia, left internal capsule, and left thalamus. There is mucosal thickening in the paranasal sinuses. Ther e is bulky left internal jugular and spinal accessory chain lymphadenopathy with increased activity w ith involvement of the left thyroid lobe. There is mild right internal jugular and spinal accessory c mansoor lymphadenopathy without increased activity. Chest: There is a 4.0 x 3.6 cm mass in left lung upper lobe with maximum SUV of 3.2, consistent with poorly differentiated squamous cell carcinoma. There are small pleural effusions. Cardiomegaly is not ed. There are coronary artery calcifications. There is calcified atherosclerosis of the aorta and man y of the other arteries. There is bulky mediastinal lymphadenopathy with increased activity in some o f the nodes. Abdomen/pelvis/proximal thighs: The liver is normal. There are gallstones in the gallbladder which is normal in size. There is a gastrostomy tube in expected position. The spleen, pancreas, adrenal glan ds, and kidneys are normal. There are no dilated loops of bowel. The bladder is decompressed by a Fol ey catheter. There are no pathologically enlarged lymph nodes. IMPRESSION: 1. Worsening mass in left lung upper lobe with increased activity, consistent with biopsy-proved poor ly differentiated squamous cell carcinoma. 2. Worsened left neck lymphadenopathy with contiguous involvement of the left thyroid lobe with incre ased activity and worsened mediastinal lymphadenopathy with increased activity, consistent with metas tatic disease. Reviewed, dictated and finalized at location A. IMPRESSION: 1. Worsening mass in left lung upper lobe with increased activity, consistent w ith biopsy-proved poorly differentiated squamous cell carcinoma. 2. Worsened left neck lymphadenopathy with contiguous involvement of the left t hyroid lobe with increased activity and worsened mediastinal lymphadenopathy wi th increased activity, consistent with metastatic disease.
[2023-12-15 09:54] LABS: Glucose Point of Care 173 mg/dl (65-105)
== END 2023-12-15 09:27 | disposition home or self-care (01) ==
PROVIDERS: PCP Family Medicine; Visit Provider Internal Medicine Hematology & Oncology
DX: R91.1 Solitary pulmonary nodule (principal)
CPT/HCPCS: 78815; A9552

== ENCOUNTER 2023-12-20 15:47 | Inpatient (IN) | payer MEDICARE, SELFPAY ==
--- NOTE | ~2023-12-20 | CT_ITS ---
EXAMINATION: CT soft tiss nk chst ab pel w DATE: 12/20/2023 19:05 INDICATION: mass to left side of neck . TECHNIQUE: Computed tomography (CT) of the chest, abdomen, and pelvis was performed with 100 mL Omnip aque-350 intravenous contrast. Automated exposure control and iterative reconstruction technique were employed. The dose-length product was 767.72 mGy-cm. COMPARISON: PET/CT 12/15/2023 FINDINGS: ST NECK: Multiple heterogeneous thyroid masses measuring up to 4.7 cm. The submandibular and parotid glands are symmetric. Multiple enlarged heterogeneous lymph nodes with central low density in the thoracic inlet, surrounding the thyroid, and the left anterior cervical chains, measuring up to 2.9 cm in the left lower anterior cervical chain. The airway is unremarkable. The orbits are unremarkable. Fr ontal and right maxillary mucosal thickening, the remaining aerated spaces are clear. There is cervic al spondylosis. CHEST: Thoracic aorta: No significant dilation. No dissection. Lung parenchyma and airways: 4.4 cm necrotic-appearing left upper lobe mass. Thoracic inlet, axillae and chest wall: See soft tissue neck findings. Mediastinum: Severe mediastinal lymphadenopathy. Heart and pericardium: Normal heart size. No pericardial effusion. Coronary artery calcifications: Heavy. Pleura: No effusion or mass. Thoracic bones: No acute osseous finding in the chest. ABDOMEN/PELVIS: Liver: Normal. Biliary/Gallbladder: Gallbladder is normal. No bile duct dilation. Pancreas: No mass or duct dilation. Spleen: Normal. Adrenals:No mass. Kidneys: Multiple bilateral cysts. Bilateral ureteral stranding and urothelial enhancement. No suspic ious mass or obstructing calcification detected GI tract: G-tube in good position. Moderate distal esophageal and gastric wall edema. No small or lar ge bowel dilation. Appendix not confidently visualized. Mesentery/Peritoneum: No ascites, mass, or free air. Retroperitoneum: No mass Atherosclerotic abdominal aortic and/or arterial calcifications. Pelvis: Normal uterus. The bladder is decompressed by Unger catheter. Marked urinary bladder wall thi ckening. The ovaries are not confidently visualized. Soft Tissues: Soft tissues and body wall unremarkable. Abdominopelvic bones: No acute osseous finding in the abdomen/pelvis. IMPRESSION: Moderate esophagitis/gastritis. Urothelial enhancement in the bilateral urinary collecting systems may represent ascending infection. Severe cystitis. Biopsy-proven left upper lobe squamous cell carcinoma with neck, thyroid, and mediastinal metastatic disease. Reviewed, dictated and finalized at location K. IMPRESSION: Moderate esophagitis/gastritis. Urothelial enhancement in the bilateral urinary collecting systems may represen t ascending infection. Severe cystitis. Biopsy-proven left upper lobe squamous cell carcinoma with neck, thyroid, and m ediastinal metastatic disease.
[2023-12-20 15:50] VITALS: BP 149/61; PULSE 96; RESP 18; TEMP 36.9; O2SAT 100
[2023-12-20 16:58] VITALS: BP 156/65; PULSE 90; RESP 20; O2SAT 100
--- NOTE | 2023-12-20 17:20 | ECG_ITS ---
SEE SCANNED COPY FOR CONFIRMED REPORT MTDD
--- NOTE | 2023-12-20 17:30 | ED.FEMALEGU ---
HPI - Female Genitourinary General Chief complaint: Urogenital-Female <Lolis Jones PA-C - Last Filed: 12/20/23 21:01> Stated complaint: blood urine/mass to left side of neck <Lolis Jones PA-C - Last Filed: 12/20/23 21:01> Time Seen by Provider: 12/20/23 17:02 <Lolis Jones PA-C - Last Filed: 12/20/23 21:01> History of Present Illness HPI Narrative: 73-year-old female with a history of recent diagnosis of squamous cell lung cancer, CKD stage 3, hypertension, DM, paroxysmal AFib chronically anticoagulated status, CVA with right hemiparesis, CHF, right AKA and Alzheimer's disease presents to the emergency department for a left-sided neck mass and hematuria in her Unger catheter. Patient states this morning the nurse told her that she had a large mass on her neck and was sent to the ED via EMS from a local skilled nursing for further evaluation. Patient also states that she noticed it she has red blood in her Unger bag. She denies pain to her neck, odynophagia or dysphagia, dyspnea, chest pain or shortness of breath, fever, abdominal pain, dysuria, history of kidney stones. Per chart review, patient was recently admitted to our hospital for multiple reasons including hyperkalemia, gastritis, duodenal ulcer, G-tube placement. She was also found to have a neck mass after undergoing a Doppler ultrasound of the left upper extremity. Hospitals of by CT neck with contrast, however patient refused at that time. Paperwork from skilled nursing reviewed. She is a full code. <Lolis Jones PA-C - Last Filed: 12/20/23 21:01> Related Data Home medications: Home Medications Medication Instructions Recorded Confirmed acetaminophen 325 mg tablet 650 mg PO Q4H PRN Pain 08/16/23 12/20/23 amlodipine 10 mg tablet 10 mg PO DAILY 08/16/23 12/20/23 apixaban 2.5 mg tablet (Eliquis) 2.5 mg PO BID 08/16/23 12/20/23 arginine-vitamin C-vitamin E oral 4.5 g PO DAILY 08/16/23 12/20/23 4.5 gram-156 mg/9.2 gram powder pkt (Arginaid) atorvastatin 80 mg tablet 80 mg PO DAILY 08/16/23 12/20/23 clonidine HCl 0.2 mg tablet 0.1 mg PO DAILY 08/16/23 12/20/23 folic acid 1 mg tablet 1 mg PO DAILY 08/16/23 12/20/23 glucagon HCl 1 mg solution for 1 mg IM ONCE PRN Hypoglycemia 08/16/23 12/20/23 injection (Glucagon (HCl) Emergency Kit) guaifenesin 600 mg tablet, 600 mg PO Q12H 08/16/23 12/20/23 extended release 12 hr hydralazine 100 mg tablet 100 mg PO TID 08/16/23 12/20/23 loperamide 2 mg capsule 2 mg PO Q6H PRN Diarrhea 08/16/23 12/20/23 (Anti-Diarrheal (loperamide)) multivit with minerals-iron 18 1 tablet PO DAILY 08/16/23 12/20/23 mg-folic ac 400 mcg-vit K 25 mcg tablet (Adults Multivitamin) zinc oxide 40 % topical Q8H PRN Wound Care 08/16/23 12/20/23 dronabinol 2.5 mg capsule 2.5 mg PO BID 12/20/23 12/20/23 magnesium hydroxide 400 mg/5 mL 30 ml PO HS PRN Constipation 12/20/23 12/20/23 oral suspension (Milk of Magnesia) oxyquinoline-boric acid 0.025 % 1 ea vaginal HS 12/21/23 12/21/23 vaginal gel <Lolis Jones PA-C - Last Filed: 12/20/23 21:01> Allergies/Adverse reactions: Allergies Allergy/AdvReac Type Severity Reaction Status Date / Time strawberry Allergy Unknown Verified 12/20/23 23:20 <Lolis Jones PA-C - Last Filed: 12/20/23 21:01> Review of Systems Review of Systems: CONSTITUTIONAL: Denies fever, chills, or sweats. EYES: Denies visual changes, redness, or discharge. ENT: See HPI CARDIOVASCULAR: Denies chest pain, palpitations, or edema. RESPIRATORY: Denies cough or dyspnea. GASTROINTESTINAL: Denies abdominal pain, nausea, vomiting, or diarrhea. GENITOURINARY: See HPI SKIN: Denies rash or itching. MUSCULOSKELETAL: Denies back pain, joint pain, or myalgia. NEUROLOGIC: Denies headache, numbness, or weakness. PSYCHIATRIC: Denies anxiety or depression. 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 She smoked 1-2 packs of cigarettes per day since she was a teenager in continues to smoke now. She denies heavy alcohol use history. She raised 3 children. She states that she was twice but both and outlived both of them. Code status: Full code Smoking packs per day: 2 Smoking cigarettes per day: 40.0 Years smoked: 63 Smoking pack-years: 126.00 Smoking status: Current some day smoker Tobacco type: cigarettes Second hand tobacco smoke exposure: Yes Alcohol intake: former Substance use: never Substance use type: does not use Do You Feel Safe in your Home?: Yes Lack of Transportation: No Lack of Food: Never True Current Housing: I Have Housing Concerned About Future Housing: No Difficulty Paying Gas/Electric Bills: No Difficulty Paying for Meds: No Currently Unemployed: No Education: Decline to Answer Difficulty w/ Childcare or Family Care: No Spiritual care concerns: No <Lolis Jones PA-C - Last Filed: 12/20/23 21:01> Exam Narrative: GENERAL: Well-appearing, well-nourished, and in no acute distress. HEAD: Normocephalic, atraumatic. EYES: PERRLA and EOMI. ENT: Nares clear, no rhinorrhea or epistaxis. Mucous membranes moist. Posterior pharynx erythema or edema. Uvula midline. No airway compromise. No odynophagia or dysphagia NECK: Large firm left-sided neck mass. CHEST: Clear to auscultation. No respiratory distress. HEART: Regular rate and rhythm. No murmur heard. Normal peripheral pulses. ABDOMEN: Soft, nontender, nondistended, normal active bowel sounds. No rebound, guarding or rigidity. No CVA tenderness. G-tube appropriately placed without signs of infection. Unger bag in place draining hematuria, no clots visualized in tubing or back. EXTREMITIES: Normal range of motion. No edema. Right AKA SKIN: Warm, dry, no rash. NEURO: No focal deficits. Alert and oriented x1. Right-sided chronic hemiparesis <Lolis Jones PA-C - Last Filed: 12/20/23 21:01> Course MAT REPAIRER/PA Physician Supervision For this patient encounter, I reviewed the MAT REPAIRER or PA documentation, treatment plan, and medical decision making; and I had [id number] time with this patient. <Aneudy Hebert MD - Last Filed: 12/21/23 12:29> Vital Signs Vital signs: Vital Signs Temperature 98.5 F 12/20/23 15:50 Pulse Rate 96 12/20/23 15:50 Respiratory Rate 18 12/20/23 15:50 Blood Pressure 149/61 H 12/20/23 15:50 Pulse Oximetry 100 12/20/23 15:50 Temperature 97.0 F L 12/21/23 06:00 Pulse Rate 101 H 12/21/23 06:00 Respiratory Rate 20 12/21/23 06:00 Blood Pressure 147/73 H 12/21/23 06:00 Pulse Oximetry 100 12/21/23 06:00 Oxygen Delivery Room Air 12/21/23 08:46 <Lolis Jones PA-C - Last Filed: 12/20/23 21:01> Vital Signs Temperature 98.5 F 12/20/23 15:50 Pulse Rate 96 12/20/23 15:50 Respiratory Rate 18 12/20/23 15:50 Blood Pressure 149/61 H 12/20/23 15:50 Pulse Oximetry 100 12/20/23 15:50 Temperature 97.0 F L 12/21/23 06:00 Pulse Rate 101 H 12/21/23 06:00 Respiratory Rate 20 12/21/23 06:00 Blood Pressure 147/73 H 12/21/23 06:00 Pulse Oximetry 100 12/21/23 06:00 Oxygen Delivery Room Air 12/21/23 08:46 <Aneudy Hebert MD - Last Filed: 12/21/23 12:29> MDM - Female Genitourinary MDM Narrative Medical decision making narrative: 73-year-old female presents to emergency department for left-sided neck mass noted today brain nurse at skilled nursing and hematuria. Triage vitals stable. No airway compromise, no odynophagia or dysphagia. Exam is significant for the above. EKG was sinus rhythm sinus arrhythmia, rate of 80, normal AL interval of 156, normal QRS duration, normal QTC, right bundle-branch block, no ST elevations or depressions. Troponin undetectable. CBC without leukocytosis, no anemia. Chemistries remarkable for sodium of 131, BUN of 30 with normal creatinine of 1. Alk-phos mildly elevated to 153. UA with large hematuria and pyuria as well as bacteriuria. Urine culture pending. COVID, flu, strep and mono were negative. CT soft tissue neck, chest, abdomen and pelvis ordered due to concern for metastatic disease. Results show moderate esophagitis as gastritis with urothelial enhancement in bilateral urinary collecting systems with severe cystitis and biopsy-proven left upper lobe squamous cell carcinoma with neck, thyroid and mediastinal metastatic disease. TSH normal. Labs and imaging discussed with the patient. Her Unger was irrigated with normal saline with improvement and hematuria. It is now a fruit punch colored as oppose to dark red. There are no clots in Unger bag or tubing. She is actively draining her bladder. Unger changed. She was started on Zosyn for UTI based on previous sensitivities. Blood cultures and lactic acid are pending. I updated patient's son, Stephen, about patient's workup today. Discussed case with hospitalist, Dr. Bowling, who agrees to plan for admission. <Lolis Jones PA-C - Last Filed: 12/20/23 21:01> Lab Data Result diagrams: 12/21/23 09:26 12/21/23 09:26 <Lolis Jones PA-C - Last Filed: 12/20/23 21:01> Labs: Lab Results 12/20/23 12/20/23 12/20/23 Range/Units 17:40 17:41 20:45 WBC 7.2 (4.5-10.0) K/mm3 RBC 4.49 (4.2-5.4) M/mm3 Hgb 13.8 (12.0-15.0) g/dL Hct 43.1 (37.0-47.0) % MCV 96.0 (80-100) fl MCH 30.7 (26-34) pg MCHC 32.0 (32-36) g/dl RDW 15.4 H (11.5-14.5) % Plt Count 227 D (150-375) k/mm3 MPV 9.6 (7.4-10.4) fl Immature Gran % (Auto) 0.8 H (0-0.5) % Neut % (Auto) 50.1 (45.5-73.1) % Lymph % (Auto) 21.9 (18.3-44.2) % [place] % (Auto) 26.8 H (2.6-8.5) % Eos % (Auto) 0.3 (0-4.4) % Baso % (Auto) 0.1 L (0.2-1.2) % Lymph # (Auto) 1.58 (0.9-3.2) K/mm3 [place] # (Auto) 1.9 H (0.1-0.6) K/mm3 Eos # (Auto) 0.0 (0-0.3) K/mm3 Baso # (Auto) 0.0 (0.0-0.1) K/mm3 Abs Immat Gran (auto) 0.06 H (0.00-0.031) K/mm3 Absolute Neuts (auto) 3.6 (1.3-6.7) K/mm3 Absolute Nucleated RBC 0.000 (0.0-0.012) K/mm3 Nucleated RBC % 0.0 (0.0-0.2) % Platelet Estimate Adequate (Adequate) Hypochromasia 1+ Anisocytosis 1+ Schistocytes None seen PT 16.2 H (11.1-14.7) Seconds INR 1.2 APTT 46.3 H (22.3-36.8) Seconds Sodium 131 L (137-145) mmol/L Potassium 4.7 (3.4-5.0) mmol/L Chloride 99 (98-107) mmol/L Carbon Dioxide 24 (22-30) mmol/L Anion Gap 8 (4-12) mmol/L BUN 30 H (7-17) mg/dL Creatinine 1.00 (0.7-1.0) mg/dL Estim Creat Clear Calc 33 ml/min Estimated GFR > 60 (59 - ) Glucose 280 H (65-110) mg/dL Lactic Acid 1.1 (0.7-2.0) mmol/L Calcium 8.5 (8.4-10.2) mg/dL Magnesium 1.7 (1.6-2.3) mg/dL Total Bilirubin 0.5 (0.2-1.3) mg/dL AST 35 (14-36) U/L ALT 18 (6-35) U/L Alkaline Phosphatase 153 H (38-126) U/L Total Creatine Kinase 25 L (30-135) U/L Total Protein 8.0 (6.3-8.2) g/dL Albumin 3.4 L (3.5-5.1) g/dL TSH (Reflex) 1.670 (0.465-4.68) uIU/mL Urine Color [place] H (Yellow) Urine Appearance Cloudy H (Clear) Urine pH 7.5 (5.0-9.0) Ur Specific [place] 1.013 (1.001-1.035) Urine Protein 3+ H (Negative) mg/dL Urine Glucose (UA) Negative (Negative) mg/dL Urine Ketones Negative (Negative) mg/dL Ur Blood (Man) 3+ H (Negative) Urine Nitrate Negative (Negative) Urine Bilirubin Negative (Negative) Urine Urobilinogen 1.0 (<2.0) mg/dL Leukocyte Esterase Rfl 3+ H (Negative) VIVIANA/UL Urine RBC >100 H (0-2) /hpf Urine WBC >100 H (0-3) /hpf Ur Squamous Epith Cells None seen (Few) /hpf Urine Bacteria 4+ /hpf Urine Casts 0-2 Monoscreen Negative (Negative) Influenza A (RT-PCR) Negative (Negative) Influenza B (RT-PCR) Negative (Negative) SARS-CoV-2 RNA (RT-PCR) Negative (Negative) Group A Strep (PCR) Not detected (Negative) <Lolis Jones PA-C - Last Filed: 12/20/23 21:01> Lab Results 12/20/23 12/20/23 12/20/23 Range/Units 17:40 17:41 20:45 WBC 7.2 (4.5-10.0) K/mm3 RBC 4.49 (4.2-5.4) M/mm3 Hgb 13.8 (12.0-15.0) g/dL Hct 43.1 (37.0-47.0) % MCV 96.0 (80-100) fl MCH 30.7 (26-34) pg MCHC 32.0 (32-36) g/dl RDW 15.4 H (11.5-14.5) % Plt Count 227 D (150-375) k/mm3 MPV 9.6 (7.4-10.4) fl Immature Gran % (Auto) 0.8 H (0-0.5) % Neut % (Auto) 50.1 (45.5-73.1) % Lymph % (Auto) 21.9 (18.3-44.2) % [place] % (Auto) 26.8 H (2.6-8.5) % Eos % (Auto) 0.3 (0-4.4) % Baso % (Auto) 0.1 L (0.2-1.2) % Lymph # (Auto) 1.58 (0.9-3.2) K/mm3 [place] # (Auto) 1.9 H (0.1-0.6) K/mm3 Eos # (Auto) 0.0 (0-0.3) K/mm3 Baso # (Auto) 0.0 (0.0-0.1) K/mm3 Abs Immat Gran (auto) 0.06 H (0.00-0.031) K/mm3 Absolute Neuts (auto) 3.6 (1.3-6.7) K/mm3 Absolute Nucleated RBC 0.000 (0.0-0.012) K/mm3 Nucleated RBC % 0.0 (0.0-0.2) % Platelet Estimate Adequate (Adequate) Hypochromasia 1+ Anisocytosis 1+ Schistocytes None seen PT 16.2 H (11.1-14.7) Seconds INR 1.2 APTT 46.3 H (22.3-36.8) Seconds Sodium 131 L (137-145) mmol/L Potassium 4.7 (3.4-5.0) mmol/L Chloride 99 (98-107) mmol/L Carbon Dioxide 24 (22-30) mmol/L Anion Gap 8 (4-12) mmol/L BUN 30 H (7-17) mg/dL Creatinine 1.00 (0.7-1.0) mg/dL Estim Creat Clear Calc 33 ml/min Estimated GFR > 60 (59 - ) Glucose 280 H (65-110) mg/dL Lactic Acid 1.1 (0.7-2.0) mmol/L Calcium 8.5 (8.4-10.2) mg/dL Magnesium 1.7 (1.6-2.3) mg/dL Total Bilirubin 0.5 (0.2-1.3) mg/dL AST 35 (14-36) U/L ALT 18 (6-35) U/L Alkaline Phosphatase 153 H (38-126) U/L Total Creatine Kinase 25 L (30-135) U/L Total Protein 8.0 (6.3-8.2) g/dL Albumin 3.4 L (3.5-5.1) g/dL TSH (Reflex) 1.670 (0.465-4.68) uIU/mL Urine Color [place] H (Yellow) Urine Appearance Cloudy H (Clear) Urine pH 7.5 (5.0-9.0) Ur Specific [place] 1.013 (1.001-1.035) Urine Protein 3+ H (Negative) mg/dL Urine Glucose (UA) Negative (Negative) mg/dL Urine Ketones Negative (Negative) mg/dL Ur Blood (Man) 3+ H (Negative) Urine Nitrate Negative (Negative) Urine Bilirubin Negative (Negative) Urine Urobilinogen 1.0 (<2.0) mg/dL Leukocyte Esterase Rfl 3+ H (Negative) VIVIANA/UL Urine RBC >100 H (0-2) /hpf Urine WBC >100 H (0-3) /hpf Ur Squamous Epith Cells None seen (Few) /hpf Urine Bacteria 4+ /hpf Urine Casts 0-2 Monoscreen Negative (Negative) Influenza A (RT-PCR) Negative (Negative) Influenza B (RT-PCR) Negative (Negative) SARS-CoV-2 RNA (RT-PCR) Negative (Negative) Group A Strep (PCR) Not detected (Negative) <Aneudy Hebert MD - Last Filed: 12/21/23 12:29> Discharge Plan Discharge Clinical Impression: Cystitis Metastatic cancer Qualifiers: Area of secondary neoplastic involvement: unspecified site Qualified Code(s): C79.9 - Secondary malignant neoplasm of unspecified site Hematuria Qualifiers: Hematuria type: gross Qualified Code(s): R31.0 - Gross hematuria <Lolis Jones PA-C - Last Filed: 12/20/23 21:01> Patient Disposition: Still a Patient <Lolis Jones PA-C - Last Filed: 12/20/23 21:01> Condition: Stable <Lolis Jones PA-C - Last Filed: 12/20/23 21:01>
[2023-12-20 17:57] LABS: Basophils Percent Auto 0.1 % (0.2-1.2); Eosinophils Percent Auto 0.3 % (0-4.4); Hematocrit 43.1 % (37.0-47.0); Hemoglobin 13.8 g/dL (12.0-15.0); Immature Granulocyte Absolute 0.06 K/mm3 (0.00-0.031); Immature Granulocyte Percent A 0.8 % (0-0.5); Lymphocytes Absolute Auto 1.58 K/mm3 (0.9-3.2); Lymphocytes Percent Auto 21.9 % (18.3-44.2); Mean Corpuscular Hemoglobin 30.7 pg (26-34); Mean Platelet Volume 9.6 fl (7.4-10.4); Monocytes Absolute Auto 1.9 K/mm3 (0.1-0.6); Monocytes Percent Auto 26.8 % (2.6-8.5); Neutrophils Absolute Auto 3.6 K/mm3 (1.3-6.7); Neutrophils Percent Auto 50.1 % (45.5-73.1); Platelet Count Result 227 k/mm3 (150-375); Red Blood Count 4.49 M/mm3 (4.2-5.4); Red Cell Distribution Width 15.4 % (11.5-14.5); White Blood Count 7.2 K/mm3 (4.5-10.0)
[2023-12-20 17:59] LABS: Non Pathogenic Casts 0-2; RBC Urine >100 /hpf (0-2); Squamous Epithelial Cell Urine None Seen /hpf (Few); WBC Urine >100 /hpf (0-3)
[2023-12-20 18:05] LABS: Magnesium 1.7 mg/dL (1.6-2.3)
[2023-12-20 18:06] LABS: Alanine Aminotransferase 18 U/L (6-35); Albumin Level 3.4 g/dL (3.5-5.1); Alkaline Phosphatase 153 U/L (38-126); Anion Gap 8 mmol/L (4-12); Aspartate Amino Transferase 35 U/L (14-36); Bilirubin,Total 0.5 mg/dL (0.2-1.3); Blood Urea Nitrogen 30 mg/dL (7-17); Calcium 8.5 mg/dL (8.4-10.2); Carbon Dioxide 24 mmol/L (22-30); Chloride 99 mmol/L (98-107); Estimated CRCL calculation 33 ml/min; Estimated Glomerular Filt Rate > 60; Glucose 280 mg/dL (65-110); Potassium 4.7 mmol/L (3.4-5.0); Sodium 131 mmol/L (137-145)
[2023-12-20 18:07] LABS: Appearance Urine Cloudy (Clear); Bilirubin Urine Negative (Negative); Blood Urine 3+ (Negative); Color Urine Orange (Yellow); Glucose Urine UA Negative (Negative); Ketones Urine Negative (Negative); Leukocyte Esterase Ur 3+ LEU/UL (Negative); Nitrate Urine Negative (Negative); Protein Urine 3+ mg/dL (Negative); Specific Grav Ur 1.013 (1.001-1.035); pH Urine 7.5 (5.0-9.0)
--- NOTE | 2023-12-20 18:07 | PC.NURSE ---
Irrigated avendano catheter with 200 ml normal saline. Pt c/o pain to abd when irrigating catheter. Return of clear red fluid with no clots noted. Avendano flushes and drains well.
[2023-12-20 18:11] LABS: Bacteria Urine 4+ /hpf; INR 1.2; Prothrombin Time 16.2 Seconds (11.1-14.7)
[2023-12-20 18:12] LABS: Partial Thromboplastin Time 46.3 Seconds (22.3-36.8)
[2023-12-20 18:22] LABS: Add Urine Microscopic? YES
[2023-12-20 18:36] LABS: Monoscreen Negative (Negative); Negative Monotest Control Negative (Negative); Positive Monotest Control Positive (Positive)
[2023-12-20 18:39] LABS: Strep Group A RT-PCR NOT DETECTED (Negative)
[2023-12-20 18:48] LABS: Creatine Kinase 25 U/L (30-135)
[2023-12-20 18:53] LABS: Influenza A QL RT-PCR Negative (Negative); Influenza B QL RT-PCR Negative (Negative); SARS-CoV-2 RNA PCR Negative (Negative)
[2023-12-20 18:59] LABS: Anisocytosis 1+; Hypochromasia 1+; Platelet Estimate Adequate (Adequate); Schistocytes None Seen
[2023-12-20 19:34] VITALS: BP 153/66; PULSE 87; RESP 20; O2SAT 100
--- NOTE | 2023-12-20 19:37 | PC.NURSE ---
This RN assumed care of pt after receiving report from DONALD Chan @ 1351.
[2023-12-20] MEDS: PIPERACILLN/TAZ 3.375GM/NS50ML 3.375 GM/50 ML BAG IVPB (20:50)
[2023-12-20 21:05] LABS: Lactic Acid Reflex 1.1 mmol/L (0.7-2.0)
[2023-12-20 21:42] VITALS: BP 160/77; PULSE 103; RESP 24; O2SAT 100
--- NOTE | 2023-12-20 22:40 | ADMGEN ---
This patient, Justine Ruiz, was admitted to Medical Room 344-01. Patient/family oriented to hospital policies and general routines including ID bracelet, bed and alarms, visiting hours, pain management, procedures, bathroom and other care routines, personal items, smoking policy, room service/diet, and visiting hours. Information on how to activate the Rapid Response Team has been discussed. Patient/Family are encouraged to report perceived risks to care and to ask questions if they do not understand what they are told or what they should do.
[2023-12-20 22:47] VITALS: BMI 16.1
[2023-12-20 23:13] VITALS: BP 146/74; PULSE 92; RESP 20; TEMP 36.3; O2SAT 100
--- NOTE | 2023-12-20 23:51 | PM.IMHP ---
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 The patient reports to me that she feels better than she did during her last hospitalization. She just aches all over. She reports persistent poor appetite but has gained weight with G-tube feeds. She states that for the most part she thinks she is tolerating the feeds but has had a few episodes of vomiting here and there. It is unclear when she had her last bowel movement. She has not had any significant increased work of breathing. The patient does have a markedly large mass on her left side of her neck. The patient did have area of enlargement in the area during his last hospitalization and initial CT did mention marked thyromegaly most consistent with goiter. However patient did have venous Doppler of her extremity rule out DVT during her last hospitalization which demonstrated enlarged lymph nodes the patient refused biopsy at that time. The patient already had a PET scan scheduled as outpatient 12/15/2023 with PET scan demonstrating worsening mass of the left upper lung with increased activity consistent with her biopsy-proven poorly differentiated squamous cell carcinoma and worsening left neck lymphadenopathy with contiguous involvement of the left thyroid lobe with increased activity and worsened mediastinal lymphadenopathy consistent with metastatic disease. At the time of my evaluation the patient also had large posterior cervical lymph node which during my last evaluation of the patient in hindsight was likely present but was at least half the size of what it is now. Patient denies any pain with palpation of the area. She is pleasantly confused and her mental status is similar to prior. She is alert oriented to person and knows that she is in the hospital. She states that she recognizes me since I came in in a wheelchair last time I evaluated her. She cannot tell me the month or year does not know the name of the prison that she is staying in. She recognizes that she is confused but is otherwise conversational and appropriate. Review of Systems Review of Systems: 12 systems were reviewed with pertinent positives and negatives per HPI. Except as documented in the HPI, all other systems were reviewed and are negative. [facility] Past Medical History Medical History (Updated 12/21/23 @ 05:18 by Deb Bowling DO) Alzheimer disease Anemia Anorexia CHF (congestive heart failure) Continuous tobacco abuse COVID-19 CVA (cerebral vascular accident) Duodenal ulcer Dysphagia Gastritis GERD (gastroesophageal reflux disease) Hemiplegia affecting right dominant side Major depressive disorder Malnutrition Multinodular goiter PVD (peripheral vascular disease) Squamous cell carcinoma of left lung Poorly differentiated with metastases to mediastinum, thyroid and cervical lymph nodes Stage 3b chronic kidney disease Type 2 diabetes mellitus Surgical History Surgical History Hx of AKA (above knee amputation) Family History Family History Other Unknown family medical history Social History Social History Social History: Patient currently resides at a prison. She smoked 1-2 packs of cigarettes per day since she was a teenager in continues to smoke now. She denies heavy alcohol use history. She raised 3 children. She states that she was twice but both and outlived both of them. Code status: Full code Smoking packs per day: 2 Smoking cigarettes per day: 40.0 Years smoked: 63 Smoking pack-years: 126.00 Smoking status: Current some day smoker Tobacco type: cigarettes Second hand tobacco smoke exposure: Yes Alcohol intake: former Substance use: never Substance use type: does not use Do You Feel Safe in your Home?: Yes Lack of Transportation: No Lack of Food: Never True Current Housing: I Have Housing Concerned About Future Housing: No Difficulty Paying Gas/Electric Bills: No Difficulty Paying for Meds: No Currently Unemployed: No Education: Decline to Answer Difficulty w/ Childcare or Family Care: No Spiritual care concerns: No Meds Home Medications and Allergies Home Medications Medication Instructions Recorded Confirmed Type acetaminophen 325 mg tablet 650 mg PO Q4H PRN Pain 08/16/23 12/20/23 History amlodipine 10 mg tablet 10 mg PO DAILY 08/16/23 12/20/23 History apixaban 2.5 mg tablet (Eliquis) 2.5 mg PO BID 08/16/23 12/20/23 History arginine-vitamin C-vitamin E oral 4.5 g PO DAILY 08/16/23 12/20/23 History 4.5 gram-156 mg/9.2 gram powder pkt (Arginaid) atorvastatin 80 mg tablet 80 mg PO DAILY 08/16/23 12/20/23 History clonidine HCl 0.2 mg tablet 0.1 mg PO DAILY 08/16/23 12/20/23 History folic acid 1 mg tablet 1 mg PO DAILY 08/16/23 12/20/23 History glucagon HCl 1 mg solution for 1 mg IM ONCE PRN Hypoglycemia 08/16/23 12/20/23 History injection (Glucagon (HCl) Emergency Kit) guaifenesin 600 mg tablet, 600 mg PO Q12H 08/16/23 12/20/23 History extended release 12 hr hydralazine 100 mg tablet 100 mg PO TID 08/16/23 12/20/23 History loperamide 2 mg capsule 2 mg PO Q6H PRN Diarrhea 08/16/23 12/20/23 History (Anti-Diarrheal (loperamide)) multivit with minerals-iron 18 1 tablet PO DAILY 08/16/23 12/20/23 History mg-folic ac 400 mcg-vit K 25 mcg tablet (Adults Multivitamin) zinc oxide 40 % topical Q8H PRN Wound Care 08/16/23 12/20/23 History ferrous sulfate 325 mg (65 mg 325 mg PO BID #60 tabs 12/10/23 12/20/23 Rx iron) tablet,delayed release miconazole nitrate 2 % topical 1 applic topical BID #14 grams 12/10/23 12/20/23 Rx cream pantoprazole 40 mg tablet,delayed 40 mg PO QAM #30 tabs 12/10/23 12/20/23 Rx release (Protonix) sodium zirconium cyclosilicate 5 5 g PO DAILY #11 ea 12/10/23 12/20/23 Rx gram oral powder packet (Lokelma) dronabinol 2.5 mg capsule 2.5 mg PO BID 12/20/23 12/20/23 History magnesium hydroxide 400 mg/5 mL 30 ml PO HS PRN Constipation 05/28/24 05/28/24 History oral suspension (Milk of Magnesia) oxyquinoline-boric acid 0.025 % 1 ea vaginal HS 12/21/23 12/21/23 History vaginal gel Allergies Allergy/AdvReac Type Severity Reaction Status Date / Time strawberry Allergy Unknown Verified 12/20/23 23:20 Vital Signs Vital Signs - 24 hr 12/20/23 15:50 12/20/23 16:58 12/20/23 19:34 Temperature 98.5 F Pulse Rate 96 90 87 Respiratory Rate 18 20 20 Blood Pressure 149/61 H 156/65 H 153/66 H Pulse Oximetry 100 100 100 Oxygen Delivery 12/20/23 21:42 12/20/23 23:03 12/20/23 23:13 Temperature 97.4 F L Pulse Rate 103 H 92 Respiratory Rate 24 H 20 Blood Pressure 160/77 H 146/74 H Pulse Oximetry 100 100 Oxygen Delivery Room Air Exam Narrative: Weight 48.2 kg BMI 16.2 Const: Other: Frail, elderly, cachectic (although appears better nourished than my last evaluation 2 weeks ago), no acute distress HENMT: Other: Mucous membranes are tacky, no oral pharyngeal erythema, edentulous in upper and lower jaw Eyes: Other: No conjunctival pallor, no scleral icterus, pupils are equal and reactive, bilateral cataracts noted Neck: Other: The patient has markedly irregular mass of the neck that was initially thought to be due to multinodular goiter that mass has enlarged significantly since last hospitalization and PET scan as demonstrated increased uptake consistent with metastases. The masses firm fixed and immobile in the right neck there is also a mass in the posterior cervical chain that is between the size of a golf ball and a Super Bowl that is also fixed in no mobile patient has no difficulties swallowing and masses nontender, there is also irregularity enlargement of the right to the neck but feels the tissue seems softer and not as fixed Resp: Other: Decreased breath sounds bilaterally, no increased work of breathing Cardio: Other: Regular rate, regular rhythm, 2+ bilateral radial pulses, 1+ left pedal pulse GI: Other: Soft, nontender, nondistended, G-tube present in the left mid abdomen, no surrounding erythema or drainage, normoactive bowel sounds : Other: Unger catheter in place with cloudy turbid light red colored urine draining well Skin: Other: No pallor, non jaundice, small decubitus ulcer to the right side of the coccyx approximately 2 cm stage II Neuro: Other: Patient is pleasantly confused and cooperative she is alert and conversational, there spider history of strokes has no slurred words, she does have weakness on the right side per baseline, extraocular movements intact, follows commands Extrem: Other: Right above the knee amputation with stump in good condition skin intact,, generalized muscle wasting of all extremities, no edema, no cyanosis, 3/5 clinical data management manager strength on the right 4/5 clinical data management manager strength on the left Psych: Other: Pleasantly confused, cooperative, appropriate mood and affect, fair judgment and insight H&P: Results Labs Labs: Laboratory Tests 12/20/23 17:41 12/20/23 17:41 12/20/23 12/20/23 12/20/23 17:40 17:41 20:45 WBC 7.2 RBC 4.49 Hgb 13.8 Hct 43.1 MCV 96.0 MCH 30.7 MCHC 32.0 RDW 15.4 H Plt Count 227 D MPV 9.6 Immature Gran % (Auto) 0.8 H Neut % (Auto) 50.1 Lymph % (Auto) 21.9 [place] % (Auto) 26.8 H Eos % (Auto) 0.3 Baso % (Auto) 0.1 L Lymph # (Auto) 1.58 [place] # (Auto) 1.9 H Eos # (Auto) 0.0 Baso # (Auto) 0.0 Abs Immat Gran (auto) 0.06 H Absolute Neuts (auto) 3.6 Absolute Nucleated RBC 0.000 Nucleated RBC % 0.0 Platelet Estimate Adequate Hypochromasia 1+ Anisocytosis 1+ Schistocytes None seen PT 16.2 H INR 1.2 APTT 46.3 H Sodium 131 L Potassium 4.7 Chloride 99 Carbon Dioxide 24 Anion Gap 8 BUN 30 H Creatinine 1.00 Estim Creat Clear Calc 33 Estimated GFR > 60 Glucose 280 H Lactic Acid 1.1 Calcium 8.5 Magnesium 1.7 Total Bilirubin 0.5 AST 35 ALT 18 Alkaline Phosphatase 153 H Total Creatine Kinase 25 L Total Protein 8.0 Albumin 3.4 L TSH (Reflex) 1.670 Urine Color [place] H Urine Appearance Cloudy H Urine pH 7.5 Ur Specific [place] 1.013 Urine Protein 3+ H Urine Glucose (UA) Negative Urine Ketones Negative Ur Blood (Man) 3+ H Urine Nitrate Negative Urine Bilirubin Negative Urine Urobilinogen 1.0 Leukocyte Esterase Rfl 3+ H Urine RBC >100 H Urine WBC >100 H Ur Squamous Epith Cells None seen Urine Bacteria 4+ Urine Casts 0-2 Monoscreen Negative Influenza A (RT-PCR) Negative Influenza B (RT-PCR) Negative SARS-CoV-2 RNA (RT-PCR) Negative Group A Strep (PCR) Not detected Impressions Neck/Chest/Abdomen/Pelvis CT 12/20/23 19:32 IMPRESSION: Moderate esophagitis/gastritis. Urothelial enhancement in the bilateral urinary collecting systems may represent ascending infection. Severe cystitis. Biopsy-proven left upper lobe squamous cell carcinoma with neck, thyroid, and mediastinal metastatic disease. EKG was obtained but was not available in the patient's chart my review. EKG not available electronically due to system I had technical glitch on going since October 2023 Assessment and Plan Assessment and plan (1) Hematuria: Qualifiers: Hematuria type: gross Qualified Code(s): R31.0 - Gross hematuria Code(s): R31.9 - Hematuria, unspecified Status: Acute (2) Cystitis: Code(s): N30.90 - Cystitis, unspecified without hematuria Status: Acute (3) Unger catheter present: Code(s): Z97.8 - Presence of other specified devices Status: Acute (4) Gastritis: Qualifiers: Gastritis type: unspecified gastritis Chronicity: chronic Gastritis bleeding: without bleeding Qualified Code(s): K29.50 - Unspecified chronic gastritis without bleeding Code(s): K29.70 - Gastritis, unspecified, without bleeding Status: Acute (5) Duodenal ulcer: Code(s): K26.9 - Duodenal ulcer, unspecified as acute or chronic, without hemorrhage or perforation Status: Acute (6) Malnutrition: Qualifiers: Malnutrition type: protein-calorie malnutrition Protein-calorie malnutrition severity: severe Qualified Code(s): E43 - Unspecified severe protein-calorie malnutrition Code(s): E46 - Unspecified protein-calorie malnutrition Status: Acute (7) Anorexia: Code(s): R63.0 - Anorexia Status: Acute (8) Concern about end of life: Code(s): Z71.1 - Person with feared health complaint in whom no diagnosis is made Status: Acute (9) Type 2 diabetes mellitus with hyperglycemia, without long-term current use of insulin: Code(s): E11.65 - Type 2 diabetes mellitus with hyperglycemia Status: Acute Plan The patient has hematuria with evidence of severe cystitis on imaging. Patient's UA was suggestive of possible UTI. Patient was started on empiric antibiotic therapy with Zosyn given her prior cultures a demonstrate E coli that was resistant to multiple antibiotics. Blood cultures were obtained and are pending. The patient has been afebrile and has no leukocytosis. No evidence of sepsis. The patient's nutritional and fluid status appears to have improved since discharge from the hospital previously. She has had some weight gain with G-tube feeds. Will continue G-tube feeds but will only give G-tube feeds half an hour after the patient has been able to consume what she can her own orally. Patient has chronic hyponatremia but seems to be back up to her baseline with tube feeds. Unger catheter remains in place currently in is draining well. Eliquis is on hold due to hematuria. Patient does have metastatic cancer that just on physical exam seems to be advancing significantly with increased enlargement of the liver nodes on the left side of the neck compared to 2 weeks ago on my exam. The patient stated that she does not think she would want chemotherapy. She also stated that she did not want her heart restarted if it stop. Given her degree of confusion unfortunately I cannot change her code status without at least discussion with her family. She would like to have a discussion with her son and staff members regarding her wishes. Patient is having hyperglycemia. She had previously been on medications for diabetes but they had been held whenever she was so malnourished. She is now hyperglycemic with glucoses in the 250s. Will place patient on low-dose sliding scale insulin with Accu-Cheks and hypoglycemia protocol. Patient also has hypertension but blood pressures are stable will resume home antihypertensives. We may need to consider whether not the risks of statin therapy outweigh the benefits given the patient's age and advanced cancer. Specially in her setting of reporting generalized myalgias. Will continue home PPI therapy given recent history of gastritis. Patient has been admitted as observation status. Quality VTE Prophylaxis VTE prophylaxis: mechanical ordered (SCDs left leg only as 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
[2023-12-21] MEDS: ACETAMINOPHEN 325 MG TABLET 650 MG PO ×2 (00:04→13:59)
[2023-12-21 06:00] VITALS: BP 147/73; PULSE 101; RESP 20; TEMP 36.1; O2SAT 100
--- NOTE | 2023-12-21 08:12 | P.PNIM_ITS ---
Progress Note: A&P Assessment and Plan (1) Hematuria: Qualifiers: Hematuria type: gross Qualified Code(s): R31.0 - Gross hematuria Code(s): R31.9 - Hematuria, unspecified Status: Acute Assessment and Plan: Cystits with ascending infection concerns on CT abd/pelvis * Unger catheter placed with red urine * Hemoglobin 14.3 * Hx of ESBL. Placed on meropenem * Urine culture, blood culture pending * afebrile without leukocytosis * Patient reports dysuria during last admission on 12/08 but none currently (2) Cystitis: Code(s): N30.90 - Cystitis, unspecified without hematuria Status: Acute Assessment and Plan: see 1 (3) Unger catheter present: Code(s): Z97.8 - Presence of other specified devices Status: Acute Assessment and Plan: see 1 (4) Gastritis: Qualifiers: Chronicity: chronic Gastritis bleeding: without bleeding Gastritis type: unspecified gastritis Qualified Code(s): K29.50 - Unspecified chronic gastritis without bleeding Code(s): K29.70 - Gastritis, unspecified, without bleeding Status: Acute Assessment and Plan: * protonix (5) Duodenal ulcer: Code(s): K26.9 - Duodenal ulcer, unspecified as acute or chronic, without hemorrhage or perforation Status: Acute Assessment and Plan: Recent EGD from 12/01 with duodenal ulcer * continue PPI for 3 months (6) Malnutrition: Qualifiers: Malnutrition type: protein-calorie malnutrition Protein-calorie malnutrition severity: severe Qualified Code(s): E43 - Unspecified severe protein-calorie malnutrition Code(s): E46 - Unspecified protein-calorie malnutrition Status: Acute Assessment and Plan: * diabetic diet * minced and moist diet level 5 * Glucerna shakes * Glucerna tube feeding at night with FWF 100 ml every 4 hours at night only * dronabinol 2.5 mg PO BID * dietitian consulted, rec's appreciated (7) Anorexia: Code(s): R63.0 - Anorexia Status: Acute Assessment and Plan: see above (8) Concern about end of life: Code(s): Z71.1 - Person with feared health complaint in whom no diagnosis is made Status: Acute Assessment and Plan: Worsening mass left lung upper lobe with biopsy-proven poorly differentiated squamous cell carcinoma. PET scan shows worsening left neck lymphadenopathy with continuous involved the left thyroid lobe seen on PET scan from 12/21/23. * Dr Freed consulted and saw patient here * hospice vs treatment * Patient's son, Stephen is her emergency contact and decision maker * Will need to address code status (9) Type 2 diabetes mellitus with hyperglycemia, without long-term current use of insulin: Code(s): E11.65 - Type 2 diabetes mellitus with hyperglycemia Status: Acute Assessment and Plan: Hemoglobin 5.6% * Accu check ac/hs * SSI low dose Plan Feeding:DM diet with glucerna Analgesia: tylenol Thromboembolic prophylaxis: scd, eliquis on hold due to hematuria Ulcer prophylaxis: PPI Glycemic control: SSI, achs accu check Bowel regimen: prn miralax Lines: PIV Antibiotics: meropenem Disposition: [facility] with possible hospice consult Subjective Date/time seen: 12/21/23 08:12 Interval history: 73-year-old female with a past medical history of dementia, 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 12/20: Patient is seen at the bedside with her son Stephen present. Patient states she is here for left neck swelling. She recently had her PET scan completed yesterday. She is supposed to be seen with heme/onc tomorrow. I spoke with Dr Freed who will see her today while inpatient. I discussed with her and her son, treatment of her pyelonephritis and UTI. Questions surrounding this illness discussed. Deferred discussion surrounding her cancer to oncology. Review of Systems Review of Systems: All systems reviewed & are unremarkable except as noted in HPI and below Exam Narrative: General: frail, thin, appears stated age. HEENT: normocephalic, atraumatic. Mucous membranes moist. EOMI, PERRLA, bilateral sclera anicteric, no conjunctival injection. Neck supple without JVD. Swelling to left anterior neck with palpable, irregular nodularities. Slight right facial droop./ Respiratory: clear to auscultation bilaterally. No rales/rhonic/wheezes. Cardiovascular: Regular rate and rhythm, normal S1-S2 upon auscultation. No murmurs, rubs, or clicks. PMI is nondisplaced, capillary refill less than 3 second. Abdomen: Soft, round, no pulsatile masses, nondistended and nontender. No rebound, no guarding. No CVA tenderness, no hepatosplenomegaly. Bowel sounds present to all four quadrants. No high pitch or tinkling sounds, resonant to percussion. G tube present. Extremities: No cyanosis, clubbing, or edema present. Pulses are palpable 2/2. Flaccid right arm, right AKA with full movement. Muscle wasting present. Neuro: Alert and orientated x 3-4. PERRLA. Cranial nerves 2-12 intact without focal deficit. Skin: Warm, dry, and intact, without rash, erythema, or lesion. [place] healing skin tear to left upper arm. Lines: PIV Incisions: NA Psych: pleasant, cooperative, normal speech, normal affect, no hallucinations, no dysarthria, confused at times Objective Data Vital Signs Vital Signs: Vital Signs - 24 hr 12/20/23 15:50 12/20/23 16:58 12/20/23 19:34 Temperature 98.5 F Pulse Rate 96 90 87 Respiratory Rate 18 20 20 Blood Pressure 149/61 H 156/65 H 153/66 H Pulse Oximetry 100 100 100 Oxygen Delivery 12/20/23 21:42 12/20/23 23:03 12/20/23 23:13 Temperature 97.4 F L Pulse Rate 103 H 92 Respiratory Rate 24 H 20 Blood Pressure 160/77 H 146/74 H Pulse Oximetry 100 100 Oxygen Delivery Room Air 12/21/23 06:00 Temperature 97.0 F L Pulse Rate 101 H Respiratory Rate 20 Blood Pressure 147/73 H Pulse Oximetry 100 Oxygen Delivery Intake/Output Intake/Output: Intake & Output 12/18/23 12/19/23 12/20/23 12/21/23 23:59 23:59 23:59 23:59 Intake Total 50 500 Output Total 300 800 Balance -250 -300 Meds/Results Medications: Active Medications Generic Name Dose Route Start Last Admin Trade Name Freq PRN Reason Stop Dose Admin Acetaminophen 650 mg 12/20/23 23:52 12/21/23 00:04 Acetaminophen 325 Mg Tablet PO 650 mg Q4H PRN Administration Pain 1-3 or fever Amlodipine Besylate 10 mg 12/21/23 09:00 Amlodipine Besylate 5 Mg Tablet PO DAILY [facility] Atorvastatin Calcium 80 mg 12/21/23 09:00 Atorvastatin 40 Mg Tablet PO DAILY [facility] Clonidine HCl 0.1 mg 12/21/23 09:00 Clonidine Hcl 0.1 Mg Tablet PO DAILY [facility] Dronabinol 2.5 mg 12/21/23 11:00 Dronabinol (*Crx) 2.5 Mg Capsule PO BID@1100,1600 [facility] Ferrous Sulfate 325 mg 12/21/23 09:00 Ferrous Sulfate [address] PO BID [facility] Folic Acid 1 mg 12/21/23 09:00 Folic Acid 1 Mg Tablet PO DAILY [facility] Guaifenesin 600 mg 12/21/23 09:00 Guaifenesin 12 Hr 600 Mg Tabcr PO Q12HR [facility] Hydralazine HCl 100 mg 12/21/23 08:00 Hydralazine Hcl 50 Mg Tablet PO TIDWM [facility] Loperamide HCl 2 mg 12/20/23 23:52 Loperamide Hcl 2 Mg Capsule PO Q6H PRN Diarrhea Magnesium Hydroxide 30 ml 12/20/23 23:52 Magnesium Hydroxide Susp 30 Ml Udc PO HS PRN Constipation Miconazole Nitrate 1 applic 12/21/23 09:00 Miconazole Nitrate 2% Cream 30 Gm Tube TOPICAL 12/24/23 21:01 Q12HR [facility] Multivitamins/Minerals 1 tab 12/21/23 09:00 Multivitamins /C Lutein (Centrum Silver) Tablet *Bkc PO DAILY [facility] Arginine-Vitamin C- 1 each 12/21/23 09:00 Vitamin E [Arginaid] XX 12/22/23 08:59 4.5 Gram-156 Mg/9.2 DAILY [facility] Gram Powder Non-Formulary Medication 1 each 12/21/23 21:00 Oxyquinoline-Boric Acid VAGINAL 01/20/24 20:59 HS [facility] Pantoprazole Sodium 40 mg 12/21/23 09:00 Pantoprazole 40 Mg Tablet PO QAM [facility] Sodium Zirconium Cyclosilicate 5 gm 12/21/23 09:00 Sodium Zirconium Cyclosilicate 5 Gm Powd.Pack PO DAILY PRN For Potassium greater than 5 Zinc Oxide 1 applic 12/21/23 00:20 Zinc Oxide 20% Oint 30 Gm Tube TOPICAL Q8H PRN Wound Care Radiology Results: ITS Impressions Neck/Chest/Abdomen/Pelvis CT 12/20/23 19:32 IMPRESSION: Moderate esophagitis/gastritis. Urothelial enhancement in the bilateral urinary collecting systems may represent ascending infection. Severe cystitis. Biopsy-proven left upper lobe squamous cell carcinoma with neck, thyroid, and mediastinal metastatic disease. Labs Labs: Laboratory Results - last 24 hr 12/20/23 12/20/23 12/20/23 17:40 17:41 20:45 WBC 7.2 RBC 4.49 Hgb 13.8 Hct 43.1 MCV 96.0 MCH 30.7 MCHC 32.0 RDW 15.4 H Plt Count 227 D MPV 9.6 Immature Gran % (Auto) 0.8 H Neut % (Auto) 50.1 Lymph % (Auto) 21.9 Major % (Auto) 26.8 H Eos % (Auto) 0.3 Baso % (Auto) 0.1 L Lymph # (Auto) 1.58 Major # (Auto) 1.9 H Eos # (Auto) 0.0 Baso # (Auto) 0.0 Abs Immat Gran (auto) 0.06 H Absolute Neuts (auto) 3.6 Absolute Nucleated RBC 0.000 Nucleated RBC % 0.0 Platelet Estimate Adequate Hypochromasia 1+ Anisocytosis 1+ Schistocytes None seen PT 16.2 H INR 1.2 APTT 46.3 H Sodium 131 L Potassium 4.7 Chloride 99 Carbon Dioxide 24 Anion Gap 8 BUN 30 H Creatinine 1.00 Estim Creat Clear Calc 33 Estimated GFR > 60 Glucose 280 H Lactic Acid 1.1 Calcium 8.5 Magnesium 1.7 Total Bilirubin 0.5 AST 35 ALT 18 Alkaline Phosphatase 153 H Total Creatine Kinase 25 L Total Protein 8.0 Albumin 3.4 L TSH (Reflex) 1.670 Urine Color [place] H Urine Appearance Cloudy H Urine pH 7.5 Ur Specific [place] 1.013 Urine Protein 3+ H Urine Glucose (UA) Negative Urine Ketones Negative Ur Blood (Man) 3+ H Urine Nitrate Negative Urine Bilirubin Negative Urine Urobilinogen 1.0 Leukocyte Esterase Rfl 3+ H Urine RBC >100 H Urine WBC >100 H Ur Squamous Epith Cells None seen Urine Bacteria 4+ Urine Casts 0-2 Monoscreen Negative Influenza A (RT-PCR) Negative Influenza B (RT-PCR) Negative SARS-CoV-2 RNA (RT-PCR) Negative Group A Strep (PCR) Not detected
[2023-12-21] MEDS: cloNIDine HCL 0.1 MG TABLET PO (08:43)
[2023-12-21] MEDS: FOLIC ACID 1 MG TABLET PO (08:43)
[2023-12-21] MEDS: MULTIVITAMINS /C LUTEIN (CENTRUM SILVER) TABLET *BKC 1 TAB PO (08:43)
[2023-12-21] MEDS: hydrALAZINE HCL 50 MG TABLET 100 MG PO ×3 (08:44→16:08)
[2023-12-21] MEDS: ATORVASTATIN 40 MG TABLET 80 MG PO (08:44)
[2023-12-21] MEDS: FERROUS SULFATE 325 MG TABLET DR PO ×2 (08:44→16:08)
[2023-12-21] MEDS: PANTOPRAZOLE 40 MG TABLET PO (08:44)
[2023-12-21] MEDS: amLODIPine BESYLATE 5 MG TABLET 10 MG PO (08:44)
[2023-12-21] MEDS: guaiFENesin 12 HR 600 MG TABCR PO ×2 (08:45→20:52)
[2023-12-21] MEDS: MICONAZOLE NITRATE 2% CREAM 30 GM TUBE 1 APPLIC TOPICAL ×2 (08:45→20:53)
[2023-12-21 09:34] LABS: Basophils Percent Auto 0.4 % (0.2-1.2); Eosinophils Percent Auto 0.6 % (0-4.4); Hematocrit 45.2 % (37.0-47.0); Hemoglobin 14.3 g/dL (12.0-15.0); Immature Granulocyte Absolute 0.04 K/mm3 (0.00-0.031); Immature Granulocyte Percent A 0.8 % (0-0.5); Lymphocytes Absolute Auto 1.37 K/mm3 (0.9-3.2); Lymphocytes Percent Auto 28.2 % (18.3-44.2); Mean Corpuscular HGB Conc 31.6 g/dl (32-36); Mean Corpuscular Hemoglobin 30.3 pg (26-34); Mean Corpuscular Volume 95.8 fl (80-100); Mean Platelet Volume 9.3 fl (7.4-10.4); Monocytes Absolute Auto 1.2 K/mm3 (0.1-0.6); Monocytes Percent Auto 24.7 % (2.6-8.5); Neutrophils Absolute Auto 2.2 K/mm3 (1.3-6.7); Neutrophils Percent Auto 45.3 % (45.5-73.1); Platelet Count Result 195 k/mm3 (150-375); Red Blood Count 4.72 M/mm3 (4.2-5.4); Red Cell Distribution Width 15.1 % (11.5-14.5); White Blood Count 4.9 K/mm3 (4.5-10.0)
[2023-12-21 09:49] LABS: Alanine Aminotransferase 16 U/L (6-35); Albumin Level 3.2 g/dL (3.5-5.1); Alkaline Phosphatase 142 U/L (38-126); Anion Gap 5 mmol/L (4-12); Aspartate Amino Transferase 37 U/L (14-36); Bilirubin,Total 0.6 mg/dL (0.2-1.3); Blood Urea Nitrogen 26 mg/dL (7-17); Calcium 8.3 mg/dL (8.4-10.2); Carbon Dioxide 23 mmol/L (22-30); Chloride 101 mmol/L (98-107); Estimated CRCL calculation 37 ml/min; Estimated Glomerular Filt Rate > 60; Glucose 112 mg/dL (65-110); Magnesium 1.6 mg/dL (1.6-2.3); Potassium 4.4 mmol/L (3.4-5.0); Sodium 129 mmol/L (137-145)
[2023-12-21 10:09] LABS: Platelet Estimate Adequate (Adequate)
[2023-12-21 10:10] LABS: Anisocytosis 1+; Microcytosis 1+ (NORMAL); Schistocytes None Seen
[2023-12-21 11:07] VITALS: BMI 16.1
[2023-12-21] MEDS: droNABinol (*CRX) 2.5 MG CAPSULE PO ×2 (11:58→16:08)
[2023-12-21] MEDS: MEROPENEM 1 GM/NS 100 ML 1 GM/100 ML BAG IVPB (13:54)
[2023-12-21 14:00] VITALS: BP 172/64; PULSE 88; RESP 16; TEMP 36.9; O2SAT 100
[2023-12-21 17:06] LABS: Glucose Point of Care 98 mg/dl (65-105)
--- NOTE | 2023-12-21 17:52 | PDONCCN ---
HPI - Date of Consult Date/Time: 12/21/23 17:52 Requesting Physician: Deb Bowling DO Primary Care Provider: Jose Rosenbaum MD - Consult Narrative Reason for consult: Lung cancer Narrative: Justine Ruiz is a 73 year old female This is the 73-year-old female who is the assisted living resident history of Alzheimer's disease, congestive heart failure coma type 2 diabetes and peripheral vascular disease found to have 1.8 cm left upper lobe lung mass in July of 2023 underwent biopsy that came back positive for poorly differentiated squamous cell carcinoma. Patient was seen in the office on November 22 and PET scan was ordered. PET scan was performed on December 14 that showed mediastinal lymphadenopathy with left neck lymphadenopathy and the left upper lobe lung mass. Patient was admitted to the hospital with a diagnosis of UTI. She presented with hematuria. Patient is now complaining of worsening of the left neck is swelling. Review of Systems - Review of Systems All systems reviewed & are unremarkable except as noted in [facility] and [facility] Medical History: Medical History (Last Updated 12/21/23 @ 04:56 by Deb Bowling DO) Alzheimer disease Anemia Anorexia CHF (congestive heart failure) Continuous tobacco abuse COVID-19 CVA (cerebral vascular accident) Duodenal ulcer Dysphagia Gastritis GERD (gastroesophageal reflux disease) Hemiplegia affecting right dominant side Major depressive disorder Malnutrition Multinodular goiter PVD (peripheral vascular disease) Squamous cell carcinoma of left lung Poorly differentiated with metastases to mediastinum, thyroid and cervical lymph nodes Stage 3b chronic kidney disease Type 2 diabetes mellitus Surgical History: Surgical History (Last Reviewed 12/21/23 @ 04:56 by Deb Bowling DO) Hx of AKA (above knee amputation) Family History: Family History (Last Reviewed 12/21/23 @ 04:56 by Deb Bowling DO) Other Unknown family medical history - Social History Social History: Social History (Last Reviewed 12/21/23 @ 04:56 by Deb Bowling DO) Alcohol Use: Alcohol intake: former Substance Use: Substance use: never Substance use type: does not use Others: Spiritual care concerns: No Smoking Status: Smoking status: Current some day smoker Tobacco type: cigarettes Second hand tobacco smoke exposure: Yes Smoking Pack-years: Smoking packs per day: 2 Smoking cigarettes per day: 40.0 Years smoked: 63 Smoking pack-years: 126.00 Social Determinants of Health: Do You Feel Safe in your Home?: Yes Has the Lack of Transportation Kept You From Medical Appointments or From Getting Medications?: No Within the Past 12 Months, Were You Worried Whether Your Food Would Run Out Before You Got Money to Buy More?: Never True What is Your Housing Situation Today?: I Have Housing Are You Worried That in the Next 2 Months, You May Not Have Your Own Housing to Live In?: No Do You Have Trouble Paying Your Heating Or Electricity Bill?: No Do You Have Trouble Paying For Medicines?: No Are You Currently Unemployed and Looking for Work?: No Highest Level of Education Completed: Decline to Answer Do You Have Trouble With Childcare or the Care of a Family Member?: No Exam - Vital Signs Vital Signs - 24 hr 12/20/23 19:34 12/20/23 21:42 12/20/23 23:03 Temperature Pulse Rate 87 103 H Respiratory Rate 20 24 H Blood Pressure 153/66 H 160/77 H Pulse Oximetry 100 100 Oxygen Delivery Room Air 12/20/23 23:13 12/21/23 06:00 12/21/23 08:46 Temperature 36.3 C L 36.1 C L Pulse Rate 92 101 H Respiratory Rate 20 20 Blood Pressure 146/74 H 147/73 H Pulse Oximetry 100 100 Oxygen Delivery Room Air 12/21/23 14:00 Temperature 36.9 C Pulse Rate 88 Respiratory Rate 16 Blood Pressure 172/64 H Pulse Oximetry 100 Oxygen Delivery - Exam HEENT: EOMI, PERRLA, nares patent, TM normal Neck: lymphadenopathy Lungs: clear to auscultation Heart: no murmurs, gallops, or rubs, regular rhythm Abdomen: abdomen soft, non-distended, normal bowel sounds Extremities: normal pulses Integumentary: no abnormalities Neurological: normal speech Psychological: mental status NL, mood NL - Lab Results Laboratory Last Values WBC 4.9 K/mm3 (4.5-10.0) 12/21/23 09:26 RBC 4.72 M/mm3 (4.2-5.4) 12/21/23 09:26 Hgb 14.3 g/dL (12.0-15.0) 12/21/23 09:26 Hct 45.2 % (37.0-47.0) 12/21/23 09:26 MCV 95.8 fl (80-100) 12/21/23 09: MCH 30.3 pg (26-34) 12/21/23 09: MCHC 31.6 g/dl (32-36) L 12/21/23 09: RDW 15.1 % (11.5-14.5) H 12/21/23 09: Plt Count 195 k/mm3 (150-375) 12/21/23 09: MPV 9.3 fl (7.4-10.4) 12/21/23 09: Immature Gran % (Auto) 0.8 % (0-0.5) H 12/21/23 09: Neut % (Auto) 45.3 % (45.5-73.1) L 12/21/23 09: Lymph % (Auto) 28.2 % (18.3-44.2) 12/21/23 09: [place] % (Auto) 24.7 % (2.6-8.5) H 12/21/23 09: Eos % (Auto) 0.6 % (0-4.4) 12/21/23 09: Baso % (Auto) 0.4 % (0.2-1.2) 12/21/23 09: Lymph # (Auto) 1.37 K/mm3 (0.9-3.2) 12/21/23 09: [place] # (Auto) 1.2 K/mm3 (0.1-0.6) H 12/21/23 09: Eos # (Auto) 0.0 K/mm3 (0-0.3) 12/21/23 09: Baso # (Auto) 0.0 K/mm3 (0.0-0.1) 12/21/23 09: Abs Immat Gran (auto) 0.04 K/mm3 (0.00-0.031) H 12/21/23 09: Absolute Neuts (auto) 2.2 K/mm3 (1.3-6.7) 12/21/23 09: Absolute Nucleated RBC 0.000 K/mm3 (0.0-0.012) 12/21/23 09: Nucleated RBC % 0.0 % (0.0-0.2) 12/21/23 09:26 Platelet Estimate Adequate (Adequate) 12/21/23 09:26 Hypochromasia 1+ 12/20/23 17:41 Anisocytosis 1+ 12/21/23 09:26 Microcytosis 1+ (NORMAL) 12/21/23 09:26 Schistocytes None seen 12/21/23 09:26 PT 16.2 Seconds (11.1-14.7) H 12/20/23 17:41 INR 1.2 12/20/23 17:41 APTT 46.3 Seconds (22.3-36.8) H 12/20/23 17:41 Sodium 129 mmol/L (137-145) L 12/21/23 09:26 Potassium 4.4 mmol/L (3.4-5.0) 12/21/23 09:26 Chloride 101 mmol/L (98-107) 12/21/23 09:26 Carbon Dioxide 23 mmol/L (22-30) 12/21/23 09:26 Anion Gap 5 mmol/L (4-12) 12/21/23 09:26 BUN 26 mg/dL (7-17) H 12/21/23 09:26 Creatinine 0.90 mg/dL (0.7-1.0) 12/21/23 09:26 Estim Creat Clear Calc 37 ml/min 12/21/23 09:26 Estimated GFR > 60 (59-) 12/21/23 09:26 Glucose 112 mg/dL (65-110) H 12/21/23 09:26 POC Capillary Glucose 98 mg/dl (65-105) 12/21/23 16:59 Lactic Acid 1.1 mmol/L (0.7-2.0) 12/20/23 20:45 Calcium 8.3 mg/dL (8.4-10.2) L 12/21/23 09:26 Magnesium 1.6 mg/dL (1.6-2.3) 12/21/23 09:26 Total Bilirubin 0.6 mg/dL (0.2-1.3) 12/21/23 09:26 AST 37 U/L (14-36) H 12/21/23 09:26 ALT 16 U/L (6-35) 12/21/23 09:26 Alkaline Phosphatase 142 U/L (38-126) H 12/21/23 09:26 Total Creatine Kinase 25 U/L (30-135) L 12/20/23 17:40 Total Protein 7.0 g/dL (6.3-8.2) 12/21/23 09:26 Albumin 3.2 g/dL (3.5-5.1) L 12/21/23 09:26 TSH (Reflex) 1.670 uIU/mL (0.465-4.68) 12/20/23 17:41 Urine Color [place] (Yellow) H 12/20/23 17:41 Urine Appearance Cloudy (Clear) H 12/20/23 17:41 Urine pH 7.5 (5.0-9.0) 12/20/23 17:41 Ur Specific [place] 1.013 (1.001-1.035) 12/20/23 17:41 Urine Protein 3+ mg/dL (Negative) H 12/20/23 17:41 Urine Glucose (UA) Negative mg/dL (Negative) 12/20/23 17:41 Urine Ketones Negative mg/dL (Negative) 12/20/23 17:41 Ur Blood (Man) 3+ (Negative) H 12/20/23 17:41 Urine Nitrate Negative (Negative) 12/20/23 17:41 Urine Bilirubin Negative (Negative) 12/20/23 17:41 Urine Urobilinogen 1.0 mg/dL (<2.0) 12/20/23 17:41 Leukocyte Esterase Rfl 3+ VIVIANA/UL (Negative) H 12/20/23 17:41 Urine RBC >100 /hpf (0-2) H 12/20/23 17:41 Urine WBC >100 /hpf (0-3) H 12/20/23 17:41 Ur Squamous Epith Cells None seen /hpf (Few) 12/20/23 17:41 Urine Bacteria 4+ /hpf 12/20/23 17:41 Urine Casts 0-2 12/20/23 17:41 Monoscreen Negative (Negative) 12/20/23 17:41 Influenza A (RT-PCR) Negative (Negative) 12/20/23 17:41 Influenza B (RT-PCR) Negative (Negative) 12/20/23 17:41 SARS-CoV-2 RNA (RT-PCR) Negative (Negative) 12/20/23 17:41 Group A Strep (PCR) Not detected (Negative) 12/20/23 17:41 Meds Home Medications Medication Instructions Recorded Confirmed Type acetaminophen 325 mg tablet 650 mg PO Q4H PRN Pain 08/16/23 12/20/23 History amlodipine 10 mg tablet 10 mg PO DAILY 08/16/23 12/20/23 History apixaban 2.5 mg tablet (Eliquis) 2.5 mg PO BID 08/16/23 12/20/23 History arginine-vitamin C-vitamin E oral 4.5 g PO DAILY 08/16/23 12/20/23 History 4.5 gram-156 mg/9.2 gram powder pkt (Arginaid) atorvastatin 80 mg tablet 80 mg PO DAILY 08/16/23 12/20/23 History clonidine HCl 0.2 mg tablet 0.1 mg PO DAILY 08/16/23 12/20/23 History folic acid 1 mg tablet 1 mg PO DAILY 08/16/23 12/20/23 History glucagon HCl 1 mg solution for 1 mg IM ONCE PRN Hypoglycemia 08/16/23 12/20/23 History injection (Glucagon (HCl) Emergency Kit) guaifenesin 600 mg tablet, 600 mg PO Q12H 08/16/23 12/20/23 History extended release 12 hr hydralazine 100 mg tablet 100 mg PO TID 08/16/23 12/20/23 History loperamide 2 mg capsule 2 mg PO Q6H PRN Diarrhea 08/16/23 12/20/23 History (Anti-Diarrheal (loperamide)) multivit with minerals-iron 18 1 tablet PO DAILY 08/16/23 12/20/23 History mg-folic ac 400 mcg-vit K 25 mcg tablet (Adults Multivitamin) zinc oxide 40 % topical Q8H PRN Wound Care 08/16/23 12/20/23 History ferrous sulfate 325 mg (65 mg 325 mg PO BID #60 tabs 12/10/23 12/20/23 Rx iron) tablet,delayed release miconazole nitrate 2 % topical 1 applic topical BID #14 grams 12/10/23 12/20/23 Rx cream pantoprazole 40 mg tablet,delayed 40 mg PO QAM #30 tabs 12/10/23 12/20/23 Rx release (Protonix) sodium zirconium cyclosilicate 5 5 g PO DAILY #11 ea 12/10/23 12/20/23 Rx gram oral powder packet (Lokelma) dronabinol 2.5 mg capsule 2.5 mg PO BID 12/20/23 12/20/23 History magnesium hydroxide 400 mg/5 mL 30 ml PO HS PRN Constipation 12/20/23 12/20/23 History oral suspension (Milk of Magnesia) oxyquinoline-boric acid 0.025 % 1 ea vaginal HS 12/21/23 12/21/23 History vaginal gel Allergies Allergy/AdvReac Type Severity Reaction Status Date / Time strawberry Allergy Unknown Verified 12/20/23 23:20 Results - Labs CBC & Chem 7: 12/21/23 09:26 12/21/23 09:26 Labs: Short CBC 12/20/23 12/21/23 Range/Units 17:41 09:26 WBC 7.2 4.9 (4.5-10.0) K/mm3 Hgb 13.8 14.3 (12.0-15.0) g/dL Hct 43.1 45.2 (37.0-47.0) % Plt Count 227 D 195 (150-375) k/mm3 BMP 12/20/23 12/21/23 17:41 09:26 Sodium 131 L 129 L Potassium 4.7 4.4 Chloride 99 101 Carbon Dioxide 24 23 BUN 30 H 26 H Creatinine 1.00 0.90 Glucose 280 H 112 H Calcium 8.5 8.3 L Cardiac Enzymes 12/20/23 Range/Units 17:40 Total Creatine Kinase 25 L (30-135) U/L Liver Function 12/20/23 12/21/23 Range/Units 17:41 09:26 Total Bilirubin 0.5 0.6 (0.2-1.3) mg/dL AST 35 37 H (14-36) U/L ALT 18 16 (6-35) U/L Alkaline Phosphatase 153 H 142 H (38-126) U/L Albumin 3.4 L 3.2 L (3.5-5.1) g/dL Urine 12/20/23 Range/Units 17:41 Urine Color [place] H (Yellow) Urine Appearance Cloudy H (Clear) Urine pH 7.5 (5.0-9.0) Ur Specific [place] 1.013 (1.001-1.035) Urine Protein 3+ H (Negative) mg/dL Urine Glucose (UA) Negative (Negative) mg/dL Assessment and Plan - Additional Plan 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 PET scan was performed that showed worsening of the mediastinal lymphadenopathy and the left neck lymphadenopathy along with left upper lobe lung mass. This is stage IIIC disease. I offered treatment with chemotherapy along with some radiation therapy. Patient refused chemotherapy treatment and does not want to get MediPort placed. I have discussed this in detail with patient's son. On patient request we will proceed with hospice consultation. Patient's son informed me that he will discuss with the mother again and get back with my office if she changes her mind. I have answered all the questions the patient and the son satisfaction.
[2023-12-21] MEDS: ACETAMINOPHEN 500 MG TABLET PO (20:54)
[2023-12-21 21:07] LABS: Glucose Point of Care 180 mg/dl (65-105)
[2023-12-21 22:00] VITALS: BP 160/57; PULSE 84; RESP 18; TEMP 36.3; O2SAT 100
[2023-12-22] MEDS: MEROPENEM 1 GM/NS 100 ML 1 GM/100 ML BAG IVPB ×3 (00:10→20:44)
[2023-12-22 05:41] LABS: Basophils Percent Auto 0.3 % (0.2-1.2); Eosinophils Percent Auto 0.3 % (0-4.4); Hematocrit 43.2 % (37.0-47.0); Hemoglobin 13.5 g/dL (12.0-15.0); Immature Granulocyte Absolute 0.06 K/mm3 (0.00-0.031); Lymphocytes Absolute Auto 1.13 K/mm3 (0.9-3.2); Lymphocytes Percent Auto 18.3 % (18.3-44.2); Mean Corpuscular HGB Conc 31.3 g/dl (32-36); Mean Corpuscular Hemoglobin 30.3 pg (26-34); Mean Corpuscular Volume 96.9 fl (80-100); Mean Platelet Volume 9.4 fl (7.4-10.4); Monocytes Absolute Auto 1.8 K/mm3 (0.1-0.6); Monocytes Percent Auto 29.5 % (2.6-8.5); Neutrophils Absolute Auto 3.1 K/mm3 (1.3-6.7); Neutrophils Percent Auto 50.6 % (45.5-73.1); Platelet Count Result 232 k/mm3 (150-375); Red Blood Count 4.46 M/mm3 (4.2-5.4); Red Cell Distribution Width 14.9 % (11.5-14.5); White Blood Count 6.2 K/mm3 (4.5-10.0)
[2023-12-22 06:00] VITALS: BP 154/59; PULSE 80; RESP 20; TEMP 36.2; O2SAT 100
[2023-12-22 06:04] LABS: Alanine Aminotransferase 16 U/L (6-35); Albumin Level 3.2 g/dL (3.5-5.1); Alkaline Phosphatase 149 U/L (38-126); Anion Gap 4 mmol/L (4-12); Aspartate Amino Transferase 35 U/L (14-36); Bilirubin,Total 0.6 mg/dL (0.2-1.3); Blood Urea Nitrogen 34 mg/dL (7-17); Calcium 8.3 mg/dL (8.4-10.2); Carbon Dioxide 23 mmol/L (22-30); Chloride 101 mmol/L (98-107); Estimated CRCL calculation 31 ml/min; Estimated Glomerular Filt Rate 59; Glucose 106 mg/dL (65-110); Magnesium 1.8 mg/dL (1.6-2.3); Potassium 4.8 mmol/L (3.4-5.0); Sodium 128 mmol/L (137-145)
[2023-12-22 08:14] LABS: Glucose Point of Care 114 mg/dl (65-105)
[2023-12-22] MEDS: amLODIPine BESYLATE 5 MG TABLET 10 MG PO (08:26)
[2023-12-22] MEDS: FERROUS SULFATE 325 MG TABLET DR PO ×2 (08:26→16:29)
[2023-12-22] MEDS: PANTOPRAZOLE 40 MG TABLET PO (08:26)
[2023-12-22] MEDS: cloNIDine HCL 0.1 MG TABLET PO (08:26)
[2023-12-22] MEDS: hydrALAZINE HCL 50 MG TABLET 100 MG PO ×3 (08:26→16:29)
[2023-12-22] MEDS: MULTIVITAMINS /C LUTEIN (CENTRUM SILVER) TABLET *BKC 1 TAB PO (08:26)
[2023-12-22] MEDS: ATORVASTATIN 40 MG TABLET 80 MG PO (08:26)
[2023-12-22] MEDS: guaiFENesin 12 HR 600 MG TABCR PO ×2 (08:26→20:44)
[2023-12-22] MEDS: FOLIC ACID 1 MG TABLET PO (08:26)
[2023-12-22] MEDS: MICONAZOLE NITRATE 2% CREAM 30 GM TUBE 1 APPLIC TOPICAL ×2 (08:33→20:45)
--- NOTE | 2023-12-22 10:25 | P.PNIM_ITS ---
Progress Note: A&P Assessment and Plan (1) Hematuria: Qualifiers: Hematuria type: gross Qualified Code(s): R31.0 - Gross hematuria Code(s): R31.9 - Hematuria, unspecified Status: Acute Assessment and Plan: Cystits with ascending infection concerns on CT abd/pelvis * Avendano catheter placed with red urine * Hemoglobin 14.3 * Hx of ESBL. Placed on meropenem * Urine culture, blood culture pending * afebrile without leukocytosis * Patient reports dysuria during last admission on 12/08 but none currently 12/21: * urine malu today * urine culture was negative however given clinical findings and CT with concerns for ascending infection will proceed with treatment. * Case discussed with ID pharmacist surrounding history of ESBL. Will treat with meropenem inpatient and transition to ertapenem at discharge. Patient needs midline placed. Order is in. Will need IV antibiotics through 12/26. (2) Cystitis: Code(s): N30.90 - Cystitis, unspecified without hematuria Status: Acute Assessment and Plan: see 1 (3) Avendano catheter present: Code(s): Z97.8 - Presence of other specified devices Status: Acute Assessment and Plan: see 1 (4) Gastritis: Qualifiers: Chronicity: chronic Gastritis bleeding: without bleeding Gastritis type: unspecified gastritis Qualified Code(s): K29.50 - Unspecified chronic gastritis without bleeding Code(s): K29.70 - Gastritis, unspecified, without bleeding Status: Acute Assessment and Plan: * protonix (5) Duodenal ulcer: Code(s): K26.9 - Duodenal ulcer, unspecified as acute or chronic, without hemorrhage or perforation Status: Acute Assessment and Plan: Recent EGD from 12/01 with duodenal ulcer * continue PPI for 3 months (6) Malnutrition: Qualifiers: Malnutrition type: protein-calorie malnutrition Protein-calorie malnutrition severity: severe Qualified Code(s): E43 - Unspecified severe protein-calorie malnutrition Code(s): E46 - Unspecified protein-calorie malnutrition Status: Acute Assessment and Plan: * diabetic diet * minced and moist diet level 5 * Glucerna shakes * Glucerna tube feeding at night with [facility] 100 ml every 4 hours at night only * dronabinol 2.5 mg PO BID * dietitian consulted, rec's appreciated 12/21: * Sodium 128 today. * Stopping [facility] orders (7) Anorexia: Code(s): R63.0 - Anorexia Status: Acute Assessment and Plan: see above (8) Concern about end of life: Code(s): Z71.1 - Person with feared health complaint in whom no diagnosis is made Status: Acute Assessment and Plan: Worsening mass left lung upper lobe with biopsy-proven poorly differentiated squamous cell carcinoma. PET scan shows worsening left neck lymphadenopathy with continuous involved the left thyroid lobe seen on PET scan from 12/21/23. * Dr Freed consulted and saw patient here * hospice vs treatment * Patient's son, Stephen is her emergency contact and decision maker * Will need to address code status 12/21: * Patient wishes to be a DNR. Case discussed with her son, Stephen who is agree able to this. * Code status changed * Likely will be going hospice. (9) Type 2 diabetes mellitus with hyperglycemia, without long-term current use of insulin: Code(s): E11.65 - Type 2 diabetes mellitus with hyperglycemia Status: Acute Assessment and Plan: Hemoglobin 5.6% * Accu check ac/hs * SSI low dose Plan Feeding:DM diet with glucerna Analgesia: tylenol Thromboembolic prophylaxis: scd, eliquis on hold due to hematuria Ulcer prophylaxis: PPI Glycemic control: SSI, achs accu check Bowel regimen: prn miralax Lines: PIV Antibiotics: meropenem Disposition: [facility] at [facility] with possible hospice consult Subjective Date/time seen: 12/22/23 10:25 Interval history: 73-year-old female with a past medical history of dementia, 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 12/20: Patient is seen at the bedside with her son Stephen present. Patient states she is here for left neck swelling. She recently had her PET scan completed yesterday. She is supposed to be seen with heme/onc tomorrow. I spoke with Dr Freed who will see her today while inpatient. I discussed with her and her son, treatment of her pyelonephritis and UTI. Questions surrounding this illness discussed. Deferred discussion surrounding her cancer to oncology. 12/21: Patient is resting in bed in no acute distress. She denies pain at this time. Her urine is clearing up and is more malu in color rather than red as seen yesterday. A avendano catheter remains in place. I called and discuss code status with the patient's son who is agreeable with his mother's wish to be a DNR. He is calling her now to discuss hospice. If he is sure that she is okay with this then will proceed with hospice consult today. Review of Systems Review of Systems: All systems reviewed & are unremarkable except as noted in HPI and below Exam Narrative: General: frail, thin, appears stated age. HEENT: normocephalic, atraumatic. Mucous membranes moist. EOMI, PERRLA, bilateral sclera anicteric, no conjunctival injection. Neck supple without JVD. Swelling to left anterior neck with palpable, irregular nodularities. Slight right facial droop./ Respiratory: clear to auscultation bilaterally. No rales/rhonic/wheezes. Cardiovascular: Regular rate and rhythm, normal S1-S2 upon auscultation. No murmurs, rubs, or clicks. PMI is nondisplaced, capillary refill less than 3 second. Abdomen: Soft, round, no pulsatile masses, nondistended and nontender. No rebound, no guarding. No CVA tenderness, no hepatosplenomegaly. Bowel sounds present to all four quadrants. No high pitch or tinkling sounds, resonant to percussion. G tube present. Extremities: No cyanosis, clubbing, or edema present. Pulses are palpable 2/2. Flaccid right arm, right AKA with full movement. Muscle wasting present. Neuro: Alert and orientated x 3-4. PERRLA. Cranial nerves 2-12 intact without focal deficit. Skin: Warm, dry, and intact, without rash, erythema, or lesion. [place] healing skin tear to left upper arm. Lines: PIV Incisions: NA Psych: pleasant, cooperative, normal speech, normal affect, no hallucinations, no dysarthria, confused at times Objective Data Vital Signs Vital Signs: Vital Signs - 24 hr 12/21/23 14:00 12/21/23 20:45 12/21/23 22:00 Temperature 98.5 F 97.3 F L Pulse Rate 88 84 Respiratory Rate 16 18 Blood Pressure 172/64 H 160/57 H Pulse Oximetry 100 100 Oxygen Delivery Room Air 12/22/23 06:00 Temperature 97.2 F L Pulse Rate 80 Respiratory Rate 20 Blood Pressure 154/59 H Pulse Oximetry 100 Oxygen Delivery Intake/Output Intake/Output: Intake & Output 12/19/23 12/20/23 12/21/23 12/22/23 23:59 23:59 23:59 23:59 Intake Total 50 1420 976 Output Total 300 1550 1800 Balance -216 -317 -744 Meds/Results Medications: Active Medications Generic Name Dose Route Start Last Admin Trade Name Freq PRN Reason Stop Dose Admin Acetaminophen 500 mg 12/21/23 16:07 12/21/23 20:54 Acetaminophen 500 Mg Tablet PO 500 mg Q4H PRN Administration Mild Pain (1-3) or Fever Amlodipine Besylate 10 mg 12/21/23 09:00 12/22/23 08:26 Amlodipine Besylate 5 Mg Tablet PO 10 mg DAILY SENDY Administration Atorvastatin Calcium 80 mg 12/21/23 09:00 12/22/23 08:26 Atorvastatin 40 Mg Tablet PO 80 mg DAILY SENDY Administration Clonidine HCl 0.1 mg 12/21/23 09:00 12/22/23 08:26 Clonidine Hcl 0.1 Mg Tablet PO 0.1 mg DAILY SENDY Administration Dextrose 12.5 gm 12/21/23 16:06 Dextrose 50% 25 Gm/50 Ml Syringe IV PUSH PRN PRN Hypoglycemia Protocol Dronabinol 2.5 mg 12/21/23 11:00 12/21/23 16:08 Dronabinol (*Crx) 2.5 Mg Capsule PO 2.5 mg BID@1100,1600 SENDY Administration Ferrous Sulfate 325 mg 12/21/23 09:00 12/22/23 08:26 Ferrous Sulfate [address] PO 325 mg BID SENDY Administration Folic Acid 1 mg 12/21/23 09:00 12/22/23 08:26 Folic Acid 1 Mg Tablet PO 1 mg DAILY SENDY Administration Glucagon 1 mg 12/21/23 16:06 Glucagon For Inj 1 Mg Vial IM PRN PRN Hypoglycemia Protocol Glucose 15 gm 12/21/23 16:06 Glucose Oral Gel 15 Gm Of Glucse In 37.5 Gm Tube PO PRN PRN Hypoglycemia Protocol Guaifenesin 600 mg 12/21/23 09:00 12/22/23 08:26 Guaifenesin 12 Hr 600 Mg Tabcr PO 600 mg Q12HR SENDY Administration Hydralazine HCl 100 mg 12/21/23 08:00 12/22/23 08:26 Hydralazine Hcl 50 Mg Tablet PO 100 mg TIDWM [facility] Administration Meropenem 1 gm in 100 mls @ 200 mls/hr 12/21/23 14:00 12/22/23 00:40 IVPB Infused BID@1200,0000 SENDY Infusion Dextrose 1,000 mls @ 100 mls/hr 12/21/23 16:06 Dextrose 5% 1,000 Ml IVPB PRN PRN Hypoglycemia Protocol Insulin Aspart 2 - 5 units 12/21/23 17:00 12/22/23 08:29 Insulin Aspart (*Bkc) 100 Units/Ml SUB-Q Not Given TIDWM [facility] Protocol Loperamide HCl 2 mg 12/20/23 23:52 Loperamide Hcl 2 Mg Capsule PO Q6H PRN Diarrhea Magnesium Hydroxide 30 ml 12/20/23 23:52 Magnesium Hydroxide Susp 30 Ml Udc PO HS PRN Constipation Miconazole Nitrate 1 applic 12/21/23 09:00 12/22/23 08:33 Miconazole Nitrate 2% Cream 30 Gm Tube TOPICAL 12/24/23 21:01 1 applic Q12HR [facility] Administration Miconazole Nitrate 1 applic 12/21/23 09:00 12/22/23 08:34 Miconazole 2% Antifungal Ointment 56 Gm TOPICAL 1 applic Q12HR [facility] Administration Miscellaneous Information 1 each 12/21/23 00:01 12/22/23 08:29 Boric Acid 600 Mg Vaginal Daily. Can We See If Son Can Bring In. Not Urgent XX 01/20/24 00:00 Not Given CLARIFY [facility] Multivitamins/Minerals 1 tab 12/21/23 09:00 12/22/23 08:26 Multivitamins /C Lutein (Centrum Silver) Tablet *Bkc PO 1 tab DAILY [facility] Administration Non-Formulary Medication 1 each 12/21/23 21:00 Oxyquinoline-Boric Acid VAGINAL 01/20/24 20:59 HS [facility] Non-Formulary Medication 1 each 12/22/23 09:00 Nonformulary Drug VAGINAL 01/21/24 08:59 DAILY SENDY Pantoprazole Sodium 40 mg 12/21/23 09:00 12/22/23 08:26 Pantoprazole 40 Mg Tablet PO 40 mg QAM SENDY Administration Polyethylene Glycol 17 gm 12/21/23 16:08 Polyethylene Glycol 3350 17 Gm Powd.Pack PO QAM PRN Constipation Sodium Zirconium Cyclosilicate 5 gm 12/21/23 09:00 Sodium Zirconium Cyclosilicate 5 Gm Powd.Pack PO DAILY PRN For Potassium greater than 5 Radiology Results: ITS Impressions Neck/Chest/Abdomen/Pelvis CT 12/20/23 19:32 IMPRESSION: Moderate esophagitis/gastritis. Urothelial enhancement in the bilateral urinary collecting systems may represent ascending infection. Severe cystitis. Biopsy-proven left upper lobe squamous cell carcinoma with neck, thyroid, and mediastinal metastatic disease. Labs Labs: Laboratory Results - last 24 hr 12/21/23 12/21/23 12/22/23 16:59 20:49 05:27 WBC 6.2 RBC 4.46 Hgb 13.5 Hct 43.2 MCV 96.9 MCH 30.3 MCHC 31.3 L RDW 14.9 H Plt Count 232 MPV 9.4 Immature Gran % (Auto) 1.0 H Neut % (Auto) 50.6 Lymph % (Auto) 18.3 [place] % (Auto) 29.5 H Eos % (Auto) 0.3 Baso % (Auto) 0.3 Lymph # (Auto) 1.13 [place] # (Auto) 1.8 H Eos # (Auto) 0.0 Baso # (Auto) 0.0 Abs Immat Gran (auto) 0.06 H Absolute Neuts (auto) 3.1 Absolute Nucleated RBC 0.000 Nucleated RBC % 0.0 Sodium 128 L Potassium 4.8 Chloride 101 Carbon Dioxide 23 Anion Gap 4 BUN 34 H Creatinine 1.10 H Estim Creat Clear Calc 31 Estimated GFR 59 Glucose 106 POC Capillary Glucose 98 180 H Calcium 8.3 L Magnesium 1.8 Total Bilirubin 0.6 AST 35 ALT 16 Alkaline Phosphatase 149 H Total Protein 7.0 Albumin 3.2 L 12/22/23 08:09 WBC RBC Hgb Hct MCV MCH MCHC RDW Plt Count MPV Immature Gran % (Auto) Neut % (Auto) Lymph % (Auto) [place] % (Auto) Eos % (Auto) Baso % (Auto) Lymph # (Auto) [place] # (Auto) Eos # (Auto) Baso # (Auto) Abs Immat Gran (auto) Absolute Neuts (auto) Absolute Nucleated RBC Nucleated RBC % Sodium Potassium Chloride Carbon Dioxide Anion Gap BUN Creatinine Estim Creat Clear Calc Estimated GFR Glucose POC Capillary Glucose 114 H Calcium Magnesium Total Bilirubin AST ALT Alkaline Phosphatase Total Protein Albumin Quality VTE Prophylaxis VTE prophylaxis: mechanical ordered (SCDs left leg only as 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
[2023-12-22] MEDS: droNABinol (*CRX) 2.5 MG CAPSULE PO ×2 (11:54→16:29)
[2023-12-22 11:57] LABS: Glucose Point of Care 166 mg/dl (65-105)
[2023-12-22 14:00] VITALS: BP 143/59; PULSE 85; RESP 16; TEMP 37; O2SAT 100
[2023-12-22] MEDS: LIDOCAINE HCL 1% LOCAL INJ 2 ML AMPUL 5 ML INFILTRATE (14:15)
[2023-12-22] MEDS: ACETAMINOPHEN 500 MG TABLET PO (16:31)
[2023-12-22 17:03] LABS: Glucose Point of Care 93 mg/dl (65-105)
[2023-12-22] MEDS: SALINE LOCK FLUSH 10 ML IV PUSH ×2 (20:45→20:46)
[2023-12-22 20:58] VITALS: BP 145/61; PULSE 89; RESP 16; TEMP 37.3; O2SAT 99
[2023-12-22 20:58] LABS: Glucose Point of Care 167 mg/dl (65-105)
[2023-12-23 05:55] VITALS: BP 159/62; PULSE 81; RESP 16; TEMP 36.9; O2SAT 100
[2023-12-23 06:19] LABS: Basophils Percent Auto 0.1 % (0.2-1.2); Eosinophils Percent Auto 0.3 % (0-4.4); Hematocrit 37.5 % (37.0-47.0); Hemoglobin 11.9 g/dL (12.0-15.0); Immature Granulocyte Absolute 0.07 K/mm3 (0.00-0.031); Lymphocytes Percent Auto 20.5 % (18.3-44.2); Mean Corpuscular HGB Conc 31.7 g/dl (32-36); Mean Corpuscular Hemoglobin 30.4 pg (26-34); Mean Corpuscular Volume 95.9 fl (80-100); Mean Platelet Volume 9.2 fl (7.4-10.4); Monocytes Absolute Auto 1.9 K/mm3 (0.1-0.6); Monocytes Percent Auto 27.4 % (2.6-8.5); Neutrophils Absolute Auto 3.5 K/mm3 (1.3-6.7); Neutrophils Percent Auto 50.7 % (45.5-73.1); Platelet Count Result 212 k/mm3 (150-375); Red Blood Count 3.91 M/mm3 (4.2-5.4); Red Cell Distribution Width 15.1 % (11.5-14.5); White Blood Count 6.8 K/mm3 (4.5-10.0)
[2023-12-23] MEDS: SALINE LOCK FLUSH 10 ML IV PUSH ×2 (06:20→14:03)
[2023-12-23] MEDS: SALINE LOCK FLUSH 20 ML IV PUSH (06:20)
[2023-12-23 06:33] LABS: Alanine Aminotransferase 14 U/L (6-35); Albumin Level 2.9 g/dL (3.5-5.1); Alkaline Phosphatase 131 U/L (38-126); Anion Gap 3 mmol/L (4-12); Aspartate Amino Transferase 38 U/L (14-36); Bilirubin,Total 0.5 mg/dL (0.2-1.3); Blood Urea Nitrogen 41 mg/dL (7-17); Calcium 8.4 mg/dL (8.4-10.2); Carbon Dioxide 24 mmol/L (22-30); Chloride 103 mmol/L (98-107); Estimated CRCL calculation 26 ml/min; Estimated Glomerular Filt Rate 49; Glucose 119 mg/dL (65-110); Magnesium 1.7 mg/dL (1.6-2.3); Potassium 5.6 mmol/L (3.4-5.0); Sodium 130 mmol/L (137-145)
--- NOTE | 2023-12-23 07:25 | P.PNIM_ITS ---
Progress Note: A&P Assessment and Plan (1) Hematuria: Qualifiers: Hematuria type: gross Qualified Code(s): R31.0 - Gross hematuria Code(s): R31.9 - Hematuria, unspecified Status: Acute Assessment and Plan: Cystits with ascending infection concerns on CT abd/pelvis * Avendano catheter placed with red urine * Hemoglobin 14.3 * Hx of ESBL. Placed on meropenem * Urine culture, blood culture pending * afebrile without leukocytosis * Patient reports dysuria during last admission on 12/08 but none currently 12/21: * urine malu today * urine culture was negative however given clinical findings and CT with concerns for ascending infection will proceed with treatment. * Case discussed with ID pharmacist surrounding history of ESBL. Will treat with meropenem inpatient and transition to ertapenem at discharge. Patient needs midline placed. Order is in. Will need IV antibiotics through 12/26. 12/22: * On meropenem * Cr bumped to 1.3 today * Started IVF at 100 ml per hour * FeNA studies ordered * May need renal ultrasound (2) Cystitis: Code(s): N30.90 - Cystitis, unspecified without hematuria Status: Acute Assessment and Plan: see 1 (3) Avendano catheter present: Code(s): Z97.8 - Presence of other specified devices Status: Acute Assessment and Plan: see 1 (4) Gastritis: Qualifiers: Chronicity: chronic Gastritis bleeding: without bleeding Gastritis type: unspecified gastritis Qualified Code(s): K29.50 - Unspecified chronic gastritis without bleeding Code(s): K29.70 - Gastritis, unspecified, without bleeding Status: Acute Assessment and Plan: * protonix (5) Duodenal ulcer: Code(s): K26.9 - Duodenal ulcer, unspecified as acute or chronic, without hemorrhage or perforation Status: Acute Assessment and Plan: Recent EGD from 12/01 with duodenal ulcer * continue PPI for 3 months (6) Malnutrition: Qualifiers: Malnutrition type: protein-calorie malnutrition Protein-calorie malnutrition severity: severe Qualified Code(s): E43 - Unspecified severe protein-calorie malnutrition Code(s): E46 - Unspecified protein-calorie malnutrition Status: Acute Assessment and Plan: * diabetic diet * minced and moist diet level 5 * Glucerna shakes * Glucerna tube feeding at night with [facility] 100 ml every 4 hours at night only * dronabinol 2.5 mg PO BID * dietitian consulted, rec's appreciated 12/21: * Sodium 128 today. * Stopping [facility] orders 12/22: * Na back to 130 * K+ 5.6 today. Added Lokelma once (7) Anorexia: Code(s): R63.0 - Anorexia Status: Acute Assessment and Plan: see above (8) Concern about end of life: Code(s): Z71.1 - Person with feared health complaint in whom no diagnosis is made Status: Acute Assessment and Plan: Worsening mass left lung upper lobe with biopsy-proven poorly differentiated squamous cell carcinoma. PET scan shows worsening left neck lymphadenopathy with continuous involved the left thyroid lobe seen on PET scan from 12/21/23. * Dr Freed consulted and saw patient here * hospice vs treatment * Patient's son, Stephen is her emergency contact and decision maker * Will need to address code status 12/21: * Patient wishes to be a DNR. Case discussed with her son, Stephen who is agreeable to this. * Code status changed * Likely will be going hospice. 12/22: * Patient's son is consulting [facility] for hospice (9) Type 2 diabetes mellitus with hyperglycemia, without long-term current use of insulin: Code(s): E11.65 - Type 2 diabetes mellitus with hyperglycemia Status: Acute Assessment and Plan: Hemoglobin 5.6% * Accu check ac/hs * SSI low dose Plan Feeding:DM diet with glucerna Analgesia: tylenol Thromboembolic prophylaxis: scd, eliquis on hold due to hematuria Ulcer prophylaxis: PPI Glycemic control: SSI, achs accu check Bowel regimen: prn miralax Lines: PIV Antibiotics: meropenem Disposition: [facility] at in with possible hospice consult Subjective Date/time seen: 12/23/23 07:25 Interval history: 73-year-old female with a past medical history of dementia, 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 12/20: Patient is seen at the bedside with her son Stephen present. Patient states she is here for left neck swelling. She recently had her PET scan completed yesterday. She is supposed to be seen with heme/onc tomorrow. I spoke with Dr Freed who will see her today while inpatient. I discussed with her and her son, treatment of her pyelonephritis and UTI. Questions surrounding this illness discussed. Deferred discussion surrounding her cancer to oncology. 12/21: Patient is resting in bed in no acute distress. She denies pain at this time. Her urine is clearing up and is more malu in color rather than red as seen yesterday. A avendano catheter remains in place. I called and discuss code status with the patient's son who is agreeable with his mother's wish to be a DNR. He is calling her now to discuss hospice. If he is sure that she is okay with this then will proceed with hospice consult today. 12/22: Patient doing well today. Start her on some IV fluids for creatinine bump. She is going to go home with hospice with [facility]. Review of Systems Review of Systems: All systems reviewed & are unremarkable except as noted in HPI and below Exam Narrative: General: frail, thin, appears stated age. HEENT: normocephalic, atraumatic. Mucous membranes moist. EOMI, PERRLA, bilateral sclera anicteric, no conjunctival injection. Neck supple without JVD. Swelling to left anterior neck with palpable, irregular nodularities. Slight right facial droop./ Respiratory: clear to auscultation bilaterally. No rales/rhonic/wheezes. Cardiovascular: Regular rate and rhythm, normal S1-S2 upon auscultation. No murmurs, rubs, or clicks. PMI is nondisplaced, capillary refill less than 3 second. Abdomen: Soft, round, no pulsatile masses, nondistended and nontender. No rebound, no guarding. No CVA tenderness, no hepatosplenomegaly. Bowel sounds present to all four quadrants. No high pitch or tinkling sounds, resonant to percussion. G tube present. Extremities: No cyanosis, clubbing, or edema present. Pulses are palpable 2/2. Flaccid right arm, right AKA with full movement. Muscle wasting present. Neuro: Alert and orientated x 3-4. PERRLA. Cranial nerves 2-12 intact without focal deficit. Skin: Warm, dry, and intact, without rash, erythema, or lesion. [place] healing skin tear to left upper arm. Lines: PIV Incisions: NA Psych: pleasant, cooperative, normal speech, normal affect, no hallucinations, no dysarthria, confused at times Objective Data Vital Signs Vital Signs: Vital Signs - 24 hr 12/22/23 08:25 12/22/23 14:00 12/22/23 20:58 Temperature 98.6 F 99.1 F Pulse Rate 85 89 Respiratory Rate 16 16 Blood Pressure 143/59 H 145/61 H Pulse Oximetry 100 99 Oxygen Delivery Room Air 12/22/23 20:00 12/23/23 05:55 Temperature 98.4 F Pulse Rate 81 Respiratory Rate 16 Blood Pressure 159/62 H Pulse Oximetry 100 Oxygen Delivery Room Air Intake/Output Intake/Output: Intake & Output 12/20/23 12/21/23 12/22/23 12/23/23 23:59 23:59 23:59 23:59 Intake Total 50 1420 2398 713 Output Total 300 1550 2600 750 Balance -250 -130 -202 -37 Meds/Results Medications: Active Medications Generic Name Dose Route Start Last Admin Trade Name Freq PRN Reason Stop Dose Admin Acetaminophen 500 mg 12/21/23 16:07 12/22/23 16:31 Acetaminophen 500 Mg Tablet PO 500 mg Q4H PRN Administration Mild Pain (1-3) or Fever Amlodipine Besylate 10 mg 12/21/23 09:00 12/22/23 08:26 Amlodipine Besylate 5 Mg Tablet PO 10 mg DAILY SENDY Administration Atorvastatin Calcium 80 mg 12/21/23 09:00 12/22/23 08:26 Atorvastatin 40 Mg Tablet PO 80 mg DAILY SENDY Administration Clonidine HCl 0.1 mg 12/21/23 09:00 12/22/23 08:26 Clonidine Hcl 0.1 Mg Tablet PO 0.1 mg DAILY SENDY Administration Dextrose 12.5 gm 12/21/23 16:06 Dextrose 50% 25 Gm/50 Ml Syringe IV PUSH PRN PRN Hypoglycemia Protocol Dronabinol 2.5 mg 12/21/23 11:00 12/22/23 16:29 Dronabinol (*Crx) 2.5 Mg Capsule PO 2.5 mg BID@1100,1600 SENDY Administration Ferrous Sulfate 325 mg 12/21/23 09:00 12/22/23 16:29 Ferrous Sulfate [address] PO 325 mg BID SENDY Administration Folic Acid 1 mg 12/21/23 09:00 12/22/23 08:26 Folic Acid 1 Mg Tablet PO 1 mg DAILY SENDY Administration Glucagon 1 mg 12/21/23 16:06 Glucagon For Inj 1 Mg Vial IM PRN PRN Hypoglycemia Protocol Glucose 15 gm 12/21/23 16:06 Glucose Oral Gel 15 Gm Of Glucse In 37.5 Gm Tube PO PRN PRN Hypoglycemia Protocol Guaifenesin 600 mg 12/21/23 09:00 12/22/23 20:44 Guaifenesin 12 Hr 600 Mg Tabcr PO 600 mg Q12HR [facility] Administration Hydralazine HCl 100 mg 12/21/23 08:00 12/22/23 16:29 Hydralazine Hcl 50 Mg Tablet PO 100 mg TIDWM [facility] Administration Dextrose 1,000 mls @ 100 mls/hr 12/21/23 16:06 Dextrose 5% 1,000 Ml IVPB PRN PRN Hypoglycemia Protocol Meropenem 1 gm in 100 mls @ 200 mls/hr 12/22/23 12:00 12/22/23 21:15 IVPB 12/27/23 21:29 Infused Q12HR [facility] Infusion Insulin Aspart 2 - 5 units 12/21/23 17:00 12/22/23 16:58 Insulin Aspart (*Bkc) 100 Units/Ml SUB-Q Not Given TIDWM [facility] Protocol Loperamide HCl 2 mg 12/20/23 23:52 Loperamide Hcl 2 Mg Capsule PO Q6H PRN Diarrhea Magnesium Hydroxide 30 ml 12/20/23 23:52 Magnesium Hydroxide Susp 30 Ml Udc PO HS PRN Constipation Miconazole Nitrate 1 applic 12/21/23 09:00 12/22/23 20:45 Miconazole Nitrate 2% Cream 30 Gm Tube TOPICAL 12/24/23 21:01 1 applic Q12HR [facility] Administration Miconazole Nitrate 1 applic 12/21/23 09:00 12/22/23 20:45 Miconazole 2% Antifungal Ointment 56 Gm TOPICAL 1 applic Q12HR [facility] Administration Miscellaneous Information 1 each 12/21/23 00:01 05/30/24 08:29 Boric Acid 600 Mg Vaginal Daily. Can We See If Son Can Bring In. Not Urgent XX 01/20/24 00:00 Not Given CLARIFY SENDY Multivitamins/Minerals 1 tab 12/21/23 09:00 12/22/23 08:26 Multivitamins /C Lutein (Centrum Silver) Tablet *Bkc PO 1 tab DAILY SENDY Administration Non-Formulary Medication 1 each 12/21/23 21:00 Oxyquinoline-Boric Acid VAGINAL 01/20/24 20:59 HS SENDY Non-Formulary Medication 1 each 12/22/23 09:00 Nonformulary Drug VAGINAL 01/21/24 08:59 DAILY SENDY Pantoprazole Sodium 40 mg 12/21/23 09:00 12/22/23 08:26 Pantoprazole 40 Mg Tablet PO 40 mg QAM SENDY Administration Polyethylene Glycol 17 gm 12/21/23 16:08 Polyethylene Glycol 3350 17 Gm Powd.Pack PO QAM PRN Constipation Sodium Chloride 10 ml 12/22/23 22:00 12/23/23 06:20 Saline Lock Flush IV PUSH 10 ml Q8HR SENDY Administration Sodium Chloride 10 ml 12/22/23 14:34 12/22/23 20:45 Saline Lock Flush IV PUSH 10 ml PRN PRN Administration Flush Sodium Chloride 20 ml 12/22/23 14:34 12/23/23 06:20 Saline Lock Flush IV PUSH 20 ml PRN PRN Administration after blood draws Sodium Zirconium Cyclosilicate 5 gm 12/21/23 09:00 Sodium Zirconium Cyclosilicate 5 Gm Powd.Pack PO DAILY PRN For Potassium greater than 5 Radiology Results: ITS Impressions Neck/Chest/Abdomen/Pelvis CT 12/20/23 19:32 IMPRESSION: Moderate esophagitis/gastritis. Urothelial enhancement in the bilateral urinary collecting systems may represent ascending infection. Severe cystitis. Biopsy-proven left upper lobe squamous cell carcinoma with neck, thyroid, and mediastinal metastatic disease. Labs Labs: Laboratory Results - last 24 hr 12/22/23 12/22/23 12/22/23 08:09 11:52 16:58 WBC RBC Hgb Hct MCV MCH MCHC RDW Plt Count MPV Immature Gran % (Auto) Neut % (Auto) Lymph % (Auto) [place] % (Auto) Eos % (Auto) Baso % (Auto) Lymph # (Auto) [place] # (Auto) Eos # (Auto) Baso # (Auto) Abs Immat Gran (auto) Absolute Neuts (auto) Absolute Nucleated RBC Nucleated RBC % Sodium Potassium Chloride Carbon Dioxide Anion Gap BUN Creatinine Estim Creat Clear Calc Estimated GFR Glucose POC Capillary Glucose 114 H 166 H 93 Calcium Magnesium Total Bilirubin AST ALT Alkaline Phosphatase Total Protein Albumin 12/22/23 12/23/23 12/23/23 20:17 06:09 06:10 WBC 6.8 RBC 3.91 L Hgb 11.9 L Hct 37.5 MCV 95.9 MCH 30.4 MCHC 31.7 L RDW 15.1 H Plt Count 212 MPV 9.2 Immature Gran % (Auto) 1.0 H Neut % (Auto) 50.7 Lymph % (Auto) 20.5 Winston % (Auto) 27.4 H Eos % (Auto) 0.3 Baso % (Auto) 0.1 L Lymph # (Auto) 1.40 Winston # (Auto) 1.9 H Eos # (Auto) 0.0 Baso # (Auto) 0.0 Abs Immat Gran (auto) 0.07 H Absolute Neuts (auto) 3.5 Absolute Nucleated RBC 0.000 Nucleated RBC % 0.0 Sodium 130 L Potassium 5.6 H Chloride 103 Carbon Dioxide 24 Anion Gap 3 L BUN 41 H Creatinine 1.30 H Estim Creat Clear Calc 26 Estimated GFR 49 L Glucose 119 H POC Capillary Glucose 167 H Calcium 8.4 Magnesium 1.7 Total Bilirubin 0.5 AST 38 H ALT 14 Alkaline Phosphatase 131 H Total Protein 7.0 Albumin 2.9 L Quality VTE Prophylaxis VTE prophylaxis: mechanical ordered (SCDs left leg only as 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
[2023-12-23] MEDS: SODIUM ZIRCONIUM CYCLOSILICATE 5 GM POWD.PACK PO (07:27)
[2023-12-23 08:14] LABS: Glucose Point of Care 105 mg/dl (65-105)
[2023-12-23] MEDS: SODIUM CHLORIDE 0.9% IV 1,000 ML 100 ML IV CONT (09:04)
[2023-12-23] MEDS: MEROPENEM 1 GM/NS 100 ML 1 GM/100 ML BAG IVPB (09:05)
[2023-12-23] MEDS: MICONAZOLE NITRATE 2% CREAM 30 GM TUBE 1 APPLIC TOPICAL (09:06)
[2023-12-23] MEDS: FERROUS SULFATE 325 MG TABLET DR PO ×2 (09:35→16:46)
[2023-12-23] MEDS: guaiFENesin 12 HR 600 MG TABCR PO (09:35)
[2023-12-23] MEDS: PANTOPRAZOLE 40 MG TABLET PO (09:35)
[2023-12-23] MEDS: ATORVASTATIN 40 MG TABLET 80 MG PO (09:35)
[2023-12-23] MEDS: amLODIPine BESYLATE 5 MG TABLET 10 MG PO (09:35)
[2023-12-23] MEDS: hydrALAZINE HCL 50 MG TABLET 100 MG PO ×3 (09:35→16:46)
[2023-12-23] MEDS: cloNIDine HCL 0.1 MG TABLET PO (09:35)
[2023-12-23] MEDS: MULTIVITAMINS /C LUTEIN (CENTRUM SILVER) TABLET *BKC 1 TAB PO (09:35)
[2023-12-23] MEDS: FOLIC ACID 1 MG TABLET PO (09:35)
[2023-12-23] MEDS: ACETAMINOPHEN 500 MG TABLET PO ×2 (09:38→16:46)
[2023-12-23 09:57] LABS: Creatinine Urine 8.9 mg/dL
[2023-12-23 10:05] LABS: Sodium Urine Random 75 meq/L
[2023-12-23] MEDS: droNABinol (*CRX) 2.5 MG CAPSULE PO ×2 (12:02→16:46)
[2023-12-23 12:10] LABS: Glucose Point of Care 135 mg/dl (65-105)
--- NOTE | 2023-12-23 14:04 | P.DS_ITS ---
DS: Admitting Diagnosis Discharge Date 12/22 Admitting Diagnosis left neck swelling DS: Discharge Diagnosis Discharge Diagnosis (1) Hematuria: Qualifiers: Hematuria type: gross Qualified Code(s): R31.0 - Gross hematuria Code(s): R31.9 - Hematuria, unspecified Status: Acute Assessment and Plan: Cystits with ascending infection concerns on CT abd/pelvis * Avendano catheter placed with red urine * Hemoglobin 14.3 * Hx of ESBL. Placed on meropenem * Urine culture, blood culture pending * afebrile without leukocytosis * Patient reports dysuria during last admission on 12/08 but none currently 12/21: * urine malu today * urine culture was negative however given clinical findings and CT with concerns for ascending infection will proceed with treatment. * Case discussed with ID pharmacist surrounding history of ESBL. Will treat with meropenem inpatient and transition to ertapenem at discharge. Patient needs midline placed. Order is in. Will need IV antibiotics through 12/26. 12/22: * On meropenem * Cr bumped to 1.3 today * Started IVF at 100 ml per hour * FeNA studies ordered * May need renal ultrasound (2) Cystitis: Code(s): N30.90 - Cystitis, unspecified without hematuria Status: Acute Assessment and Plan: see 1 (3) Avendano catheter present: Code(s): Z97.8 - Presence of other specified devices Status: Acute Assessment and Plan: see 1 (4) Gastritis: Qualifiers: Gastritis type: unspecified gastritis Chronicity: chronic Gastritis bleeding: without bleeding Qualified Code(s): K29.50 - Unspecified chronic gastritis without bleeding Code(s): K29.70 - Gastritis, unspecified, without bleeding Status: Acute Assessment and Plan: * protonix (5) Duodenal ulcer: Code(s): K26.9 - Duodenal ulcer, unspecified as acute or chronic, without hemorrhage or perforation Status: Acute Assessment and Plan: Recent EGD from 12/01 with duodenal ulcer * continue PPI for 3 months (6) Malnutrition: Qualifiers: Malnutrition type: protein-calorie malnutrition Protein-calorie malnutrition severity: severe Qualified Code(s): E43 - Unspecified severe prote in-calorie malnutrition Code(s): E46 - Unspecified protein-calorie malnutrition Status: Acute Assessment and Plan: * diabetic diet * minced and moist diet level 5 * Glucerna shakes * Glucerna tube feeding at night with [facility] 100 ml every 4 hours at night only * dronabinol 2.5 mg PO BID * dietitian consulted, rec's appreciated 12/21: * Sodium 128 today. * Stopping [facility] orders 12/22: * Na back to 130 * K+ 5.6 today. Added Lokelma once (7) Anorexia: Code(s): R63.0 - Anorexia Status: Acute Assessment and Plan: see above (8) Concern about end of life: Code(s): Z71.1 - Person with feared health complaint in whom no diagnosis is made Status: Acute Assessment and Plan: Worsening mass left lung upper lobe with biopsy-proven poorly differentiated squamous cell carcinoma. PET scan shows worsening left neck lymphadenopathy with continuous involved the left thyroid lobe seen on PET scan from 12/21/23. * Dr Freed consulted and saw patient here * hospice vs treatment * Patient's son, Stephen is her emergency contact and decision maker * Will need to address code status 12/21: * Patient wishes to be a DNR. Case discussed with her son, Stephen who is a greeable to this. * Code status changed * Likely will be going hospice. 12/22: * Patient's son is consulting [facility] for hospice (9) Type 2 diabetes mellitus with hyperglycemia, without long-term current use of insulin: Code(s): E11.65 - Type 2 diabetes mellitus with hyperglycemia Status: Acute Assessment and Plan: Hemoglobin 5.6% * Accu check ac/hs * SSI low dose Plan Feeding:DM diet with glucerna Analgesia: tylenol Thromboembolic prophylaxis: scd, eliquis on hold due to hematuria Ulcer prophylaxis: PPI Glycemic control: SSI, achs accu check Bowel regimen: prn miralax Lines: PIV Antibiotics: meropenem Disposition: [facility] with possible hospice consult DS: Summary Hospital Course Reason for hospitalization: pyelonephritis Hospital Course: 73-year-old female with a past medical history of dementia, 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 12/20:? Patient is seen at the bedside with her son Stephen present.? Patient states she is here for left neck swelling.? She recently had her PET scan completed yesterday.? She is supposed to be seen with heme/onc tomorrow.? I spoke with Dr Freed who will see her today while inpatient. I discussed with her and her son, treatment of her pyelonephritis and UTI. Questions surrounding this illness discussed. Deferred discussion surrounding her cancer to oncology. 12/21: Patient is resting in bed in no acute distress. She denies pain at this time. Her urine is clearing up and is more malu in color rather than red as seen yesterday. A avendano catheter remains in place. I called and discuss code status with the patient's son who is agreeable with his mother's wish to be a DNR. He is calling her now to discuss hospice. If he is sure that she is okay with this then will proceed with hospice consult today. 12/22:? Patient doing well today.? Start her on some IV fluids for creatinine bump.? She is going to go home with hospice with [facility]. Status at Discharge Cognitive/behavioral status at discharge: A&Ox3-4 Time Spent with Patient Time attestation: Total time spent providing and/or coordinating discharge services:65 Exam Narrative: General: frail, thin, appears stated age. HEENT: normocephalic, atraumatic. Mucous membranes moist. EOMI, PERRLA, bilateral sclera anicteric, no conjunctival injection. Neck supple without JVD. Swelling to left anterior neck with palpable, irregular nodularities. Slight right facial droop./ Respiratory: clear to auscultation bilaterally. No rales/rhonic/wheezes. Cardiovascular: Regular rate and rhythm, normal S1-S2 upon auscultation. No murmurs, rubs, or clicks. PMI is nondisplaced, capillary refill less than 3 second. Abdomen: Soft, round, no pulsatile masses, nondistended and nontender. No rebound, no guarding. No CVA tenderness, no hepatosplenomegaly. Bowel sounds present to all four quadrants. No high pitch or tinkling sounds, resonant to percussion. G tube present. Extremities: No cyanosis, clubbing, or edema present. Pulses are palpable 2/2. Flaccid right arm, right AKA with full movement. Muscle wasting present. Neuro: Alert and orientated x 3-4. PERRLA. Cranial nerves 2-12 intact without focal deficit. Skin: Warm, dry, and intact, without rash, erythema, or lesion. Long Neck healing skin tear to left upper arm. Lines: PIV Incisions: NA Psych: pleasant, cooperative, normal speech, normal affect, no hallucinations, no dysarthria, confused at times DS: Data Data Completed and Pending Labs on day of discharge: Labs from last 24 hours 12/23/23 12/23/23 12/23/23 12:02 08:37 08:03 WBC RBC Hgb Hct MCV MCH MCHC RDW Plt Count MPV Immature Gran % (Auto) Neut % (Auto) Lymph % (Auto) [place] % (Auto) Eos % (Auto) Baso % (Auto) Lymph # (Auto) [place] # (Auto) Eos # (Auto) Baso # (Auto) Abs Immat Gran (auto) Absolute Neuts (auto) Absolute Nucleated RBC Nucleated RBC % Sodium Potassium Chloride Carbon Dioxide Anion Gap BUN Creatinine Estim Creat Clear Calc Estimated GFR Glucose POC Capillary Glucose 135 H 105 Calcium Magnesium Total Bilirubin AST ALT Alkaline Phosphatase Total Protein Albumin Urine Osmolality Pending Ur Random Sodium 75 Urine Creatinine 8.9 12/23/23 12/23/23 12/22/23 06:10 06:09 20:17 WBC 6.8 RBC 3.91 L Hgb 11.9 L Hct 37.5 MCV 95.9 MCH 30.4 MCHC 31.7 L RDW 15.1 H Plt Count 212 MPV 9.2 Immature Gran % (Auto) 1.0 H Neut % (Auto) 50.7 Lymph % (Auto) 20.5 [place] % (Auto) 27.4 H Eos % (Auto) 0.3 Baso % (Auto) 0.1 L Lymph # (Auto) 1.40 [place] # (Auto) 1.9 H Eos # (Auto) 0.0 Baso # (Auto) 0.0 Abs Immat Gran (auto) 0.07 H Absolute Neuts (auto) 3.5 Absolute Nucleated RBC 0.000 Nucleated RBC % 0.0 Sodium 130 L Potassium 5.6 H Chloride 103 Carbon Dioxide 24 Anion Gap 3 L BUN 41 H Creatinine 1.30 H Estim Creat Clear Calc 26 Estimated GFR 49 L Glucose 119 H POC Capillary Glucose 167 H Calcium 8.4 Magnesium 1.7 Total Bilirubin 0.5 AST 38 H ALT 14 Alkaline Phosphatase 131 H Total Protein 7.0 Albumin 2.9 L Urine Osmolality Ur Random Sodium Urine Creatinine 12/22/23 16:58 WBC RBC Hgb Hct MCV MCH MCHC RDW Plt Count MPV Immature Gran % (Auto) Neut % (Auto) Lymph % (Auto) [place] % (Auto) Eos % (Auto) Baso % (Auto) Lymph # (Auto) [place] # (Auto) Eos # (Auto) Baso # (Auto) Abs Immat Gran (auto) Absolute Neuts (auto) Absolute Nucleated RBC Nucleated RBC % Sodium Potassium Chloride Carbon Dioxide Anion Gap BUN Creatinine Estim Creat Clear Calc Estimated GFR Glucose POC Capillary Glucose 93 Calcium Magnesium Total Bilirubin AST ALT Alkaline Phosphatase Total Protein Albumin Urine Osmolality Ur Random Sodium Urine Creatinine Preliminary micro results at discharge 12/20/23 20:45 Blood Culture - Preliminary Blood 12/20/23 20:45 Blood Culture - Preliminary Blood Discharge Plan Discharge Attending physician on discharge: Robles Francis Consulting providers: Lolis Jones; Silvestre Freed Discharging Clinician: Jessa Bass Anticipated Discharge Date/Time: 12/23/23 14:05 Patient Disposition: SNF Activity: november shower Diet: regular Discharge Instructions: You were admitted and found to have a UTI and pyelonephritis. We have started you on ertapenem 1 gram daily IVP. You will take this daily with your last dose being on 12/27/23. You can continue with your avendano catheter for comfort. You have asked to go with hospice consult with [facility]. Please discontinue midline access after completion of IV antibiotics on 12/27/23. Patient Instructions: Antibiotic Form, Apixaban (By mouth), Heart Failure (DC) Stand Alone Forms: General Discharge Information, Senior Care Discharge Follow-up/Referrals: Jose Rosenbaum MD [Primary Care Provider] - Discharge Medications: New ertapenem 1 gram recon soln 1 g IM Q24H Qty: 4 0RF Continued ferrous sulfate 325 mg (65 mg iron) Tablet,Delayed Release (Dr/Ec) 325 mg PO BID Qty: 60 0RF miconazole nitrate 2 % cream 1 applic topical BID Qty: 14 0RF Rx Instructions: to vaginal area until 12/23 2100 Lokelma 5 gram powder in packet 5 g PO DAILY Qty: 11 0RF pantoprazole [Protonix] 40 mg tablet,delayed release (DR/EC) 40 mg PO QAM Qty: 30 0RF atorvastatin 80 mg tablet 80 mg PO DAILY clonidine HCl 0.2 mg tablet 0.1 mg PO DAILY Eliquis 2.5 mg tablet 2.5 mg PO BID hydralazine 100 mg tablet 100 mg PO TID Adults Multivitamin 18 mg iron-400 mcg-25 mcg Tablet 1 tablet PO DAILY zinc oxide 40 % topical Q8H PRN (Reason: Wound Care) Rx Instructions: as needed on buttocks for preventative acetaminophen 325 mg Tablet 650 mg PO Q4H PRN (Reason: Pain) loperamide [Anti-Diarrheal (loperamide)] 2 mg Capsule 2 mg PO Q6H PRN (Reason: Diarrhea) Hold Instructions: Restart as appropriate after being seen by primary care provider folic acid 1 mg Tablet 1 mg PO DAILY guaifenesin 600 mg Tablet Extended Release 12hr 600 mg PO Q12H Arginaid 4.5 gram-156 mg/9.2 gram Powder In Packet 4.5 g PO DAILY glucagon HCl [Glucagon (HCl) Emergency Kit] 1 mg Recon Soln 1 mg IM ONCE PRN (Reason: Hypoglycemia) Rx Instructions: Give as needed for a blood sugar below 50. May repeat x1 if BS remains below 80 in 30 minutes amlodipine 10 mg tablet 10 mg PO DAILY dronabinol 2.5 mg Capsule 2.5 mg PO BID Rx Instructions: administer before lunch and evening meal/dinner magnesium hydroxide [Milk of Magnesia] 400 mg/5 mL Suspension 30 ml PO HS PRN (Reason: Constipation) Rx Instructions: if no BM x3days oxyquinoline-boric acid 0.025 % Gel 1 ea VAGINAL HS Date of admission: 12/21/23 08:34 Primary Care Provider: Jose Rosenbaum Admitting Provider: Deb Bowling Attending physician on admission: Deb Bowling Condition: Stable
[2023-12-23 14:54] VITALS: BP 137/56; PULSE 92; RESP 18; TEMP 36.4; O2SAT 100
[2023-12-23 15:52] LABS: SARS-CoV-2 RNA PCR Negative (Negative)
[2023-12-23 17:01] LABS: Glucose Point of Care 113 mg/dl (65-105)
[2023-12-26 15:33] LABS: Osmolality, Urine 261 mOsm/kg (50-1200)
== END 2023-12-23 17:51 | disposition home or self-care (01) | DRG 689 ==
LOC: ANHED 20:54 → ANH3MED 21:26
PROVIDERS: Admitting Provider Internal Medicine; Emergency Provider Physician Assistant; PCP Family Medicine; Visit Provider Nurse Practitioner Acute Care
DX: N39.0 Urinary tract infection, site not specified (principal); E43 Unspecified severe protein-calorie malnutrition; C34.12 Malignant neoplasm of upper lobe, left bronchus or lung; C77.0 Secondary and unspecified malignant neoplasm of lymph nodes of head, face and neck; C78.1 Secondary malignant neoplasm of mediastinum; I13.0 Hypertensive heart and chronic kidney disease with heart failure and stage 1 through stage 4 chronic kidney disease, or unspecified chronic kidney disease; I69.351 Hemiplegia and hemiparesis following cerebral infarction affecting right dominant side; Z68.1 Body mass index [BMI] 19.9 or less, adult; N18.32 Chronic kidney disease, stage 3b; E11.51 Type 2 diabetes mellitus with diabetic peripheral angiopathy without gangrene; E11.22 Type 2 diabetes mellitus with diabetic chronic kidney disease; E04.9 Nontoxic goiter, unspecified; I48.0 Paroxysmal atrial fibrillation; K21.9 Gastro-esophageal reflux disease without esophagitis; I50.9 Heart failure, unspecified; R13.10 Dysphagia, unspecified; G30.9 Alzheimer's disease, unspecified; F02.80 Dementia in other diseases classified elsewhere, unspecified severity, without behavioral disturbance, psychotic disturbance, mood disturbance, and anxiety; F32.9 Major depressive disorder, single episode, unspecified; F17.210 Nicotine dependence, cigarettes, uncomplicated; Z20.822 Contact with and (suspected) exposure to COVID-19; Z51.5 Encounter for palliative care; Z79.01 Long term (current) use of anticoagulants; Z89.611 Acquired absence of right leg above knee; Z87.11 Personal history of peptic ulcer disease
CPT/HCPCS: 36415; 36569; 70491; 71260; 74177; 80053; 81001; 82550; 82570; 82948; 83605; 83735; 83935; 84300; 84443; 85025; 85610; 85730; 86308; 87040; 87086; 87635; 87636; 87651; 93005; 96365; 99285; A9270; G0378; J2185; J2543; J7030; Q9967

== ENCOUNTER 2024-01-11 12:12 | Day surgery (SDC) | payer MEDICARE, SELFPAY ==
[2024-01-11 12:15] VITALS: BP 133/79; PULSE 98; RESP 16; TEMP 37.1; O2SAT 98
--- NOTE | 2024-01-11 13:13 | ED.GENADULT ---
HPI - General Adult General Chief complaint: Recheck/Abnormal Lab/Rx Stated complaint: leaking g-tube Time Seen by Provider: 01/11/24 12:28 History of Present Illness HPI narrative: Patient is a 73-year-old female who presents ER with issues with her G-tube. She had it placed last month by Dr. Marcial sutton. She accidentally pulled on it a couple days ago and has been having pain at her G-tube site. They have noticed that is started leaking as well. No fevers or chills. No purulent drainage. Related Data Home Medications Medication Instructions Recorded Confirmed acetaminophen 325 mg tablet 650 mg PO Q4H PRN Pain 08/16/23 12/20/23 amlodipine 10 mg tablet 10 mg PO DAILY 08/16/23 12/20/23 apixaban 2.5 mg tablet (Eliquis) 2.5 mg PO BID 08/16/23 12/20/23 arginine-vitamin C-vitamin E oral 4.5 g PO DAILY 08/16/23 12/20/23 4.5 gram-156 mg/9.2 gram powder pkt (Arginaid) atorvastatin 80 mg tablet 80 mg PO DAILY 08/16/23 12/20/23 clonidine HCl 0.2 mg tablet 0.1 mg PO DAILY 08/16/23 12/20/23 folic acid 1 mg tablet 1 mg PO DAILY 08/16/23 12/20/23 glucagon HCl 1 mg solution for 1 mg IM ONCE PRN Hypoglycemia 08/16/23 12/20/23 injection (Glucagon (HCl) Emergency Kit) guaifenesin 600 mg tablet, 600 mg PO Q12H 08/16/23 12/20/23 extended release 12 hr hydralazine 100 mg tablet 100 mg PO TID 08/16/23 12/20/23 loperamide 2 mg capsule 2 mg PO Q6H PRN Diarrhea 08/16/23 12/20/23 (Anti-Diarrheal (loperamide)) multivit with minerals-iron 18 1 tablet PO DAILY 08/16/23 12/20/23 mg-folic ac 400 mcg-vit K 25 mcg tablet (Adults Multivitamin) zinc oxide 40 % topical Q8H PRN Wound Care 08/16/23 12/20/23 dronabinol 2.5 mg capsule 2.5 mg PO BID 12/20/23 12/20/23 magnesium hydroxide 400 mg/5 mL 30 ml PO HS PRN Constipation 12/20/23 12/20/23 oral suspension (Milk of Magnesia) oxyquinoline-boric acid 0.025 % 1 ea vaginal HS 12/21/23 12/21/23 vaginal gel Allergies Allergy/AdvReac Type Severity Reaction Status Date / Time strawberry Allergy Unknown Verified 01/11/24 15:12 Review of Systems Review of Systems: ROS unobtainable: Yes unobtainable due to mental status PMFSH Past Medical History Medical History Alzheimer disease Anemia Anorexia CHF (congestive heart failure) Continuous tobacco abuse COVID-19 CVA (cerebral vascular accident) Duodenal ulcer Dysphagia Gastritis GERD (gastroesophageal reflux disease) Hemiplegia affecting right dominant side Major depressive disorder Malnutrition Multinodular goiter PVD (peripheral vascular disease) Squamous cell carcinoma of left lung Poorly differentiated with metastases to mediastinum, thyroid and cervical lymph nodes Stage 3b chronic kidney disease Type 2 diabetes mellitus Surgical History Surgical History Hx of AKA (above knee amputation) Family History Family History Other Unknown family medical history Social History Social History Social History: Patient currently resides at a [facility]. She smoked 1-2 packs of cigarettes per day since she was a teenager in continues to smoke now. She denies heavy alcohol use history. She raised 3 children. She states that she was twice but both and outlived both of them. Code status: Full code Smoking packs per day: 2 Smoking cigarettes per day: 40.0 Years smoked: 63 Smoking pack-years: 126.00 Smoking status: Current some day smoker Tobacco type: cigarettes Second hand tobacco smoke exposure: Yes Alcohol intake: former Substance use: never Substance use type: does not use Do You Feel Safe in your Home?: Yes Lack of Transportation: No Lack of Food: Never True Current Housing: I Have Housing Concerned About Future Housing:
[2024-01-11 13:49] VITALS: BP 148/62; PULSE 99; RESP 19; TEMP 37.1; O2SAT 99
--- NOTE | 2024-01-11 14:31 | PC.NURSE ---
This RN called [facility] and gave nurse to nurse report to Ernesto regarding POC and pt to OR for GI consult.
[2024-01-11 15:18] VITALS: BP 160/49; PULSE 94; RESP 16; TEMP 36.6; O2SAT 98
--- NOTE | 2024-01-11 15:18 | WPDANESEPPF ---
Anes - Initial Pre Proc Eval Procedure: Operation Date: 01/11/24 16:30 Proposed Procedures p Esophagogastroduodenoscopy, - Galo Atkinson MD s Possible Percutaneous Endoscopic Gastrostomy - Galo Atkinson MD Date/Time: 01/11/24 15:18 Surgeon: Galo Atkinson MD Pre Op Diagnosis: leaking g-tube Patient Data Age: 73 Gender: F Height: 1.73 m Weight: 49.8 kg Last Vital Signs Temp 98.8 F 01/11/24 13:49 Pulse 99 01/11/24 13:49 Resp 19 01/11/24 13:49 BP 148/62 H 01/11/24 13:49 Pulse Ox 99 01/11/24 13:49 O2 Del Method Room Air 01/11/24 12:15 Allergies Allergy/AdvReac Type Severity Reaction Status Date / Time strawberry Allergy Unknown Verified 01/11/24 15:12 Home Medications Medication Instructions Recorded Confirmed Type acetaminophen 325 mg tablet 650 mg PO Q4H PRN Pain 08/16/23 12/20/23 History amlodipine 10 mg tablet 10 mg PO DAILY 08/16/23 12/20/23 History apixaban 2.5 mg tablet (Eliquis) 2.5 mg PO BID 08/16/23 12/20/23 History arginine-vitamin C-vitamin E oral 4.5 g PO DAILY 08/16/23 12/20/23 History 4.5 gram-156 mg/9.2 gram powder pkt (Arginaid) atorvastatin 80 mg tablet 80 mg PO DAILY 08/16/23 12/20/23 History clonidine HCl 0.2 mg tablet 0.1 mg PO DAILY 08/16/23 12/20/23 History folic acid 1 mg tablet 1 mg PO DAILY 08/16/23 12/20/23 History glucagon HCl 1 mg solution for 1 mg IM ONCE PRN Hypoglycemia 08/16/23 12/20/23 History injection (Glucagon (HCl) Emergency Kit) guaifenesin 600 mg tablet, 600 mg PO Q12H 08/16/23 12/20/23 History extended release 12 hr hydralazine 100 mg tablet 100 mg PO TID 08/16/23 12/20/23 History loperamide 2 mg capsule 2 mg PO Q6H PRN Diarrhea 08/16/23 12/20/23 History (Anti-Diarrheal (loperamide)) multivit with minerals-iron 18 1 tablet PO DAILY 08/16/23 12/20/23 History mg-folic ac 400 mcg-vit K 25 mcg tablet (Adults Multivitamin) zinc oxide 40 % topical Q8H PRN Wound Care 08/16/23 12/20/23 History ferrous sulfate 325 mg (65 mg 325 mg PO BID #60 tabs 12/10/23 12/20/23 Rx iron) tablet,delayed release miconazole nitrate 2 % topical 1 applic topical BID #14 grams 12/10/23 12/20/23 Rx cream pantoprazole 40 mg tablet,delayed 40 mg PO QAM #30 tabs 12/10/23 12/20/23 Rx release (Protonix) sodium zirconium cyclosilicate 5 5 g PO DAILY #11 ea 12/10/23 12/20/23 Rx gram oral powder packet (Lokelma) dronabinol 2.5 mg capsule 2.5 mg PO BID 12/20/23 12/20/23 History magnesium hydroxide 400 mg/5 mL 30 ml PO HS PRN Constipation 12/20/23 12/20/23 History oral suspension (Milk of Magnesia) oxyquinoline-boric acid 0.025 % 1 ea vaginal HS 12/21/23 12/21/23 History vaginal gel ertapenem 1 gram solution for 1 g IM Q24H pyelonephritis #4 ea 12/23/23 Rx injection Patient hx anesthesia problems: none Family hx anesthesia problems: none Results Review: All pre-operative results and documents have been reviewed as part of the pre-operative evaluation. [facility] Past Medical History Medical History Alzheimer disease Anemia Anorexia CHF (congestive heart failure) Continuous tobacco abuse COVID-19 CVA (cerebral vascular accident) Duodenal ulcer Dysphagia Gastritis GERD (gastroesophageal reflux disease) Hemiplegia affecting right dominant side Major depressive disorder Malnutrition Multinodular goiter PVD (peripheral vascular disease) Squamous cell carcinoma of left lung Poorly differentiated with metastases to mediastinum, thyroid and cervical lymph nodes Stage 3b chronic kidney disease Type 2 diabetes mellitus Surgical History Surgical History Hx of AKA (above knee amputation) Family History Family History Other Unknown family medical history Social History Social History (Reviewed
--- NOTE | 2024-01-11 15:31 | PM.HPGS ---
History of Present Illness History of Present Illness Consent: Risks, benefits, and alternatives have been discussed and questions answered. Patient agrees to proceed with procedure. Chief complaint: leaking g-tube Narrative: Justine Ruiz is a 73 year old female here for malfunctioning g-tube, [place] staff report that patient pulled PEG tube which is still in place but since noted that site is tender and leaking around site. Review of Systems Review of Systems: All systems reviewed & are unremarkable except as noted in HPI and below PMFSH Past Medical History Medical History Alzheimer disease Anemia Anorexia CHF (congestive heart failure) Continuous tobacco abuse COVID-19 CVA (cerebral vascular accident) Duodenal ulcer Dysphagia Gastritis GERD (gastroesophageal reflux disease) Hemiplegia affecting right dominant side Major depressive disorder Malnutrition Multinodular goiter PVD (peripheral vascular disease) Squamous cell carcinoma of left lung Poorly differentiated with metastases to mediastinum, thyroid and cervical lymph nodes Stage 3b chronic kidney disease Type 2 diabetes mellitus Surgical History Surgical History Hx of AKA (above knee amputation) Family History Family History Other Unknown family medical history Social History Social History Social History: Patient currently resides at a long-term. She smoked 1-2 packs of cigarettes per day since she was a teenager in continues to smoke now. She denies heavy alcohol use history. She raised 3 children. She states that she was twice but both and outlived both of them. Code status: Full code Smoking packs per day: 2 Smoking cigarettes per day: 40.0 Years smoked: 63 Smoking pack-years: 126.00 Smoking status: Current some day smoker Tobacco type: cigarettes Second hand tobacco smoke exposure: Yes Alcohol intake: former Substance use: never Substance use type: does not use Do You Feel Safe in your Home?: Yes Lack of Transportation: No Lack of Food: Never True Current Housing: I Have Housing Concerned About Future Housing: No Difficulty Paying Gas/Electric Bills: No Difficulty Paying for Meds: No Currently Unemployed: No Education: Decline to Answer Difficulty w/ Childcare or Family Care: No Spiritual care concerns: No Meds Home Medications and Allergies Home Medications Medication Instructions Recorded Confirmed Type acetaminophen 325 mg tablet 650 mg PO Q4H PRN Pain 08/16/23 12/20/23 History amlodipine 10 mg tablet 10 mg PO DAILY 08/16/23 12/20/23 History apixaban 2.5 mg tablet (Eliquis) 2.5 mg PO BID 08/16/23 12/20/23 History arginine-vitamin C-vitamin E oral 4.5 g PO DAILY 08/16/23 12/20/23 History 4.5 gram-156 mg/9.2 gram powder pkt (Arginaid) atorvastatin 80 mg tablet 80 mg PO DAILY 08/16/23 12/20/23 History clonidine HCl 0.2 mg tablet 0.1 mg PO DAILY 08/16/23 12/20/23 History folic acid 1 mg tablet 1 mg PO DAILY 08/16/23 12/20/23 History glucagon HCl 1 mg solution for 1 mg IM ONCE PRN Hypoglycemia 08/16/23 12/20/23 History injection (Glucagon (HCl) Emergency Kit) guaifenesin 600 mg tablet, 600 mg PO Q12H 08/16/23 12/20/23 History extended release 12 hr hydralazine 100 mg tablet 100 mg PO TID 08/16/23 12/20/23 History loperamide 2 mg capsule 2 mg PO Q6H PRN Diarrhea 08/16/23 12/20/23 History (Anti-Diarrheal (loperamide)) multivit with minerals-iron 18 1 tablet PO DAILY 08/16/23 12/20/23 History mg-folic ac 400 mcg-vit K 25 mcg tablet (Adults Multivitamin) zinc oxide 40 % topical Q8H PRN Wound Care 08/16/23 12/20/23 History ferrous sulfate 325 mg (65 mg 325 mg PO BID #60 tabs 12/10/23 12/20/23 Rx iron) table
[2024-01-11] MEDS: LACTATED RINGERS 1,000 ML 150 ML IV CONT (15:34)
--- NOTE | 2024-01-11 15:51 | SUR.OPER ---
Per Dr. Ceja place an order for one time dose of Ancef 1 gm.
[2024-01-11 15:57] VITALS: BP 115/51; PULSE 94; RESP 24; O2SAT 98
[2024-01-11 16:07] VITALS: BP 122/55; PULSE 94; RESP 20; O2SAT 97
[2024-01-11 16:17] VITALS: BP 136/55; PULSE 91; RESP 19; O2SAT 96
--- NOTE | 2024-01-11 16:42 | SUR.PHASEII ---
Patient discharged via ambulance. Report had been given to section leader and Trish RN at [facility] prior to patient discharge.
== END 2024-01-11 16:42 | disposition home or self-care (01) ==
LOC: ANHED 14:08 → ANHENDO 14:17
PROVIDERS: Emergency Provider Emergency Medicine; PCP Family Medicine; Visit Provider Internal Medicine Gastroenterology
PROC: 0DJ08ZZ Inspection of Upper Intestinal Tract, Via Natural or Artificial Opening Endoscopic (ICD-10-PCS; CPT 43235; principal; 2024-01-11 16:30)
PROC: 0DH63UZ Insertion of Feeding Device into Stomach, Percutaneous Approach (ICD-10-PCS; CPT 43246; 2024-01-11 16:30)
DX: K94.23 Gastrostomy malfunction (principal); Y83.3 Surgical operation with formation of external stoma as the cause of abnormal reaction of the patient, or of later complication, without mention of misadventure at the time of the procedure; Z79.01 Long term (current) use of anticoagulants; I50.9 Heart failure, unspecified; E11.22 Type 2 diabetes mellitus with diabetic chronic kidney disease; N18.32 Chronic kidney disease, stage 3b; G81.91 Hemiplegia, unspecified affecting right dominant side; G30.9 Alzheimer's disease, unspecified; F02.80 Dementia in other diseases classified elsewhere, unspecified severity, without behavioral disturbance, psychotic disturbance, mood disturbance, and anxiety; D64.9 Anemia, unspecified; Z86.73 Personal history of transient ischemic attack (TIA), and cerebral infarction without residual deficits; K21.9 Gastro-esophageal reflux disease without esophagitis; Z89.619 Acquired absence of unspecified leg above knee; E11.51 Type 2 diabetes mellitus with diabetic peripheral angiopathy without gangrene; E46 Unspecified protein-calorie malnutrition; Z68.1 Body mass index [BMI] 19.9 or less, adult; F32.9 Major depressive disorder, single episode, unspecified; F17.210 Nicotine dependence, cigarettes, uncomplicated
CPT/HCPCS: 43246; 99285; J2704; J7120